=== PATIENT | male | born 1940 | race Caucasian/White ===

== ENCOUNTER 2017-04-24 15:08 | Emergency (ER) | payer OTHER ==
[~2017-04-24] VITALS: Ht 182.9 cm; Wt 112.6 kg
[~2017-04-24 15:08] MED LIST: ISOS60TA25 PO; LISI5TAB PO
[2017-04-24 15:14] VITALS: TEMP 36.4; Ht 182.9 cm; Wt 112.6 kg
--- NOTE | 2017-04-24 16:34 | EMERGENCY ROOM VISIT NOTE ---
History Report prepared by Bryan: Roopa Contreras Under the Supervision of: Dr. Phu Bardales M.D. First contact with patient: 16:04 Chief Complaint: URINARY SYMPTOMS Stated Complaint: PASSING BLOOD CLOTS IN URINE Nursing Triage Summary: Patient ambulatory to triage with an upright and steady gait, states "I am passing blood in my urine. It started last night. I have no pain. I have clots coming out occassionally." Patient takes a low dose aspirin daily. History of Present Illness The patient is a 77 year old white male with a past medical history of DM2, HTN , HLD, hypothyroid and CAD who presents to the ED with a cc of intermittent hematuria beginning last night. The patient reports dark urine and passing numerous blood clots in his urine. Negative lightheadedness, dizziness, nausea, vomiting, abdominal pain, increased urinary frequency or urgency, dysuria, recent trauma or injury. He has never experienced symptoms like this before. He takes a daily baby aspirin and denies other blood thinners. Pt denies any personal history of kidney stones. Source of History: patient Onset: last night Position: abdomen Quality: other (hematuria) Timing: intermittent Modifying Factors (Worsening): urination Associated Symptoms: No nausea, No vomiting, No abdominal pain Note: Pt denies lightheadedness, dizziness, increased urinary frequency or urgency, dysuria, recent trauma or injury. Review of Systems See HPI for pertinent positives and negatives. A total of ten systems were reviewed and were otherwise negative. Past Medical & Surgical Medical Problems: (1) Diabetes (2) Heart disease (3) Hypertension Family History FH: cancer FH: diabetes mellitus FH: heart disease Social History Smoking Status: Never Smoker Marital Status: Housing Status: lives with significant other Occupation Status: employed Current/Historical Medications Scheduled Aspirin (Aspirin), 1 TAB PO DAILY Atorvastatin (Lipitor), 80 MG PO DAILY Cyanocobalamin (Vitamin B12), 1 TAB PO DAILY Folic Acid (Folvite), 1 MG PO DAILY Levothyroxine Sodium (Levothyroxine Sodium), 1 TAB PO DAILY Lisinopril (Zestril), 2.5 MG PO DAILY Metformin Hcl (Glucophage), 500 MG PO BID Metoprolol Tartrate (Lopressor), 50 MG PO BID Multiple Vitamins W/ Minerals (Centrum Silver Adult 50+), 1 TAB PO DAILY Omeprazole (Omeprazole), 1 TAB PO DAILY Scheduled PRN Furosemide (Lasix), 40 MG PO for swelling/edema Allergies Coded Allergies: Isopropyl Isostearate (Verified Allergy, Unknown, Headaches, 04/24/17) Physical Exam Vital Signs Date Time Temp Pulse Resp B/P (MAP) Pulse Ox O2 Delivery O2 Flow Rate FiO2 04/24/17 19:32 91 18 150/90 95 Room Air 04/24/17 18:05 92 18 168/103 97 Room Air 04/24/17 16:44 91 04/24/17 16:39 87 18 159/86 97 Room Air 04/24/17 15:14 36.4 85 20 162/88 96 Room Air Physical Exam GENERAL: Awake, alert, well-appearing, NAD HENT: Normocephalic, atraumatic. EYES: Normal conjunctiva. Sclera non-icteric. NECK: Supple. No nuchal rigidity. FROM. RESPIRATORY: CTAB, no rhonchi, wheezing, crackles CARDIAC: RRR, no MRG ABDOMEN: Soft, NTND, BS+, reducible umbilical hernia. : No testicular pain or swelling, no scrotal swelling, uncircumcised did not visualize the glans but no obvious blood coming from the penis. MSK: No chest wall TTP, midline sternotomy scar, no LE edema NEURO: GCS 15, CN 2-12 intact, moves all 4s on command SKIN: No rash or jaundice noted. Medical Decision & Procedures ER Provider Diagnostic Interpretation: Radiology results as stated below per my review and radiologist interpretation: (RENAL)RETROPERITON COMP HISTORY: Flank pain FLANK PAIN COMPARISON: None. FINDINGS: Right kidney: Maximum dimension 10.4 cm. No evidence for hydronephrosis. 3 mm nonobstructing cortical calcification. Normal corticomedullary differentiation and cortical thickness. Left kidney: Maximum dimension 10.7 cm. No evidence for hydronephrosis. 6 mm calcification lower pole left kidney. This is nonobstructing. Normal corticomedullary differentiation and cortical thickness. Bladder: No bladder wall thickening. The bilateral ureteral jets were identified. IMPRESSION: Bilateral nephrocalcinosis. No evidence for hydronephrosis or obstruction. The above report was generated using voice recognition software. It may contain grammatical, syntax or spelling errors. Electronically signed by: Pavan Richardson M.D. 04/24/2017 5:54 PM Dictated Date/Time: 04/24/2017 5:53 PM Laboratory Results 04/24/17 16:32 Red Blood Count 4.25, Mean Corpuscular Volume 92.7, Mean Corpuscular Hemoglobin 31.1, Mean Corpuscular Hemoglobin Concent 33.5, Mean Platelet Volume 10.7, Neutrophils (%) (Auto) 58.9, Lymphocytes (%) (Auto) 31.9, Monocytes (%) (Auto) 6.5, Eosinophils (%) (Auto) 2.2, Basophils (%) (Auto) 0.3, Neutrophils # (Auto) 5.74, Lymphocytes # (Auto) 3.11, Monocytes # (Auto) 0.63, Eosinophils # (Auto) 0.21, Basophils # (Auto) 0.03 04/24/17 16:32 Test 04/24/17 16:16 04/24/17 16:32 Urine Color ORANGE Urine Appearance TURBID (CLEAR) Urine pH 5.0 (4.5-7.5) Urine Specific [place] 1.021 (1.000-1.030) Urine Protein 1+ (NEG) Urine Glucose (UA) NEG (NEG) Urine Ketones NEG (NEG) Urine Occult Blood 3+ (NEG) Urine Nitrite NEG (NEG) Urine Bilirubin NEG (NEG) Urine Urobilinogen NEG (NEG) Urine Leukocyte Esterase MODERATE (NEG) Urine WBC (Auto) >30 /hpf (0-5) Urine RBC (Auto) >30 /hpf (0-4) Urine Hyaline Casts (Auto) 1-5 /lpf (0-5) Urine Epithelial Cells (Auto) >30 /lpf (0-5) Urine Bacteria (Auto) NEG (NEG) Urine Yeast (Auto) (NONE PRSENT) White Blood Count 9.74 K/uL (4.8-10.8) Red Blood Count 4.25 M/uL (4.7-6.1) Hemoglobin 13.2 g/dL (14.0-18.0) Hematocrit 39.4 % (42-52) Mean Corpuscular Volume 92.7 fL (80-100) Mean Corpuscular Hemoglobin 31.1 pg (25-34) Mean Corpuscular Hemoglobin Concent 33.5 g/dl (32-36) Platelet Count 170 K/uL (130-400) Mean Platelet Volume 10.7 fL (7.4-10.4) Neutrophils (%) (Auto) 58.9 % Lymphocytes (%) (Auto) 31.9 % Monocytes (%) (Auto) 6.5 % Eosinophils (%) (Auto) 2.2 % Basophils (%) (Auto) 0.3 % Neutrophils # (Auto) 5.74 K/uL (1.4-6.5) Lymphocytes # (Auto) 3.11 K/uL (1.2-3.4) Monocytes # (Auto) 0.63 K/uL (0.11-0.59) Eosinophils # (Auto) 0.21 K/uL (0-0.5) Basophils # (Auto) 0.03 K/uL (0-0.2) RDW Standard Deviation 47.2 fL (36.4-46.3) RDW Coefficient of Variation 13.9 % (11.5-14.5) Immature Granulocyte % (Auto) 0.2 % Immature Granulocyte # (Auto) 0.02 K/uL (0.00-0.02) Prothrombin Time 10.6 SECONDS (9.0-12.0) Prothromb Time International Ratio 1.0 (0.9-1.1) Activated Partial Thromboplast Time 21.3 SECONDS (21.0-31.0) Partial Thromboplastin Ratio 0.8 Anion Gap 6.0 mmol/L (3-11) Est Creatinine Clear Calc Drug Dose 53.4 ml/min Estimated GFR () 51.3 Estimated GFR (Non- 44.3 BUN/Creatinine Ratio 14.1 (10-20) Calcium Level 9.4 mg/dl (8.5-10.1) Total Bilirubin 0.4 mg/dl (0.2-1) Direct Bilirubin < 0.1 mg/dl (0-0.2) Aspartate Amino Transf (AST/SGOT) 19 U/L (15-37) Alanine Aminotransferase (ALT/SGPT) 21 U/L (12-78) Alkaline Phosphatase 128 U/L (45-117) Total Protein 7.9 gm/dl (6.4-8.2) Albumin 3.6 gm/dl (3.4-5.0) Laboratory results reviewed by me. ED Course 1604: The patient was evaluated in room C4. A complete history and physical exam was performed. 1821: I reassessed the patient at this time. He is feeling better and resting comfortably. I discussed the results and treatment plan with the patient. I answered all pertaining questions that he had. He expressed understanding and verbalized agreement. The patient will be discharged home. Medical Decision Differential diagnosis: Etiologies such as renal colic, appendicitis, diverticulitis, mesenteric ischemia, aortic pathology, infections, inflammatory bowel disease, PUD, biliary pathology, UTI, as well as others were entertained. The patient is a 77 year old white male with a past medical history of DM2, HTN , HLD, hypothyroid and CAD who presents to the ED with a cc of intermittent hematuria beginning last night. Patient was seen and evaluated the bedside. Patient does state that he takes an aspirin but no other anticoagulant medications. Patient states he does not take Plavix. Patient has noted some small clots in his urine. Patient denies any pain. On exam the patient is very well-appearing. Patient has no testicular or scrotal pain. Was unable to expose the glans over there is no overt bleeding coming from the penile area. The patient does have some CK D which is essentially at his baseline. Patient's other blood counts are fairly unremarkable. Platelet count normal. Patient's coagulation studies normal. Patient did have a ultrasound which did show some calcinosis but no evidence of hydronephrosis or obstruction. Patient's urinalysis did show blood however the patient did have some epithelial cells with is likely a contaminant as the patient's beginning beginning complaining of any low back pain, increased urinary frequency or dysuria. Also less likely to be kidney stone given the patient's pain was hematuria. I did discuss with the patient would benefit from following up with urology. I did speak with the supervisor case loading who helped arrange a follow-up appointment for the patient. Unfortunately the patient required a referral from his PCP so he was instructed follow-up with his PCP in order to obtain his follow-up appointment. Patient was deemed suitable for outpatient follow-up and treatment at this time. Patient was given strict follow -up, discharge, and return precautions. All questions were answered. Patient was deemed suitable for outpatient follow-up at this time. Patient agreed with the plan of care and was safely discharged home. The chart was completed utilizing [employer] voice recognition software. Grammatical errors, random word insertions, pronoun errors, and incomplete sentences are an occasional consequence of this system due to software limitations, ambient noise, and hardware issues. Any formal questions or concerns about the content, text, or information contained within the body of this dictation should be directly addressed to the physician for clarification. Medication Reconcilliation Current Medication List: was personally reviewed by me Blood Pressure Screening Patient's blood pressure: Elevated blood pressure Blood pressure disposition: Referred to PCP Impression Primary Impression: Hematuria Additional Impressions: CKD (chronic kidney disease) Anemia Nephrocalcinosis Scribe Attestation The scribe's documentation has been prepared under my direction and personally reviewed by me in its entirety. I confirm that the note above accurately reflects all work, treatment, procedures, and medical decision making performed by me. Departure Information Dispostion Home / Self-Care Referrals No Doctor, Assigned (PCP) Patient Instructions ED Hematuria, Hematuria Poss Causes, [facility] Additional Instructions Please return to the emergency department if you have worsening or recurrent symptoms not amenable to at-home treatment. Please call for a follow-up appointment with her primary care physician. Please take your medications as prescribed. If you have other concerns and/or complaints please feel free to also call your primary care physician's office or return the ED for further evaluation, management, and treatment. You were found to have an elevated blood pressure today (>120 sytolic or >90 diastolic). Per medicare guidelines, you need to follow up with this blood pressure screening with your Primary Care Physician (PCP). For a new PCP call [phone]. Please call your primary care physician tomorrow to arrange an appointment. You need to obtain a referral from her primary care physician in order to obtain a urology follow-up appointment. Please do this within the next 1-2 weeks. Take your medications as prescribed. If taking an antibiotic consider taking a probiotic and/or eating yogurt, but at the least, please take with food as it can cause upset stomach. If culture results are not available at discharge, if they are positive for concern of infection, you will be informed of the results as soon as they are available. If you were seen between 11pm and 7AM all radiology reads will be re-read by our in house staff. If any major discrepancies are discovered, you will be notified. You have been examined and treated today on an emergency basis only. This is not a substitute for, or an effort to provide, complete comprehensive medical care. It is impossible to recognize and treat all injuries or illnesses in a single emergency department visit. It is therefore important that you follow up closely with [facility], your PCP, and/or your specialist(s). Call as soon as possible for an appointment. Thank you for your time and consideration. I look forward to speaking with you again soon. Please don't hesitate to call us if you have any questions. Problem Qualifiers Primary Impression: Hematuria Hematuria type: asymptomatic microscopic Qualified Codes: R31.21 - Asymptomatic microscopic hematuria Additional Impressions: CKD (chronic kidney disease) Chronic kidney disease stage: stage 3 (moderate) Qualified Codes: N18.3 - Chronic kidney disease, stage 3 (moderate) Anemia Anemia type: unspecified type Qualified Codes: D64.9 - Anemia, unspecified
[2017-04-24 16:41] LABS: BASO % 0.3 %; BASO ABS # 0.03 K/uL (0-0.2); EOS % 2.2 %; EOS ABS # 0.21 K/uL (0-0.5); HEMATOCRIT 39.4 % (42-52); HEMOGLOBIN 13.2 g/dL (14.0-18.0); IG# 0.02 K/uL (0.00-0.02); LYMPH % 31.9 %; LYMPH ABS # 3.11 K/uL (1.2-3.4); MEAN CELL VOLUME 92.7 fL (80-100); MEAN CORPUSCULAR HEMOGLOBIN 31.1 pg (25-34); MEAN CORPUSCULAR HGB CONC 33.5 g/dl (32-36); MEAN PLATELET VOLUME 10.7 fL (7.4-10.4); MONO % 6.5 %; MONO ABS # 0.63 K/uL (0.11-0.59); NEUT % 58.9 %; NEUT ABS # 5.74 K/uL (1.4-6.5); PLATELET COUNT 170 K/uL (130-400); RED CELL DISTRIBUTION WIDTH CV 13.9 % (11.5-14.5); RED CELL DISTRIBUTION WIDTH SD 47.2 fL (36.4-46.3); WHITE BLOOD COUNT 9.74 K/uL (4.8-10.8)
[2017-04-24 16:53] LABS: PTT PATIENT 21.3 SECONDS (21.0-31.0)
[2017-04-24 16:58] LABS: ALBUMIN 3.6 gm/dl (3.4-5.0); ALT/SGPT 21 U/L (12-78); AST/SGOT 19 U/L (15-37); BLOOD UREA NITROGEN 21 mg/dl (7-18); CALCIUM 9.4 mg/dl (8.5-10.1); CARBON DIOXIDE 28 mmol/L (21-32); GLUCOSE 123 mg/dl (70-99); POTASSIUM 3.6 mmol/L (3.5-5.1); SODIUM 138 mmol/L (136-145)
[2017-04-24 17:01] LABS: ALKALINE PHOSPHATASE 128 U/L (45-117); TOTAL PROTEIN 7.9 gm/dl (6.4-8.2)
[2017-04-24] MEDS ORDERED: LISI-789 PO (17:13)
--- NOTE | 2017-04-24 17:55 | DIAGNOSTIC IMAGING REPORT ---
(RENAL)RETROPERITON COMP HISTORY: Flank pain FLANK PAIN COMPARISON: None. FINDINGS: Right kidney: Maximum dimension 10.4 cm. No evidence for hydronephrosis. 3 mm nonobstructing cortical calcification. Normal corticomedullary differentiation and cortical thickness. Left kidney: Maximum dimension 10.7 cm. No evidence for hydronephrosis. 6 mm calcification lower pole left kidney. This is nonobstructing. Normal corticomedullary differentiation and cortical thickness. Bladder: No bladder wall thickening. The bilateral ureteral jets were identified. IMPRESSION: Bilateral nephrocalcinosis. No evidence for hydronephrosis or obstruction. The above report was generated using voice recognition software. It may contain grammatical, syntax or spelling errors. Electronically signed by: Pavan Richardson M.D. 04/24/2017 5:54 PM Dictated Date/Time: 04/24/2017 5:53 PM
[2017-04-24] MEDS ORDERED: LEVO125T5 PO (18:26)
[2017-04-24] MEDS ORDERED: METO-551 PO (18:26)
[2017-04-24] MEDS ORDERED: MULT-845 PO (18:26)
[2017-04-24] MEDS ORDERED: FURO40TA3 PO (18:26)
[2017-04-24] MEDS ORDERED: ASPI1TAB83 PO (18:26)
[2017-04-24] MEDS ORDERED: OMEP20TA PO (18:26)
[2017-04-24] MEDS ORDERED: FOLI1TAB8 PO (18:26)
[2017-04-24] MEDS ORDERED: GLC/500 PO (18:26)
[2017-04-24] MEDS ORDERED: CYAN100020 PO (18:26)
[2017-04-24] MEDS ORDERED: ATOR-26 PO (18:26)
[2017-04-24 19:32] VITALS: BP 150/90; PULSE 91; O2SAT 95
== END 2017-04-24 19:35 | disposition home or self-care (01) ==
LOC: C.EDB 15:11 → C.EDC 19:35
DX: R10.9 Unspecified abdominal pain (principal); N20.0 Calculus of kidney; R31.9 Hematuria, unspecified; D64.9 Anemia, unspecified; N18.3 Chronic kidney disease, stage 3 (moderate); E83.59 Other disorders of calcium metabolism; N29 Other disorders of kidney and ureter in diseases classified elsewhere

== ENCOUNTER 2020-07-19 14:01 | Inpatient (IN) ==
[2020-07-19] MEDS ORDERED: dilTIAZem HCl 5 MG/ML 5 ML VIAL IV STA (14:43)
[2020-07-19] MEDS ORDERED: STAT IV Infusion **Titration per Protocol STA (14:43)
--- NOTE | 2020-07-19 14:49 | Emergency Department Note ---
Impression & Plan Atrial fibrillation with RVR, Pacemaker, Hypertension, Weak ED Provider Note NAME: ALMAS COHEN AGE: 80 SEX: M : 1940 ARRIVES VIA: Ambulance INFORMANT: Patient ED PROVIDER(S): Aguilar Guerrero DO CHIEF COMPLAINT: weak HPI: Patient is an 80-year-old male who presents to the ER for weakness. Patient notes that this been weak for about 2 weeks. He was treated for UTI as an outpatient on antibiotics and never felt any better. He denies any headache or change in vision. No chest pain or shortness of breath. No nausea, vomiting, or diarrhea. He notes he just feels weak throughout. He was brought in from PCPs office by EMS. He was found to be in a rapid atrial fib. He does have a history of heart disease, hypertension, diabetes and a pacemaker. He admits that about a month ago he fell and had a brain bleed. He is not taking blood thinners. ROS: See above HPI for pertinent positives & negatives. A total of 10 systems reviewed and were otherwise negative. PAST MEDICAL HISTORY:See Below PAST SURGICAL HISTORY:See Below FAMILY HISTORY:See Below SOCIAL HISTORY:See Below HOME MEDICATIONS:See Below ALLERGIES:See Below VITALS:See Below PHYSICAL EXAMINATION: GENERAL: Sitting up in bed, alert, well appearing, well nourished, no distress, non-toxic EYE EXAM: normal conjunctiva. PERRL and EOM's grossly intact. OROPHARYNX: no exudate, no erythema, lips, buccal mucosa, and tongue normal and mucous membranes are moist NECK: supple, no nuchal rigidity, no adenopathy, non-tender LUNGS: Clear to auscultation. Normal chest wall mechanics HEART: no murmurs, S1 normal and S2 normal ABDOMEN: abdomen soft, non-tender, normo-active bowel sounds, no masses, no rebound or guarding. UPPER EXTREMITIES: upper extremities are grossly normal. LOWER EXTREMITIES: No pitting edema. calfs are equal B/L NEURO EXAM: Normal sensorium, cranial nerves II-XII grossly intact, normal speech, no gross weakness of arms, no gross weakness of legs. MEDICAL DECISION MAKING: Patient is an 80-year-old male who presents the ER for weakness. IV was established blood work was obtained. Labs show no significant leukocytosis or anemia. Platelets are slightly low at 118. BMP with a creatinine 1.7 consistent with previous. Chloride slightly elevated. Bilirubin LFTs and troponin were negative. Lipase was negative. Covid was negative. Patient was given a Cardizem bolus and placed on a drip. EKG was consistent with A. fib and RVR. He was updated bedside. 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 Chest x-ray was unremarkable. Patient was discussed with hospitalist for further evaluation. Pacemaker was interrogated and does show that the battery will likely run out in the next several months. Triage Nursing notes reviewed. Limited review of prior medical records performed Vital Signs: reviewed and remarkable for tachy Differential diagnosis: Infection, dehydration, metabolic abnormality, hypo/hyperglycemia, electrolyte disturbance, anemia, hypoxia, cardiac sources, intracerebral event, toxicologic, neurologic, as well as other pathologies. ER treatment provided: See below Diagnostics interpreted by me: ECG: A. fib RVR rate of 113 Left axis PVCs Right bundle branch block QTC 485 Cardiac Monitoring: An order was placed for continuous cardiac monitoring. The monitor shows a rate of 121 with A. fib rhythm. Laboratory studies: As stated above and show below. Imaging studies: CT shows acute on chronic subdurals which are improving in size Portable AP upright 1 view the chest shows no focal infiltrate Consultation(s): [place] [facility] [place]: [place] Critical Care: I have personally spent 31 minutes of critical care time in the direct management of this patient. This includes bedside care, interpretation of diagnostic studies, and testing, discussion with consultants, patient, and family members, and other required patient management activities. This 31 minutes is in excess of all separately billable procedures. Past Med/Surg History Medical History (Updated 07/19/20 @ 17:30 by Aguilar Guerrero DO) Anemia CKD (chronic kidney disease) Diabetes Heart disease Hypertension Pacemaker Surgical History Hx of CABG Social History Smoking Status: Never smoker Hx Alcohol Use: No Preferred Language: Croatian marital status: current occupational status: retired Feels Safe at Home: Yes Allergies Allergies Allergy/AdvReac Type Severity Reaction Status Date / Time Isopropyl Isostearate Allergy Unknown Headaches Uncoded 07/19/20 16:05 Home Meds Home Medications Medication Instructions Recorded Confirmed atorvastatin 80 mg PO PM 12/01/18 07/19/20 cyanocobalamin (vitamin B-12) 500 mcg PO QAM 12/01/18 07/19/20 [Vitamin B-12] folic acid 1 mg PO QAM 12/01/18 07/19/20 furosemide 40 mg PO DAILY PRN 12/01/18 07/19/20 levothyroxine 125 mcg PO QAM 12/01/18 07/19/20 metoprolol tartrate 50 mg PO BID 12/01/18 07/19/20 omeprazole 20 mg PO QAM 12/01/18 07/19/20 Multiple Vitamin 1 tab PO DAILY 07/19/20 07/19/20 albuterol sulfate 2 puff INHALATION Q4H PRN 07/19/20 07/19/20 ammonium lactate 1 applic TOPICAL DAILY PRN 07/19/20 07/19/20 baclofen 10 mg PO BID PRN 07/19/20 07/19/20 cefdinir 300 mg PO BID 07/19/20 07/19/20 glipizide 10 mg PO DAILY 07/19/20 07/19/20 lisinopril 1.25 mg PO DAILY 07/19/20 07/19/20 magnesium hydroxide [Milk of 30 ml PO DAILY PRN 07/19/20 07/19/20 Magnesia] Results & Data (ED) Vital Signs Vital Signs - 24 hr 07/19/20 14:07 07/19/20 14:19 07/19/20 14:22 Temperature 36.7 C Temperature Source Oral Pulse Rate 97 H 109 H 104 H Pulse Rate from SpO2 Sensor 87 89 Pulse Rhythm Irregular Pulse Strength Normal Respiratory Rate 31 H 20 35 H Respiratory Effort / Characteristics Non-Labored Respiratory Depth Normal Respiratory Pattern Regular Blood Pressure 129/92 Blood Pressure Mean 104 Pulse Oximetry 97 97 97 Oxygen Delivery Method Room Air Sepsis New/Unexplained Change in Mental Status N/A Sepsis Action Taken by Nursing No Action Required 07/19/20 14:30 07/19/20 15:00 07/19/20 15:28 Temperature Temperature Source Pulse Rate 106 H 112 H 109 H Pulse Rate from SpO2 Sensor 82 84 Pulse Rhythm Pulse Strength Respiratory Rate 51 H 34 H 33 H Respiratory Effort / Characteristics Respiratory Depth Respiratory Pattern Blood Pressure 122/69 127/87 143/81 H Blood Pressure Mean 86 100 101 Pulse Oximetry 98 99 Oxygen Delivery Method Sepsis New/Unexplained Change in Mental Status Sepsis Action Taken by Nursing 07/19/20 15:30 07/19/20 15:31 07/19/20 15:45 Temperature Temperature Source Pulse Rate 105 H 95 H 100 H Pulse Rate from SpO2 Sensor 96 H 80 93 H Pulse Rhythm Pulse Strength Respiratory Rate 15 24 25 H Respiratory Effort / Characteristics Respiratory Depth Respiratory Pattern Blood Pressure 93/73 L 113/61 122/82 Blood Pressure Mean 79 78 95 Pulse Oximetry 95 97 97 Oxygen Delivery Method Sepsis New/Unexplained Change in Mental Status Sepsis Action Taken by Nursing 07/19/20 15:55 07/19/20 16:00 07/19/20 16:10 Temperature Temperature Source Pulse Rate 95 H 102 H 100 H Pulse Rate from SpO2 Sensor 85 93 H 101 H Pulse Rhythm Pulse Strength Respiratory Rate 24 15 23 Respiratory Effort / Characteristics Respiratory Depth Respiratory Pattern Blood Pressure 118/63 124/63 132/64 Blood Pressure Mean 81 83 86 Pulse Oximetry 97 97 90 Oxygen Delivery Method Sepsis New/Unexplained Change in Mental Status Sepsis Action Taken by Nursing 07/19/20 16:20 07/19/20 16:30 07/19/20 16:31 Temperature Temperature Source Pulse Rate 98 H 91 H 101 H Pulse Rate from SpO2 Sensor 91 H 95 H 90 Pulse Rhythm Pulse Strength Respiratory Rate 17 19 20 Respiratory Effort / Characteristics Respiratory Depth Respiratory Pattern Blood Pressure 116/81 116/78 Blood Pressure Mean 92 90 Pulse Oximetry 97 95 98 Oxygen Delivery Method Sepsis New/Unexplained Change in Mental Status Sepsis Action Taken by Nursing 07/19/20 16:40 07/19/20 16:50 07/19/20 17:00 Temperature Temperature Source Pulse Rate 120 H 110 H 106 H Pulse Rate from SpO2 Sensor 88 Pulse Rhythm Pulse Strength Respiratory Rate 22 24 16 Respiratory Effort / Characteristics Respiratory Depth Respiratory Pattern Blood Pressure 104/69 135/89 Blood Pressure Mean 80 104 Pulse Oximetry 97 Oxygen Delivery Method Sepsis New/Unexplained Change in Mental Status Sepsis Action Taken by Nursing 07/19/20 17:11 07/19/20 17:14 Temperature Temperature Source Pulse Rate 117 H Pulse Rate from SpO2 Sensor 115 H Pulse Rhythm Pulse Strength Respiratory Rate 22 Respiratory Effort / Characteristics Respiratory Depth Respiratory Pattern Blood Pressure 157/73 H Blood Pressure Mean 101 Pulse Oximetry 96 95 Oxygen Delivery Method Room Air Sepsis New/Unexplained Change in Mental Status Sepsis Action Taken by Nursing Laboratory Data Result diagrams: 07/19/20 14:50 07/19/20 14:50 Lab Results 07/19/20 07/19/20 07/19/20 Range/Units 14:50 14:50 16:11 WBC 7.08 (4.8-10.8) K/uL RBC 4.91 (4.7-6.1) M/uL Hgb 15.4 (14.0-18.0) g/dL Hct 45.1 (42-52) % MCV 91.9 (80-100) fL MCH 31.4 (25-34) pg MCHC 34.1 (32-36) g/dL RDW Std Deviation 50.9 H (36.4-46.3) fL RDW Coeff of Jaymie 15.1 H (11.5-14.5) % Plt Count 118 L (130-400) K/uL MPV 10.8 H (7.4-10.4) fL Immature Gran % (Auto) 1.8 % Neut % (Auto) 53.3 % Lymph % (Auto) 35.3 % [place] % (Auto) 9.2 % Eos % (Auto) 0.3 % Baso % (Auto) 0.1 % Neut # (Auto) 3.77 (1.4-6.5) K/uL Lymph # (Auto) 2.50 (1.2-3.4) K/uL [place] # (Auto) 0.65 H (0.11-0.59) K/uL Eos # (Auto) 0.02 (0-0.5) K/uL Baso # (Auto) 0.01 (0-0.2) K/uL Immature Gran # (Auto) 0.13 H (0.00-0.02) K/uL Sodium 139 (136-145) mmol/L Potassium 4.2 (3.5-5.1) mmol/L Chloride 109 H (98-107) mmol/L Carbon Dioxide 24 (21-32) mmol/L Anion Gap 6.0 (3-11) BUN 22 H (7-18) mg/dl Creatinine 1.70 H (0.6-1.4) mg/dl Est Cr Clr Drug Dosing 43.2 ml/min Est GFR ( Amer) 43.2 Est GFR (Non-Af Amer) 37.3 BUN/Creatinine Ratio 13.0 (10-20) Glucose 121 H (70-99) mg/dl Calcium 8.6 (8.5-10.1) mg/dl Total Bilirubin 0.6 (0.2-1) mg/dl AST 33 (15-37) U/L ALT 40 (12-78) U/L Alkaline Phosphatase 136 H (45-117) U/L Troponin I < 0.015 (0-0.045) ng/ml Total Protein 7.5 (6.4-8.2) gm/dl Albumin 2.5 L (3.4-5.0) gm/dl Globulin 5.0 H (2.5-4.0) gm/dl Albumin/Globulin Ratio 0.5 L (0.9-2) Lipase 151 (73-393) U/L COVID-19 Eval Order CovFluRsv at [facility] SARS-CoV-2 (PCR) (Negative) Influenza Type A (PCR) (Neg) Influenza Type B (PCR) (Neg) RSV (RT-PCR) (Neg) 07/19/20 Range/Units 16:11 WBC (4.8-10.8) K/uL RBC (4.7-6.1) M/uL Hgb (14.0-18.0) g/dL Hct (42-52) % MCV (80-100) fL MCH (25-34) pg MCHC (32-36) g/dL RDW Std Deviation (36.4-46.3) fL RDW Coeff of Jaymie (11.5-14.5) % Plt Count (130-400) K/uL MPV (7.4-10.4) fL Immature Gran % (Auto) % Neut % (Auto) % Lymph % (Auto) % [place] % (Auto) % Eos % (Auto) % Baso % (Auto) % Neut # (Auto) (1.4-6.5) K/uL Lymph # (Auto) (1.2-3.4) K/uL [place] # (Auto) (0.11-0.59) K/uL Eos # (Auto) (0-0.5) K/uL Baso # (Auto) (0-0.2) K/uL Immature Gran # (Auto) (0.00-0.02) K/uL Sodium (136-145) mmol/L Potassium (3.5-5.1) mmol/L Chloride (98-107) mmol/L Carbon Dioxide (21-32) mmol/L Anion Gap (3-11) BUN (7-18) mg/dl Creatinine (0.6-1.4) mg/dl Est Cr Clr Drug Dosing ml/min Est GFR ( Amer) Est GFR (Non-Af Amer) BUN/Creatinine Ratio (10-20) Glucose (70-99) mg/dl Calcium (8.5-10.1) mg/dl Total Bilirubin (0.2-1) mg/dl AST (15-37) U/L ALT (12-78) U/L Alkaline Phosphatase (45-117) U/L Troponin I (0-0.045) ng/ml Total Protein (6.4-8.2) gm/dl Albumin (3.4-5.0) gm/dl Globulin (2.5-4.0) gm/dl Albumin/Globulin Ratio (0.9-2) Lipase (73-393) U/L COVID-19 Eval Order SARS-CoV-2 (PCR) NEGATIVE (Negative) Influenza Type A (PCR) Negative (Neg) Influenza Type B (PCR) Negative (Neg) RSV (RT-PCR) Negative (Neg) Administered Medications Diltiazem HCl 125 mg/ Dextrose 125 mls @ 5 mls/hr IV .Q24H [facility]; Protocol Stop: 08/18/20 14:44 Last Titration: 07/19/20 15:58 Dose: 10 mg/hr, 10 mls/hr Documented by: [id number] Cosigned by: [id number] Admin: 07/19/20 15:29 Dose: 5 mg/hr, 5 mls/hr Documented by: [id number] Cosigned by: [id number] Discontinued Medications Diltiazem HCl (Diltiazem Hcl 5 Mg/Ml 5 Ml Vial) 10 mg IV NOW STA Stop: 07/19/20 14:44 Last Admin: 07/19/20 15:29 Dose: 10 mg Documented by: [id number] Cosigned by: [id number] Miscellaneous (Stat Iv Infusion Titration Per Protocol) 1 ea N/A NOW STA Stop: 07/19/20 14:44 Last Admin: 07/19/20 15:32 Dose: 1 ea Documented by: [id number] Imaging Data Radiologist's Impression: Chest X-Ray 07/19/20 14:19 SINGLE VIEW CHEST CLINICAL HISTORY: Atypical chest pain. FINDINGS: An AP, portable, upright chest radiograph is compared to study dated 06/13/2020. The examination is degraded by portable technique and patient rotat ion. The patient is status post midline sternotomy. A 2-lead cardiac pacemaker is unchanged in position. The heart is enlarged noting atherosclerotic calcification of the thoracic aorta. The pulmonary vasculature is noncongested. Chronic interstitial thickening is similar to previous. There is bibasilar scarring/atelectasis. No airspace consolidation or large pleural effusion is identified. No pneumothorax is seen. The skeletal structures are osteopenic. There are healed bilateral rib fractures. IMPRESSION: 1. Cardiomegaly and cardiac pacemaker. There is no radiographic evidence of congestive failure. 2. No airspace consolidation or large pleural effusion is identified. Electronically signed by: Davis Harrell M.D. 07/19/2020 2:[address] 07/19/20 14:[address] DOSE: 1768.17 mGy.cm HISTORY: previous brain bleed needing thinner s TECHNIQUE: Multiaxial CT images of the head were performed without the use of intravenous contrast. Automated exposure control was utilized for this study. A dose lowering technique was utilized adhering to the principles of ALARA. Comparison: Head CT 06/13/2020. Findings: The paranasal sinuses and mastoid air cells are clear. The calvarium and skull base are intact. Slight improvement in the acute on chronic bilateral subdural hematomas. Small acute components are again noted at the parafalcine location and right frontal region. 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 Mild atrophy and microvascular ischemic changes are again noted. No acute infarct or mass identified. No midline shift. Mass effect from the subdural hematomas has also improved. 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 Mild motion artifact. Impression: 1. 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 These have slightly decreased in size compared to 06/13/2020 examination. 2. No acute infarct. ACT 112: Negative or not required by law. Electronically signed by: Anjel Murdock M.D. 07/19/2020 3:38 PM Discharge Plan Visit Data Chief Complaint: Cardiac Assessment ED Provider: Aguilar Guerrero Discharge Problem: Atrial fibrillation with RVR, Pacemaker, Hypertension, Weak Forms Stand Alone Forms: [facility] Prescriptions Prescriptions: No Action furosemide 40 mg Tablet 40 mg PO DAILY PRN (Reason: Edema) RF: 0 atorvastatin 80 mg Tablet 80 mg PO PM RF: 0 cyanocobalamin (vitamin B-12) [Vitamin B-12] 500 mcg Tablet 500 mcg PO QAM RF: 0 levothyroxine 125 mcg Tablet 125 mcg PO QAM RF: 0 metoprolol tartrate 50 mg Tablet 50 mg PO BID RF: 0 omeprazole 20 mg Capsule,Delayed Release(Dr/Ec) 20 mg PO QAM RF: 0 folic acid 1 mg Tablet 1 mg PO QAM RF: 0 cefdinir 300 mg capsule 300 mg PO BID RF: 0 magnesium hydroxide [Milk of Magnesia] 400 mg/5 mL Suspension 30 ml PO DAILY PRN (Reason: Constipation) RF: 0 glipizide 10 mg tablet extended release 24hr 10 mg PO DAILY RF: 0 albuterol sulfate 90 mcg/actuation HFA aerosol inhaler 2 puff INHALATION Q4H PRN (Reason: Shortness Of Breath Or Wheezing) RF: 0 baclofen 10 mg tablet 10 mg PO BID PRN (Reason: Spasms) RF: 0 Multiple Vitamin 1 tab PO DAILY RF: 0 ammonium lactate 12 % Cream 1 applic TOPICAL DAILY PRN (Reason: Dry Skin) RF: 0 lisinopril 2.5 mg Tablet 1.25 mg PO DAILY RF: 0 Discharge Problem: Hypertension Qualifiers: Hypertension type: unspecified Qualified Code(s): I10 - Essential (primary) hypertension
--- NOTE | 2020-07-19 14:57 | XRay Report ---
SINGLE VIEW CHEST CLINICAL HISTORY: Atypical chest pain. FINDINGS: An AP, portable, upright chest radiograph is compared to study dated 06/13/2020. The examina tion is degraded by portable technique and patient rotation. The patient is status post midline ayoub otomy. A 2-lead cardiac pacemaker is unchanged in position. The heart is enlarged noting atherosclero tic calcification of the thoracic aorta. The pulmonary vasculature is noncongested. Chronic interstit ial thickening is similar to previous. There is bibasilar scarring/atelectasis. No airspace consolida tion or large pleural effusion is identified. No pneumothorax is seen. The skeletal structures are os teopenic. There are healed bilateral rib fractures. IMPRESSION: 1. Cardiomegaly and cardiac pacemaker. There is no radiographic evidence of congestive failure. 2. No airspace consolidation or large pleural effusion is identified. Electronically signed by: Davis Harrell M.D. 07/19/2020 2:56 PM
[2020-07-19 14:59] LABS: Basophils # (auto) 0.01 K/uL (0-0.2); Basophils % (auto) 0.1 %; Eosinophils # (auto) 0.02 K/uL (0-0.5); Eosinophils % (auto) 0.3 %; Hematocrit (blood only) 45.1 % (42-52); Hemoglobin 15.4 g/dL (14.0-18.0); Immature Granulocytes # (auto) 0.13 K/uL (0.00-0.02); Immature Granulocytes % (auto) 1.8 %; Lymphocytes % (auto) 35.3 %; Mean Corpuscular Hemoglobin 31.4 pg (25-34); Mean Corpuscular Hgb Conc 34.1 g/dL (32-36); Mean Corpuscular Volume 91.9 fL (80-100); Mean Platelet Volume 10.8 fL (7.4-10.4); Monocytes # (auto) 0.65 K/uL (0.11-0.59); Monocytes % (auto) 9.2 %; Neutrophils # (auto) 3.77 K/uL (1.4-6.5); Neutrophils % (auto) 53.3 %; Platelet Count 118 K/uL (130-400); RDW Coefficient of Variation 15.1 % (11.5-14.5); RDW Standard Deviation 50.9 fL (36.4-46.3); Red Blood Count 4.91 M/uL (4.7-6.1); White Blood Count 7.08 K/uL (4.8-10.8)
[2020-07-19 15:24] LABS: Alanine Aminotransferase 40 U/L (12-78); Albumin Level 2.5 gm/dl (3.4-5.0); Aspartate Aminotransferase 33 U/L (15-37); Blood Urea Nitrogen 22 mg/dl (7-18); Calcium 8.6 mg/dl (8.5-10.1); Carbon Dioxide 24 mmol/L (21-32); Chloride 109 mmol/L (98-107); Creatinine Clr Calc Pharmacy 43.2 ml/min; Est GFR (African American) 43.2; Est GFR (Non-African American) 37.3; Glucose 121 mg/dl (70-99); Lipase 151 U/L (73-393); Potassium 4.2 mmol/L (3.5-5.1); Sodium 139 mmol/L (136-145)
[2020-07-19 15:29] LABS: Albumin Globulin Ratio 0.5 (0.9-2); Alkaline Phosphatase 136 U/L (45-117); Bilirubin,Total 0.6 mg/dl (0.2-1); Total Protein 7.5 gm/dl (6.4-8.2); Troponin I < 0.015 ng/ml (0-0.045)
[2020-07-19] MEDS: dilTIAZem HCL 125 MG in DEXTROSE 5% 100 ML IV SCH (15:29)
--- NOTE | 2020-07-19 15:39 | CT Scan Report ---
HEAD CT NONCONTRAST CT DOSE: 1768.17 mGy.cm HISTORY: previous brain bleed needing thinner s TECHNIQUE: Multiaxial CT images of the head were performed without the use of intravenous contrast. A utomated exposure control was utilized for this study. A dose lowering technique was utilized adheri ng to the principles of ALARA. Comparison: Head CT 06/13/2020. Findings: The paranasal sinuses and mastoid air cells are clear. The calvarium and skull base are int act. Slight improvement in the acute on chronic bilateral subdural hematomas. Small acute components are again noted at the parafalcine location and right frontal region. Old small infarcts are again no alf within the right frontal and parietal lobes. Mild atrophy and microvascular ischemic changes are again noted. No acute infarct or mass identified. No midline shift. Mass effect from the subdural hem atomas has also improved. 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 Mild motion art ifact. Impression: 1. 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 These have slightly decreased in size compared to examination. 2. No acute infarct. ACT 112: Negative or not required by law. Electronically signed by: Anjel Murdock M.D. 07/19/2020 3:38 PM
--- NOTE | 2020-07-19 15:58 | History & Physical Report ---
Date of Service July 19, 2020 Assessment & Plan (1) Atrial fibrillation with RVR: - Admit to pcu -Continue on Cardizem drip started in the ER -metoprolol tartrate 25 mg now, continue home dose of 50 mg qm, missed morning meds -Hold on anticoagulation due to history of subdural hematoma -Consult cardiology, Dr. Wise (2) Sinoatrial node dysfunction: -History of such, s/p pacemaker insertion (3) Pacemaker: -Interrogate, patient reports that battery is low, ?battery exchange? (4) Subdural hematoma, chronic: -CT of the head reviewed showing acute on chronic subdural hematoma which appears to be decreasing in size compared to previous examination -Follows with Dr. Dyer with Neurosurg - discussed with him via [facility] connect, agrees to hold anticoagulation in this setting of worsening SDH. -Aspirin and Coumadin on hold since 06/13/20 -We will need to discuss with cardiology regarding resumption of anticoagulation. -Cardiology consulted as above (5) CAD (coronary artery disease): -Continue to hold baby aspirin and coumadin in the setting of subdural hematoma -Continue metoprolol, lisinopril, atorvastatin (6) Chronic systolic CHF (congestive heart failure): -Monitor daily weights, strict I's and O's -Appears to be euvolemic and even slightly dry at this time, no peripheral edema -Medications as above -Last echo was done 10/25/17 showing EF of 50-54% no active ischemia, septal motion abnormal consistent with right ventricular pacemaker, moderate tricuspid regurg (7) Hypertension: -Antihypertensives as above (8) HLD (hyperlipidemia): -Continue statin (9) Diabetes: -Hold p.o. glipizide, ISS with Accu-Cheks AC at bedtime -Last A1c was 6.8 on 06/15/2020 (10) DVT prophylaxis: - teds, no chemical prophylaxis in the setting of recent subdural hematoma, anticoagulation held as above CODE: Full code Dispo: From home, likely to remain in the hospital x 1-2 days History of Present Illness Primary Care Provider: Juanito Saba DO This is an 80 yo M with PMhx of chronic systolic heart failure, chronic atrial fib, HTN, HLD, CAD, sinoatrial node dysfunction s/p pacemaker insertion, DM type II, CKD stage III, lumbar DDD. Patient was recently hospitalized from 06/13 to 06/15/2020 after a fall at home striking the back of his head where he developed subdural hematoma at [facility]. He was previously on Coumadin for A. fib but was discontinued until he was cleared by neurosurgery follow-up. Was also recently seen by [facility] at home and started on cefdinir 300 mg twice daily x7 days for UTI with E. coli which was pansensitive on 07/09/20. Patient went to his PCPs office this morning with complaints of fatigue and weakness x2 weeks. There he was found to be in A. fib with RVR and was referred to the ER. Patient is present here with his . He denies any focal areas of weakness, falls, imbalance, changes in vision, lightheadedness or dizziness. He does report back of the neck causing tension and pain occasionally, and refers to this as a headache. He reports losing 30 pounds of weight in the past month. His appetite is slightly down. He also notes that this was likely a lot of fluid as his legs are typically very swollen however has not needed to use Lasix p.o. at all in the past 2 weeks. He denies any other acute complaints. Allergies Allergy/AdvReac Type Severity Reaction Status Date / Time Isopropyl Isostearate Allergy Unknown Headaches Uncoded 07/19/20 16:05 Home Medications Medication Instructions Recorded Confirmed Type atorvastatin 80 mg PO PM 12/01/18 07/19/20 History cyanocobalamin (vitamin B-12) 500 mcg PO QAM 12/01/18 07/19/20 History [Vitamin B-12] folic acid 1 mg PO QAM 12/01/18 07/19/20 History furosemide 40 mg PO DAILY PRN 12/01/18 07/19/20 History levothyroxine 125 mcg PO QAM 12/01/18 07/19/20 History metoprolol tartrate 50 mg PO BID 12/01/18 07/19/20 History omeprazole 20 mg PO QAM 12/01/18 07/19/20 History Multiple Vitamin 1 tab PO DAILY 07/19/20 07/19/20 History albuterol sulfate 2 puff INHALATION Q4H PRN 07/19/20 07/19/20 History ammonium lactate 1 applic TOPICAL DAILY PRN 07/19/20 07/19/20 History baclofen 10 mg PO BID PRN 07/19/20 07/19/20 History cefdinir 300 mg PO BID 07/19/20 07/19/20 History glipizide 10 mg PO DAILY 07/19/20 07/19/20 History lisinopril 2.5 mg PO DAILY 07/19/20 07/19/20 History magnesium hydroxide [Milk of 30 ml PO DAILY PRN 07/19/20 07/19/20 History Magnesia] Past Med/Surg History Medical History (Updated 07/19/20 @ 17:30 by Aguilar Guerrero DO) Anemia CKD (chronic kidney disease) Diabetes Heart disease Hypertension Pacemaker Surgical History Hx of CABG Social History Smoking Status: Never smoker Hx Alcohol Use: No Hx Substance Use: No Preferred Language: Hebrew 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 Beliefs That Will Affect Care: None marital status: Current Living Situation: Spouse current occupational status: retired Feels Safe at Home: Yes Review of Systems Review of Systems: Constitutional: No fever, sweats or chills, + tension headache posterior neck, + fatigue, + weakness Eyes: No diplopia, no worsening or blurred vision ENT: normal hearing, no trouble swallowing Respiratory: No cough, sputum, dyspnea at rest or on exertion Cardiovascular: No chest pain, tightness or palpitations Abdomen: No pain, nausea, vomiting, diarrhea or constipation Musculoskeletal: No joint pain, calf pain, swelling Neurologic: + generalized weakness, no numbness/tingling, or balance problems Psychiatric: No anxiety or depression Skin: No rash or itch Physical Exam Physical Exam: General: awake, alert, no apparent distress Head: Normocephalic, atraumatic ENT: PERRL, EOMI, no pharyngeal exudate, mucous membranes moist Chest: Clear to auscultation, on room air, no adventitious breath sounds Cardiac: Irregularly irregular,HR ~105 at bedside, no murmur, no JVD, normal peripheral pulses, good capillary refill Abdominal: NABS x 4 quadrants, soft, nondistended, nontender to palpation, no rebound or guarding Extremities: Normal inspection, +chronic venous stasis changes BLE, no peripheral edema or erythema, calfs nontender to palpation Psych: Normal mood and affect Neuro: AAO x 3, strength intact bilaterally and rated 5/5, no motor deficits, speech is clear, shoulder shrug intact, negative pronator drift, cranial nerves II-XII intact no peripheral sensory deficits Results & Data Results & Data ([facility]) Vital Signs (Past 12 Hours) Vital Signs Temp Pulse Resp BP Pulse Ox 07/19/20 15:00 112 H 34 H 127/87 98 07/19/20 14:30 106 H 51 H 122/69 07/19/20 14:22 104 H 35 H 97 07/19/20 14:19 36.7 C 109 H 20 97 07/19/20 14:07 97 H 31 H 129/92 97 Diagnostic Findings Chest X-Ray 07/19/20 14:19 SINGLE VIEW CHEST CLINICAL HISTORY: Atypical chest pain. FINDINGS: An AP, portable, upright chest radiograph is compared to study dated 06/13/2020. The examination is degraded by portable technique and patient rotation. The patient is status post midline sternotomy. A 2-lead cardiac pacemaker is unchanged in position. The heart is enlarged noting atherosclerotic calcification of the thoracic aorta. The pulmonary vasculature is noncongested. Chronic interstitial thickening is similar to previous. There is bibasilar scarring/atelectasis. No airspace consolidation or large pleural effusion is identified. No pneumothorax is seen. The skeletal structures are osteopenic. There are healed bilateral rib fractures. IMPRESSION: 1. Cardiomegaly and cardiac pacemaker. There is no radiographic evidence of congestive failure. 2. No airspace consolidation or large pleural effusion is identified. Electronically signed by: Davis Harrell M.D. 07/19/2020 2:[address] 07/19/20 14:[address] DOSE: 1768.17 mGy.cm HISTORY: previous brain bleed needing thinner s TECHNIQUE: Multiaxial CT images of the head were performed without the use of intravenous contrast. Automated exposure control was utilized for this study. A dose lowering technique was utilized adhering to the principles of ALARA. Comparison: Head CT 06/13/2020. Findings: The paranasal sinuses and mastoid air cells are clear. The calvarium and skull base are intact. Slight improvement in the acute on chronic bilateral subdural hematomas. Small acute components are again noted at the parafalcine location and right frontal region. 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 Mild atrophy and microvascular ischemic changes are again noted. No acute infarct or mass identified. No midline shift. Mass effect from the subdural hematomas has also improved. 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 Mild motion artifact. Impression: 1. 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 These have slightly decreased in size compared to 06/13/2020 examination. 2. No acute infarct. ACT 112: Negative or not required by law. Electronically signed by: Anjel Murdock M.D. 07/19/2020 3:38 PM ECG Additional Comments: Atrial fibrillation with rapid ventricular response with premature ventricular or aberrantly conducted complexes Left axis deviation Right bundle branch block Possible Lateral infarct (cited on or before 13-JUN-2020) Inferior infarct (cited on or before 13-JUN-2020) Abnormal ECG When compared with ECG of 13-JUN-2020 11:20, Atrial fibrillation has replaced Electronic atrial pacemaker Vent. rate has increased BY 49 BPM Right bundle branch block has replaced Non-specific intra-ventricular conduction block ... 25mm/s 10mm/mV 150Hz 9.0.9 12SL 241 ABIGAIL: 11 Unconfirmed Vent. rate 113 BPM KS interval * ms QRS duration 136 ms QT/QTc 354/485 ms Code Status & VTE Plan Code Status Full code -discussed with the patient and his Supervising Physician Co-Signing Physician Notes Attending Addendum: The patient was seen and examined in ER in presence of the . He has been complaining of generalized weakness since about the Intracranial hemorrhage No CP,Palpitation or more SOB Was noted to be in AF and was sent in from PCP's office On examination Lying in bed comfortably Blood pressure is noted to be lower side of normal Chestoccasional crackles at the bases HeartS1-S2 irregular Abdomenbenign Extremitiestrace edema bilaterally CNSalert, awake and oriented x3. Generally weak but no focal weakness His admission labs, EKG and imaging studies reviewed Has atrial fibrillation with RVR with history of CAD status post pacemaker placement and recent subdural hematoma Will not give any anticoagulation-discussed with the neurosurgery department in [place] Has been on Cardizem gavino Patient remains free of cardiac symptoms but has weakness Agree with assessment and plan as outlined above by Romeliababita King
[2020-07-19 17:06] LABS: Influenza A virus by PCR Negative (Neg); Influenza B virus by PCR Negative (Neg); RSV by PCR Negative (Neg); SARS CoV2 RNA(COVID-19) InHosp NEGATIVE (Negative)
[2020-07-19] MEDS ORDERED: METOPROLOL TARTRATE 50 MG TAB PO STA (17:20)
[2020-07-19] MEDS ORDERED: ACETAMINOPHEN 325 MG TAB PO PRN (18:50)
[2020-07-19] MEDS ORDERED: BACLOFEN 10 MG TAB PO PRN (18:50)
[2020-07-19] MEDS ORDERED: GLUCAGON FOR INJ 1 MG VIAL SQ PRN (18:50)
[2020-07-19] MEDS ORDERED: GLUCOSE 40% GEL 15 GM TUBE PO PRN (18:50)
[2020-07-19] MEDS ORDERED: MAGNESIUM HYDROXIDE SUSP 30 ML UDC PO PRN (18:50)
[2020-07-19] MEDS ORDERED: DEXTROSE 50% 50 ML SYRINGE IV PRN (18:50)
[2020-07-19] MEDS ORDERED: CARBOHYDRATES FOR HYPOGLYCEMIA PO PRN (18:50)
[2020-07-19] MEDS ORDERED: ONDANSETRON INJ 2 MG/ML 2 ML VIAL IV PRN (18:50)
[2020-07-19] MEDS ORDERED: GLUCOSE 10 TABS/TUBE PO PRN (18:50)
[2020-07-19] MEDS ORDERED: AMMONIUM LACTATE 12% LOTION 225 GM BTL EXT PRN (19:25)
[2020-07-19] MEDS: INSULIN ASPART 100 UNITS/ML 3 ML PEN SC SCH (20:59)
[2020-07-19] MEDS: CEFDINIR 300 MG CAP PO SCH (21:03)
[2020-07-19] MEDS: METOPROLOL TARTRATE 50 MG TAB PO SCH (21:03)
[2020-07-19] MEDS: ATORVASTATIN 40 MG TAB PO SCH (21:04)
[2020-07-19 22:58] LABS: Appearance Urine Clear (Clear); Bacteria Urine Automated Negative (Negative); Bilirubin Urine Negative (Negative); Blood Urine 2+ (Negative); Color Urine Dark Yellow; Epithelial Cell Urine Auto 20-30 /lpf (0-5); Glucose Urine UA Negative (Negative); Ketones Urine Trace (Negative); Leukocyte Esterase Urine Trace (Negative); Nitrite Urine Negative (Negative); Protein Urine Trace (Negative); Specific Gravity Urine 1.022 (1.000-1.030); Urobilinogen Urine Negative (Negative)
[2020-07-20] MEDS: dilTIAZem HCL 125 MG in DEXTROSE 5% 100 ML IV SCH (03:06)
[2020-07-20] MEDS: LEVOTHYROXINE SODIUM 125 MCG TABLET PO SCH (05:59)
[2020-07-20] MEDS: INSULIN ASPART 100 UNITS/ML 3 ML PEN SC SCH ×4 (07:55→20:46)
[2020-07-20] MEDS: FOLIC ACID 1 MG TAB PO SCH (07:59)
[2020-07-20] MEDS: METOPROLOL TARTRATE 50 MG TAB PO SCH ×2 (08:00→20:16)
[2020-07-20] MEDS: MULTIVITAMIN TAB PO SCH (08:00)
[2020-07-20] MEDS: CYANOCOBALAMIN 500 MCG TABLET (VITAMIN B-12) PO SCH (08:00)
[2020-07-20] MEDS: lisinopril 2.5 MG TAB PO SCH (08:00)
[2020-07-20] MEDS: CEFDINIR 300 MG CAP PO SCH (08:00)
[2020-07-20] MEDS: PANTOprazole 40 MG TAB PO SCH (08:00)
[2020-07-20 08:01] LABS: Basophils # (auto) 0.01 K/uL (0-0.2); Basophils % (auto) 0.2 %; Eosinophils # (auto) 0.02 K/uL (0-0.5); Eosinophils % (auto) 0.3 %; Hematocrit (blood only) 40.4 % (42-52); Hemoglobin 13.9 g/dL (14.0-18.0); Immature Granulocytes % (auto) 1.5 %; Lymphocytes # (auto) 2.71 K/uL (1.2-3.4); Lymphocytes % (auto) 41.2 %; Mean Corpuscular Hemoglobin 31.2 pg (25-34); Mean Corpuscular Hgb Conc 34.4 g/dL (32-36); Mean Corpuscular Volume 90.8 fL (80-100); Mean Platelet Volume 10.4 fL (7.4-10.4); Monocytes # (auto) 0.44 K/uL (0.11-0.59); Monocytes % (auto) 6.7 %; Neutrophils % (auto) 50.1 %; Platelet Count 129 K/uL (130-400); RDW Coefficient of Variation 15.3 % (11.5-14.5); RDW Standard Deviation 51.4 fL (36.4-46.3); Red Blood Count 4.45 M/uL (4.7-6.1); White Blood Count 6.58 K/uL (4.8-10.8)
--- NOTE | 2020-07-20 08:16 | Cardiology Consultation ---
Date of Consultation July 20, 2020 Assessment & Plan (1) Atrial fibrillation with RVR: (2) Subdural hematoma, chronic: (3) Chronic systolic CHF (congestive heart failure): (4) CAD (coronary artery disease): (5) Sinoatrial node dysfunction: (6) Pacemaker: (7) Diabetes: Once again the pathophysiology and treatment option for atrial fibrillation was discussed with the patient at great lengths. Obviously, given his subdural hematomas and concern for bleeding via neuro surgery will necessitate holding off on anticoagulation. His device was interrogated today and he went into AFib on July 03, 2020 and has been in 100% AFib burden since then. At this point we will attempt to wean his Cardizem drip off and possibly add Cardizem p.o. if necessary for further rate control if necessary. He will be continued on his outpatient metoprolol tartrate dose Given the length of his arrhythmia and the fact he is not an anticoagulation candidate anti rhythmic therapy or DC cardioversion is not indicated at this time. Continue to monitor on telemetry. History of Present Illness Attending Physician: Gavino King MD History of Present Illness It was my pleasure to see Mr. beltrán in cardiac consultation today July 20, 2020. 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 He presented to [facility] on July 19, 2020 At the direction of his PCP after being evaluated today for 2 weeks of fatigue and weakness. He was found to be in atrial fibrillation with rapid ventricular response and directed to [facility] Emergency Department. In the emergency department he was started on Cardizem drip for rate control but anticoagulation was held after discussion with Neurosurgery given his recent subdural hematomas. Clinically, he states he is feeling much better now at rest and denies any chest pain, shortness of breath, palpitations, lightheadedness, dizziness or syncope. Past medical history as per most recent outpatient cardiology note: 1. Diastolic congestive heart failure 2. Presentation in July 2006 with third-degree heart block and ischemic changes consistent with multivessel coronary artery disease. 1. Status post July 2006 CABG x 3 with the SEE to the LAD, SVG graft to the ramus, and SVG graft to the distal RCA. 3. Ischemic cardiomyopathy, resolved. 4. Presentation with syncope in April 2010, 3rd degree heart block 1. Status post dual chamber pacemaker implantation on 04/12/2010. 5. Asymptomatic paroxysmal atrial fibrillation first observed in September 2018. 6. Coumadin anticoagulation, without bleeding difficulties. 7. Hypertension. 8. Dyslipidemia. On atorvastatin 80 mg/day. LDL cholesterol 73 mg/dL [facility]. 9. Bilateral carotid occlusive disease, asymptomatic 70-99% right carotid stenosis, asymptomatic 50-69% left carotid stenosis. 10. Type 2 diabetes mellitus. [facility]. 11. Stage III CKD 12. Chronic back pain. Allergies Allergy/AdvReac Type Severity Reaction Status Date / Time Isopropyl Isostearate Allergy Unknown Headaches Uncoded 07/19/20 16:05 Home Medications Medication Instructions Recorded Confirmed Type atorvastatin 80 mg PO PM 12/01/18 07/19/20 History cyanocobalamin (vitamin B-12) 500 mcg PO QAM 12/01/18 07/19/20 History [Vitamin B-12] folic acid 1 mg PO QAM 12/01/18 07/19/20 History furosemide 40 mg PO DAILY PRN 12/01/18 07/19/20 History levothyroxine 125 mcg PO QAM 12/01/18 07/19/20 History metoprolol tartrate 50 mg PO BID 12/01/18 07/19/20 History omeprazole 20 mg PO QAM 12/01/18 07/19/20 History Multiple Vitamin 1 tab PO DAILY 07/19/20 07/19/20 History albuterol sulfate 2 puff INHALATION Q4H PRN 07/19/20 07/19/20 History ammonium lactate 1 applic TOPICAL DAILY PRN 07/19/20 07/19/20 History baclofen 10 mg PO BID PRN 07/19/20 07/19/20 History cefdinir 300 mg PO BID 07/19/20 07/19/20 History glipizide 10 mg PO DAILY 07/19/20 07/19/20 History lisinopril 2.5 mg PO DAILY 07/19/20 07/19/20 History magnesium hydroxide [Milk of 30 ml PO DAILY PRN 07/19/20 07/19/20 History Magnesia] Patient History Medical History Anemia CKD (chronic kidney disease) Diabetes Heart disease Hypertension Pacemaker Surgical History Hx of CABG Social History Smoking Status: Never smoker Hx Alcohol Use: No Hx Substance Use: No Preferred Language: Rwandan Communication Ability: Effective 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 No acute distress. HEENT: Normocephalic, atraumatic. Pupils equal, round and reactive to light and accommodation. Extraocular muscles are intact. Anicteric sclera. Moist mucous membranes. Neck: No JVD. No bruit. Cardiovascular: irregularly irregular, unable to appreciate murmur, rub or gallop. Pulmonary: Clear to auscultation bilaterally. No rales, rhonchi, or wheezing. Abdomen: Bowel sounds x 4, soft. No rebound, guarding or tenderness. No organomegaly. Extremities: No clubbing, cyanosis or edema. +2 pedal pulses bilaterally. Skin: Warm and dry. Results & Data ([facility]) Vital Signs (Past 12 Hours) Vital Signs Temp Pulse Resp BP Pulse Ox 07/20/20 03:57 36.6 C 98 H 18 96/63 L 95 07/20/20 00:10 36.6 C 90 20 100/66 95
[2020-07-20 08:34] LABS: Albumin Level 2.5 gm/dl (3.4-5.0); BUN Creatinine Ratio 13.6 (10-20); Calcium 9.1 mg/dl (8.5-10.1); Creatinine Clr Calc Pharmacy 41.4 ml/min; Est GFR (African American) 40.6; Magnesium 1.2 mg/dl (1.8-2.4); Potassium 4.2 mmol/L (3.5-5.1)
[2020-07-20 08:36] LABS: Albumin Globulin Ratio 0.6 (0.9-2); Bilirubin,Total 0.7 mg/dl (0.2-1); Phosphorus 2.3 mg/dl (2.5-4.9); Total Protein 6.5 gm/dl (6.4-8.2)
--- NOTE | 2020-07-20 12:00 | Hospitalist Progress Note ---
Date of Service July 20, 2020 Assessment & Plan (1) Atrial fibrillation with RVR: -Continue on Cardizem drip started in the ER -metoprolol tartrate 25 mg now, continue home dose of 50 mg qm, missed morning meds -Hold on anticoagulation due to history of subdural hematoma -Consult cardiology, Dr. Wise-appreciate input and recommendation -Remains asymptomatic and the rate is controlled (2) Sinoatrial node dysfunction: -History of such, s/p pacemaker insertion (3) Pacemaker: -Interrogate, patient reports that battery is low, ?battery exchange? -Pacemaker interrogated results pending (4) Subdural hematoma, chronic: -CT of the head reviewed showing acute on chronic subdural hematoma which appears to be decreasing in size compared to previous examination -Follows with Dr. Dyer with Neurosurg - discussed with him via [employer] connect, agrees to hold anticoagulation in this setting of worsening SDH. -Aspirin and Coumadin on hold since 06/13/20 -We will need to discuss with cardiology regarding resumption of anticoagulation. -Repeat CAT scan did show decreasing in the size of the hematoma -Does not have any focal localizing signs (5) CAD (coronary artery disease): -Continue to hold baby aspirin and coumadin in the setting of subdural hematoma -Continue metoprolol, lisinopril, atorvastatin (6) Chronic systolic CHF (congestive heart failure): -Monitor daily weights, strict I's and O's -Appears to be euvolemic and even slightly dry at this time, no peripheral edema -Medications as above -Last echo was done 10/25/17 showing EF of 50-54% no active ischemia, septal motion abnormal consistent with right ventricular pacemaker, moderate tricuspid regurg -Does not seems to be in fluid overloaded (7) Hypertension: -Antihypertensives as above (8) HLD (hyperlipidemia): -Continue statin (9) Diabetes: -Hold p.o. glipizide, ISS with Accu-Cheks AC at bedtime -Last A1c was 6.8 on 06/15/2020 (10) DVT prophylaxis: - teds, no chemical prophylaxis in the setting of recent subdural hematoma, anticoagulation held as above CODE: Full code Admission and Anticipated Discharge Date Admission Date: July 19, 2020 Subjective 07/20/2020 The patient was seen and examined in telemetry unit His heart rate is controlled and remains in atrial fibrillation Denies any significant symptoms except ongoing weakness No cardiac symptoms Review of Systems Review of Systems: All systems reviewed and are unremarkable except as noted below Cardiovascular: no chest pain and no palpitations Musculoskeletal: no back pain, no neck pain and no joint pain Neurologic: + generalized weakness Physical Exam Physical Exam: Sitting on a chair without any acute distress Constitutional: well developed, well nourished, + ill appearing (Lethargic) and + obese Eyes: PERRL, conjunctivae normal, anicteric sclerae ENMT: external ear and nose normal, oropharynx normal Neck: trachea midline, no thyromegaly Respiratory: no respiratory distress Auscultation: + diminished lung sounds and + crackles (Minimal crackles at the bases) Cardiovascular: Rate/Rhythm: regular rate and + irregularly irregular Heart Sounds: + murmur (2/6 ejection systolic murmur over precordium) Extremities: + edema (Trace edema bilaterally) Gastrointestinal (Abdomen): Inspection/Auscultation: normal bowel sounds; abdomen not distended Percussion/Palpation: abdomen soft; abdomen nontender Musculoskeletal: No acute arthritis in any joint Neurologic: Alert, awake and oriented x3. Generally weak but no focal neuro deficit Psychiatric: A+Ox3, euthymic affect Lymphatic: no cervical or axillary lymphadenopathy Results & Data Results & Data ([facility]) Vital Signs (Past 12 Hours) Vital Signs Temp Pulse Resp BP Pulse Ox Pulse Ox 07/20/20 11:09 96 07/20/20 08:00 36.5 C 74 16 104/62 93 07/20/20 03:57 36.6 C 98 H 18 96/63 L 95 07/20/20 00:10 36.6 C 90 20 100/66 95 Laboratory Results Short CBC 07/19/20 07/20/20 Range/Units 14:50 07:25 WBC 7.08 6.58 (4.8-10.8) K/uL Hgb 15.4 13.9 L (14.0-18.0) g/dL Hct 45.1 40.4 L (42-52) % Plt Count 118 L 129 L (130-400) K/uL BMP 07/19/20 07/20/20 14:50 07:25 Sodium 139 138 Potassium 4.2 4.2 Chloride 109 H 106 Carbon Dioxide 24 25 BUN 22 H 24 H Creatinine 1.70 H 1.79 H Glucose 121 H 116 H Calcium 8.6 9.1 Cardiac Enzymes 07/19/20 Range/Units 14:50 Troponin I < 0.015 (0-0.045) ng/ml Liver Function 07/19/20 07/20/20 Range/Units 14:50 07:25 Total Bilirubin 0.6 0.7 (0.2-1) mg/dl AST 33 28 (15-37) U/L ALT 40 30 (12-78) U/L Alkaline Phosphatase 136 H 114 (45-117) U/L Albumin 2.5 L 2.5 L (3.4-5.0) gm/dl Urine 07/19/20 Range/Units 22:45 Urine Color Dark Yellow Urine Appearance Clear (Clear) Urine pH 5.0 (4.5-7.5) Ur Specific [place] 1.022 (1.000-1.030) Urine Protein Trace H (Negative) Urine Glucose (UA) Negative (Negative) Medications Administered Current Inpatient Medications Acetaminophen (Acetaminophen 325 Mg Tab) 650 mg PO Q4H PRN PRN Reason: Moderate Pain Stop: 08/18/20 18:49 Atorvastatin Calcium (Atorvastatin 40 Mg Tab) 80 mg PO PM SARAH Stop: 08/18/20 20:59 Last Admin: 07/19/20 21:04 Dose: 80 mg Documented by: Baclofen (Baclofen 10 Mg Tab) 10 mg PO BID PRN PRN Reason: Spasms Stop: 08/18/20 18:49 Cyanocobalamin (Cyanocobalamin 500 Mcg Tablet (Vitamin B-12)) 500 mcg PO QAM SARAH Stop: 08/19/20 08:59 Last Admin: 07/20/20 08:00 Dose: 500 mcg Documented by: Dextrose (Dextrose 50% 50 Ml Syringe) 25 - 50 ml IV UD PRN; Protocol PRN Reason: Hypoglycemia Protocol Stop: 08/18/20 18:49 Folic Acid (Folic Acid 1 Mg Tab) 1 mg PO QAM SARAH Stop: 08/19/20 08:59 Last Admin: 07/20/20 07:59 Dose: 1 mg Documented by: Glucagon (Glucagon For Inj 1 Mg Vial) 1 mg SQ UD PRN; Protocol PRN Reason: Hypoglycemia Protocol Stop: 08/18/20 18:49 Glucose (Glucose 10 Tabs/Tube) 4 - 8 tabs PO UD PRN; Protocol PRN Reason: Hypoglycemia Protocol Stop: 08/18/20 18:49 Glucose (Glucose 40% Gel 15 Gm Tube) 15 - 30 gm PO UD PRN; Protocol PRN Reason: Hypoglycemia Protocol Stop: 08/18/20 18:49 Diltiazem HCl 125 mg/ Dextrose 125 mls @ 10 mls/hr IV .[id number] [facility]; Protocol Stop: 08/18/20 14:44 Last Admin: 07/20/20 03:06 Dose: 10 mg/hr, 10 mls/hr Documented by: Insulin Aspart (Insulin Aspart 100 Units/Ml 3 Ml Pen) 0 units SC ACHS [facility] Stop: 08/18/20 20:59 Last Admin: 07/20/20 11:45 Dose: 3 units Documented by: Lactic Acid (Ammonium Lactate 12% Lotion 225 Gm Btl) 1 gm EXT DAILY PRN PRN Reason: Dry Skin Stop: 08/18/20 19:24 Levothyroxine Sodium (Levothyroxine Sodium 125 Mcg Tablet) 125 mcg PO DAILYBB [facility] Stop: 08/19/20 06:29 Last Admin: 07/20/20 05:59 Dose: 125 mcg Documented by: Lisinopril (Lisinopril 2.5 Mg Tab) 2.5 mg PO DAILY [facility] Stop: 08/19/20 08:59 Last Admin: 07/20/20 08:00 Dose: 2.5 mg Documented by: Magnesium Hydroxide (Magnesium Hydroxide Susp 30 Ml Udc) 30 ml PO DAILY PRN PRN Reason: Constipation Stop: 08/18/20 18:49 Metoprolol Tartrate (Metoprolol Tartrate 50 Mg Tab) 50 mg PO BID [facility] Stop: 08/18/20 20:59 Last Admin: 07/20/20 08:00 Dose: 50 mg Documented by: Miscellaneous (Carbohydrates For Hypoglycemia ) 15 - 30 gm PO UD PRN PRN Reason: Hypoglycemia Protocol Stop: 08/18/20 18:49 Multivitamins (Multivitamin Tab) 1 tab PO DAILY [facility] Stop: 08/19/20 08:59 Last Admin: 07/20/20 08:00 Dose: 1 tab Documented by: Ondansetron HCl (Ondansetron Inj 2 Mg/Ml 2 Ml Vial) 4 mg IV Q4H PRN PRN Reason: Nausea And Vomiting Stop: 08/18/20 18:49 Pantoprazole Sodium ([facility]oprazole 40 Mg Tab) [facility]; Protocol Stop: 08/19/20 08:59 Last Admin: 07/20/20 08:00 Dose: 40 mg Documented by: (1) Hypertension Hypertension type: unspecified Qualified Code(s): I10 - Essential (primary) hypertension
--- NOTE | 2020-07-20 13:57 | Electrocardiogram Report ---
Test Reason : Blood Pressure : / mmHG Vent. Rate : 113 BPM Atrial Rate : 077 BPM P-R Int : 000 ms QRS Dur : 136 ms QT Int : 354 ms P-R-T Axes : 000 -80 091 degrees QTc Int : 485 ms Atrial fibrillation with rapid ventricular response with premature ventricular or aberrantly conducte d complexes Left axis deviation Right bundle branch block Possible Lateral infarct (cited on or before 13-JUN-2020) Inferior infarct (cited on or before 13-JUN-2020) Abnormal ECG When compared with ECG of 13-JUN-2020 11:20, Atrial fibrillation has replaced Electronic atrial pacemaker Vent. rate has increased BY 49 BPM Right bundle branch block has replaced Non-specific intra-ventricular conduction block Serial changes of Lateral infarct Present Confirmed by Maxim Joseph ([id number]) on 07/20/2020 1:57:25 PM Referred By: Confirmed By:Gucci [email or web address]
[2020-07-20] MEDS: ATORVASTATIN 40 MG TAB PO SCH (20:15)
[2020-07-21 06:59] LABS: Hematocrit (blood only) 39.4 % (42-52); Hemoglobin 13.4 g/dL (14.0-18.0); Mean Corpuscular Hemoglobin 30.8 pg (25-34); Mean Corpuscular Volume 90.6 fL (80-100); Mean Platelet Volume 10.4 fL (7.4-10.4); Platelet Count 120 K/uL (130-400); RDW Coefficient of Variation 15.2 % (11.5-14.5); RDW Standard Deviation 51.2 fL (36.4-46.3); Red Blood Count 4.35 M/uL (4.7-6.1); White Blood Count 5.75 K/uL (4.8-10.8)
[2020-07-21 07:29] LABS: Albumin Level 2.3 gm/dl (3.4-5.0); BUN Creatinine Ratio 15.5 (10-20); Calcium 8.6 mg/dl (8.5-10.1); Creatinine Clr Calc Pharmacy 39.8 ml/min; Est GFR (African American) 38.7; Est GFR (Non-African American) 33.4; Potassium 4.1 mmol/L (3.5-5.1)
[2020-07-21 07:32] LABS: Albumin Globulin Ratio 0.6 (0.9-2); Bilirubin,Total 0.6 mg/dl (0.2-1); Total Protein 6.3 gm/dl (6.4-8.2)
[2020-07-21] MEDS: INSULIN ASPART 100 UNITS/ML 3 ML PEN SC SCH ×2 (08:42→11:55)
[2020-07-21] MEDS: FOLIC ACID 1 MG TAB PO SCH (08:42)
[2020-07-21] MEDS: MULTIVITAMIN TAB PO SCH (08:42)
[2020-07-21] MEDS: CYANOCOBALAMIN 500 MCG TABLET (VITAMIN B-12) PO SCH (08:42)
[2020-07-21] MEDS: PANTOprazole 40 MG TAB PO SCH (08:42)
[2020-07-21] MEDS: lisinopril 2.5 MG TAB PO SCH (08:42)
[2020-07-21] MEDS: METOPROLOL TARTRATE 50 MG TAB PO SCH (08:42)
[2020-07-21] MEDS: LEVOTHYROXINE SODIUM 125 MCG TABLET PO SCH (08:42)
[2020-07-21] MEDS ORDERED: dilTIAZem HCL 120 MG CAPCR PO SCH (09:45)
--- NOTE | 2020-07-21 13:47 | Cardiology Progress Note ---
Date of Service July 21, 2020 Assessment & Plan (1) Atrial fibrillation with RVR: (2) Subdural hematoma, chronic: (3) Chronic systolic CHF (congestive heart failure): (4) CAD (coronary artery disease): (5) Sinoatrial node dysfunction: (6) Pacemaker: (7) Diabetes: Once again the pathophysiology and treatment option for atrial fibrillation was discussed with the patient at great lengths. Obviously, given his subdural hematomas and concern for bleeding via neuro surgery will necessitate holding off on anticoagulation. His device was interrogated today and he went into AFib on July 03, 2020 and has been in 100% AFib burden since then. He has responded well after the Cardizem drip. Will start Cardizem CD 120 mg daily today. Given the length of his arrhythmia and the fact he is not an anticoagulation candidate anti rhythmic therapy or DC cardioversion is not indicated at this time. okay to DC to home from a cardiac standpoint. Recommend follow-up closely with neuro surgery in regards to possible anticoagulation candidate going forward. Already has an appointment with Pavan Cheema on the . Recommend keeping this appointment. Admission and Anticipated Discharge Date Admission Date: July 19, 2020 Subjective Patient seen examined, chart reviewed and discussed with nursing staff. states he is feeling well overnight. Breathing has improved. And denies chest pain, palpitations, lightheadedness, dizziness or syncope. With telemetry reviewed: Atrial pacing with underlying atrial fibrillation rates improved with occasional spikes into the 120s with activity. Review of Systems Review of Systems: All systems reviewed & are unremarkable except as noted in HPI & below Physical Exam Physical Exam: General: Awake, alert and oriented x 3. No acute distress. HEENT: Normocephalic, atraumatic. Pupils equal, round and reactive to light and accommodation. Extraocular muscles are intact. Anicteric sclera. Moist mucous membranes. Neck: No JVD. No bruit. Cardiovascular: irregularly irregular, unable to appreciate murmur, rub or gallop. Pulmonary: Clear to auscultation bilaterally. No rales, rhonchi, or wheezing. Abdomen: Bowel sounds x 4, soft. No rebound, guarding or tenderness. No organomegaly. Extremities: No clubbing, cyanosis or edema. +2 pedal pulses bilaterally. Skin: Warm and dry. Results & Data ([facility]) Vital Signs (Past 12 Hours) Vital Signs Temp Pulse Resp BP BP Pulse Ox 07/21/20 11:37 36.4 C L 64 18 100/63 95 07/21/20 07:40 36.3 C L 89 19 136/83 96 07/21/20 03:09 36.8 C 82 18 108/73 96
--- NOTE | 2020-07-21 14:01 | Discharge Summary ---
Date of Service July 21, 2020 Admission HPI Per Admitting Provider This is an 80 yo M with PMhx of chronic systolic heart failure, chronic atrial fib, HTN, HLD, CAD, sinoatrial node dysfunction s/p pacemaker insertion, DM type II, CKD stage III, lumbar DDD. Patient was recently hospitalized from 06/13 to 06/15/2020 after a fall at home striking the back of his head where he developed subdural hematoma at [facility]. He was previously on Coumadin for A. fib but was discontinued until he was cleared by neurosurgery follow-up. Was also recently seen by Juvenal at home and started on cefdinir 300 mg twice daily x7 days for UTI with E. coli which was pansensitive on 07/09/20. Patient went to his PCPs office this morning with complaints of fatigue and weakness x2 weeks. There he was found to be in A. fib with RVR and was referred to the ER. Patient is present here with his . He denies any focal areas of weakness, falls, imbalance, changes in vision, lightheadedness or dizziness. He does report back of the neck causing tension and pain occasionally, and refers to this as a headache. He reports losing 30 pounds of weight in the past month. His appetite is slightly down. He also notes that this was likely a lot of fluid as his legs are typically very swollen however has not needed to use Lasix p.o. at all in the past 2 weeks. He denies any other acute complaints. Admission Exam Per Admitting Provider General: awake, alert, no apparent distress Head: Normocephalic, atraumatic ENT: PERRL, EOMI, no pharyngeal exudate, mucous membranes moist Chest: Clear to auscultation, on room air, no adventitious breath sounds Cardiac: Irregularly irregular,HR ~105 at bedside, no murmur, no JVD, normal peripheral pulses, good capillary refill Abdominal: NABS x 4 quadrants, soft, nondistended, nontender to palpation, no rebound or guarding Extremities: Normal inspection, +chronic venous stasis changes BLE, no peripheral edema or erythema, calfs nontender to palpation Psych: Normal mood and affect Neuro: AAO x 3, strength intact bilaterally and rated 5/5, no motor deficits, speech is clear, shoulder shrug intact, negative pronator drift, cranial nerves II-XII intact no peripheral sensory deficits Principal Diagnosis A. Fib Discharge Exam General: A&Ox3 HENT: NCAT, MMM, EOMI Eyes: PERRLA Neck: Supple, normal range of motion CVS: normal rate and irregular rhty Resp: b/l good breath sounds Abdomen: Soft, ND/NT, +BS Extremities: No c/c/e Neuro: face symmetric, strength grossly equal, no focal deficit Skin: warm and dry, no rashes/lesions/errythema Discharge Data Allergies Allergy/AdvReac Type Severity Reaction Status Date / Time Isopropyl Isostearate Allergy Unknown Headaches Uncoded 07/19/20 16:05 Consultations 07/19/20 15:58 ED Decision to Admit Stat 07/19/20 17:16 Consult Cardiology Routine Ordered Studies 07/19/20 14:43 CT head/brain wo con Stat Hospital Course (1) Atrial fibrillation with RVR: She had cardiology input. Patient was on Cardizem infusion later transi tioned to p.o. Prior to discharge his rate was controlled. Holding his anticoagulation due to recent subdural hematoma. Follow-up with cardiology as an outpatient and PCP. On the day of discharge patient was stable. Hemodynamically he was doing fine. Patient did not have any major complaints. (2) Sinoatrial node dysfunction: -History of such, s/p pacemaker insertion (3) Pacemaker: as per cardiology (4) Subdural hematoma, chronic: -CT of the head reviewed showing acute on chronic subdural hematoma which appears to be decreasing in size compared to previous examination -Follows with Dr. Dyer with Neurosurg - discussed with him via [employer] connect, agrees to hold anticoagulation in this setting of worsening SDH. -Aspirin and Coumadin on hold since 06/13/20 -Repeat CAT scan did show decreasing in the size of the hematoma No focal deficits at the time of discharge. Patient will need to follow-up with neurosurgery for resumption of anticoagulation. (5) CAD (coronary artery disease): -Continue to hold baby aspirin and coumadin in the setting of subdural hematoma -Continue metoprolol, lisinopril, atorvastatin (6) Chronic systolic CHF (congestive heart failure): Euvolemic at the time of discharge, was on room air. (7) Hypertension: -Antihypertensives as above (8) HLD (hyperlipidemia): -Continue statin (9) Diabetes: -Hold p.o. glipizide, ISS with Accu-Cheks AC at bedtime -Last A1c was 6.8 on 06/15/2020 (10) DVT prophylaxis: - teds, no chemical prophylaxis in the setting of recent subdural hematoma, anticoagulation held as above CODE: Full code Total Time Total Time Spent Total Time Spent (In Minutes): 35 Discharge Plan Discharge Items Patient Disposition: Home - Self-Care Reason For Visit: AFIB WITH RVR Discharge Diagnosis: A. Fib Activity: Resume your previous activity Non-emergency contact: Primary Care Provider Call non-emergency contact if: your symptoms worsen Follow-up/Referrals: Juanito Saba DO [Primary Care Provider] - (Date & Time 07/26/2020 11:20 AM Provider Juanito Saba DO Department [facility] ) Diet: Heart Healthy Addtl Attending Provider Instructions: Follow-up with primary care physician, take out waiter and neurosurgery as an outpatient. Appointments have been requested. Pending Studies at Discharge: No Stand-Alone Forms: [facility] [employer], Smoking Cessation Medications and DC Order Prescriptions: New diltiazem HCl 120 mg Capsule,Extended Release 24hr 120 mg PO QAM Qty: 30 RF: 0 Continued furosemide 40 mg Tablet 40 mg PO DAILY PRN (Reason: Edema) RF: 0 atorvastatin 80 mg Tablet 80 mg PO PM RF: 0 cyanocobalamin (vitamin B-12) [Vitamin B-12] 500 mcg Tablet 500 mcg PO QAM RF: 0 levothyroxine 125 mcg Tablet 125 mcg PO QAM RF: 0 metoprolol tartrate 50 mg Tablet 50 mg PO BID RF: 0 omeprazole 20 mg Capsule,Delayed Release(Dr/Ec) 20 mg PO QAM RF: 0 folic acid 1 mg Tablet 1 mg PO QAM RF: 0 cefdinir 300 mg capsule 300 mg PO BID RF: 0 magnesium hydroxide [Milk of Magnesia] 400 mg/5 mL Suspension 30 ml PO DAILY PRN (Reason: Constipation) RF: 0 glipizide 10 mg tablet extended release 24hr 10 mg PO DAILY RF: 0 albuterol sulfate 90 mcg/actuation HFA aerosol inhaler 2 puff INHALATION Q4H PRN (Reason: Shortness Of Breath Or Wheezing) RF: 0 baclofen 10 mg tablet 10 mg PO BID PRN (Reason: Spasms) RF: 0 Multiple Vitamin 1 tab PO DAILY RF: 0 ammonium lactate 12 % Cream 1 applic TOPICAL DAILY PRN (Reason: Dry Skin) RF: 0 lisinopril 2.5 mg Tablet 2.5 mg PO DAILY RF: 0 Discharge Orders: Discharge Order (Routine); Ordered 07/21/20 Ordered By: Andres Scott/Other Patient Handouts: Managing Type 2 Diabetes, 5 Steps for Eating Healthier Admission Data Admit Date/Time: 07/19/20 17:16 Attending Provider: Andres Jones Admit Provider: Gavino King Primary Care Provider: Juanito Saba Other Providers: Silvio Wise ; Gavino King
== END 2020-07-21 15:40 | disposition home or self-care (01) | DRG 308 ==
LOC: ED 14:01 → SUATTDRO 17:16 → 2S 17:16

== ENCOUNTER 2022-03-20 18:08 | Inpatient (IN) ==
--- NOTE | 2022-03-20 18:43 | Emergency Department Note ---
History of Present Illness General Chief complaint: Fall Stated complaint: neuropathy in feet, hypoglycemia Time Seen by Provider: 03/20/22 18:13 Source: patient, family and EMS Mode of arrival: EMS Limitations: no limitations History of Present Illness Provider complaint: Multiple falls, neuropathy This is 82-year-old male presents emerged department via EMS after fall again this evening. EMS states they were first called out to perform a lift assist and when they got there patient denied any concern for injury. insisted patient come for evaluation stating he has fallen multiple times in the last 2 weeks. Patient did not admit to this. And family is concerned as he uses blood thinners. Patient states he has had increased difficulty due to neuropathy in his feet. He states he does typically use a walker although today was only using a cane when he fell. He denies any head trauma or loss of consciousness today. Patient states he has had balance issues since an initial fall a year and a half ago which resulted in a head bleed and him being transferred to [facility]. He states since that time he has had several falls. He states he does not routinely check his blood sugar. He states he also had a cardiology appointment today in which several medication changes were made. Additional family arrived at bedside. Daughter states they have noticed an increase in his falls ever since his Myrbetriq was changed approximately month ago. Home Medications Medication Instructions Recorded Confirmed Type atorvastatin 80 mg tablet 80 mg PO QAM 12/01/18 03/20/22 History cyanocobalamin (vitamin B-12) 500 500 mcg PO QAM 12/01/18 03/20/22 History mcg tablet (Vitamin B-12) folic acid 1 mg tablet 1 mg PO QAM 12/01/18 03/20/22 History furosemide 40 mg tablet 20 mg PO QAM 12/01/18 03/20/22 History levothyroxine 125 mcg tablet 125 mcg PO DAILYBB 12/01/18 03/20/22 History omeprazole 20 mg capsule,delayed 20 mg PO QAM 12/01/18 03/20/22 History release ammonium lactate 12 % topical cream 1 applic topical DAILY PRN Dry Skin 07/19/20 03/20/22 History glipizide 10 mg tablet, extended 10 mg PO QAM 07/19/20 03/20/22 History release 24 hr warfarin 5 mg tablet See Rx Instructions .Route .COMPLEX 08/18/20 03/20/22 History potassium chloride 20 mEq 20 meq PO DAILY 09/12/21 03/20/22 History tablet,extended release silver sulfadiazine 1 % topical 1 applic topical DAILY 09/12/21 03/20/22 History cream acetaminophen 325 mg tablet 650 mg PO Q6H PRN Pain 03/20/22 03/20/22 History (Tylenol) aspirin 81 mg chewable tablet 81 mg PO DAILY 03/20/22 03/20/22 History docusate sodium 100 mg capsule 100 mg PO BID PRN Constipation 03/20/22 03/20/22 History metoprolol succinate 50 mg 50 mg PO DAILY 03/20/22 03/20/22 History tablet,extended release 24 hr mirabegron 50 mg tablet,extended 25 mg PO DAILY 03/20/22 03/20/22 History release 24 hr (Myrbetriq) multivitamin-ferrous 1 tab PO DAILY 03/20/22 03/20/22 History fumarate-folic acid 18 mg-400 mcg tablet (Centrum) nut.tx.gluc.intol,lac-free,soy 1 ea PO DAILY 03/20/22 03/20/22 History (Glucerna Shake oral liquid) zinc gluconate 50 mg tablet 50 mg PO DAILY 03/20/22 03/20/22 History Allergies Allergy/AdvReac Type Severity Reaction Status Date / Time isosorbide AdvReac Intermediate Headache Verified 03/20/22 21:07 mirabegron AdvReac Intermediate falls Verified 03/20/22 22:40 Isopropyl Isostearate AdvReac Intermediate Headaches Uncoded 03/20/22 21:07 Past Med/Surg History Medical History Anemia Atrial fibrillation [id number] (age, CHF, HTN, DM, CAD) On Coumadin CAD (coronary artery disease) S/p 3 vessel CABG 2006 Carotid artery disease Per 07/01/2020 carotid duplex = right ICA 70-99%. 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 No current problems Surgical History Hx of CABG 2006 cabg x 3 at [facility] Family History Sister Lung cancer smoker Other Family history non-contributory No family history of adverse response to anesthesia No family history of bleeding disorder Social History Smoking Status: Never smoker Second Hand Exposure: No; Hx Alcohol Use: No Hx Substance Use: No Preferred Language: Georgian Communication Ability: Effective Ben Day Artist Required: No Beliefs That Will Affect Care: None marital status: Current Living Situation: Spouse current occupational status: retired Other Information That Helps Us Care for You: No Feels Safe at Home: Yes Safety Concerns: Feels Safe At This Time Assistive Devices: Cane, Denture - Upper, Glasses and Walker Review of Systems A total of 10 systems reviewed and were otherwise negative All systems reviewed & are unremarkable except as noted in HPI & below Physical Exam Vital Signs Vital Signs - 24 hr 03/20/22 18:08 03/20/22 19:13 03/20/22 19:30 Temperature 36.5 C Temperature Source Oral Pulse Rate 61 71 Pulse Rate [Apical] 63 Pulse Rate from SpO2 Sensor 71 Respiratory Rate 18 20 16 Respiratory Effort / Characteristics Non-Labored Respiratory Depth Normal Respiratory Pattern Regular Blood Pressure 144/94 H Blood Pressure [Right Arm] 144/94 H Blood Pressure Mean 110 Blood Pressure Mean [Right Arm] 110 Pulse Oximetry 97 97 98 Oxygen Delivery Method Room Air Room Air Room Air Sepsis Recent Fever Within 48 Hours No Sepsis New/Unexplained Change in Mental Status N/A Sepsis Action Taken by Nursing No Action Required 03/20/22 20:00 Temperature Temperature Source Pulse Rate 60 Pulse Rate [Apical] Pulse Rate from SpO2 Sensor 60 Respiratory Rate 23 Respiratory Effort / Characteristics Respiratory Depth Respiratory Pattern Blood Pressure Blood Pressure [Right Arm] Blood Pressure Mean Blood Pressure Mean [Right Arm] Pulse Oximetry 96 Oxygen Delivery Method Sepsis Recent Fever Within 48 Hours Sepsis New/Unexplained Change in Mental Status Sepsis Action Taken by Nursing GENERAL: alert, well appearing, well nourished, no distress, non-toxic HEAD: nc/at EYE EXAM: normal conjunctiva, PERRL and EOM's grossly intact OROPHARYNX: no exudate, no erythema, lips, buccal mucosa, and tongue normal and mucous membranes are moist NECK: supple, no nuchal rigidity, no adenopathy, non-tender LUNGS: Clear to auscultation. Normal chest wall mechanics, no w/r/r HEART: no murmurs, S1 normal and S2 normal ABDOMEN: abdomen soft, non-tender, normo-active bowel sounds, no masses, no rebound or guarding. BACK: Back is symmetrical on inspection and there is no deformity, no midline tenderness, no CVA tenderness. No evidence of trauma or deformity. BUTTOCK: several superficial excoriative lesions noted with chronic appearing skin changes, no evidence of acute infection, no active bleeding SKIN: no rashes and no bruising UPPER EXTREMITIES: upper extremities are grossly normal. FROM, nml pulses b/l. No evidence of trauma or deformity. LOWER EXTREMITIES: No pitting edema. FROM, nml pulses b/l. No evidence of trauma or deformity. NEURO EXAM: Normal sensorium, cranial nerves II-XII grossly intact, normal speech, no gross weakness of arms, no gross weakness of legs. Gross sensation intact. Course Administered Medications Aspirin (Aspirin 81 Mg Ectab) 81 mg PO DAILY [facility] Stop: 04/20/22 08:59 Last Admin: 03/21/22 10:28 Dose: 81 mg Documented By: JANNETTE Insulin Aspart (Insulin Aspart Per Unit) 0 units SC ACHS [facility] Stop: 04/20/22 00:52 Last Admin: 03/21/22 21:53 Dose: Not Given Documented By: MARC Co-signed By: ED Admin: 03/21/22 18:04 Dose: Not Given Documented By: Admin: 03/21/22 13:49 Dose: Not Given Documented By: Admin: 03/21/22 10:28 Dose: 1 units Documented By: JANNETTE Co-signed By: MARC(2) Admin: 03/21/22 01:23 Dose: Not Given Documented By: MAGALY Metoprolol Succinate (Metoprolol Succ 50mg Ext Rel Tab) 50 mg PO DAILY [facility] Stop: 04/20/22 08:59 Last Admin: 03/21/22 10:27 Dose: 50 mg Documented By: JANNETTE Multivitamins/Minerals (Cerovite Adv Formula Tab) 1 tab PO DAILY [facility] Stop: 04/20/22 08:59 Last Admin: 03/21/22 10:28 Dose: 1 tab Documented By: JANNETTE Warfarin Sodium (Warfarin Sod 5 Mg Tab) 5 mg PO [id number] [facility] Stop: 04/20/22 15:59 Last Admin: 03/21/22 18:03 Dose: 5 mg Documented By: Discontinued Medications Dextrose (Dextrose 50% 50 Ml Syringe) 50 ml IV NOW ONE Stop: 03/20/22 21:12 Last Admin: 03/20/22 21:35 Dose: Not Given Documented By: MAGALY Sodium Chloride (Nss 1000ml) 1,000 mls @ 60 mls/hr IV .[id number] ONE Stop: 03/21/22 15:32 Last Infusion: 03/21/22 14:04 Dose: 0 mls/hr Documented By: Admin: 03/20/22 23:47 Dose: 60 mls/hr Documented By: MAGALY Magnesium Sulfate/Dextrose (Magnesium Sulfate / D5w) 1 gm in 100 mls @ 50 mls/hr IV Q2H [facility] Stop: 03/21/22 11:29 Last Infusion: 03/21/22 12:40 Dose: 0 mls/hr Documented By: Admin: 03/21/22 10:25 Dose: 50 mls/hr Documented By: Infusion: 03/21/22 10:17 Dose: 50 mls/hr Documented By: Admin: 03/21/22 08:17 Dose: 50 mls/hr Documented By: Infusion: 03/21/22 07:59 Dose: 50 mls/hr Documented By: Admin: 03/21/22 05:59 Dose: 50 mls/hr Documented By: MAGALY Medical Decision Making Differential Diagnosis Differential diagnoses include major intracranial, cervical, spinal, thoracic, abdominal, pelvic and neurologic injury. Fracture, contusion, sprain, strain, laceration, abrasions included as well. Medical Records Attestation: I reviewed the patient's medical records. Home Medications Current Medication List: was personally reviewed by me Laboratory Data Attestation: I reviewed the patient's lab results. Result diagrams: 03/21/22 07:32 03/21/22 07:32 Lab Results 03/20/22 03/20/22 03/20/22 Range/Units 18:17 19:20 19:26 POC Hgb 11.6 L (14.0-18.0) g/dl POC Hct 34 L (42-52) % PT 26.7 H (9.0-12.0) Seconds INR 2.6 H (0.9-1.1) POC Sodium 140 (135-144) mmol/L POC Potassium 4.1 (3.3-5.0) mmol/L POC Chloride 106 (101-112) mmol/L POC Total CO2 25 (24-31) mmol/L POC Anion Gap 15.0 L (16-25) mmol/L POC BUN 21 H (7-18) mg/dl POC Creatinine 1.9 H (0.6-1.3) mg/dl POC Glucose 62 L* (70-99) mg/dl POC Glucose (other) 74 (70-99) mg/dl POC Ioniz Calcium Zarina 1.12 (1.12-1.32) mmol/l SARS-CoV-2 (PCR) (Negative) Influenza Type A (PCR) (Neg) Influenza Type B (PCR) (Neg) RSV (RT-PCR) (Neg) 03/20/22 03/20/22 Range/Units 21:20 21:21 POC Hgb (14.0-18.0) g/dl POC Hct (42-52) % PT (9.0-12.0) Seconds INR (0.9-1.1) POC Sodium (135-144) mmol/L POC Potassium (3.3-5.0) mmol/L POC Chloride (101-112) mmol/L POC Total CO2 (24-31) mmol/L POC Anion Gap (16-25) mmol/L POC BUN (7-18) mg/dl POC Creatinine (0.6-1.3) mg/dl POC Glucose 109 H (70-99) mg/dl POC Glucose (other) (70-99) mg/dl POC Ioniz Calcium Zarina (1.12-1.32) mmol/l SARS-CoV-2 (PCR) NEGATIVE (Negative) Influenza Type A (PCR) Negative (Neg) Influenza Type B (PCR) Negative (Neg) RSV (RT-PCR) Negative (Neg) Imaging Data Radiologist's Impression: Cervical Spine CT 03/20/22 18:38 CT cervical spine wo con CLINICAL HISTORY: trauma TECHNIQUE: Multidetector row helical CT of the cervical spine was performed without administration of intravenous contrast. Coronal and sagittal reformations were obtained. Automated dose lowering techniques and/or adjustment according to patient size were utilized for this exam. Comparison: Comparison is made to CT cervical spine 06/13/2020 FINDINGS: No acute fractures or subluxations are identified. Degenerative changes are seen in the visualized spine. Prominence of the basion dens interval is unchanged from prior exam. Calcification of the transverse ligament is again noted. 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 Soft tissues are unremarkable. IMPRESSION: Degenerative changes without evidence of acute bony injury. ACT 112: Negative or not required by law. Electronically signed by: Robi Barnes M.D. 03/20/2022 7:23 PM Chest X-Ray 03/20/22 18:38 XR chest 1V portable CLINICAL HISTORY: trauma TECHNIQUE: Single frontal radiograph of the chest was obtained. Comparison: Comparison is made to chest radiograph of 11/24/2020 FINDINGS: A pacemaker is seen. Median sternotomy wires are seen. Cardiomegaly is noted. The aortic arch is calcified. Reticular interstitial opacities are seen. No evidence of pleural effusion or pneumothorax. IMPRESSION: No acute chest disease. ACT 112: Negative or not required by law. Electronically signed by: Robi Barnes M.D. 03/20/2022 7:[address] 03/20/22 18:38 CT head/brain wo con CLINICAL HISTORY: trauma Technique: Contiguous axial CT images of the head were acquired from the base of the skull to the vertex without intravenous contrast administration. Images were viewed in brain, subdural and bone windows. Automated dose lowering techniques and/or adjustment according to patient size were utilized for this exam. Comparison: Comparison is made to CT head 08/18/2020 Findings: Areas of decreased attenuation are present in the periventricular and subcortical white matter bilaterally consistent with small vessel ischemic disea se. Generalized cerebral atrophy with commensurate enlargement of the ventricles, sulci, and cisterns is also present. There is no acute intracranial hemorrhage or evidence of acute territorial infarction. No shift of the midline structures, mass effect, or extra-axial abnormalities are shown. Athe rosclerotic calcifications are present in the intracranial segments of the internal carotid arteries. Encephalomalacia is seen most prominent in the bilateral parietal regions, right greater than left. Imaged portions of the paranasal sinuses and mastoid air cells are clear. The orbits appear normal. There are no acute fractures of the calvaria or scalp swelling. Impression: No acute intracranial hemorrhage, no evidence of acute territorial infarction or other acute intracranial disease process. ACT 112: Negative or not required by law. Electronically signed by: Robi Barnes M.D. 03/20/2022 7:17 PM Pelvis X-Ray 03/20/22 18:38 XR pelvis 1-2V routine CLINICAL HISTORY: trauma TECHNIQUE: A single frontal view of the pelvis was obtained. Comparison: None available at the time of this dictation. FINDINGS: There is no evidence of an acute fracture. Joint spaces are well-preserved. No soft tissue abnormality is seen. IMPRESSION: No evidence of acute osseous injury. ACT 112: Negative or not required by law. Electronically signed by: Robi Barnes M.D. 03/20/2022 7:46 PM ECG Data Attestation: I personally reviewed and interpreted this ECG as follows: Indication: + weakness Rate (beats per minute): 60 Rhythm: + other ECG Intervals/blocks: + IVCD and + Prolonged QT ECG [place]: + Normal ECG ST segments: + repolarization abnormalities Additional Comments: paced MDM Narrative An order was placed for continuous cardiac monitoring. The monitor shows a rate of __60_ with _paced_ rhythm. This is an 82-year-old male presents emergency department via EMS after a fall this evening. Family concerned due to recent falls over the last several weeks. Daughters at bedside feel while he has been having falls intermittently over the last year and a half since a fall that had resulted in a subdural hematoma, his falls have been more frequent since the initiation of Myrbetriq. Patient was noted by EMS to be mildly hypoglycemic. Patient was afebrile and hemodynamically stable. Patient does use anticoagulation. No evidence of acute trauma on exam. Patient sent for CT and x-ray imaging, basic labs obtained. After significant time of bedside in discussion with both the patient as well as his daughters at bedside, we discussed additional inpatient management and possible need for additional physical therapy. While patient was using a cane this evening in lieu of his walker, the other falls have been with his usual walker. At this time I feel patient is high risk for recurrent falls that could result in significant injury. I do not feel the mild hyperglycemia noted by EMS and on recheck here is the cause of his recurrent falls at this time. Case discussed with hospitalist for additional evaluation and management. Impression & Plan Recurrent falls, Ambulatory dysfunction, Anemia, CKD (chronic kidney disease), Anticoagulated, Hypoglycemia Discharge Plan Visit Data Chief Complaint: Fall Stated Complaint: neuropathy in feet, hypoglycemia ED Provider: Chyna Russ Discharge Problem: Recurrent falls, Ambulatory dysfunction, Anemia, CKD (chronic kidney disease), Anticoagulated, Hypoglycemia Patient Disposition: Admitted As Inpatient Discharge Instructions Interventions: ED Discharge Assessment Last Done: 03/21/22 00:54
--- NOTE | 2022-03-20 19:19 | CT Scan Report ---
CT head/brain wo con CLINICAL HISTORY: trauma Technique: Contiguous axial CT images of the head were acquired from the base of the skull to the isabela margo without intravenous contrast administration. Images were viewed in brain, subdural and [facility]. Automated dose lowering techniques and/or adjustment according to patient size were utilized for this exam. Comparison: Comparison is made to CT head 08/18/2020 Findings: Areas of decreased attenuation are present in the periventricular and subcortical white matter bilate rally consistent with small vessel ischemic disease. Generalized cerebral atrophy with commensurate e nlargement of the ventricles, sulci, and cisterns is also present. There is no acute intracranial hem orrhage or evidence of acute territorial infarction. No shift of the midline structures, mass effect, or extra-axial abnormalities are shown. Atherosclerotic calcifications are present in the intracran ial segments of the internal carotid arteries. Encephalomalacia is seen most prominent in the bilater al parietal regions, right greater than left. Imaged portions of the paranasal sinuses and mastoid air cells are clear. The orbits appear normal. There are no acute fractures of the calvaria or scalp swelling. Impression: No acute intracranial hemorrhage, no evidence of acute territorial infarction or other acute intracra nial disease process. ACT 112: Negative or not required by law. Electronically signed by: Robi Barnes M.D. 03/20/2022 7:17 PM
--- NOTE | 2022-03-20 19:25 | CT Scan Report ---
CT cervical spine wo con CLINICAL HISTORY: trauma TECHNIQUE: Multidetector row helical CT of the cervical spine was performed without administration of intravenous contrast. Coronal and sagittal reformations were obtained. Automated dose lowering techn iques and/or adjustment according to patient size were utilized for this exam. Comparison: Comparison is made to CT cervical spine 06/13/2020 FINDINGS: No acute fractures or subluxations are identified. Degenerative changes are seen in the visualized sp ine. Prominence of the basion dens interval is unchanged from prior exam. Calcification of the transv erse ligament is again noted. 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 Soft tissues are unremarkable. IMPRESSION: Degenerative changes without evidence of acute bony injury. ACT 112: Negative or not required by law. Electronically signed by: Robi Barnes M.D. 03/20/2022 7:23 PM
[2022-03-20 19:38] LABS: iSTAT Creatinine 1.9 mg/dl (0.6-1.3); iSTAT Hemoglobin 11.6 g/dl (14.0-18.0); iSTAT Ionized Calcium 1.12 mmol/l (1.12-1.32); iSTAT Potassium 4.1 mmol/L (3.3-5.0)
[2022-03-20 19:43] LABS: INR 2.6 (0.9-1.1); Prothrombin Time 26.7 Seconds (9.0-12.0)
--- NOTE | 2022-03-20 19:47 | XRay Report ---
XR pelvis 1-2V routine CLINICAL HISTORY: trauma TECHNIQUE: A single frontal view of the pelvis was obtained. Comparison: None available at the time of this dictation. FINDINGS: There is no evidence of an acute fracture. Joint spaces are well-preserved. No soft tissue abnormali ty is seen. IMPRESSION: No evidence of acute osseous injury. ACT 112: Negative or not required by law. Electronically signed by: Robi Barnes M.D. 03/20/2022 7:46 PM
--- NOTE | 2022-03-20 19:49 | XRay Report ---
XR chest 1V portable CLINICAL HISTORY: trauma TECHNIQUE: Single frontal radiograph of the chest was obtained. Comparison: Comparison is made to chest radiograph of 11/24/2020 FINDINGS: A pacemaker is seen. Median sternotomy wires are seen. Cardiomegaly is noted. The aortic arch is calc ified. Reticular interstitial opacities are seen. No evidence of pleural effusion or pneumothorax. IMPRESSION: No acute chest disease. ACT 112: Negative or not required by law. Electronically signed by: Robi Barnes M.D. 03/20/2022 7:47 PM
[2022-03-20] MEDS ORDERED: DEXTROSE 50% 50 ML SYRINGE IV ONE (21:11)
[2022-03-20 22:10] LABS: Influenza A virus by PCR Negative (Neg); Influenza B virus by PCR Negative (Neg); RSV by PCR Negative (Neg); SARS CoV2 RNA(COVID-19) Ceph NEGATIVE (Negative)
--- NOTE | 2022-03-20 22:30 | History & Physical Report ---
Date of Service March 20, 2022 Assessment & Plan (1) Recurrent falls: Plan: Underlying ambulatory dysfunction History neuropathy as per family ? Increased propensity for falling secondary to new Myrbetriq Rx for BPH ? Hypoglycemia contributory, DM2 on glipizide, well-controlled as of recent hemoglobin A1c of 6.04 November 2021 Choking episode at the ER Rule out esophageal dysfunction History GERD, esophageal stricture status postdilatation chronic diastolic heart failure (EF 50 to 54%, 2020), patient euvolemic CAD status post CABG, hx PVD (severe bilateral carotid artery disease occlusion as per records of which patient is not a surgical candidate as per outpatient Vascular Surgery note) SSS status post PPM on Coumadin, appropriate function on outpatient device interrogation 03/03/2022 as per outpatient cardiology note, INR therapeutic hypertension, stable hyperlipidemia on statin Rx history traumatic subdural hematoma hypothyroidism, euthyroid as of today's TSH CRI, creatinine at baseline chronic anemia, hemoglobin at baseline OBS Med telemetry monitoring given bradycardia at the ER Stop Myrbetriq and add to ADR list (urologist agreeable as per outpatient note) Hold glipizide inpatient, check hemoglobin A1c, home dose may need to be decre ased on discharge in light of kidney dysfunction and hypoglycemic event which may be contributory to fall propensity Aspiration precautions Swallow eval ISS BG goal 1 10-1 40, carb count coverage PT OT eval DVT prophylaxis. Coumadin INR goal between 2 and 3 Full code Patient daughters is requesting updates from providers. Ms. Rere Champagne, contact #[phone]. Ms. Jamil Cliff, contact #[phone]. Text document was generated using [employer] voice recognition software. It may contain grammatical or spelling errors. Kindly contact undersigned for clarification of any documentation item in question. History of Present Illness Chief Complaint: Recurrent falls Primary Care Provider: Juanito Saba DO History obtained from patient, family, and records. Medical history significant for chronic diastolic heart failure (EF 50 to 54%, 2020), CAD status post CABG, SSS status post PPM on Coumadin, PVD, hypertension, hyperlipidemia, history traumatic subdural hematoma, DM2 on oral medications, hypothyroidism, CRI (baseline creatinine 1.7), chronic anemia (baseline hemoglobin of 10 ), BPH, ambulatory dysfunction, history of esophageal stricture status post dilatation, history neuropathy as per family. Last [facility] [place] July 2020 for acute on chronic subdural hematoma, CHF. No operative intervention. Aspirin and Coumadin resumed on discharge. Patient seen at [facility] urologist office last month for follow-up visit for BPH, phimosis. Worsening urinary incontinence and irritative voiding symptoms. Patient started on Myrbetriq. Medication started with subsequent dose increase a few weeks ago. Patient family noted increased falling at home the last 2 weeks. Patient denies syncope or lightheadedness. He just has sensation that he is going to fall down. No unusual chest pain or shortness of breath. Patient not sure if Myrbetriq helping his prostate symptoms. Patient seen on [facility] Cardiology follow-up visit today. Outpatient labs ordered. Patient had another fall at home this afternoon. He felt his feet going numb. No head trauma, no syncope, no chest pain, no SOB. Patient brought to the ER by family for evaluation. BSG upon arrival at the ER 63. Choking episode noted while consuming a sandwich at the ER witnessed by family. Medical History as above 2011 EGD showed LA grade B reflux esophagitis. Chronic gastritis. Gastric diverticulum. Duodenitis. Surgical History : CABG Family History : Heart disease, AAA Personal/Social history : Non-smoker, no EtOH intake, lives with Allergies Allergy/AdvReac Type Severity Reaction Status Date / Time isosorbide AdvReac Intermediate Headache Verified 03/20/22 21:07 mirabegron AdvReac Intermediate falls Verified 03/20/22 22:40 Isopropyl Isostearate AdvReac Intermediate Headaches Uncoded 03/20/22 21:07 Home Medications Medication Instructions Recorded Confirmed Type atorvastatin 80 mg tablet 80 mg PO QAM 12/01/18 03/20/22 History cyanocobalamin (vitamin B-12) 500 500 mcg PO QAM 12/01/18 03/20/22 History mcg tablet (Vitamin B-12) folic acid 1 mg tablet 1 mg PO QAM 12/01/18 03/20/22 History furosemide 40 mg tablet 20 mg PO QAM 12/01/18 03/20/22 History levothyroxine 125 mcg tablet 125 mcg PO DAILYBB 12/01/18 03/20/22 History omeprazole 20 mg capsule,delayed 20 mg PO QAM 12/01/18 03/20/22 History release ammonium lactate 12 % topical cream 1 applic topical DAILY PRN Dry Skin 07/19/20 03/20/22 History glipizide 10 mg tablet, extended 10 mg PO QAM 07/19/20 03/20/22 History release 24 hr warfarin 5 mg tablet See Rx Instructions .Route .COMPLEX 08/18/20 03/20/22 History potassium chloride 20 mEq 20 meq PO DAILY 09/12/21 03/20/22 History tablet,extended release silver sulfadiazine 1 % topical 1 applic topical DAILY 09/12/21 03/20/22 History cream acetaminophen 325 mg tablet 650 mg PO Q6H PRN Pain 03/20/22 03/20/22 History (Tylenol) aspirin 81 mg chewable tablet 81 mg PO DAILY 03/20/22 03/20/22 History docusate sodium 100 mg capsule 100 mg PO BID PRN Constipation 03/20/22 03/20/22 History metoprolol succinate 50 mg 50 mg PO DAILY 03/20/22 03/20/22 History tablet,extended release 24 hr mirabegron 50 mg tablet,extended 25 mg PO DAILY 03/20/22 03/20/22 History release 24 hr (Myrbetriq) multivitamin-ferrous 1 tab PO DAILY 03/20/22 03/20/22 History fumarate-folic acid 18 mg-400 mcg tablet (Centrum) nut.tx.gluc.intol,lac-free,soy 1 ea PO DAILY 03/20/22 03/20/22 History (Glucerna Shake oral liquid) zinc gluconate 50 mg tablet 50 mg PO DAILY 03/20/22 03/20/22 History Past Med/Surg History Medical History Anemia Atrial fibrillation [id number] (age, CHF, HTN, DM, CAD) On Coumadin CAD (coronary artery disease) S/p 3 vessel CABG 2006 Carotid artery disease Per 07/01/2020 carotid duplex = right ICA 70-99%. 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 Required: No Beliefs That Will Affect Care: None marital status: Current Living Situation: Spouse current occupational status: retired Other Information That Helps Us Care for You: No Feels Safe at Home: Yes Safety Concerns: Feels Safe At This Time Assistive Devices: Denture - Upper, Glasses and Walker Review of Systems Review of Systems: As per HPI, all other systems reviewed and negative Physical Exam Physical Exam: GENERAL: Comfortable, obese, slightly hard of hearing, slightly anxious, no respiratory distress SKIN: Pallor, warm HEENT: Alopecia, pale palpebral conjunctivae, no ptosis, dry buccal mucosa NECK : Supple, short neck, no tenderness CHEST : Decreased breath sounds, no tenderness HEART : RRR, no obvious murmurs ABDOMEN: Some distention, nontender EXTREMITIES : Minimal LE swelling, no LE tenderness, no other conspicuous deformities noted NEUROLOGIC : Coherent, no facial asymmetry, mild impairment, gait and stance not assessed Results & Data Results & Data ([facility]) Vital Signs (Past 12 Hours) Vital Signs Temp Pulse Pulse Resp BP BP Pulse Ox 03/20/22 21:02 55 L 24 98 03/20/22 20:00 60 23 96 03/20/22 19:30 71 16 98 03/20/22 19:13 63 20 144/94 H 97 03/20/22 18:08 36.5 C 61 18 144/94 H 97 O2 Del Method 03/20/22 21:02 Room Air 03/20/22 20:00 03/20/22 19:30 Room Air 03/20/22 19:13 Room Air 03/20/22 18:08 Room Air Laboratory Results Laboratory Results POC Hgb 11.6 g/dl (14.0-18.0) L 03/20/22 19: POC Hct 34 % (42-52) L 03/20/22 19: PT 26.7 Seconds (9.0-12.0) H 03/20/22 19:20 INR 2.6 (0.9-1.1) H 03/20/22 19:20 POC Sodium 140 mmol/L (135-144) 03/20/22 19: POC Potassium 4.1 mmol/L (3.3-5.0) 03/20/22: POC Chloride 106 mmol/L (101-112) 03/20/22: POC Total CO2 25 mmol/L (24-31) 03/20/22 19: POC Anion Gap 15.0 mmol/L (16-25) L 03/20/22 19: POC BUN 21 mg/dl (7-18) H 03/20/22 19: POC Creatinine 1.9 mg/dl (0.6-1.3) H 03/20/22 19: POC Glucose 109 mg/dl (70-99) H 03/20/22 21:21 POC Glucose (other) 74 mg/dl (70-99) 03/20/22 19: POC Ioniz Calcium Zarina 1.12 mmol/l (1.12-1.32) 03/20/22 19:26 SARS-CoV-2 (PCR) NEGATIVE (Negative) 03/20/22 21:20 Influenza Type A (PCR) Negative (Neg) 03/20/22 21:20 Influenza Type B (PCR) Negative (Neg) 03/20/22 21:20 RSV (RT-PCR) Negative (Neg) 03/20/22 21:[address] 03/20/22 18:38 CT cervical spine wo con CLINICAL HISTORY: trauma TECHNIQUE: Multidetector row helical CT of the cervical spine was performed without administration of intravenous contrast. Coronal and sagittal reformations were obtained. Automated dose lowering techniques and/or adjustment according to patient size were utilized for this exam. Comparison: Comparison is made to CT cervical spine 06/13/2020 FINDINGS: No acute fractures or subluxations are identified. Degenerative changes are seen in the visualized spine. Prominence of the basion dens interval is unchanged from prior exam. Calcification of the transverse ligament is again noted. 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 Soft tissues are unremarkable. IMPRESSION: Degenerative changes without evidence of acute bony injury. ACT 112: Negative or not required by law. Electronically signed by: Robi Barnes M.D. 03/20/2022 7:23 PM Chest X-Ray 03/20/22 18:38 XR chest 1V portable CLINICAL HISTORY: trauma TECHNIQUE: Single frontal radiograph of the chest was obtained. Comparison: Comparison is made to chest radiograph of 11/24/2020 FINDINGS: A pacemaker is seen. Median sternotomy wires are seen. Cardiomegaly is noted. The aortic arch is calcified. Reticular interstitial opacities are seen. No evidence of pleural effusion or pneumothorax. IMPRESSION: No acute chest disease. ACT 112: Negative or not required by law. Electronically signed by: Robi Barnes M.D. 03/20/2022 7:[address] 03/20/22 18:38 CT head/brain wo con CLINICAL HISTORY: trauma Technique: Contiguous axial CT images of the head were acquired from the base of the skull to the vertex without intravenous contrast administration. Images were viewed in brain, subdural and bone windows. Automated dose lowering techniques and/or adjustment according to patient size were utilized for this exam. Comparison: Comparison is made to CT head 08/18/2020 Findings: Areas of decreased attenuation are present in the periventricular and subcortical white matter bilaterally consistent with small vessel ischemic disease. Generalized cerebral atrophy with commensurate enlargement of the ventricles, sulci, and cisterns is also present. There is no acute intracranial hemorrhage or evidence of acute territorial infarction. No shift of the midline structures, mass effect, or extra-axial abnormalities are shown. Atherosclerotic calcifications are present in the intracranial segments of the internal carotid arteries. Encephalomalacia is seen most prominent in the bilateral parietal regions, right greater than left. Imaged portions of the paranasal sinuses and mastoid air cells are clear. The orbits appear normal. There are no acute fractures of the calvaria or scalp swelling. Impression: No acute intracranial hemorrhage, no evidence of acute territorial infarction or other acute intracranial disease process. ACT 112: Negative or not required by law. Electronically signed by: Robi Barnes M.D. 03/20/2022 7:17 PM Pelvis X-Ray 03/20/22 18:38 XR pelvis 1-2V routine CLINICAL HISTORY: trauma TECHNIQUE: A single frontal view of the pelvis was obtained. Comparison: None available at the time of this dictation. FINDINGS: There is no evidence of an acute fracture. Joint spaces are well-preserved. No soft tissue abnormality is seen. IMPRESSION: No evidence of acute osseous injury. ACT 112: Negative or not required by law. Electronically signed by: Robi Barnes M.D. 03/20/2022 7:46 PM Diagnostic Findings EKG as per my interpretation : Rate 60, paced rhythm
[2022-03-20] MEDS ORDERED: SODIUM CHLORIDE 0.9% 1000ML 1,000 ML IV ONE (22:53)
[2022-03-21] MEDS ORDERED: CARBOHYDRATES FOR HYPOGLYCEMIA PO PRN (00:53)
[2022-03-21] MEDS ORDERED: GLUCOSE 40% GEL 15 GM TUBE PO PRN (00:53)
[2022-03-21] MEDS ORDERED: PROMETHAZINE HCL 12.5 MG in SODIUM CHLORIDE 0.9% 50 ML IV PRN (00:53)
[2022-03-21] MEDS ORDERED: GLUCOSE 10 TAB/TUBE PO PRN (00:53)
[2022-03-21] MEDS ORDERED: DEXTROSE 50% 50 ML SYRINGE IV PRN (00:53)
[2022-03-21] MEDS ORDERED: GLUCAGON FOR INJ 1 MG VIAL SQ PRN (00:53)
[2022-03-21] MEDS ORDERED: DOCUSATE SODIUM 100 MG CAP PO PRN (00:53)
[2022-03-21 01:17] LABS: Lyme Ab IgM w/WB Rflx Negative (Negative)
[2022-03-21] MEDS: INSULIN ASPART PER UNIT SC SCH ×5 (01:23→21:53)
[2022-03-21 01:42] LABS: Lyme Ab IgG w/WB Rflx Positive (Negative)
[2022-03-21] MEDS: MAGNESIUM SULFATE / D5W 1 GM/100 ML BAG IV SCH ×3 (05:59→10:25)
[2022-03-21 07:15] LABS: Estimated Average Glucose 148 mg/dl; Hemoglobin A1C 6.8 % (4.5-5.6)
[2022-03-21 07:58] LABS: Basophils # (auto) 0.04 K/uL (0-0.2); Basophils % (auto) 0.6 %; Eosinophils # (auto) 0.11 K/uL (0-0.50); Eosinophils % (auto) 1.7 %; Hematocrit (blood only) 30.5 % (40.1-51.0); Immature Granulocytes # (auto) 0.02 K/uL (0.00-0.02); Immature Granulocytes % (auto) 0.3 %; Lymphocytes # (auto) 1.89 K/uL (1.2-3.4); Lymphocytes % (auto) 29.1 %; Mean Corpuscular Hemoglobin 29.6 pg (25.0-34.0); Mean Corpuscular Hgb Conc 32.8 g/dL (32.0-36.0); Mean Corpuscular Volume 90.2 fL (80.0-100.0); Monocytes # (auto) 0.66 K/uL (0.24-0.82); Monocytes % (auto) 10.2 %; Neutrophils # (auto) 3.78 K/uL (1.4-6.5); Neutrophils % (auto) 58.1 %; Platelet Count 262 K/uL (130-400); RDW Coefficient of Variation 15.8 % (11.5-14.5); RDW Standard Deviation 51.6 fL (36.4-46.3); Red Blood Count 3.38 M/uL (4.63-6.08)
[2022-03-21 08:11] LABS: Appearance Urine Turbid (Clear); Bacteria Urine Automated 3+ (Negative); Bilirubin Urine Negative (Negative); Blood Urine 2+ (Negative); Color Urine Yellow; Epithelial Cell Urine Auto 20-30 /lpf (0-5); Glucose Urine UA Negative (Negative); Ketones Urine Negative (Negative); Leukocyte Esterase Urine 3+ (Negative); Nitrite Urine Negative (Negative); Protein Urine 2+ (Negative); RBC Urine Automated 0-4 /hpf (0-4); Specific Gravity Urine 1.012 (1.000-1.030); Urobilinogen Urine Negative (Negative); WBC Urine Automated >30 /hpf (0-5); pH Urine 5.5 (4.5-7.5)
[2022-03-21 08:17] LABS: BUN Creatinine Ratio 11.5 (10-20); Calcium 8.1 mg/dl (8.5-10.1); Creatinine Clr Calc Pharmacy 40.7 ml/min; Est GFR (African American) 41.4 ml/min; Est GFR (Non-African American) 35.7 ml/min; Potassium 3.9 mmol/L (3.5-5.1)
--- NOTE | 2022-03-21 08:21 | XRay Report ---
XR chest 1V portable CLINICAL HISTORY: Cough. Recent aspiration. COMPARISON STUDY: Chest radiograph March 20, 2022 at 7:27 PM. Chest radiograph November 24, 2020. FINDINGS: Right subclavian pacer, median sternotomy wires and mediastinal surgical clips are noted. C ardiomegaly is unchanged. There is no evidence for pulmonary edema. There is no pneumothorax. No defi nite pleural effusion is present. Apparent hazy left basilar opacity with obscuration of left hemidia phragm is noted. IMPRESSION: Obscuration of the left hemidiaphragm with apparent hazy left basilar opacity. This is l ikely technical however consolidation cannot be excluded. Radiographic follow-up is recommended. ACT 112: Negative or not required by law. Electronically signed by: Gurinder No M.D. 03/21/2022 8:19 AM
[2022-03-21] MEDS: METOPROLOL SUCC 50MG EXT REL TAB PO SCH (10:27)
[2022-03-21] MEDS: ASPIRIN 81 MG ECTAB PO SCH (10:28)
[2022-03-21] MEDS: CEROVITE ADV FORMULA TAB PO SCH (10:28)
--- NOTE | 2022-03-21 11:58 | Hospitalist Progress Note ---
Date of Service March 21, 2022 Assessment & Plan (1) Recurrent falls: Plan Recurrent falls Likely underlying ambulatory dysfunction History of neuropathy as per family Patient came in with multiple falls, around 4-5 in the last 1 month per patient, reports he has problem with balance. Also increased propensity for falling secondary to new Myrbetriq treatment for BPH. Admitting imaging CXR/pelvic x-ray/CT head/cervical spine CT reviewed, no acute findings. PT/OT JULIANE atkinson to assist with DC planning. Stop Myrbetriq. Added to ADR list [urology agreeable as per outpatient note] Holding glipizide, A1c well controlled, may be decrease dosing glipizide upon discharge in light of kidney dysfunction and hypoglycemic event which may be contributory to fall propensity. Choking episode at ED: H/o GERD and esophageal stricture status post dilatation. Rule out esophageal dysfunction, speech eval. aspiration precaution. Other chronic medical conditions: Chronic diastolic heart failure, CAD status post CABG, PVD, SSS status post PPM on Coumadin, HTN, HLD, history of traumatic subdural hematoma, hypothyroidism, CKD, chronic anemia --- resume home meds as able. DVT prophylaxis: Coumadin Full code Disposition: PT/OT JULIANE atkinson to assist with DC planning. Admission and Anticipated Discharge Date Admission Date: March 20, 2022 Subjective Patient seen and examined at bedside as a follow-up of recurrent falls and underlying ambulatory dysfunction. Patient was lying semiupright in bed, on room air, NAD, reports no new acute event overnight, reports eating okay and moving bowels okay, denies any pain or headache or dizziness or chest pain or palpitation or flulike symptoms or other review of symptoms. Physical Exam Physical Exam: GENERAL: Alert and oriented x3. NAD, on RA. appears weak and chronically ill. HEENT: No pallor, no icterus. Pupils equal, round and reactive to light. Oral mucosa moist. NECK: No JVD, no neck masses. HEART: S1 and S2 heard. Regular rate and rhythm. No murmur, no gallop. RESPIRATORY SYSTEM: Normal AP diameter. No accessory muscle use. No wheezing, no crackles. ABDOMEN: Soft, bowel sounds present, nontender, no distention. Umbilical hernia noted, non tender, nl appearing overlying skin. CENTRAL NERVOUS SYSTEM: No facial droop. Speech is clear. Obeys simple commands. Moves extremities. EXTREMITIES: No edema, no erythema seen. BLE chronic skin changes noted. Results & Data Results & Data ([facility]) Vital Signs (Past 12 Hours) Vital Signs Pulse Resp BP Pulse Ox O2 Del Method 03/21/22 06:00 65 22 141/77 H 95 Room Air 03/21/22 04:00 60 22 156/74 H 96 Room Air 03/21/22 02:00 60 20 156/79 H 03/21/22 00:01 20 140/106 H
[2022-03-21] MEDS: WARFARIN SOD 5 MG TAB PO SCH (18:03)
[2022-03-22 06:22] LABS: Hematocrit (blood only) 31.2 % (40.1-51.0); Hemoglobin 10.3 g/dl (14.0-18.0); Mean Corpuscular Hemoglobin 29.4 pg (25.0-34.0); Mean Corpuscular Volume 89.1 fL (80.0-100.0); Mean Platelet Volume 10.3 fL (9.4-12.4); Platelet Count 261 K/uL (130-400); RDW Coefficient of Variation 15.6 % (11.5-14.5); RDW Standard Deviation 50.3 fL (36.4-46.3); White Blood Count 7.27 K/ul (4.8-10.8)
[2022-03-22 06:40] LABS: BUN Creatinine Ratio 12.6 (10-20); Calcium 8.5 mg/dl (8.5-10.1); Creatinine Clr Calc Pharmacy 38.9 ml/min; Est GFR (African American) 39.2 ml/min; Est GFR (Non-African American) 33.8 ml/min; Magnesium 1.9 mg/dl (1.7-2.4); Phosphorus 2.4 mg/dl (2.5-4.9); Potassium 4.4 mmol/L (3.5-5.1)
[2022-03-22] MEDS: INSULIN ASPART PER UNIT SC SCH ×4 (08:40→20:38)
[2022-03-22] MEDS: CEROVITE ADV FORMULA TAB PO SCH (08:41)
[2022-03-22] MEDS: ASPIRIN 81 MG ECTAB PO SCH (08:41)
[2022-03-22] MEDS: METOPROLOL SUCC 50MG EXT REL TAB PO SCH (08:41)
--- NOTE | 2022-03-22 11:01 | Hospitalist Progress Note ---
Date of Service March 22, 2022 Assessment & Plan (1) Recurrent falls: Plan Recurrent falls Likely underlying ambulatory dysfunction History of neuropathy as per family Patient came in with multiple falls, around 4-5 in the last 1 month per patient, reports he has problem with balance. Also increased propensity for falling secondary to new Myrbetriq treatment for BPH. Admitting imaging CXR/pelvic x-ray/CT head/cervical spine CT reviewed, no acute findings. OT eval noted Awaiting PT eval. May need rehab DC Myrbetriq on discharge. Plan to reduce glipizide on DC. Had hypoglycemia on admission with BG of 62 A1c is 6.8. Urinary tract infection Urine culture growing GNR Start ceftriaxone Follow up speciation/sensitivities Choking episode at ED: H/o GERD and esophageal stricture status post dilatation Speech eval noted Aspiration precautions Other chronic medical conditions: Chronic diastolic heart failure, CAD status post CABG, PVD, SSS status post PPM on Coumadin, HTN, HLD, history of traumatic subdural hematoma, hypothyroidism, CKD, chronic anemia Continue home meds DVT prophylaxis: Coumadin Full code Admission and Anticipated Discharge Date Admission Date: March 20, 2022 Subjective Patient seen and examined Reports recurrent falls at home with his legs giving out on him Reports chronic feet numbness Denied any dizziness, loss of consciousness Denied any chest pain, cough, shortness of breath Denied nausea,vomiting, abd pain, diarrhea Reports chronic urinary symptoms (freq, incomplete emptying). Denied dysuria, hematuria Denied fevers, chills Physical Exam Constitutional: + well hydrated; no acute distress Elderly man Eyes: PERRL, conjunctivae normal, anicteric sclerae ENMT: external ear and nose normal, oropharynx normal Respiratory: normal respiratory effort, lungs clear to auscultation Cardiovascular: Rate/Rhythm: regular rate and regular rhythm S1 S2 Gastrointestinal (Abdomen): normal bowel sounds, soft, nontender, no hepatosplenomegaly Musculoskeletal: No pedal edema Stasis changes Neurologic: PERRL, EOMI, accommodation nl, no face palsy, no dysarthria Psychiatric: A+Ox3, euthymic affect Genitourinary: Santacruz in situ Results & Data Results & Data ([facility]) Vital Signs (Past 12 Hours) Vital Signs Temp Pulse Pulse Resp BP Pulse Ox O2 Del Method 03/22/22 08:06 36.7 C 62 16 139/75 98 Room Air 03/22/22 06:54 61 03/22/22 02:57 36.4 C L 58 L 18 130/73 95 Room Air 03/22/22 02:29 60 03/21/22 23:24 Room Air Laboratory Results Abnormal lab results 03/21/22 03/21/22 03/22/22 Range/Units 12:42 20:08 06:00 RBC 3.50 L (4.63-6.08) M/uL Hgb 10.3 L (14.0-18.0) g/dl Hct 31.2 L (40.1-51.0) % RDW Std Deviation 50.3 H (36.4-46.3) fL RDW Coeff of Jaymie 15.6 H (11.5-14.5) % Sodium (136-145) mmol/L Creatinine (0.6-1.4) mg/dl Glucose (70-99(Fasting)) mg/dl POC Glucose 105 H 121 H (70-99) mg/dl Phosphorus (2.5-4.9) mg/dl 03/22/22 Range/Units 06:00 RBC (4.63-6.08) M/uL Hgb (14.0-18.0) g/dl Hct (40.1-51.0) % RDW Std Deviation (36.4-46.3) fL RDW Coeff of Jaymie (11.5-14.5) % Sodium 135 L (136-145) mmol/L Creatinine 1.82 H (0.6-1.4) mg/dl Glucose 113 H (70-99(Fasting)) mg/dl POC Glucose (70-99) mg/dl Phosphorus 2.4 L (2.5-4.9) mg/dl
[2022-03-22] MEDS ORDERED: cefTRIAXone SODIUM 1,000 MG in DEXTROSE 5% AD-VAN 50 ML IV SCH (11:15)
[2022-03-22] MEDS: cefTRIAXone SODIUM 2,000 MG in DEXTROSE 5% 50 ML IV SCH (11:36)
[2022-03-22] MEDS ORDERED: MICONAZOLE NITRATE POWDER 43 GM EXT PRN (14:08)
[2022-03-22] MEDS: WARFARIN SOD 5 MG TAB PO SCH (17:10)
--- NOTE | 2022-03-22 21:28 | Electrocardiogram Report ---
Test Reason : Blood Pressure : / mmHG Vent. Rate : 060 BPM Atrial Rate : 062 BPM P-R Int : 000 ms QRS Dur : 144 ms QT Int : 512 ms P-R-T Axes : 000 037 -59 degrees QTc Int : 512 ms Ventricular-paced rhythm Abnormal ECG When compared with ECG of 24-NOV-2020 14:37, T wave inversion no longer evident in Anterior leads T wave inversion less evident in Inferior leads Confirmed by Oneal Islas ([id number]) on 03/22/2022 9:28:03 PM Referred By: REFERRED SELF Confirmed By:Oneal Islas
[2022-03-22] MEDS ORDERED: LIDOCAINE/PRILOCAINE 2.5% EA CRM EXT ONE (22:00)
[2022-03-22] MEDS ORDERED: LIDOCAINE 2% JELLY 5 ML TUBE EXT ONE (22:30)
[2022-03-23 01:58] LABS: 18KDIGG Band NON-REACTIVE; 23KDIGG Band REACTIVE; 23KDIGM Band NON-REACTIVE; 28KDIGG Band NON-REACTIVE; 30KDIGG Band NON-REACTIVE; 39KDIGG Band REACTIVE; 39KDIGM Band NON-REACTIVE; 41KDIGG Band REACTIVE; 41KDIGM Band NON-REACTIVE; 45KDIGG Band NON-REACTIVE; 58KDIGG Band REACTIVE; 66KDIGG Band NON-REACTIVE; 93KDIGG Band REACTIVE; Lyme Antibodies, WB IgG POSITIVE (NEGATIVE); Lyme Antibodies, WB IgM NEGATIVE (NEGATIVE)
[2022-03-23 08:20] LABS: Hematocrit (blood only) 30.5 % (40.1-51.0); Hemoglobin 10.1 g/dl (14.0-18.0); Mean Corpuscular Hemoglobin 29.8 pg (25.0-34.0); Mean Corpuscular Hgb Conc 33.1 g/dL (32.0-36.0); Mean Platelet Volume 10.5 fL (9.4-12.4); Platelet Count 271 K/uL (130-400); RDW Coefficient of Variation 15.8 % (11.5-14.5); Red Blood Count 3.39 M/uL (4.63-6.08); White Blood Count 8.65 K/ul (4.8-10.8)
[2022-03-23] MEDS: CEROVITE ADV FORMULA TAB PO SCH (08:21)
[2022-03-23] MEDS: ASPIRIN 81 MG ECTAB PO SCH (08:21)
[2022-03-23] MEDS: METOPROLOL SUCC 50MG EXT REL TAB PO SCH (08:21)
[2022-03-23] MEDS: INSULIN ASPART PER UNIT SC SCH ×4 (08:27→20:48)
[2022-03-23 08:51] LABS: BUN Creatinine Ratio 16.4 (10-20); Calcium 8.4 mg/dl (8.5-10.1); Creatinine Clr Calc Pharmacy 42.8 ml/min; Est GFR (African American) 44.1 ml/min; Est GFR (Non-African American) 38.1 ml/min; Potassium 4.2 mmol/L (3.5-5.1)
[2022-03-23] MEDS: cefTRIAXone SODIUM 2,000 MG in DEXTROSE 5% 50 ML IV SCH (11:07)
--- NOTE | 2022-03-23 12:01 | Hospitalist Progress Note ---
Date of Service March 23, 2022 Assessment & Plan (1) Recurrent falls: Plan Recurrent falls Likely underlying ambulatory dysfunction History of neuropathy as per family Patient came in with multiple falls, around 4-5 in the last 1 month per patient, reports he has problem with balance. Also increased propensity for falling secondary to new Myrbetriq treatment for BPH. Admitting imaging CXR/pelvic x-ray/CT head/cervical spine CT reviewed, no acute findings. PT/OT eval noted. Rehab recommended DC Myrbetriq on discharge. Plan to reduce glipizide on DC. Had hypoglycemia on admission with BG of 62 A1c is 6.8. Urinary tract infection Urine culture growing GNR, klebsiella Continue ceftriaxone Follow up final results Had urinary retention. Garcia placed. Will need urology follow up outpatient Has pressure ulcer left buttock stg 3 (Present of admission per RN) well as moisture skin damage. Garcia will help with healing. Continue wound care Choking episode at ED: H/o GERD and esophageal stricture status post dilatation Speech eval noted Aspiration precautions Other chronic medical conditions: Chronic diastolic heart failure, CAD status post CABG, PVD, SSS status post PPM on Coumadin, HTN, HLD, history of traumatic subdural hematoma, hypothyroidism, CKD3, chronic anemia Continue home meds DVT prophylaxis: Coumadin Full code CM working on placement Admission and Anticipated Discharge Date Admission Date: March 22, 2022 Subjective Patient seen and examined Denied any dizziness, loss of consciousness Denied any chest pain, cough, shortness of breath Denied nausea,vomiting, abd pain, diarrhea Denied fevers, chills Per RN, was retaining urine overnight with occasional incontinence and garcia was placed overnight Physical Exam Constitutional: + well hydrated; no acute distress Eyes: PERRL, conjunctivae normal, anicteric sclerae ENMT: external ear and nose normal, oropharynx normal Respiratory: normal respiratory effort, lungs clear to auscultation Cardiovascular: Rate/Rhythm: regular rate and regular rhythm S1 S2 Gastrointestinal (Abdomen): normal bowel sounds, soft, nontender, no hepatosplenomegaly Musculoskeletal: No pedal edema. Stasis changes Neurologic: PERRL, EOMI, accommodation nl, no face palsy, no dysarthria Psychiatric: A+Ox3, euthymic affect Genitourinary: Garcia in situ Results & Data Results & Data ([facility]) Vital Signs (Past 12 Hours) Vital Signs Temp Pulse Resp BP BP Pulse Ox O2 Del Method 03/23/22 11:44 37.6 C H 60 16 156/67 H 96 Room Air 03/23/22 08:16 36.6 C 60 16 126/67 97 Room Air 03/23/22 05:00 36.6 C 60 14 114/66 94 Room Air Laboratory Results Abnormal lab results 03/21/22 03/22/22 03/23/22 Range/Units 00:05 20:37 07:13 RBC 3.39 L (4.63-6.08) M/uL Hgb 10.1 L (14.0-18.0) g/dl Hct 30.5 L (40.1-51.0) % RDW Std Deviation 52.0 H (36.4-46.3) fL RDW Coeff of Jaymie 15.8 H (11.5-14.5) % Sodium (136-145) mmol/L BUN (6-23) mg/dl Creatinine (0.6-1.4) mg/dl POC Glucose 125 H (70-99) mg/dl Calcium (8.5-10.1) mg/dl Lyme IgG (Western Blot) POSITIVE A (NEGATIVE) Lyme IgG 23 kDa Band REACTIVE A Lyme IgG 39 kDa Band REACTIVE A Lyme IgG 41 kDa Band REACTIVE A Lyme IgG 58 kDa Band REACTIVE A Lyme IgG 93 kDa Band REACTIVE A 03/23/22 03/23/22 Range/Units 07:13 11:43 RBC (4.63-6.08) M/uL Hgb (14.0-18.0) g/dl Hct (40.1-51.0) % RDW Std Deviation (36.4-46.3) fL RDW Coeff of Jaymie (11.5-14.5) % Sodium 132 L (136-145) mmol/L BUN 27 H (6-23) mg/dl Creatinine 1.65 H (0.6-1.4) mg/dl POC Glucose 188 H (70-99) mg/dl Calcium 8.4 L (8.5-10.1) mg/dl Lyme IgG (Western Blot) (NEGATIVE) Lyme IgG 23 kDa Band Lyme IgG 39 kDa Band Lyme IgG 41 kDa Band Lyme IgG 58 kDa Band Lyme IgG 93 kDa Band
[2022-03-23] MEDS: WARFARIN SOD 5 MG TAB PO SCH (16:03)
[2022-03-23] MEDS: ACETAMINOPHEN 325 MG TAB PO PRN (16:04)
[2022-03-24 07:55] LABS: INR 1.5 (0.9-1.1); Prothrombin Time 15.6 Seconds (9.0-12.0)
[2022-03-24 08:28] LABS: BUN Creatinine Ratio 16.6 (10-20); Calcium 8.6 mg/dl (8.5-10.1); Creatinine Clr Calc Pharmacy 43.4 ml/min; Est GFR (African American) 44.8 ml/min; Est GFR (Non-African American) 38.7 ml/min; Potassium 4.1 mmol/L (3.5-5.1)
[2022-03-24] MEDS: INSULIN ASPART PER UNIT SC SCH ×4 (08:51→21:13)
[2022-03-24] MEDS: ASPIRIN 81 MG ECTAB PO SCH (08:54)
[2022-03-24] MEDS: FUROSEMIDE 20 MG TAB PO SCH (08:55)
[2022-03-24] MEDS: CEROVITE ADV FORMULA TAB PO SCH (08:55)
[2022-03-24] MEDS: METOPROLOL SUCC 50MG EXT REL TAB PO SCH (08:55)
[2022-03-24] MEDS: ATORVASTATIN 40 MG TAB PO SCH (08:55)
[2022-03-24 10:05] LABS: Hematocrit (blood only) 30.2 % (40.1-51.0); Hemoglobin 10.1 g/dl (14.0-18.0); Mean Corpuscular Hemoglobin 29.4 pg (25.0-34.0); Mean Corpuscular Hgb Conc 33.4 g/dL (32.0-36.0); Mean Platelet Volume 10.4 fL (9.4-12.4); Platelet Count 252 K/uL (130-400); RDW Coefficient of Variation 15.9 % (11.5-14.5); RDW Standard Deviation 50.5 fL (36.4-46.3); Red Blood Count 3.43 M/uL (4.63-6.08); White Blood Count 12.69 K/ul (4.8-10.8)
[2022-03-24] MEDS: cefTRIAXone SODIUM 2,000 MG in DEXTROSE 5% 50 ML IV SCH (10:06)
--- NOTE | 2022-03-24 11:55 | Hospitalist Progress Note ---
Date of Service March 24, 2022 Assessment & Plan (1) Recurrent falls: Plan Recurrent falls Likely underlying ambulatory dysfunction History of neuropathy as per family Patient came in with multiple falls, around 4-5 in the last 1 month per patient, reports he has problem with balance. Also increased propensity for falling secondary to new Myrbetriq treatment for BPH. Admitting imaging CXR/pelvic x-ray/CT head/cervical spine CT reviewed, no acute findings. PT/OT eval noted. Rehab recommended DC Myrbetriq on discharge. Plan to reduce glipizide on DC. Had hypoglycemia on admission with BG of 62 A1c is 6.8. Urinary tract infection Urine culture growing proteus and klebsiella Fever yesterday may be due to UTI If he has another fever, will get blood cultures Continue ceftriaxone for today. Plan to deescalate to po tomorrow Had urinary retention and Garcia was placed. Discussed with RN and patient. Will dc garcia and do voiding trial. Educated patient on need for proper use of urinal and keeping dry. He acknowledged he will be able to use the urinal Has pressure ulcer left buttock stg 3 (Present of admission per RN) well as moisture skin damage. Garcia will help with healing. Continue wound care Choking episode at ED: H/o GERD and esophageal stricture status post dilatation Speech eval noted Aspiration precautions Other chronic medical conditions: Chronic diastolic heart failure, CAD status post CABG, PVD, SSS status post PPM on Coumadin, HTN, HLD, history of traumatic subdural hematoma, hypothyroidism, CKD3, chronic anemia Continue home meds DVT prophylaxis: Coumadin. INR is subtherapeutic today. Will monitor Full code CM working on placement Admission and Anticipated Discharge Date Admission Date: March 22, 2022 Subjective Patient seen and examined Patient had a temp of 38 yesterday afternoon Reported one episode of vomiting yesterday. Currently denies any new complaints Denies nausea or vomiting today Denied any dizziness, loss of consciousness Denied any chest pain, cough, shortness of breath Denied abd pain, diarrhea Denied chills Reports chronic numbness in the feet. Reports he has some soreness behind both knees with activity Physical Exam Constitutional: + well hydrated; no acute distress Eyes: PERRL, conjunctivae normal, anicteric sclerae ENMT: external ear and nose normal, oropharynx normal Respiratory: normal respiratory effort, lungs clear to auscultation Cardiovascular: Rate/Rhythm: regular rate and regular rhythm S1 S2 Gastrointestinal (Abdomen): normal bowel sounds, soft, nontender, no hepatosplenomegaly Musculoskeletal: No pedal edema. Stasis changes No wound/bruise/swelling/tenderness noted around the knees Neurologic: PERRL, EOMI, accommodation nl, no face palsy, no dysarthria Psychiatric: A+Ox3, euthymic affect Results & Data Results & Data ([facility]) Vital Signs (Past 12 Hours) Vital Signs Temp Pulse Pulse Resp BP Pulse Ox O2 Del Method 03/24/22 06:07 60 03/24/22 07:00 36.8 C 111 H 18 117/68 97 Room Air 03/24/22 03:00 36.9 C 60 20 112/68 94 Room Air Laboratory Results Abnormal lab results 03/23/22 03/23/22 03/24/22 Range/Units 16:38 20:11 07:20 WBC (4.8-10.8) K/ul RBC (4.63-6.08) M/uL Hgb (14.0-18.0) g/dl Hct (40.1-51.0) % RDW Std Deviation (36.4-46.3) fL RDW Coeff of Jaymie (11.5-14.5) % PT (9.0-12.0) Seconds INR (0.9-1.1) Sodium 133 L (136-145) mmol/L BUN 27 H (6-23) mg/dl Creatinine 1.63 H (0.6-1.4) mg/dl POC Glucose 104 H 105 H (70-99) mg/dl 03/24/22 03/24/22 03/24/22 Range/Units 07:20 09:23 11:57 WBC 12.69 H (4.8-10.8) K/ul RBC 3.43 L (4.63-6.08) M/uL Hgb 10.1 L (14.0-18.0) g/dl Hct 30.2 L (40.1-51.0) % RDW Std Deviation 50.5 H (36.4-46.3) fL RDW Coeff of Jaymie 15.9 H (11.5-14.5) % PT 15.6 H (9.0-12.0) Seconds INR 1.5 H (0.9-1.1) Sodium (136-145) mmol/L BUN (6-23) mg/dl Creatinine (0.6-1.4) mg/dl POC Glucose 114 H (70-99) mg/dl
[2022-03-24] MEDS: WARFARIN SOD 5 MG TAB PO SCH (17:08)
[2022-03-25 05:52] LABS: Hemoglobin 9.5 g/dl (14.0-18.0); Mean Corpuscular Hemoglobin 29.3 pg (25.0-34.0); Mean Corpuscular Hgb Conc 32.8 g/dL (32.0-36.0); Mean Corpuscular Volume 89.5 fL (80.0-100.0); Mean Platelet Volume 10.2 fL (9.4-12.4); Platelet Count 242 K/uL (130-400); RDW Coefficient of Variation 15.8 % (11.5-14.5); Red Blood Count 3.24 M/uL (4.63-6.08)
[2022-03-25 06:03] LABS: INR 1.4 (0.9-1.1); Prothrombin Time 15.1 Seconds (9.0-12.0)
[2022-03-25 06:19] LABS: BUN Creatinine Ratio 17.1 (10-20); Calcium 8.1 mg/dl (8.5-10.1); Creatinine Clr Calc Pharmacy 43.1 ml/min; Est GFR (African American) 44.5 ml/min; Est GFR (Non-African American) 38.4 ml/min; Potassium 3.8 mmol/L (3.5-5.1)
[2022-03-25] MEDS: ACETAMINOPHEN 325 MG TAB PO PRN (08:32)
[2022-03-25] MEDS: FUROSEMIDE 20 MG TAB PO SCH (08:33)
[2022-03-25] MEDS: INSULIN ASPART PER UNIT SC SCH ×4 (08:33→20:17)
[2022-03-25] MEDS: METOPROLOL SUCC 50MG EXT REL TAB PO SCH (08:34)
[2022-03-25] MEDS: ASPIRIN 81 MG ECTAB PO SCH (08:34)
[2022-03-25] MEDS: CEROVITE ADV FORMULA TAB PO SCH (08:34)
[2022-03-25] MEDS: ATORVASTATIN 40 MG TAB PO SCH (08:34)
[2022-03-25] MEDS: cefTRIAXone SODIUM 2,000 MG in DEXTROSE 5% 50 ML IV SCH (10:25)
--- NOTE | 2022-03-25 10:28 | Hospitalist Progress Note ---
Date of Service March 25, 2022 Assessment & Plan (1) Recurrent falls: Plan Recurrent falls Likely underlying ambulatory dysfunction History of neuropathy as per family Patient came in with multiple falls, around 4-5 in the last 1 month per patient, reports he has problem with balance. Also increased propensity for falling secondary to new Myrbetriq treatment for BPH. Admitting imaging CXR/pelvic x-ray/CT head/cervical spine CT reviewed, no acute findings. PT/OT eval noted. Rehab recommended DC Myrbetriq on discharge. Plan to reduce glipizide on DC. Had hypoglycemia on admission with BG of 62 A1c is 6.8. Urinary tract infection Urine culture growing proteus and klebsiella Fever on 03/23/22 may be due to UTI If he has another fever, will get blood cultures Change ceftriaxone to cefdinir to complete treatment Urinary retention Failed voiding trial Reinsert garcia. Patient will be discharged with garcia He needs to follow up witih his Urologist Dr Manuel Lara who has been managing him for BPH, phimosis and other urologic issues Per Urologist outpatient's note on 02/13/22, patient was on finasteride. Continue finasteride Has pressure ulcer left buttock stg 3 (Present of admission per RN) well as moisture skin damage. Continue wound care Choking episode at ED: H/o GERD and esophageal stricture status post dilatation Speech eval noted Aspiration precautions Other chronic medical conditions: Chronic diastolic heart failure, CAD status post CABG, PVD, SSS status post PPM on Coumadin, HTN, HLD, history of traumatic subdural hematoma, hypothyroidism, CKD3, chronic anemia Continue home meds DVT prophylaxis: Coumadin. INR is still subtherapeutic today. Will add additional 2mg warfarin to usual dose today and monitor Full code CM working on placement Will get doppler of LE to rule out DVT Admission and Anticipated Discharge Date Admission Date: March 22, 2022 Subjective Patient seen and examined Has been afebrile since after temp of 38 on 03/23/22 Reports pain behind both upper legs and behind the knees, worse on the left, worse with activity Denies nausea or vomiting today Denied any dizziness, loss of consciousness Denied any chest pain, cough, shortness of breath Denied abd pain, diarrhea Reports chronic numbness in the feet. Failed voiding trial. Required straight cath overnight Physical Exam Constitutional: + well hydrated; no acute distress Eyes: PERRL, conjunctivae normal, anicteric sclerae ENMT: external ear and nose normal, oropharynx normal Respiratory: normal respiratory effort, lungs clear to auscultation Cardiovascular: Rate/Rhythm: regular rate and regular rhythm S1 S2 Gastrointestinal (Abdomen): normal bowel sounds, soft, nontender, no hepatos plenomegaly Musculoskeletal: No pedal edema Chronic stasis changes No swelling/tenderness noted on exam of legs and knee Neurologic: PERRL, EOMI, accommodation nl, no face palsy, no dysarthria Psychiatric: A+Ox3, euthymic affect Genitourinary: Garcia in situ Results & Data Results & Data ([facility]) Vital Signs (Past 12 Hours) Vital Signs Temp Pulse Pulse Resp BP BP Pulse Ox 03/25/22 06:01 60 03/25/22 08:00 36.8 C 60 18 106/62 95 03/25/22 03:00 37.2 C 60 20 126/65 94 03/24/22 23:13 60 O2 Del Method 03/25/22 06:01 03/25/22 08:00 Room Air 03/25/22 03:00 Room Air 03/24/22 23:13 Laboratory Results Abnormal lab results 03/24/22 03/24/22 03/25/22 Range/Units 11:57 20:33 05:39 WBC (4.8-10.8) K/ul RBC (4.63-6.08) M/uL Hgb (14.0-18.0) g/dl Hct (40.1-51.0) % RDW Std Deviation (36.4-46.3) fL RDW Coeff of Jaymie (11.5-14.5) % PT 15.1 H (9.0-12.0) Seconds INR 1.4 H (0.9-1.1) Sodium (136-145) mmol/L BUN (6-23) mg/dl Creatinine (0.6-1.4) mg/dl Glucose (70-99(Fasting)) mg/dl POC Glucose 114 H 137 H (70-99) mg/dl Calcium (8.5-10.1) mg/dl 03/25/22 03/25/22 03/25/22 Range/Units 05:39 05:39 07:57 WBC 12.00 H (4.8-10.8) K/ul RBC 3.24 L (4.63-6.08) M/uL Hgb 9.5 L (14.0-18.0) g/dl Hct 29.0 L (40.1-51.0) % RDW Std Deviation 51.0 H (36.4-46.3) fL RDW Coeff of Jaymie 15.8 H (11.5-14.5) % PT (9.0-12.0) Seconds INR (0.9-1.1) Sodium 130 L (136-145) mmol/L BUN 28 H (6-23) mg/dl Creatinine 1.64 H (0.6-1.4) mg/dl Glucose 131 H (70-99(Fasting)) mg/dl POC Glucose 139 H (70-99) mg/dl Calcium 8.1 L (8.5-10.1) mg/dl
[2022-03-25] MEDS: FINASTERIDE 5 MG TAB PO SCH (12:25)
[2022-03-25] MEDS ORDERED: WARFARIN SOD 2 MG TAB PO ONE (16:00)
[2022-03-25] MEDS: WARFARIN SOD 5 MG TAB PO SCH (17:13)
[2022-03-26 06:13] LABS: Hematocrit (blood only) 28.1 % (40.1-51.0); Hemoglobin 9.6 g/dl (14.0-18.0); Mean Corpuscular Hemoglobin 29.7 pg (25.0-34.0); Mean Corpuscular Hgb Conc 34.2 g/dL (32.0-36.0); Mean Platelet Volume 10.5 fL (9.4-12.4); Platelet Count 258 K/uL (130-400); RDW Coefficient of Variation 15.6 % (11.5-14.5); RDW Standard Deviation 49.5 fL (36.4-46.3); Red Blood Count 3.23 M/uL (4.63-6.08); White Blood Count 10.18 K/ul (4.8-10.8)
[2022-03-26 06:37] LABS: BUN Creatinine Ratio 18.1 (10-20); Calcium 8.3 mg/dl (8.5-10.1); Creatinine Clr Calc Pharmacy 45.6 ml/min; Est GFR (African American) 47.6 ml/min; Est GFR (Non-African American) 41.1 ml/min
[2022-03-26 06:44] LABS: INR 1.4 (0.9-1.1); Prothrombin Time 15.1 Seconds (9.0-12.0)
[2022-03-26] MEDS: CEROVITE ADV FORMULA TAB PO SCH (09:25)
[2022-03-26] MEDS: FINASTERIDE 5 MG TAB PO SCH (09:25)
[2022-03-26] MEDS: CEFDINIR 300 MG CAP PO SCH ×2 (09:25→21:48)
[2022-03-26] MEDS: ATORVASTATIN 40 MG TAB PO SCH (09:26)
[2022-03-26] MEDS: ASPIRIN 81 MG ECTAB PO SCH (09:26)
[2022-03-26] MEDS: FUROSEMIDE 20 MG TAB PO SCH (09:26)
[2022-03-26] MEDS: METOPROLOL SUCC 50MG EXT REL TAB PO SCH (09:26)
--- NOTE | 2022-03-26 09:30 | Hospitalist Progress Note ---
Date of Service March 26, 2022 Assessment & Plan (1) Recurrent falls: Plan Recurrent falls Likely underlying ambulatory dysfunction History of neuropathy as per family Patient came in with multiple falls, around 4-5 in the last 1 month per patient, reports he has problem with balance. Also increased propensity for falling secondary to new Myrbetriq treatment for BPH. Admitting imaging CXR/pelvic x-ray/CT head/cervical spine CT reviewed, no acute findings. PT/OT eval noted. Rehab recommended DC Myrbetriq on discharge. Plan to reduce glipizide on DC. Had hypoglycemia on admission with BG of 62 A1c is 6.8. Urinary tract infection Urine culture growing proteus and klebsiella Fever on 03/23/22 may be due to UTI If he has another fever, will get blood cultures Continue cefdinir to complete treatment Urinary retention Failed voiding trial Patient will be discharged with garcia He needs to follow up witih his Urologist Dr Manuel Lara who has been managing him for BPH, phimosis and other urologic issues Per Urologist outpatient's note on 02/13/22, patient was on finasteride. Continue finasteride Has pressure ulcer left buttock stg 3 (Present of admission per RN) well as moisture skin damage. Continue wound care Choking episode at ED: H/o GERD and esophageal stricture status post dilatation Speech eval noted Aspiration precautions Other chronic medical conditions: Chronic diastolic heart failure, CAD status post CABG, PVD, SSS status post PPM on Coumadin, HTN, HLD, history of traumatic subdural hematoma, hypothyroidism, CKD3, chronic anemia Continue home meds DVT prophylaxis: Coumadin. INR is still subtherapeutic today at 1.4. Will give additional warfarin to usual dose today and continue monitoring Full code CM working on placement Will get doppler of LE to rule out DVT Admission and Anticipated Discharge Date Admission Date: March 22, 2022 Subjective Patient seen and examined Has been afebrile since after temp of 38 on 03/23/22 Denies nausea or vomiting Denied abd pain, diarrhea Denied any chest pain, cough, shortness of breath Reports chronic numbness in the feet. Reports mild pain in upper part of both legs Physical Exam Constitutional: + well hydrated; no acute distress Eyes: PERRL, conjunctivae normal, anicteric sclerae ENMT: external ear and nose normal, oropharynx normal Respiratory: normal respiratory effort, lungs clear to auscultation Cardiovascular: Rate/Rhythm: regular rate and regular rhythm S1 S2 Gastrointestinal (Abdomen): normal bowel sounds, soft, nontender, no hepatosplenomegaly Musculoskeletal: No pedal edema Chronic stasis changes Neurologic: PERRL, EOMI, accommodation nl, no face palsy, no dysarthria Psychiatric: A+Ox3, euthymic affect Results & Data Results & Data ([facility]) Vital Signs (Past 12 Hours) Vital Signs Temp Pulse Pulse Resp BP Pulse Ox O2 Del Method 03/26/22 07:58 80 03/26/22 07:43 36.8 C 60 18 147/70 H 94 Room Air 03/26/22 03:00 37.1 C 76 20 123/61 94 Room Air 03/26/22 02:18 Room Air 03/25/22 22:05 60 03/25/22 22:00 36.8 C 59 L 20 135/67 95 Room Air Laboratory Results Abnormal lab results 03/25/22 03/25/22 03/25/22 Range/Units 11:55 16:54 20:16 RBC (4.63-6.08) M/uL Hgb (14.0-18.0) g/dl Hct (40.1-51.0) % RDW Std Deviation (36.4-46.3) fL RDW Coeff of Jaymie (11.5-14.5) % PT (9.0-12.0) Seconds INR (0.9-1.1) Sodium (136-145) mmol/L BUN (6-23) mg/dl Creatinine (0.6-1.4) mg/dl Glucose (70-99(Fasting)) mg/dl POC Glucose 158 H 101 H 137 H (70-99) mg/dl Calcium (8.5-10.1) mg/dl 03/26/22 03/26/22 03/26/22 Range/Units 05:35 05:35 05:35 RBC 3.23 L (4.63-6.08) M/uL Hgb 9.6 L (14.0-18.0) g/dl Hct 28.1 L (40.1-51.0) % RDW Std Deviation 49.5 H (36.4-46.3) fL RDW Coeff of Jaymie 15.6 H (11.5-14.5) % PT 15.1 H (9.0-12.0) Seconds INR 1.4 H (0.9-1.1) Sodium 132 L (136-145) mmol/L BUN 28 H (6-23) mg/dl Creatinine 1.55 H (0.6-1.4) mg/dl Glucose 111 H (70-99(Fasting)) mg/dl POC Glucose (70-99) mg/dl Calcium 8.3 L (8.5-10.1) mg/dl 03/26/22 Range/Units 07:41 RBC (4.63-6.08) M/uL Hgb (14.0-18.0) g/dl Hct (40.1-51.0) % RDW Std Deviation (36.4-46.3) fL RDW Coeff of Jaymie (11.5-14.5) % PT (9.0-12.0) Seconds INR (0.9-1.1) Sodium (136-145) mmol/L BUN (6-23) mg/dl Creatinine (0.6-1.4) mg/dl Glucose (70-99(Fasting)) mg/dl POC Glucose 119 H (70-99) mg/dl Calcium (8.5-10.1) mg/dl
[2022-03-26] MEDS: INSULIN ASPART PER UNIT SC SCH ×4 (09:35→22:44)
--- NOTE | 2022-03-26 11:06 | Ultrasound Report ---
BILATERAL LOWER EXTREMITY VENOUS DOPPLER CLINICAL HISTORY: Bilateral lower extremity weakness. COMPARISON STUDY: No previous studies for comparison. TECHNIQUE: Sonography of the deep venous system of the bilateral lower extremities was performed. Co mpression and augmentation were evaluated. FINDINGS: The bilateral common femoral, superficial femoral and popliteal veins were compressible. A ugmentation was normal. Flow was shown within the deep calf vessels. IMPRESSION: No evidence of deep venous thrombus within the bilateral lower extremities. ACT 112: Negative or not required by law. Electronically signed by: Gurinder No M.D. 03/26/2022 11:05 AM
[2022-03-26] MEDS ORDERED: WARFARIN SOD 2 MG TAB PO ONE (16:00)
[2022-03-26] MEDS: WARFARIN SOD 5 MG TAB PO SCH (16:32)
[2022-03-27 06:18] LABS: INR 1.6 (0.9-1.1); Prothrombin Time 16.7 Seconds (9.0-12.0)
[2022-03-27] MEDS: METOPROLOL SUCC 50MG EXT REL TAB PO SCH (07:51)
[2022-03-27] MEDS: CEROVITE ADV FORMULA TAB PO SCH (07:51)
[2022-03-27] MEDS: CEFDINIR 300 MG CAP PO SCH (07:51)
[2022-03-27] MEDS: FINASTERIDE 5 MG TAB PO SCH (07:51)
[2022-03-27] MEDS: ATORVASTATIN 40 MG TAB PO SCH (07:51)
[2022-03-27] MEDS: ASPIRIN 81 MG ECTAB PO SCH (07:51)
[2022-03-27] MEDS: FUROSEMIDE 20 MG TAB PO SCH (07:51)
[2022-03-27] MEDS: INSULIN ASPART PER UNIT SC SCH ×2 (08:47→12:05)
--- NOTE | 2022-03-27 10:42 | Discharge Summary ---
Discharge Summary Date of Service March 27, 2022 Notes For Next Care Provider Needs to follow up with urology for continued management of his urologic issues Discharged with a garcia for urinary retention Discharged to nursing facility Patient to check INR in 3 days at facility Medication Changes From Visit Glipizide reduced to 5mg daily Myrbetic discontinued for now Cefdinir to complete 10 days treatment for complicated UTI Admission HPI Per Admitting Provider History obtained from patient, family, and records. Medical history significant for chronic diastolic heart failure (EF 50 to 54%, 2020), CAD status post CABG, SSS status post PPM on Coumadin, PVD, hypertension, hyperlipidemia, history traumatic subdural hematoma, DM2 on oral medications, hypothyroidism, CRI (baseline creatinine 1.7), chronic anemia (baseline hemoglobin of 10 ), BPH, ambulatory dysfunction, history of esophageal stricture status post dilatation, history neuropathy as per family. Last [facility] [place] [facility] confinement July 2020 for acute on chronic subdural hematoma, CHF. No operative intervention. Aspirin and Coumadin resumed on discharge. Patient seen at [facility] urologist office last month for follow-up visit for BPH, phimosis. Worsening urinary incontinence and irritative voiding symptoms. Patient started on Myrbetriq. Medication started with subsequent dose increase a few weeks ago. Patient family noted increased falling at home the last 2 weeks. Patient denies syncope or lightheadedness. He just has sensation that he is going to fall down. No unusual chest pain or shortness of breath. Patient not sure if Myrbetriq helping his prostate symptoms. Patient seen on [facility] Cardiology follow-up visit today. Outpatient labs ordered. Patient had another fall at home this afternoon. He felt his feet going numb. No head trauma, no syncope, no chest pain, no SOB. Patient brought to the ER by family for evaluation. BSG upon arrival at the ER 63. Choking episode noted while consuming a sandwich at the ER witnessed by family. Medical History as above 2011 EGD showed LA grade B reflux esophagitis. Chronic gastritis. Gastric diverticulum. Duodenitis. Surgical History : CABG Family History : Heart disease, AAA Personal/Social history : Non-smoker, no EtOH intake, lives with Admission Exam Per Admitting Provider GENERAL: Comfortable, obese, slightly hard of hearing, slightly anxious, no respiratory distress SKIN: Pallor, warm HEENT: Alopecia, pale palpebral conjunctivae, no ptosis, dry buccal mucosa NECK : Supple, short neck, no tenderness CHEST : Decreased breath sounds, no tenderness HEART : RRR, no obvious murmurs ABDOMEN: Some distention, nontender EXTREMITIES : Minimal LE swelling, no LE tenderness, no other conspicuous deformities noted NEUROLOGIC : Coherent, no facial asymmetry, mild impairment, gait and stance not assessed Principal Dx & Hospital Course #1 = Principal Diagnosis (1) Recurrent falls: Plan Recurrent falls Likely underlying ambulatory dysfunction History of neuropathy as per family Patient came in with multiple falls, around 4-5 in the last 1 month per patient, reports he has problem with balance. Also increased propensity for falling secondary to new Myrbetriq treatment for BPH. Admitting imaging CXR/pelvic x-ray/CT head/cervical spine CT reviewed, no acute findings. Was evaluated by PT/OT. Rehab recommended DC Myrbetriq on discharge. Had hypoglycemia on admission with BG of 62 A1c is 6.8. Reduced home glipizide to 5mg daily on discharge Urinary tract infection Urine culture growing proteus and klebsiella Continue cefdinir to complete treatment Urinary retention Failed voiding trial Patient was discharged with garcia He needs to follow up with his Urologist Dr Manuel Lara who has been managing him for BPH, phimosis and other urologic issues Continue finasteride Has pressure ulcer left buttock stg 3 (Present of admission per RN) well as moisture skin damage. Continue wound care Choking episode at ED: H/o GERD and esophageal stricture status post dilatation Was evaluated by Speech therapist Aspiration precautions Continue regular heart healthy carb controlled diet Other chronic medical conditions: Chronic diastolic heart failure, CAD status post CABG, PVD, SSS status post PPM on Coumadin, HTN, HLD, history of traumatic subdural hematoma, hypothyroidism, CKD3, chronic anemia Continue home meds INR is still subtherapeutic today at 1.6. Got extra warfarin dose over past 2 days while inpatient Continue home warfarin. Recheck INR in 3 days at facility Discharge Exam Constitutional + well hydrated; no acute distress Eyes PERRL, conjunctivae normal, anicteric sclerae ENMT external ear and nose normal, oropharynx normal Respiratory normal respiratory effort, lungs clear to auscultation Cardiovascular Rate/Rhythm: regular rate and regular rhythm S1 S2 Gastrointestinal (Abdomen) normal bowel sounds, soft, nontender, no hepatosplenomegaly Musculoskeletal No pedal edema, stasis changes Neurologic PERRL, EOMI, accommodation nl, no face palsy, no dysarthria Psychiatric A+Ox3, euthymic affect Updated Medication List Medication Instructions Recorded Confirmed Type ammonium lactate 12 % topical cream 1 applic topical DAILY PRN Dry Skin 07/19/20 03/20/22 History silver sulfadiazine 1 % topical 1 applic topical DAILY 09/12/21 03/20/22 History cream acetaminophen 325 mg tablet 650 mg PO Q6H PRN Pain #50 tabs 03/27/22 Rx (Tylenol) aspirin 81 mg chewable tablet 81 mg PO DAILY #30 tabs 03/27/22 Rx atorvastatin 80 mg tablet 80 mg PO QAM #30 tabs 03/27/22 03/20/22 Rx cefdinir 300 mg capsule 300 mg PO BID 5 days #10 caps 03/27/22 Rx cyanocobalamin (vitamin B-12) 500 500 mcg PO QAM #30 tabs 03/27/22 Rx mcg tablet (Vitamin B-12) docusate sodium 100 mg capsule 100 mg PO BID PRN Constipation #30 03/27/22 Rx caps finasteride 5 mg tablet 5 mg PO DAILY #30 tabs 03/27/22 Rx folic acid 1 mg tablet 1 mg PO QAM #30 tabs 03/27/22 Rx furosemide 40 mg tablet 20 mg PO QAM #30 tabs 03/27/22 Rx glipizide 10 mg tablet, extended 5 mg PO QAM #15 tabs 03/27/22 Rx release 24 hr levothyroxine 125 mcg tablet 125 mcg PO DAILYBB #30 tabs 03/27/22 Rx metoprolol succinate 50 mg 50 mg PO DAILY #30 tabs 03/27/22 Rx tablet,extended release 24 hr multivitamin-ferrous 1 tab PO DAILY #30 tabs 03/27/22 Rx fumarate-folic acid 18 mg-400 mcg tablet (Centrum) nut.tx.gluc.intol,lac-free,soy 1 ea PO DAILY #30 mL 03/27/22 Rx (Glucerna Shake oral liquid) omeprazole 20 mg capsule,delayed 20 mg PO QAM #30 caps 03/27/22 Rx release potassium chloride 20 mEq 20 meq PO DAILY #30 tabs 03/27/22 Rx tablet,extended release warfarin 5 mg tablet See Rx Instructions .Route 03/27/22 Rx .COMPLEX #60 tabs zinc gluconate 50 mg tablet 50 mg PO DAILY #30 tabs 03/27/22 Rx Hospital Stay Data Consultations 03/20/22 21:02 ED Decision to Admit Stat Diagnostic Imagining Performed 03/20/22 18:38 CT cervical spine wo con Stat CT head/brain wo con Stat 03/26/22 US venous doppler LE BI Routine Pending Results Patient Have Any Pending Studies at Discharge: No Discharge Instructions Given to Patient (Per Discharging Provider) Mr Mancini You came to the hospital for recurrent falls. You were evaluated and treated for urinary tract infection. You also had urinary retention and failed voiding trial. You are being discharged with a garcia catheter. Another voiding trial may be attempted at nursing facility. Please ensure follow up with your Urologist. Your glipizide was reduced to 5mg daily and your Myrbetriq stopped for now. Please continue the antibiotics for next few days to complete treatment. Please continue to take your warfarin. Ensure follow up with your Primary Doctor. It was a pleasure taking care of you. Total Time Total Time Spent Total Time Spent (In Minutes): 45 Total Time Includes: Examination of the Patient, Discharge Planning and Medication Reconciliation
[2022-03-27] MEDS ORDERED: WARFARIN SOD 2.5 MG TAB PO SCH (16:00)
== END 2022-03-27 13:09 | DRG 689 ==
LOC: EDINP 18:08 → ED 18:08 → SUATTDRO 22:37 → 2N 03-21 00:54

== ENCOUNTER 2022-08-16 19:56 | Inpatient (IN) ==
[2022-08-16 20:22] LABS: Basophils # (auto) 0.06 K/uL (0-0.2); Basophils % (auto) 0.6 %; Eosinophils # (auto) 0.23 K/uL (0-0.50); Eosinophils % (auto) 2.1 %; Hemoglobin 12.8 g/dl (14.0-18.0); Immature Granulocytes # (auto) 0.02 K/uL (0.01-0.20); Immature Granulocytes % (auto) 0.2 %; Lymphocytes # (auto) 3.52 K/uL (1.2-3.4); Lymphocytes % (auto) 32.6 %; Mean Corpuscular Hgb Conc 32.8 g/dL (32.0-36.0); Mean Corpuscular Volume 91.5 fL (80.0-100.0); Mean Platelet Volume 10.8 fL (9.4-12.4); Monocytes # (auto) 0.81 K/uL (0.11-0.59); Monocytes % (auto) 7.5 %; Neutrophils # (auto) 6.15 K/uL (1.40-6.50); Platelet Count 212 K/uL (130-400); RDW Coefficient of Variation 15.3 % (11.5-14.5); RDW Standard Deviation 50.6 fL (36.4-46.3); Red Blood Count 4.26 M/uL (4.70-6.10); White Blood Count 10.79 K/ul (4.8-10.8)
[2022-08-16] MEDS ORDERED: PHYTONADIONE 5 MG in DEXTROSE 5% 50 ML IV ONE ×2 (20:24→22:21)
--- NOTE | 2022-08-16 20:27 | Emergency Department Note ---
Impression & Plan Hematuria, Anemia, Coagulopathy ED Provider Note NAME: ALMAS COHEN AGE: 82 SEX: M : 1940 ARRIVES VIA: Walk-In INFORMANT: [Patient][family] ED PROVIDER(S): [Davis Lancaster MD] CHIEF COMPLAINT: Hematuria HISTORY OF PRESENT ILLNESS: The patient is an 82-year-old male who presents with hematuria. He felt a bit lightheaded earlier. He has had blood in the urine now for about 9 hours. He does have a Santacruz catheter. The patient is not in pain, no fever or chills. No cough or congestion or shortness of breath. The patient states that his INR yesterday was 3.6. He was to hold his Coumadin today. The patient has had a cystoscopy, no bladder lesions found. PMHx/PSHx: See Below SOCIAL HISTORY: See Below. PHYSICAL EXAM: GENERAL: Patient is in no acute distress. HEENT: No acute trauma, normocephalic atraumatic, mucous membranes moist, no nasal congestion. NECK: No stridor, no adenopathy, no meningismus, trachea is midline. LUNGS: Clear to auscultation bilaterally, no wheeze, no rhonchi, breath sounds equal. HEART: Without murmurs gallops or rubs, regular rate and rhythm. ABDOMEN: Soft, nontender, bowel sounds positive, no peritonitis. EXTREMITIES: No cyanosis or edema, full range of motion of all the joints without pain or difficulty, no signs for acute trauma. NEUROLOGIC: Oriented x 3, no acute motor or sensory deficits, no focal weakness. SKIN: No rash, no jaundice, no diaphoresis. Groin: Santacruz catheter in place, dark bloody urine in the Santacruz bag. DIFFERENTIAL DIAGNOSIS: Hematuria, anemia, UTI, coagulopathy, renal or bladder mass, among others. EMERGENCY DEPARTMENT COURSE/PROCEDURES: Prior/Outside records reviewed: Recent urology note. MEDICAL DECISION MAKING: There is no leukocytosis. The patient is anemic however, his hemoglobin today is better than his recent testing. There is a normal platelet count. INR was over the therapeutic window at 4.5. There was some renal insufficiency but this appears baseline. No electrolyte abnormality in need of emergent correction. Alk phos mildly elevated, the remaining liver enzymes were unremarkable. Urinalysis shows blood and potentially infection. Abdominal and pelvis CT does not show any renal mass or lesion. No hydronephrosis. The bladder was thickened consistent with possible cystitis. The Santacruz catheter was within the bladder. On exam, the patient had grossly bloody urine in the bedside Santacruz bag. The patient received 500 cc of IV saline. He was given a total of 10 mg of IV vitamin K. He received IV ceftriaxone for the possibility of UTI. The patient is currently stable. He persists with hematuria. Given the coagulopathy, given the persistent hematuria, I do think a hospital stay would be warranted. Patient may require urologic intervention if his hematuria does not improve with correction of his INR. I spoke with the patient and case management, the on-call hospitalist was consulted. DISPOSITION: Patient's presentation and findings warrant a hospital stay. Past Med/Surg History Medical History Anemia Atrial fibrillation [id number] (age, CHF, HTN, DM, CAD) On Coumadin CAD (coronary artery disease) S/p 3 vessel CABG 2006 Carotid artery disease Per 07/01/2020 carotid duplex = right ICA 70-99%. 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 No current problems Surgical History Hx of CABG 2007 cabg x 3 at [place] Family History Sister Lung cancer smoker Other Family history non-contributory No family history of adverse response to anesthesia No family history of bleeding disorder Social History Smoking Status: Never smoker Second Hand Exposure: No; Do You Dip or Chew Tobacco: No; Hx Alcohol Use: No Hx Substance Use: No Preferred Language: Icelandic Communication Ability: Effective Visual Impairment: Limited Hearing Ability: Use of Hearing Aid Expedition Supervisor Required: No Beliefs That Will Affect Care: None marital status: Current Living Situation: Spouse current occupational status: retired How many Children do You have: 3 How many Children do You have Comment: All three children involved with care. Daughters live close to pt. Feels Safe at Home: Yes Diet: regular during the past year weight has: remained stable Assistive Devices: Cane, Denture - Upper, Glasses and Walker Allergies Allergies Allergy/AdvReac Type Severity Reaction Status Date / Time isosorbide AdvReac Intermediate Headache Verified 08/16/22 22:18 mirabegron AdvReac Intermediate falls Verified 08/16/22 22:18 isopropyl alcohol AdvReac "isopropyl Verified 08/16/22 22:18 isostearate" = headaches Home Meds Home Medications Medication Instructions Recorded Confirmed tamsulosin 0.4 mg capsule 0.4 mg PO DAILY 05/19/22 08/16/22 Lactobacillus acidophilus 500 500 mmu cells PO DAILY 05/25/22 08/16/22 million cell tablet iron,carbonyl 65 mg-vitamin C 125 1 tab PO .Mwf 05/25/22 08/16/22 mg tablet,delayed release (Vitron-C) Prohheal 2 tbsp PO DAILY 08/16/22 08/16/22 glipizide 10 mg tablet, extended 10 mg PO QAM 08/16/22 08/16/22 release 24 hr pregabalin 50 mg capsule 50 mg PO BID 08/16/22 08/16/22 Previous Rx's Medication Instructions Recorded acetaminophen 325 mg tablet 650 mg PO Q6H PRN Pain #50 tabs 03/27/22 (Tylenol) aspirin 81 mg chewable tablet 81 mg PO DAILY #30 tabs 03/27/22 atorvastatin 80 mg tablet 80 mg PO QAM #30 tabs 03/27/22 cyanocobalamin (vitamin B-12) 500 500 mcg PO QAM #30 tabs 03/27/22 mcg tablet (Vitamin B-12) docusate sodium 100 mg capsule 100 mg PO BID PRN Constipation #30 03/27/22 caps finasteride 5 mg tablet 5 mg PO DAILY #30 tabs 03/27/22 folic acid 1 mg tablet 1 mg PO QAM #30 tabs 03/27/22 furosemide 40 mg tablet 20 mg PO QAM #30 tabs 03/27/22 levothyroxine 125 mcg tablet 125 mcg PO DAILYBB #30 tabs 03/27/22 metoprolol succinate 50 mg 50 mg PO DAILY #30 tabs 03/27/22 tablet,extended release 24 hr multivitamin-ferrous 1 tab PO DAILY #30 tabs 03/27/22 fumarate-folic acid 18 mg-400 mcg tablet (Centrum) omeprazole 20 mg capsule,delayed 20 mg PO QAM #30 caps 03/27/22 release potassium chloride 20 mEq 20 meq PO DAILY #30 tabs 03/27/22 tablet,extended release warfarin 5 mg tablet See Rx Instructions .Route 03/27/22 .COMPLEX #60 tabs zinc gluconate 50 mg tablet 50 mg PO DAILY #30 tabs 03/27/22 Results & Data (ED) Vital Signs Vital Signs - 24 hr 08/16/22 19:57 08/16/22 21:00 08/16/22 21:41 Temperature 36.2 C L Temperature Source Temporal Artery Scan Pulse Rate 105 H Pulse Rate [Apical] 61 Respiratory Rate 19 18 Respiratory Effort / Characteristics Non-Labored Spontaneous Respiratory Depth Normal Blood Pressure 137/87 Blood Pressure [Right Arm] 123/70 Blood Pressure Mean 103 Blood Pressure Mean [Right Arm] 87 Pulse Oximetry 98 97 98 Oxygen Delivery Method Room Air Room Air Room Air Sepsis Recent Fever Within 48 Hours No Sepsis New/Unexplained Change in Mental Status N/A Sepsis Action Taken by Nursing No Action Required 08/16/22 23:23 Temperature Temperature Source Pulse Rate Pulse Rate [Apical] 63 Respiratory Rate 18 Respiratory Effort / Characteristics Respiratory Depth Normal Blood Pressure Blood Pressure [Right Arm] 115/75 Blood Pressure Mean Blood Pressure Mean [Right Arm] 88 Pulse Oximetry 97 Oxygen Delivery Method Room Air Sepsis Recent Fever Within 48 Hours Sepsis New/Unexplained Change in Mental Status Sepsis Action Taken by Usp Medications Current Medication List: was personally reviewed by me Laboratory Data Attestation: I reviewed the patient's lab results. 08/16/22 20:06 08/16/22 20:06 Lab Results 08/16/22 08/16/22 08/16/22 Range/Units 20:06 20:06 20:06 WBC 10.79 (4.8-10.8) K/ul RBC 4.26 L (4.70-6.10) M/uL Hgb 12.8 L (14.0-18.0) g/dl Hct 39.0 L (42.0-52.0) % MCV 91.5 (80.0-100.0) fL MCH 30.0 (25.0-34.0) pg MCHC 32.8 (32.0-36.0) g/dL RDW Std Deviation 50.6 H (36.4-46.3) fL RDW Coeff of Jaymie 15.3 H (11.5-14.5) % Plt Count 212 (130-400) K/uL MPV 10.8 (9.4-12.4) fL Immature Gran % (Auto) 0.2 % Neut % (Auto) 57.0 % Lymph % (Auto) 32.6 % Lamb % (Auto) 7.5 % Eos % (Auto) 2.1 % Baso % (Auto) 0.6 % Neut # (Auto) 6.15 (1.40-6.50) K/uL Lymph # (Auto) 3.52 H (1.2-3.4) K/uL Lamb # (Auto) 0.81 H (0.11-0.59) K/uL Eos # (Auto) 0.23 (0-0.50) K/uL Baso # (Auto) 0.06 (0-0.2) K/uL Immature Gran # (Auto) 0.02 (0.01-0.20) K/uL PT 45.2 H (9.0-12.0) Seconds INR 4.5 H (0.9-1.1) APTT 46.1 H* (21.0-31.0) Seconds PTT Ratio 1.6 Sodium 137 (136-145) mmol/L Potassium 4.1 (3.5-5.1) mmol/L Chloride 103 (98-107) mmol/L Carbon Dioxide 27 (21-32) mmol/L Anion Gap 7 (3-11) BUN 31 H (6-23) mg/dl Creatinine 1.50 H (0.6-1.4) mg/dl Est Cr Clr Drug Dosing Not Reportable Est GFR ( Amer) 49.5 ml/min Est GFR (Non-Af Amer) 42.7 ml/min BUN/Creatinine Ratio 20.7 H (10-20) Glucose 114 H (70-99(Fasting)) mg/dl Calcium 9.1 (8.6-10.3) mg/dl Total Bilirubin 0.4 (0.2-1.0) mg/dl AST 25 (13-39) U/L ALT 10 (7-52) U/L Alkaline Phosphatase 136 H (34-104) U/L Total Protein 8.3 (6.0-8.3) gm/dl Albumin 3.9 (3.4-5.0) gm/dl Globulin 4.4 H (2.5-4.0) gm/dl Albumin/Globulin Ratio 0.9 (0.9-2) Urine Color Urine Appearance (Clear) Urine pH (4.5-7.5) Ur Specific [place] (1.000-1.030) Urine Protein (Negative) Urine Glucose (UA) (Negative) Urine Ketones (Negative) Urine Blood (Negative) Urine Nitrite (Negative) Urine Bilirubin (Negative) Urine Urobilinogen (Negative) Ur Leukocyte Esterase (Negative) Urine RBC (0-4) /hpf Urine WBC (0-5) /hpf Ur Epithelial Cells (0-5) /lpf Urine Bacteria (Negative) 08/16/22 Range/Units Unknown WBC (4.8-10.8) K/ul RBC (4.70-6.10) M/uL Hgb (14.0-18.0) g/dl Hct (42.0-52.0) % MCV (80.0-100.0) fL MCH (25.0-34.0) pg MCHC (32.0-36.0) g/dL RDW Std Deviation (36.4-46.3) fL RDW Coeff of Jaymie (11.5-14.5) % Plt Count (130-400) K/uL MPV (9.4-12.4) fL Immature Gran % (Auto) % Neut % (Auto) % Lymph % (Auto) % Lamb % (Auto) % Eos % (Auto) % Baso % (Auto) % Neut # (Auto) (1.40-6.50) K/uL Lymph # (Auto) (1.2-3.4) K/uL Lamb # (Auto) (0.11-0.59) K/uL Eos # (Auto) (0-0.50) K/uL Baso # (Auto) (0-0.2) K/uL Immature Gran # (Auto) (0.01-0.20) K/uL PT (9.0-12.0) Seconds INR (0.9-1.1) APTT (21.0-31.0) Seconds PTT Ratio Sodium (136-145) mmol/L Potassium (3.5-5.1) mmol/L Chloride (98-107) mmol/L Carbon Dioxide (21-32) mmol/L Anion Gap (3-11) BUN (6-23) mg/dl Creatinine (0.6-1.4) mg/dl Est Cr Clr Drug Dosing Est GFR ( Amer) ml/min Est GFR (Non-Af Amer) ml/min BUN/Creatinine Ratio (10-20) Glucose (70-99(Fasting)) mg/dl Calcium (8.6-10.3) mg/dl Total Bilirubin (0.2-1.0) mg/dl AST (13-39) U/L ALT (7-52) U/L Alkaline Phosphatase (34-104) U/L Total Protein (6.0-8.3) gm/dl Albumin (3.4-5.0) gm/dl Globulin (2.5-4.0) gm/dl Albumin/Globulin Ratio (0.9-2) Urine Color Red Urine Appearance Cloudy A (Clear) Urine pH 7.0 (4.5-7.5) Ur Specific [place] 1.015 (1.000-1.030) Urine Protein 2+ H (Negative) Urine Glucose (UA) Negative (Negative) Urine Ketones Negative (Negative) Urine Blood 3+ H (Negative) Urine Nitrite Negative (Negative) Urine Bilirubin Negative (Negative) Urine Urobilinogen Negative (Negative) Ur Leukocyte Esterase 1+ H (Negative) Urine RBC >30 H (0-4) /hpf Urine WBC 10-30 H (0-5) /hpf Ur Epithelial Cells 0-5 (0-5) /lpf Urine Bacteria Negative (Negative) Administered Medications Discontinued Medications Phytonadione 5 mg/ Dextrose 50.5 mls @ 101 mls/hr IV ONE ONE Stop: 08/16/22 20:53 Last Infusion: 08/16/22 22:20 Dose: 0 mls/hr Documented By: Admin: 08/16/22 21:37 Dose: 101 mls/hr Documented By: CROW Sodium Chloride (Nss 1000ml) 500 mls @ 999 mls/hr IV .Q31M ONE Stop: 08/16/22 22:46 Last Infusion: 08/16/22 23:24 Dose: 0 mls/hr Documented By: Admin: 08/16/22 22:33 Dose: 999 mls/hr Documented By: CROW Phytonadione 5 mg/ Dextrose 50.5 mls @ 101 mls/hr IV ONE ONE Stop: 08/16/22 22:50 Last Infusion: 08/16/22 23:07 Dose: 0 mls/hr Documented By: Admin: 08/16/22 22:33 Dose: 101 mls/hr Documented By: CROW Ceftriaxone Sodium (Rocephin) 2,000 mg in 70 mls @ 140 mls/hr IV NOW STA Stop: 08/16/22 23:31 Last Admin: 08/16/22 23:18 Dose: 140 mls/hr Documented By: CROW Ioversol (Optiray 320 500ml) 85 ml IV ONCE ONE Stop: 08/16/22 22:03 Last Admin: 08/16/22 22:02 Dose: 85 ml Documented By: BETH Imaging Data Radiologist's Impression: Abdomen/Pelvis CT 08/16/22 20:24 Exam(s): CT ABDOMEN + PELVIS With Contrast IV Amt: 85ml EXAM: CT Abdomen and Pelvis With Intravenous Contrast CLINICAL HISTORY: Reason for exam: hematuria. TECHNIQUE: Axial computed tomography images of the abdomen and pelvis with intravenous contrast. CTDI is 20.5 mGy and DLP is 1174.15 mGy-cm. Automated exposure control was utilized for the study. A dose lowering technique was utilized adhering to the principles of ALARA. CONTRAST: Patient received 85ml of IV contrast COMPARISON: CT abdomen pelvis 12/01/2018 FINDINGS: ABDOMEN: Liver: Unremarkable. Gallbladder and bile ducts: Unremarkable. Pancreas: Unremarkable. Spleen: Unremarkable. Adrenals: Unremarkable. Kidneys and ureters: Normal enhancement of the kidneys. No grossly evident pyelonephritis. No hydronephrosis. No stones. Stomach and bowel: Unremarkable. PELVIS: Appendix: No findings to suggest acute appendicitis. Bladder: Circumferential mucosal thickening in the bladder with a Santacruz in place. Reproductive: Unremarkable as visualized. ABDOMEN and PELVIS: Intraperitoneal space: Unremarkable. No free air. No significant fluid collection. Bones/joints: No acute fracture. Soft tissues: Fat-containing umbilical hernia. Vasculature: Moderate aortobiiliac atherosclerotic disease. No aneurysm. Lymph nodes: Unremarkable. IMPRESSION: Circumferential mucosal thickening in the bladder suggestive of cystitis. Electronically signed by: Paulo Solorio MD 08/16/22 22:49 PM Discharge Plan Visit Data Chief Complaint: Hematuria Stated Complaint: BLOOD IN URINE ED Provider: Davis Lancaster Discharge Problem: Hematuria, Anemia, Coagulopathy Patient Disposition: Admitted As Inpatient Condition: Good Forms Stand Alone Forms: [facility] [place] [employer] Prescriptions Prescriptions: No Action Lactobacillus acidophilus 500 million cell tablet 500 mmu cells PO DAILY Vitron-C 65 mg iron- 125 mg tablet,delayed release (DR/EC) 1 tab PO .Mwf tamsulosin 0.4 mg capsule 0.4 mg PO DAILY furosemide 40 mg Tablet 20 mg PO QAM Qty: 30 0RF atorvastatin 80 mg Tablet 80 mg PO QAM Qty: 30 0RF acetaminophen [Tylenol] 325 mg Tablet 650 mg PO Q6H PRN (Reason: Pain) Qty: 50 0RF metoprolol succinate 50 mg tablet extended release 24 hr 50 mg PO DAILY Qty: 30 0RF cyanocobalamin (vitamin B-12) [Vitamin B-12] 500 mcg Tablet 500 mcg PO QAM Qty: 30 0RF levothyroxine 125 mcg Tablet 125 mcg PO DAILYBB Qty: 30 0RF warfarin 5 mg tablet See Rx Instructions .ROUTE .COMPLEX Qty: 60 0RF Rx Instructions: 5 mg orally; TAKES 2.5 MG ON SUNDAY EVENING ONLY, THEN 5 MG ALL OTHER EVENINGS. docusate sodium 100 mg Capsule 100 mg PO BID PRN (Reason: Constipation) Qty: 30 0RF omeprazole 20 mg Capsule,Delayed Release(Dr/Ec) 20 mg PO QAM Qty: 30 0RF aspirin 81 mg Tablet,Chewable 81 mg PO DAILY Qty: 30 0RF zinc gluconate 50 mg Tablet 50 mg PO DAILY Qty: 30 0RF folic acid 1 mg Tablet 1 mg PO QAM Qty: 30 0RF finasteride 5 mg Tablet 5 mg PO DAILY Qty: 30 0RF Centrum 18-400 mg-mcg Tablet 1 tab PO DAILY Qty: 30 0RF potassium chloride 20 mEq tablet extended release 20 meq PO DAILY Qty: 30 0RF pregabalin 50 mg Capsule 50 mg PO BID glipizide 10 mg tablet extended release 24hr 10 mg PO QAM Prohheal liquid 2 tbsp PO DAILY Referrals Referrals: PCP,NO [Physician] -
[2022-08-16 20:35] LABS: Alanine Aminotransferase 10 U/L (7-52); Albumin Globulin Ratio 0.9 (0.9-2); Albumin Level 3.9 gm/dl (3.4-5.0); Alkaline Phosphatase 136 U/L (34-104); Anion Gap 7 (3-11); Aspartate Aminotransferase 25 U/L (13-39); BUN Creatinine Ratio 20.7 (10-20); Bilirubin,Total 0.4 mg/dl (0.2-1.0); Blood Urea Nitrogen 31 mg/dl (6-23); Calcium 9.1 mg/dl (8.6-10.3); Carbon Dioxide 27 mmol/L (21-32); Chloride 103 mmol/L (98-107); Est GFR (African American) 49.5 ml/min; Est GFR (Non-African American) 42.7 ml/min; Globulin 4.4 gm/dl (2.5-4.0); Glucose 114 mg/dl (70-99(Fasting)); Potassium 4.1 mmol/L (3.5-5.1); Sodium 137 mmol/L (136-145); Total Protein 8.3 gm/dl (6.0-8.3)
[2022-08-16 21:01] LABS: INR 4.5 (0.9-1.1); Partial Thromboplastin Ratio 1.6; Prothrombin Time 45.2 Seconds (9.0-12.0)
[2022-08-16 21:04] LABS: Appearance Urine Cloudy (Clear); Bilirubin Urine Negative (Negative); Blood Urine 3+ (Negative); Color Urine Red; Glucose Urine UA Negative (Negative); Ketones Urine Negative (Negative); Leukocyte Esterase Urine 1+ (Negative); Nitrite Urine Negative (Negative); Protein Urine 2+ (Negative); Specific Gravity Urine 1.015 (1.000-1.030); Urobilinogen Urine Negative (Negative)
[2022-08-16 21:10] LABS: Partial Thromboplastin Time 46.1 Seconds (21.0-31.0)
[2022-08-16 21:14] LABS: Epithelial Cell Urine 0-5 /lpf (0-5); RBC Urine >30 /hpf (0-4)
[2022-08-16 21:17] LABS: Bacteria Urine Negative (Negative)
[2022-08-16] MEDS ORDERED: OPTIRAY 320 500ml IV ONE (22:02)
[2022-08-16] MEDS ORDERED: SODIUM CHLORIDE 0.9% 1000ML 500 ML IV ONE (22:16)
--- NOTE | 2022-08-16 22:51 | CT Scan Report ---
Exam(s): CT ABDOMEN + PELVIS With Contrast IV Amt: 85ml EXAM: CT Abdomen and Pelvis With Intravenous Contrast CLINICAL HISTORY: Reason for exam: hematuria. TECHNIQUE: Axial computed tomography images of the abdomen and pelvis with intravenous contrast. CTDI is 20.5 mGy and DLP is 1174.15 mGy-cm. Automated exposure control was utilized for the study. A dose lowering technique was utilized adhering to the principles of ALARA. CONTRAST: Patient received 85ml of IV contrast COMPARISON: CT abdomen pelvis 12/01/2018 FINDINGS: ABDOMEN: Liver: Unremarkable. Gallbladder and bile ducts: Unremarkable. Pancreas: Unremarkable. Spleen: Unremarkable. Adrenals: Unremarkable. Kidneys and ureters: Normal enhancement of the kidneys. No grossly evident pyelonephritis. No hydronephrosis. No stones. Stomach and bowel: Unremarkable. PELVIS: Appendix: No findings to suggest acute appendicitis. Bladder: Circumferential mucosal thickening in the bladder with a Santacruz in place. Reproductive: Unremarkable as visualized. ABDOMEN and PELVIS: Intraperitoneal space: Unremarkable. No free air. No significant fluid collection. Bones/joints: No acute fracture. Soft tissues: Fat-containing umbilical hernia. Vasculature: Moderate aortobiiliac atherosclerotic disease. No aneurysm. Lymph nodes: Unremarkable. IMPRESSION: Circumferential mucosal thickening in the bladder suggestive of cystitis. Electronically signed by: Paulo Solorio MD 08/16/22 22:49 PM
[2022-08-16] MEDS ORDERED: cefTRIAXone SODIUM 2,000 MG/70 ML BAG IV STA (23:02)
[2022-08-17] MEDS ORDERED: ACETAMINOPHEN 325 MG TAB PO PRN (01:48)
[2022-08-17] MEDS ORDERED: POLYETHYLENE (MIRALAX) 17 GM PACK PO PRN (01:48)
[2022-08-17] MEDS ORDERED: NON-FORMULARY MEDICATION (Iron,Carbonyl-Vitamin C [Vitron-C] 65 mg iron- 125 mg tablet,del PO SCH (01:48)
[2022-08-17] MEDS ORDERED: GLUCOSE 40% GEL 15 GM TUBE PO PRN (01:48)
[2022-08-17] MEDS ORDERED: SODIUM CHLORIDE 0.9% 1000ML 1,000 ML IV SCH (01:48)
[2022-08-17] MEDS ORDERED: DEXTROSE 50% 50 ML SYRINGE IV PRN (01:48)
[2022-08-17] MEDS ORDERED: GLUCAGON FOR INJ 1 MG VIAL SQ PRN (01:48)
[2022-08-17] MEDS ORDERED: GLUCOSE 10 TAB/TUBE PO PRN (01:48)
[2022-08-17] MEDS ORDERED: DOCUSATE SODIUM 100 MG CAP PO PRN (01:48)
[2022-08-17] MEDS ORDERED: CARBOHYDRATES FOR HYPOGLYCEMIA PO PRN (01:48)
--- NOTE | 2022-08-17 03:06 | History and Physical Report ---
DATE OF ADMISSION: 08/17/2022. CHIEF COMPLAINT: Hematuria. HISTORY OF PRESENT ILLNESS: An 82-year-old male with past medical history significant for type 2 diabetes, chronic kidney disease, stage III, hyperlipidemia, hypothyroidism, history of hypomagnesemia, hypocalcemia, ischemic heart disease, history of sinoatrial node dysfunction, status post pacemaker, history of CHF, last echo in July of 2020, normal EF, chronic kidney disease, history of CAD, atrial fibrillation, history of CABG, GERD, history of hematuria, chronic indwelling Santacruz catheter, spinal stenosis, history of sacral decubitus ulcer, anemia of chronic kidney disease, who presents with hematuria. The patient lives with his at home, walks with a walker. He has 2 daughter who take good care of him. His INR was 3.6 yesterday. Today since 11am, he started to have hematuria, which is not getting better. He felt slightly dizzy. That is the reason, he came here. His hemoglobin is stable. Still having hematuria. His INR was 4.5, received 10 mg of vitamin K in the ER. Denies abdominal pain, no fevers, no chest pain, no shortness of breath, no cough, no headache, no blurred visions, no earache, no runny nose, no sore throat. Appetite is okay. No difficulty swallowing. Ambulatory status is not that great because of neuropathy. Denies any blood in his stools. He is hemodynamically stable. ALLERGIES: ISOSORBIDE, MIRABEGRON, ISOPROPYL ALCOHOL. PAST MEDICAL HISTORY: As mentioned above. PAST SURGICAL HISTORY: CABG, pacemaker placement, colonoscopy, EGD. MEDICATIONS: The patient is on Tylenol 650 mg p.o. q. 6 hours p.r.n., aspirin 81 mg p.o. daily, atorvastatin 80 mg p.o. daily, Centrum 1 tablet daily, vitamin B12 500 mcg p.o. daily, Colace 100 mg p.o. b.i.d. p.r.n., finasteride 5 mg p.o. daily, folic acid 1 mg p.o. a.m., Lasix 20 mg p.o. daily, glipizide 10 mg p.o. daily, iron and vitamin C 1 tablet daily, lactobacillus 1 tablet daily, levothyroxine 125 mcg p.o. daily, metoprolol succinate 50 mg p.o. daily, omeprazole 20 mg p.o. daily, potassium chloride 20 mEq p.o. daily, pregabalin 50 mg p.o. b.i.d., Flomax 0.4 mg p.o. daily, warfarin as directed, zinc gluconate 50 mg p.o. daily. FAMILY HISTORY: Significant for mother has KS at age of 81. SOCIAL HISTORY: . No smoking, no alcohol, no drug use. REVIEW OF SYSTEMS: As per HPI. Rest of the review of systems is negative. PHYSICAL EXAMINATION: GENERAL: The patient is of moderate build, not in acute distress. VITAL SIGNS: Temperature 36.2, pulse 63, respiratory rate 18, blood pressure 115/75, oxygen 97% on room air. HEENT: Pupils equal, round and reactive to light. Oral mucosa moist. NECK: No JVD, no neck masses. CARDIOVASCULAR: S1 and S2 heard. Regular rate and rhythm. No murmur, no gallop. RESPIRATORY SYSTEM: Normal AP diameter. No accessory muscle use. No wheezing, no crackles. ABDOMEN: Soft, bowel sounds present, nontender, no distention. CENTRAL NERVOUS SYSTEM: Alert and oriented. Speech is clear. No facial droop. Obeys commands. Moves extremities. EXTREMITIES: No edema, no erythema seen. LABORATORY DATA: WBC 10.7, hemoglobin 12.8, hematocrit 39, platelets 212. PT 45.2, INR 4.5, APTT 46.1. Sodium 137, potassium 4.1, chloride 103, bicarbonate 27, BUN 31, creatinine 1.5, serum glucose 114, calcium 9.1, total bilirubin 0.4, AST 25, ALT 10, alkaline phosphatase 136. Urinalysis cloudy, +3 blood, +1 leukocyte esterase. SARS-CoV-2 rapid test negative. IMAGING DATA: CT abdomen and pelvis with contrast, circumferential mucosal thickening of the bladder suggestive of cystitis. ASSESSMENT AND PLAN: This is an 82-year-old male, who is on Coumadin fpresents with hematuria. 1. Hematuria. Hemoglobin stable at 12.8, INR is 4.5. Received 10 mg of IV vitamin K in the Emergency Room. The patient follows with Urology . HAs hx of urinary retention and on chronic indwelling Santacruz catheter. On 06/13/2022, had a cystoscopy, which was unremarkable. If the bleeding does not resolve by a.m., will consult urology. Otherwise, follow up as outpatient. Blood consent obtained. 2. Possible urinary tract infection. Started on Rocephin. Follow the cultures. 3. History of atrial fibrillation. Continue metoprolol. Holding Coumadin as above. 4. History of coronary artery disease, status post coronary artery bypass graft. On aspirin, statin, and beta-beverly. Currently stable. 5. History of urinary retention. On Finasteride and Flomax. On Santacruz catheter. Follow up with Urology. 6. Hyperlipidemia. On statin. 7. Diabetes. Holding glipizide. Place on insulin sliding scale. Follow the blood sugars. 8. Hypothyroidism. On Synthroid. 9. Gastroesophageal reflux disease. On omeprazole. 10. Peripheral neuropathy. On pregabalin. 11. History of congestive heart failure. Echo done in July 2020, normal EF. Continue his home Lasix and potassium supplements. Getting gentle fluids, monitor for volume overload. 12. History of sinoatrial node dysfunction, status post pacemaker. 13. Deep venous thrombosis prophylaxis: Sequential compression devices for now. DISPOSITION: Closely monitor in the medical floor. PT, OT prior to discharge. Social service to help with discharge planning. Level 1 full code. Job ID: [id number] [facility]
[2022-08-17] MEDS: LEVOTHYROXINE SODIUM 125 MCG TABLET PO SCH (05:43)
[2022-08-17] MEDS ORDERED: INSULIN ASPART PER UNIT CHARGE SC SCH ×2 (06:00→07:30)
[2022-08-17 06:04] LABS: Basophils # (auto) 0.05 K/uL (0-0.2); Basophils % (auto) 0.5 %; Eosinophils # (auto) 0.21 K/uL (0-0.50); Eosinophils % (auto) 2.1 %; Hematocrit (blood only) 35.8 % (42.0-52.0); Hemoglobin 11.7 g/dl (14.0-18.0); Immature Granulocytes # (auto) 0.04 K/uL (0.01-0.20); Immature Granulocytes % (auto) 0.4 %; Lymphocytes # (auto) 3.11 K/uL (1.2-3.4); Lymphocytes % (auto) 31.3 %; Mean Corpuscular Hemoglobin 29.7 pg (25.0-34.0); Mean Corpuscular Hgb Conc 32.7 g/dL (32.0-36.0); Mean Corpuscular Volume 90.9 fL (80.0-100.0); Mean Platelet Volume 10.8 fL (9.4-12.4); Monocytes # (auto) 0.73 K/uL (0.11-0.59); Monocytes % (auto) 7.4 %; Neutrophils # (auto) 5.79 K/uL (1.40-6.50); Neutrophils % (auto) 58.3 %; Platelet Count 177 K/uL (130-400); RDW Coefficient of Variation 15.3 % (11.5-14.5); RDW Standard Deviation 50.9 fL (36.4-46.3); Red Blood Count 3.94 M/uL (4.70-6.10); White Blood Count 9.93 K/ul (4.8-10.8)
[2022-08-17 06:16] LABS: Creatinine Clr Calc Pharmacy 53.3 ml/min; Est GFR (African American) 57.8 ml/min; Est GFR (Non-African American) 49.9 ml/min; Magnesium 1.6 mg/dl (1.7-2.4); Potassium 3.8 mmol/L (3.5-5.1)
[2022-08-17 06:26] LABS: INR 1.9 (0.9-1.1)
[2022-08-17] MEDS: D5W AND NSS 1,000 ML IV SCH ×2 (07:50→20:42)
[2022-08-17 07:59] LABS: Estimated Average Glucose 137 mg/dl; Hemoglobin A1C 6.4 % (4.5-5.6)
[2022-08-17] MEDS: TAMSULOSIN HCL 0.4 MG CAP PO SCH (08:26)
[2022-08-17] MEDS: POTASSIUM CHLORIDE CRTAB 20 MEQ TABCR PO SCH (08:26)
[2022-08-17] MEDS: ATORVASTATIN 40 MG TAB PO SCH (08:26)
[2022-08-17] MEDS: PANTOprazole 40 MG TAB PO SCH (08:26)
[2022-08-17] MEDS: CYANOCOBALAMIN (B-12) 500 MCG TABLET PO SCH (08:26)
[2022-08-17] MEDS: METOPROLOL SUCC 50MG EXT REL TAB PO SCH (08:26)
[2022-08-17] MEDS: ADVANCED PROBIOTIC 1250 MG CAPSULE PO SCH (08:26)
[2022-08-17] MEDS: FOLIC ACID 1 MG TAB PO SCH (08:26)
[2022-08-17] MEDS: FINASTERIDE 5 MG TAB PO SCH (08:26)
[2022-08-17] MEDS: CEROVITE ADV FORMULA TAB PO SCH (08:26)
[2022-08-17] MEDS: ZINC SULFATE 220 MG CAPSULE PO SCH (08:26)
[2022-08-17] MEDS: MAGNESIUM SULFATE / D5W 1 GM/100 ML BAG IV SCH ×2 (08:27→10:23)
[2022-08-17] MEDS: PREGABALIN 50 MG CAP PO SCH ×2 (08:31→20:42)
--- NOTE | 2022-08-17 08:46 | Urology Consultation ---
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 -Patient afebrile and hemodynamically stable. -Labs reviewed -creatinine 1.32, hemoglobin 11.4, no leukocytosis. INR 1.9 today. -Urine culture growing gram negative bacilli. -Continue broad-spectrum antibiotics and narrow per sensitivity data when available. -CT reviewed and there is no hydronephrosis, bladder wall thickening noted, but does not appear to have clot in the bladder. -Patient had a cystoscopy in May which revealed a normal appearing bladder, no tumors appreciated. Hematuria likely in the setting of UTI and supratherapeutic INR. INR has come down and urine has cleared. No acute intervention warranted at this time, okay to resume diet. Maintain Santacruz catheter and continue to monitor. Can discharge from perspective when medically stable. Recommend d/c with course of antibiotics. Will arrange outpatient urology f/u. Urology will sign off. Contact our service with any additional issues or concerns. History of Present Illness Reason for Consultation: hematuria Attending Physician: Aden Alonzo MD History of Present Illness This is an 82-year-old male with history of urinary retention managed with chronic indwelling Santacruz catheter who presented to the emergency department on 08/16/2022 with complaint of hematuria and supratherapeutic INR. On arrival to ED, he was afebrile and hemodynamically stable. Lab work reviewed and showed hemoglobin 12.8, WBC 10.79, creatinine 1.5. INR was supratherapeutic at 4.5. Urinalysis notable for 2+ protein, 3+ blood, 1+ LE, >30 RBC, 10-30 WBC, negative for bacteria. CT A/P independently reviewed and showed no hydronephrosis, bladder wall thickening suggestive of cystitis, Santacruz catheter in place, no significant clot noted in bladder. He was admitted to the hospital service for hematuria, anemia and coagulopathy. Urology is consulted for hematuria. Patient is known to our service. He underwent cystoscopy in office with Dr. Veloz on 06/13/2022 for evaluation of retention, which is currently managed with Santacruz catheter. Chart reviewINR 1.9, WBC 9.93, hemoglobin 11.4, creatinine 1.32. Urine culture showing gram-negative bacilli. On IV ceftriaxone. Patient seen and examined at bedside this morning. He is awake and resting in bed. Santacruz catheter in place and draining clear yellow urine at time of visit. He reports he developed hematuria yesterday, denies clots. Reports Santacruz catheter has been draining without issue. No nausea or vomiting. No fever or chills. Denies flank, abdominal or suprapubic pain. No additional concerns at this time. Allergies Allergy/AdvReac Type Severity Reaction Status Date / Time isosorbide AdvReac Intermediate Headache Verified 08/16/22 22:18 mirabegron AdvReac Intermediate falls Verified 08/16/22 22:18 isopropyl alcohol AdvReac "isopropyl Verified 08/16/22 22:18 isostearate" = headaches Home Medications Medication Instructions Recorded Confirmed Type acetaminophen 325 mg tablet 650 mg PO Q6H PRN Pain #50 tabs 03/27/22 08/16/22 Rx (Tylenol) aspirin 81 mg chewable tablet 81 mg PO DAILY #30 tabs 03/27/22 08/16/22 Rx atorvastatin 80 mg tablet 80 mg PO QAM #30 tabs 03/27/22 08/16/22 Rx cyanocobalamin (vitamin B-12) 500 500 mcg PO QAM #30 tabs 03/27/22 08/16/22 Rx mcg tablet (Vitamin B-12) docusate sodium 100 mg capsule 100 mg PO BID PRN Constipation #30 03/27/22 Rx caps finasteride 5 mg tablet 5 mg PO DAILY #30 tabs 03/27/22 08/16/22 Rx folic acid 1 mg tablet 1 mg PO QAM #30 tabs 03/27/22 08/16/22 Rx furosemide 40 mg tablet 20 mg PO QAM #30 tabs 03/27/22 08/16/22 Rx levothyroxine 125 mcg tablet 125 mcg PO DAILYBB #30 tabs 03/27/22 08/16/22 Rx metoprolol succinate 50 mg 50 mg PO DAILY #30 tabs 03/27/22 08/16/22 Rx tablet,extended release 24 hr multivitamin-ferrous 1 tab PO DAILY #30 tabs 03/27/22 08/16/22 Rx fumarate-folic acid 18 mg-400 mcg tablet (Centrum) omeprazole 20 mg capsule,delayed 20 mg PO QAM #30 caps 03/27/22 08/16/22 Rx release potassium chloride 20 mEq 20 meq PO DAILY #30 tabs 03/27/22 08/16/22 Rx tablet,extended release warfarin 5 mg tablet See Rx Instructions .Route 03/27/22 08/16/22 Rx .COMPLEX #60 tabs zinc gluconate 50 mg tablet 50 mg PO DAILY #30 tabs 03/27/22 08/16/22 Rx tamsulosin 0.4 mg capsule 0.4 mg PO DAILY 05/19/22 08/16/22 History Lactobacillus acidophilus 500 500 mmu cells PO DAILY 05/25/22 08/16/22 History million cell tablet iron,carbonyl 65 mg-vitamin C 125 1 tab PO .Mwf 05/25/22 08/16/22 History mg tablet,delayed release (Vitron-C) Prohheal 2 tbsp PO DAILY 08/16/22 08/16/22 History glipizide 10 mg tablet, extended 10 mg PO QAM 08/16/22 08/16/22 History release 24 hr pregabalin 50 mg capsule 50 mg PO BID 08/16/22 08/16/22 History Patient History Medical History Anemia Atrial fibrillation [id number] (age, CHF, HTN, DM, CAD) On Coumadin CAD (coronary artery disease) S/p 3 vessel CABG 2006 Carotid artery disease Per 07/01/2020 carotid duplex = right ICA 70-99%. 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 Daughters live close to pt. Other Information That Helps Us Care for You: No Feels Safe at Home: Yes Safety Concerns: Feels Safe At This Time Diet: regular during the past year weight has: remained stable Assistive Devices: Bedside Commode, Cane, Walker and Wheelchair Review of Systems Review of Systems: All systems reviewed & are unremarkable except as noted in HPI & below Physical Exam Constitutional: well developed and well nourished; no acute distress and not ill appearing Neck: normal visual inspection Respiratory: normal respiratory effort and able to speak in complete sentences; no respiratory distress and no labored breathing Gastrointestinal (Abdomen): Inspection/Auscultation: abdomen normal to inspection; abdomen not distended Percussion/Palpation: abdomen soft; abdomen nontender Musculoskeletal: Head/Neck/Chest: normocephalic and head atraumatic Neurologic: moves all extremities and awake Psychiatric: Orientation: alert and oriented x 3 Genitourinary: Santacruz patent and draining clear yellow urine in tubing Results & Data Vital Signs (Past 12 Hours) Vital Signs Temp Pulse Pulse Resp BP Pulse Ox Pulse Ox 08/17/22 07:16 36.5 C 60 17 118/74 96 08/17/22 01:30 08/17/22 01:30 97 08/17/22 01:30 08/17/22 01:30 36.2 C L 63 14 136/81 97 08/17/22 01:42 36.2 C L 63 14 136/81 97 08/17/22 01:17 62 18 126/68 97 08/16/22 23:23 63 18 115/75 97 08/16/22 21:41 61 18 123/70 98 08/16/22 21:00 97 O2 Del Method O2 Del Method 08/17/22 07:16 Room Air 08/17/22 01:30 Room Air 08/17/22 01:30 Room Air 08/17/22 01:30 Room Air 08/17/22 01:30 Room Air 08/17/22 01:42 Room Air 08/17/22 01:17 Room Air 08/16/22 23:23 Room Air 08/16/22 21:41 Room Air 08/16/22 21:00 Room Air PG Care Time/CCT Total # of Minutes Spent Total Time Spent with Patient: Total time spent is greater than 50% in coordination of care (as documented) at patient's floor/unit and/or counseling patient: Coding Level of Care Code 61679 INT INP/OBS CARE 2/55MIN Diagnoses Hematuria R31.0 Hematuria type: gross Time Spent (min) 50 (1) Hematuria Hematuria type: gross Qualified Code(s): R31.0 - Gross hematuria
[2022-08-17] MEDS ORDERED: ASPIRIN 81 MG CHEW PO SCH (09:00)
[2022-08-17] MEDS ORDERED: FUROSEMIDE 20 MG TAB PO SCH (09:00)
[2022-08-17] MEDS ORDERED: Nursing to Pharmacy Communication SCH (11:30)
[2022-08-17 12:05] LABS: Hematocrit (blood only) 34.7 % (42.0-52.0); Hemoglobin 11.4 g/dl (14.0-18.0)
[2022-08-17] MEDS: INSULIN ASPART PER UNIT CHARGE SC SCH ×3 (12:51→20:47)
--- NOTE | 2022-08-17 16:51 | Hospitalist Progress Note ---
Date of Service August 17, 2022 Assessment & Plan (1) Hematuria: Plan: ASSESSMENT AND PLAN: This is an 82-year-old male, who is on Coumadin fpresents with hematuria. 1. Hematuria in the setting of supratherapeutic INR, possible UTI - Vit K given INR now 1.9 - hematuria resolved - Hg 12 --> 11 - Urologist consulted no procedures - will need to reduce coumadin hopefully resume tomorrow - ff up urine culture continue IV Ceftri 2. Possible urinary tract infection. per above 3. History of atrial fibrillation. Continue metoprolol. Holding Coumadin as above. 4. History of coronary artery disease, status post coronary artery bypass graft. On aspirin, statin, and beta-beverly. Currently stable. -- hold ASA 5. History of urinary retention. On Finasteride and Flomax. On Santacruz catheter. Follow up with Urology. 6. Hyperlipidemia. On statin. 7. Diabetes. Holding glipizide. Place on insulin sliding scale. Follow the blood sugars. 8. Hypothyroidism. On Synthroid. 9. Gastroesophageal reflux disease. On omeprazole. 10. Peripheral neuropathy. On pregabalin. 11. History of congestive heart failure. Echo done in July 2020, normal EF. -- hold Lasix 12. History of sinoatrial node dysfunction, status post pacemaker. 13. Deep venous thrombosis prophylaxis: Sequential compression devices for now. plan of care discussed with patient and his daughter in detail and at length all questions answered they are understanding, agreeable, comfortable with the plan of care Disposition anticipate d/c home in 1-2 days Admission and Anticipated Discharge Date Admission Date: August 17, 2022 Subjective ff up for hematuria, etc seen with daughter Rere at bedside states he feels fine overall denies abdominal pain, fever/chills, nausea/vomiting no chest pain, dyspnea, palpitations, dizziness patient's daughter very helpful in providing history etc only new medication is Lyrica, no recent antibiotics/dietary changes her other daughter supervises his medication intake including coumadin (+) weight loss of 45lb since March no hematuria noted in Santacruz cath bag Review of Systems Review of Systems: all noted and negative except for above Physical Exam Physical Exam: General- oriented x 3, not in distress, speaks in sentences with no effort or accessory muscle use Head- atraumatic Eyes- PERRL, EOMI, anicteric ENT- oropharynx clear Neck- supple, no JVD, no adenopathy, no thyromegaly; carotids +2/2, no bruits appreciated Lungs- clear to auscultation bilaterally, no rales/wheezes Heart- normal rate, regular rhythm; no murmur, no gallop, no rub appreciated Abdomen- normal bowel sounds, nondistended, soft, nontender, no masses or hepatosplenomegaly Santacruz cath: yellow urine Extremities- no pretibial edema, no calf tenderness; peripheral pulses intact Neuro- alert, oriented x 3; CN 2-12 grossly intact; motor 5/5 bilaterally;sensation 100% on all extremities; no other gross focal neurologic deficits Skin- warm & dry Results & Data Results & Data Vital Signs (Past 12 Hours) Vital Signs Temp Pulse Resp BP Pulse Ox O2 Del Method 08/17/22 14:53 36.5 C 60 17 107/63 98 Room Air 08/17/22 07:16 36.5 C 60 17 118/74 96 Room Air all noted and reviewed including below (1) Hematuria Hematuria type: gross Qualified Code(s): R31.0 - Gross hematuria
[2022-08-17] MEDS: cefTRIAXone SODIUM 2,000 MG in DEXTROSE 5% 50 ML IV SCH (21:11)
[2022-08-18] MEDS: LEVOTHYROXINE SODIUM 125 MCG TABLET PO SCH (05:40)
[2022-08-18] MEDS: ATORVASTATIN 40 MG TAB PO SCH (08:25)
[2022-08-18] MEDS: PANTOprazole 40 MG TAB PO SCH (08:25)
[2022-08-18] MEDS: METOPROLOL SUCC 50MG EXT REL TAB PO SCH (08:25)
[2022-08-18] MEDS: FOLIC ACID 1 MG TAB PO SCH (08:26)
[2022-08-18] MEDS: ZINC SULFATE 220 MG CAPSULE PO SCH (08:26)
[2022-08-18] MEDS: FINASTERIDE 5 MG TAB PO SCH (08:26)
[2022-08-18] MEDS: CYANOCOBALAMIN (B-12) 500 MCG TABLET PO SCH (08:26)
[2022-08-18] MEDS: CEROVITE ADV FORMULA TAB PO SCH (08:26)
[2022-08-18] MEDS: ADVANCED PROBIOTIC 1250 MG CAPSULE PO SCH (08:26)
[2022-08-18] MEDS: TAMSULOSIN HCL 0.4 MG CAP PO SCH (08:26)
[2022-08-18] MEDS: POTASSIUM CHLORIDE CRTAB 20 MEQ TABCR PO SCH (08:26)
[2022-08-18 08:30] LABS: Basophils # (auto) 0.05 K/uL (0-0.2); Basophils % (auto) 0.5 %; Eosinophils # (auto) 0.22 K/uL (0-0.50); Eosinophils % (auto) 2.2 %; Hematocrit (blood only) 33.6 % (42.0-52.0); Hemoglobin 11.1 g/dl (14.0-18.0); Immature Granulocytes # (auto) 0.03 K/uL (0.01-0.20); Immature Granulocytes % (auto) 0.3 %; Lymphocytes # (auto) 2.37 K/uL (1.2-3.4); Lymphocytes % (auto) 24.2 %; Mean Corpuscular Hemoglobin 29.6 pg (25.0-34.0); Mean Corpuscular Volume 89.6 fL (80.0-100.0); Mean Platelet Volume 10.9 fL (9.4-12.4); Monocytes # (auto) 0.92 K/uL (0.11-0.59); Monocytes % (auto) 9.4 %; Neutrophils # (auto) 6.19 K/uL (1.40-6.50); Neutrophils % (auto) 63.4 %; Platelet Count 163 K/uL (130-400); RDW Coefficient of Variation 15.5 % (11.5-14.5); RDW Standard Deviation 50.9 fL (36.4-46.3); Red Blood Count 3.75 M/uL (4.70-6.10); White Blood Count 9.78 K/ul (4.8-10.8)
[2022-08-18] MEDS: PREGABALIN 50 MG CAP PO SCH ×2 (08:33→20:10)
[2022-08-18] MEDS: INSULIN ASPART PER UNIT CHARGE SC SCH ×4 (08:33→20:12)
[2022-08-18 08:50] LABS: INR 1.2 (0.9-1.1); Prothrombin Time 12.6 Seconds (9.0-12.0)
[2022-08-18 08:59] LABS: BUN Creatinine Ratio 16.7 (10-20); Calcium 8.8 mg/dl (8.6-10.3); Est GFR (African American) 54.8 ml/min; Est GFR (Non-African American) 47.3 ml/min
[2022-08-18] MEDS ORDERED: ASCORBIC ACID 500 MG TAB PO SCH (09:00)
[2022-08-18] MEDS ORDERED: FERROUS SULFATE 325 MG TAB PO SCH (09:00)
[2022-08-18 09:38] LABS: Potassium 4.2 mmol/L (3.5-5.1)
--- NOTE | 2022-08-18 17:46 | Hospitalist Progress Note ---
Date of Service August 18, 2022 Assessment & Plan (1) Hematuria: Plan: ASSESSMENT AND PLAN: This is an 82-year-old male, who is on Coumadin fpresents with hematuria. 1. Hematuria in the setting of supratherapeutic INR, possible UTI - Vit K given INR now 1.9 - hematuria resolved - Hg 12 --> 11 - Urologist consulted no procedures - will need to reduce coumadin hopefully resume tomorrow - ff up urine culture continue IV Ceftri 08/18 no recurrence INR 1.2 coumadin 2.5mg daily INR tomorrow ff up urine culture continue Ceftri 2. Possible urinary tract infection. per above 3. History of atrial fibrillation. Continue metoprolol, resume coumadin 4. History of coronary artery disease, status post coronary artery bypass graft. On aspirin, statin, and beta-beverly. Currently stable. -- hold ASA 5. History of urinary retention. On Finasteride and Flomax. On Santacruz catheter. Follow up with Urology. 6. Hyperlipidemia. On statin. 7. Diabetes. Holding glipizide. Place on insulin sliding scale. Follow the blood sugars. 8. Hypothyroidism. On Synthroid. 9. Gastroesophageal reflux disease. On omeprazole. 10. Peripheral neuropathy. On pregabalin. 11. History of congestive heart failure. Echo done in July 2020, normal EF. -- resume Lasix tomorrow 12. History of sinoatrial node dysfunction, status post pacemaker. 13. Deep venous thrombosis prophylaxis: Sequential compression devices for now. plan of care discussed with patient and his daughter Rere in detail and at length all questions answered they are understanding, agreeable, comfortable with the plan of care Disposition anticipate d/c home tomorrow Admission and Anticipated Discharge Date Admission Date: August 17, 2022 Subjective ff up for hematuria, UTI, etc seen resting in bed, comfortable states he feels fine overall no note of hematuria since yesterday no chest pain, dyspnea, palpitations, dizziness no fever/chills, abdominal pain no other symptoms Review of Systems Review of Systems: all noted and negative except for above Physical Exam Physical Exam: General- oriented x 3, not in distress, speaks in sentences with no effort or accessory muscle use Eyes- anicteric Neck- no JVD Lungs- clear breath sounds bilaterally, no rales/wheezes Heart- normal rate, regular rhythm; no murmurs Abdomen- normal bowel sounds, nondistended, soft, nontender Santacruz: yellow urine Extremities- no pretibial edema, no calf tenderness Neuro- alert, oriented x 3; no gross focal neurologic deficits Skin- warm & dry Results & Data Results & Data Vital Signs (Past 12 Hours) Vital Signs Temp Pulse Resp BP Pulse Ox O2 Del Method 08/18/22 14:38 36.7 C 96 H 18 137/68 95 Room Air 08/18/22 07:22 36.5 C 60 16 105/65 96 Room Air all noted and reviewed including below (1) Hematuria Hematuria type: gross Qualified Code(s): R31.0 - Gross hematuria
[2022-08-18] MEDS ORDERED: WARFARIN SOD 2.5 MG TAB PO SCH (18:30)
[2022-08-18] MEDS: cefTRIAXone SODIUM 2,000 MG in DEXTROSE 5% 50 ML IV SCH (21:12)
[2022-08-19] MEDS: LEVOTHYROXINE SODIUM 125 MCG TABLET PO SCH (05:33)
[2022-08-19 06:31] LABS: Basophils # (auto) 0.06 K/uL (0-0.2); Basophils % (auto) 0.7 %; Eosinophils # (auto) 0.24 K/uL (0-0.50); Eosinophils % (auto) 2.8 %; Hematocrit (blood only) 34.2 % (42.0-52.0); Hemoglobin 11.2 g/dl (14.0-18.0); Immature Granulocytes # (auto) 0.03 K/uL (0.01-0.20); Immature Granulocytes % (auto) 0.3 %; Lymphocytes # (auto) 2.79 K/uL (1.2-3.4); Lymphocytes % (auto) 32.5 %; Mean Corpuscular Hemoglobin 29.8 pg (25.0-34.0); Mean Corpuscular Hgb Conc 32.7 g/dL (32.0-36.0); Mean Platelet Volume 11.4 fL (9.4-12.4); Monocytes % (auto) 8.2 %; Neutrophils # (auto) 4.76 K/uL (1.40-6.50); Neutrophils % (auto) 55.5 %; Platelet Count 167 K/uL (130-400); RDW Coefficient of Variation 15.2 % (11.5-14.5); RDW Standard Deviation 50.4 fL (36.4-46.3); Red Blood Count 3.76 M/uL (4.70-6.10); White Blood Count 8.58 K/ul (4.8-10.8)
[2022-08-19 06:40] LABS: BUN Creatinine Ratio 17.4 (10-20); Calcium 8.7 mg/dl (8.6-10.3); Creatinine Clr Calc Pharmacy 48.9 ml/min; Est GFR (Non-African American) 44.9 ml/min; Potassium 4.1 mmol/L (3.5-5.1)
[2022-08-19 06:53] LABS: INR 1.1 (0.9-1.1)
[2022-08-19] MEDS: INSULIN ASPART PER UNIT CHARGE SC SCH (08:32)
[2022-08-19] MEDS: TAMSULOSIN HCL 0.4 MG CAP PO SCH (09:09)
[2022-08-19] MEDS: ZINC SULFATE 220 MG CAPSULE PO SCH (09:09)
[2022-08-19] MEDS: METOPROLOL SUCC 50MG EXT REL TAB PO SCH (09:09)
[2022-08-19] MEDS: ADVANCED PROBIOTIC 1250 MG CAPSULE PO SCH (09:09)
[2022-08-19] MEDS: PANTOprazole 40 MG TAB PO SCH (09:09)
[2022-08-19] MEDS: POTASSIUM CHLORIDE CRTAB 20 MEQ TABCR PO SCH (09:09)
[2022-08-19] MEDS: FOLIC ACID 1 MG TAB PO SCH (09:09)
[2022-08-19] MEDS: CYANOCOBALAMIN (B-12) 500 MCG TABLET PO SCH (09:09)
[2022-08-19] MEDS: FINASTERIDE 5 MG TAB PO SCH (09:10)
[2022-08-19] MEDS: ATORVASTATIN 40 MG TAB PO SCH (09:10)
[2022-08-19] MEDS: CEROVITE ADV FORMULA TAB PO SCH (09:11)
[2022-08-19] MEDS: PREGABALIN 50 MG CAP PO SCH (09:13)
--- NOTE | 2022-08-19 09:19 | Hospitalist Progress Note ---
Date of Service August 19, 2022 Assessment & Plan (1) Hematuria: Plan: ASSESSMENT AND PLAN: This is an 82-year-old male, who is on Coumadin fpresents with hematuria. 1. Hematuria in the setting of supratherapeutic INR, possible UTI - Vit K given INR came down o 1.9 - hematuria resolved - Hg 12 --> 11 - Urologist consulted no procedures - will need to reduce coumadin hopefully resume tomorrow - ff up urine culture continue IV Ceftri 08/19 no recurrence Hemoglobin remained stable around 11 INR 1.0 on hospital discharge day Urine culture growing Proteus, pansensitive Received ceftriaxone IV x3 days Discharged on cefdinir 30 mg twice daily x7 days total to complete 10-day course Recommend to decrease Coumadin, 2.5 mg daily for now INR check on Sunday We will contact [facility] pharmacy-Coumadin clinic to discuss, patient needs to be closely followed with his INR and Coumadin dosing to prevent rebleeding 2. Possible urinary tract infection. per above 3. History of atrial fibrillation. Continue metoprolol, resume coumadin 4. History of coronary artery disease, status post coronary artery bypass graft. On aspirin, statin, and beta-beverly. Currently stable. -- Resume baby aspirin 5. History of urinary retention. On Finasteride and Flomax. On Santacruz catheter. Follow up with Urology. 6. Hyperlipidemia. On statin. 7. Diabetes. Holding glipizide. Place on insulin sliding scale. Follow the blood sugars. 8. Hypothyroidism. On Synthroid. 9. Gastroesophageal reflux disease. On omeprazole. 10. Peripheral neuropathy. On pregabalin. 11. History of congestive heart failure. Echo done in July 2020, normal EF. -- resume 12. History of sinoatrial node dysfunction, status post pacemaker. 13. Deep venous thrombosis prophylaxis: Sequential compression devices for now. plan of care discussed with patient and his daughter Rere over the phone in detail and at length all questions answered they are understanding, agreeable, comfortable with the plan of care Disposition Discharge home with home health services Follow-up with PCP in 1 week Admission and Anticipated Discharge Date Admission Date: August 17, 2022 Subjective Follow-up for hematuria, supratherapeutic INR, etc. Seen resting in bed, sitting up, in good spirits States he feels fine overall No recurrence of hematuria Denies abdominal pain, fevers or chills, nausea or vomiting Positive BM yesterday No any other symptoms States he is ready for discharge today Review of Systems Review of Systems: all noted and negative except for above Physical Exam Physical Exam: General- oriented x 3, not in distress, speaks in sentences with no effort or accessory muscle use Eyes- anicteric Neck- no JVD Lungs- clear breath sounds bilaterally, no rales/wheezes Heart- normal rate, regular rhythm; no murmurs Abdomen- normal bowel sounds, nondistended, soft, nontender Santacruz catheter in place-yellow urine noted Extremities- no pretibial edema, no calf tenderness Neuro- alert, oriented x 3; no gross focal neurologic deficits Skin- warm & dry Results & Data Results & Data Vital Signs (Past 12 Hours) Vital Signs Temp Pulse Resp BP Pulse Ox O2 Del Method 08/19/22 07:48 37.0 C 59 L 16 113/64 95 Room Air all noted and reviewed including below (1) Hematuria Hematuria type: gross Qualified Code(s): R31.0 - Gross hematuria
--- NOTE | 2022-08-19 09:49 | Hospitalist Progress Note ---
Date of Service August 19, 2022 Assessment & Plan Admission and Anticipated Discharge Date Admission Date: August 17, 2022 Results & Data Results & Data Vital Signs (Past 12 Hours) Vital Signs Temp Pulse Resp BP Pulse Ox O2 Del Method 08/19/22 07:48 37.0 C 59 L 16 113/64 95 Room Air
--- NOTE | 2022-08-19 17:30 | Discharge Summary ---
Discharge Summary Date of Service August 19, 2022 Notes For Next Care Provider Medication Changes From Visit Cefdinir 300 mg p.o. twice daily x7 days. Coumadin decreased, now 2.5 mg p.o. daily. Admission HPI Per Admitting Provider CHIEF COMPLAINT: Hematuria. HISTORY OF PRESENT ILLNESS: An 82-year-old male with past medical history significant for type 2 diabetes, chronic kidney disease, stage III, hyperlipidemia, hypothyroidism, history of hypomagnesemia, hypocalcemia, ischemic heart disease, history of sinoatrial node dysfunction, status post pacemaker, history of CHF, last echo in July of 2020, normal EF, chronic kidney disease, history of CAD, atrial fibrillation, history of CABG, GERD, history of hematuria, chronic indwelling Santacruz catheter, spinal stenosis, history of sacral decubitus ulcer, anemia of chronic kidney disease, who presents with hematuria. The patient lives with his at home, walks with a walker. He has 2 daughter who take good care of him. His INR was 3.6 yesterday. Today since 11am, he started to have hematuria, which is not getting better. He felt slightly dizzy. That is the reason, he came here. His hemoglobin is stable. Still having hematuria. His INR was 4.5, received 10 mg of vitamin K in the ER. Denies abdominal pain, no fevers, no chest pain, no shortness of breath, no cough, no headache, no blurred visions, no earache, no runny nose, no sore throat. Appetite is okay. No difficulty swallowing. Ambulatory status is not that great because of neuropathy. Denies any blood in his stools. He is hemodynamically stable. Admission Exam Per Admitting Provider GENERAL: The patient is of moderate build, not in acute distress. VITAL SIGNS: Temperature 36.2, pulse 63, respiratory rate 18, blood pressure 115/75, oxygen 97% on room air. HEENT: Pupils equal, round and reactive to light. Oral mucosa moist. NECK: No JVD, no neck masses. CARDIOVASCULAR: S1 and S2 heard. Regular rate and rhythm. No murmur, no gallop. RESPIRATORY SYSTEM: Normal AP diameter. No accessory muscle use. No wheezing, no crackles. ABDOMEN: Soft, bowel sounds present, nontender, no distention. CENTRAL NERVOUS SYSTEM: Alert and oriented. Speech is clear. No facial droop. Obeys commands. Moves extremities. EXTREMITIES: No edema, no erythema seen. Principal Dx & Hospital Course #1 = Principal Diagnosis (1) Hematuria: (1) Hematuria: Plan: ASSESSMENT AND PLAN: This is an 82-year-old male, who is on Coumadin fpresents with hematuria. 1. Hematuria in the setting of supratherapeutic INR, possible UTI - Vit K given INR came down o 1.9 - hematuria resolved - Hg 12 --> 11 - Urologist consulted no procedures - will need to reduce coumadin hopefully resume tomorrow - ff up urine culture continue IV Ceftri 08/19 no recurrence Hemoglobin remained stable around 11 INR 1.0 on hospital discharge day Urine culture growing Proteus, pansensitive Received ceftriaxone IV x3 days Discharged on cefdinir 30 mg twice daily x7 days total to complete 10-day course Patient having recurrent UTIs recently May benefit from suppressive antibiotics Recommend to decrease Coumadin, 2.5 mg daily for now INR check on Sunday We will contact [facility] pharmacy-Coumadin clinic to discuss, patient needs to be closely followed with his INR and Coumadin dosing to prevent rebleeding 2. Recurrent urinary tract infection. per above 3. History of atrial fibrillation. Continue metoprolol, resume coumadin 4. History of coronary artery disease, status post coronary artery bypass graft. On aspirin, statin, and beta-beverly. Currently stable. -- Resume baby aspirin 5. History of urinary retention. On Finasteride and Flomax. On Santacruz catheter. Follow up with Urology. 6. Hyperlipidemia. On statin. 7. Diabetes. Holding glipizide. Place on insulin sliding scale. Follow the blood sugars. 8. Hypothyroidism. On Synthroid. 9. Gastroesophageal reflux disease. On omeprazole. 10. Peripheral neuropathy. On pregabalin. 11. History of congestive heart failure. Echo done in July 2020, normal EF. -- resume 12. History of sinoatrial node dysfunction, status post pacemaker. 13. Deep venous thrombosis prophylaxis: Sequential compression devices for now. plan of care discussed with patient and his daughter Viji the phonein detail and at length all questions answered they are understanding, agreeable, comfortable with the plan of care Disposition Discharge home with home health services Follow-up with PCP in 1 week Discharge Exam General- oriented x 3, not in distress, speaks in sentences with no effort or accessory muscle use Eyes- anicteric Neck- no JVD Lungs- clear breath sounds bilaterally, no rales/wheezes Heart- normal rate, regular rhythm; no murmurs Abdomen- normal bowel sounds, nondistended, soft, nontender Santacruz catheter in place-yellow urine noted Extremities- no pretibial edema, no calf tenderness Neuro- alert, oriented x 3; no gross focal neurologic deficits Skin- warm & dry Updated Medication List Medication Instructions Recorded Confirmed Type acetaminophen 325 mg tablet 650 mg PO Q6H PRN Pain #50 tabs 03/27/22 08/16/22 Rx (Tylenol) aspirin 81 mg chewable tablet 81 mg PO DAILY #30 tabs 03/27/22 08/16/22 Rx atorvastatin 80 mg tablet 80 mg PO QAM #30 tabs 03/27/22 08/16/22 Rx cyanocobalamin (vitamin B-12) 500 500 mcg PO QAM #30 tabs 03/27/22 08/16/22 Rx mcg tablet (Vitamin B-12) docusate sodium 100 mg capsule 100 mg PO BID PRN Constipation #30 03/27/22 08/16/22 Rx caps finasteride 5 mg tablet 5 mg PO DAILY #30 tabs 03/27/22 08/16/22 Rx folic acid 1 mg tablet 1 mg PO QAM #30 tabs 03/27/22 08/16/22 Rx furosemide 40 mg tablet 20 mg PO QAM #30 tabs 03/27/22 08/16/22 Rx levothyroxine 125 mcg tablet 125 mcg PO DAILYBB #30 tabs 03/27/22 08/16/22 Rx metoprolol succinate 50 mg 50 mg PO DAILY #30 tabs 03/27/22 08/16/22 Rx tablet,extended release 24 hr multivitamin-ferrous 1 tab PO DAILY #30 tabs 03/27/22 08/16/22 Rx fumarate-folic acid 18 mg-400 mcg tablet (Centrum) omeprazole 20 mg capsule,delayed 20 mg PO QAM #30 caps 03/27/22 08/16/22 Rx release potassium chloride 20 mEq 20 meq PO DAILY #30 tabs 03/27/22 08/16/22 Rx tablet,extended release zinc gluconate 50 mg tablet 50 mg PO DAILY #30 tabs 03/27/22 08/16/22 Rx tamsulosin 0.4 mg capsule 0.4 mg PO DAILY 05/19/22 08/16/22 History Lactobacillus acidophilus 500 500 mmu cells PO DAILY 05/25/22 08/16/22 History million cell tablet iron,carbonyl 65 mg-vitamin C 125 1 tab PO .Mwf 05/25/22 08/16/22 History mg tablet,delayed release (Vitron-C) Prohheal 2 tbsp PO DAILY 08/16/22 08/16/22 History glipizide 10 mg tablet, extended 10 mg PO QAM 08/16/22 08/16/22 History release 24 hr pregabalin 50 mg capsule 50 mg PO BID 08/16/22 08/16/22 History cefdinir 300 mg capsule 300 mg PO BID 7 days #14 caps 08/19/22 Rx warfarin 2.5 mg tablet (Jantoven) 2.5 mg PO DAILY@1600 30 days #30 08/19/22 Rx tabs Hospital Stay Data Consultations 08/16/22 23:34 ED Decision to Admit Stat 08/17/22 07:58 Consult Urology Routine Diagnostic Imagining Performed 08/16/22 20:24 CT abd pelvis IV con only Stat CLINICAL HISTORY: Reason for exam: hematuria. TECHNIQUE: Axial computed tomography images of the abdomen and pelvis with intravenous contrast. CTDI is 20.5 mGy and DLP is 1174.15 mGy-cm. Automated exposure control was utilized for the study. A dose lowering technique was utilized adhering to the principles of ALARA. CONTRAST: Patient received 85ml of IV contrast COMPARISON: CT abdomen pelvis 12/01/2018 FINDINGS: ABDOMEN: Liver: Unremarkable. Gallbladder and bile ducts: Unremarkable. Pancreas: Unremarkable. Spleen: Unremarkable. Adrenals: Unremarkable. Kidneys and ureters: Normal enhancement of the kidneys. No grossly evident pyelonephritis. No hydronephrosis. No stones. Stomach and bowel: Unremarkable. PELVIS: Appendix: No findings to suggest acute appendicitis. Bladder: Circumferential mucosal thickening in the bladder with a Santacruz in place. Reproductive: Unremarkable as visualized. ABDOMEN and PELVIS: Intraperitoneal space: Unremarkable. No free air. No significant fluid collection. Bones/joints: No acute fracture. Soft tissues: Fat-containing umbilical hernia. Vasculature: Moderate aortobiiliac atherosclerotic disease. No aneurysm. Lymph nodes: Unremarkable. IMPRESSION: Circumferential mucosal thickening in the bladder suggestive of cystitis. Electronically signed by: Paulo Solorio MD 08/16/22 22:49 PM Pending Results Patient Have Any Pending Studies at Discharge: Yes Discharge Instructions Given to Patient (Per Discharging Provider) PLEASE REFER TO YOUR NEW MEDICATION LIST AND FOLLOW INSTRUCTIONS CAREFULLY. YOUR NEW MEDICATIONS INCLUDE: Cefdinir-antibiotic for UTI Decrease Coumadin to 2.5 mg p.o. daily for now until further advised by Coumadin clinic. PLEASE CALL YOUR PRIMARY CARE PHYSICIAN OR RETURN TO THE ER IF WITH WORSENING OF SYMPTOMS, INCLUDING Blood in the urine, abdominal pain, fevers or chills, nausea/vomiting, weakness, etc. FOLLOW UP WITH PRIMARY CARE PHYSICIAN OUTLINED ABOVE. Total Time Total Time Spent Total Time Spent (In Minutes): > 30 minutes
== END 2022-08-19 13:00 | disposition home health service (06) | DRG 690 ==
LOC: 3W 19:56 → ED 19:56 → 3W 08-17 01:24

== ENCOUNTER 2023-05-13 13:53 | Inpatient (IN) ==
--- OUTSIDE RECORDS SUMMARY | 2023-05-13 14:00 | External Medical Summary | Summary of Care ---
Author Name Unknown Organization [facility] Address [address] [place] [address] Phone [phone] Care Team Providers Care Econometrics Professor Name Role Phone Unavailable Primary Care Provider Unavailabl e Encounter Details Date Type Department Care Team (Late st Contact Info) Description 04/27/2023 Result Scan Unspecified Department Jone Draper MD [address] [place] [address] <No scans attached> Allergies Active Allergy Reactions Criticality Noted Date Comments Isopropyl Isostearate 06/13/2020 Headache Isosorbide Nitrate 05/24/2015 headaches Isosorbide Nitrate 06/13/2020 Headache documented as of this encounter (statuses as of 04/27/2023) Medications Medication Sig Dispensed Refills Start Date End Date Status CENTRUM PO TABS 1 daily 0 08/01/2006 Active CYANOCOBALAMIN (VITAMIN B-12) 100 MCG Tablet Take 5 Tablets by mouth in the morning. 0 11/10/2014 Active ammonium lactate (LAC-HYDRIN) 12 % lotionIndications:In trinsic atopic dermatitis Apply topically to affected area as needed for Dry Skin. Apply to legs and feet 400 g 2 02/19/2019 Active OneTouch Verio w/Device Kit Use up to 4 times a day E11.9 1 Kit 0 07/12/2020 Active OneTouch Verio In Vitro Strip (Glucose Blood) Use up to 4 times a day E11.9 100 Strip 11 07/12/2020 Active JaclynTouch Delica Lancets 33G Use up to four times daily. E11.9 100 Each 11 07/12/2020 Active Acetaminophen 325 MG Oral Capsule Take 650 mg by mouth every 6 hours as needed for Pain. 0 Active Aspirin 81 MG Oral Tablet Chewable Take 1 Tab by mouth daily. 30 Tab 0 08/23/2020 Active Silver sulfADIAZINE 1 % External Cream (Silvadene)Indicatio ns:Pressure injury of skin of left buttock, unspecified injury stage Apply topically to affected area daily. Apply to affected area once daily 50 g 0 03/15/2021 Active Additional Information Patient not taking.Informant: Patient, Reported on 08/30/2022 Spacer/Aero-Holding Chambers DeviceIndications:Vi ral URI with cough Use with inhaler. 1 Each 0 04/06/2021 Active Additional Information Patient not taking.Informant: Patient, Reported on 08/30/2022 Docusate Sodium 100 MG Oral Tablet Take 1 Tablet by mouth 2 times a day as needed. 0 Active Zinc 50 MG Oral Capsule Take 1 Capsule by mouth in the morning. 0 Active Furosemide 40 MG Oral Tablet (Lasix) Take 0.5 Tablets by mouth in the morning. 90 Tablet 3 03/20/2022 Active Vitron-C 65-125 MG Oral Tablet (Iron-Vitamin C 65-125 mg per tab) Take 1 Tablet by mouth in the morning. Take Sunday, Sunday and Sunday. 0 Active Probiotic Daily Oral Capsule Take 1 Capsule by mouth in the morning. 0 Active Fiber Select Gummies Oral Tablet Chewable Take 1 Tablet by mouth in the morning. 0 Active NATURAL SUPPLEMENT Take by mouth daily. Pr heel 0 Active Folic Acid 1 MG Oral TabletIndications:Ch ronic ischemic heart disease,Aortocoronar y bypass status Take 1 Tablet by mouth in the morning. 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 Apply to skin fold areas as directed 60 g 1 10/27/2022 Active Apixaban 5 MG Oral Tablet (Eliquis) Take 1 Tablet by mouth in the morning and 1 Tablet before bedtime. 0 Active Proventil HFA 108 (90 Base) MCG/ACT Inhalation Aerosol Solution Inhale by mouth. [facility] of same 0 Active Finasteride 5 MG Oral Tablet (Proscar) Take 1 Tablet by mouth in the morning. 90 Tablet 0 02/13/2023 Active Tamsulosin HCl 0.4 MG Oral Capsule (Flomax) Take 1 Capsule by mouth every night at bedtime. 90 Capsule 3 02/14/2023 Active glipiZIDE ER 5 MG Oral Tablet Extended Release 24 Hour (glipiZIDE XL) Take 1 Tablet by mouth in the morning. 0 Active Levothyroxine Sodium 125 MCG Oral Tablet (Levoxyl)Indications :Acquired hypothyroidism TAKE 1 TABLET BY MOUTH DAILY AT LEAST 30 MINUTES PRIOR TO FIRST MEAL OF THE DAY OR OTHER MEDICATIONS 90 Tablet 3 03/23/2023 4 Active Atorvastatin Calcium 80 MG Oral Tablet (Lipitor)Indications :Dyslipidemia, goal LDL below 70 TAKE ONE TABLET BY MOUTH EVERY DAY 100 Tablet 3 03/23/2023 4 Active documented as of this encounter (statuses as of 04/27/2023) Active Problems Problem Noted Date Diagnosed Date Recurrent UTI 08/25/2022 Rotator cuff tendonitis, left 08/25/2022 Chronic indwelling Santacruz catheter 07/05/2022 Last Assessment & Plan: Changed yesterday by shaun lu Acute pain of left shoulder 07/05/2022 Last Assessment & Plan: Physical exam concerning for a rotator cuff injury. -start with mobile x-rays and orthopedic consult. -continue Tylenol as needed for pain. Also has Voltaren gel. Encouraged to use Aspercreme for additional pain relief. 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 1.4 on 06/16/22 [facility] results Last Assessment & Plan: Current Status: "Stable" for patient / At or near baseline Degree of Condition Awareness: Demonstrates very good awareness of condition, disease course, and prognosis "RED FLAG" HF Symptoms: o NO IDENTIFIED SYMPTOMS Current Heart Failure Classifications: o With ordinary activity such as doing housework, yard work or shopping ([employer] CLASS II) Diagnostic Review: Recent Labs Units 07/25/22 1124 08/19/20 1808 08/19/20 0557 BNP (NT-PRO-BNP) - [facility] pg/mL -- -- 7,317* ESTIMATED GLOMERULAR FILTRATION RATE - [facility] mL/min 44* < > 31.4* EGFR-OUTSIDE LAB -- < > -- HGB - [facility] g/dL 12.5* < > 9.9* HEMOGLOBIN-OUTSIDE LAB -- < > -- < > = values in this interval not displayed. Medication Regimen: o Beta Melani Therapy: Metoprolol Succinate (ER) o MAREN Inhibitor/ARB Therapy: Other: none o Diuretic therapy: Lasix Self - Management Plan o Double dose of Furosemide for 2 days Exacerbation Plan o Anticipated IV Lasix dose: 40 mg Spinal stenosis of lumbar re gion with neurogenic claudication 12/04/2018 Atrial fibrillation 10/21/2018 Last Assessment & Plan: Sounded regular today. Rate controlled. 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 04/25/2017 Last Assessment & Plan: Current Status: "Stable" for patient / At or near baseline Degree of Condition Awareness: Demonstrates very good awareness of condition, disease course, and prognosis "RED FLAG" Diabetic symptoms: o none Goal HgbA1c o <7 Diabetic Complications o Vascular (examples: PVD, PAD, CAD, CVA) Medication Regimen o Lifestyle Modification / Monitoring ONLY o Sulfonylureas (ex: Glipizide) DM Secondary Prevention o Moderate-High Intensity Statin o Aspirin Recently switched from gabapentin to Lyrica for pain control/neuropathy Glipizide was recently increased back to 10 mg Most recent hemoglobin A1c 6.4 Hypothyroidism 06/10/2013 Last Assessment & Plan: Continue synthroid Type 2 diabetes mellitus wit h hemoglobin A1c goal of less than 7.0% 11/07/2011 Overview: ICD-10 update of inactive term Last Assessment & Plan: Current Status: "Stable" for patient / At or near baseline Degree of Condition Awareness: Demonstrates poor understanding of condition, disease course, and/or prognosis "RED FLAG" Diabetic symptoms: o none Goal HgbA1c o <7 Diabetic Complications o Neurologic (example: Peripheral Neuropathy) Medication Regimen o Sulfonylureas (ex: Glipizide) DM Secondary Prevention o Moderate-High Intensity Statin o Aspirin Lewis not check BG at home last hgbA1C 6.3 last year Cardiac pacemaker in situ 04/19/2010 Sinoatrial node dysfunction 04/19/2010 Anemia due to stage 3b chronic kidney disease Overview: Per CKD Protocol, #1 Last Assessment & Plan: Cr. 1.6 hgb 12.5 stable DYSLIPIDEMIA, GOAL LDL BELOW 70 03/09/2009 Overview: Per Lipid Taxonomy. Last Assessment & Plan: Triglycerides high. -counseled on improvements in diet. Patient voiced understanding and will try. -continue atorvastatin. Aortocoronary bypass status 08/13/2006 Chronic ischemic heart disease 08/07/2006 ADVANCE DIRECTIVE INFORMATION 08/01/2006 Overview: No, Advance Directive brochure given to patient at prior appointment. documented as of this encounter (statuses as of 04/27/2023) Resolved Problems Problem Noted Date Diagnosed Date Resolved Date Aneurysm of aorta 03/23/2021 06/23/2022 Overview: 3.0 cm AAA noted on CT abd/pel 01/31/21 Fall 06/15/2020 12/30/2021 SDH (subdural hematoma) 06/15/2020 01/0 05/2021 Abdominal aortic atherosclerosis 05/23/2019 07/05/2022 Kidney disease, chronic, sta ge III (GFR 30-59 ml/min) 11/13/2017 03/15/2018 Overview: Per CKD protocol #1 - Type 1 diabetes mellitus wit h hemoglobin A1c goal of less than 7.0% 11/06/2011 11/07/2011 Overview: ICD-10 update of inactive term Benign neoplasm of colon 01/08/200910/2018 Overview: polyps x 3 removed--adenomatous polyps--repeat 2-3 years H. pylori infection 01/06/2009 07/09/19 19 Disorder of iron metabolism 10/18/2006 05/23/2019 Overview: ICD-10 update of inactive term Dyslipidemia, goal to be determined 08/07/2006 03/09/2009 Overview: Per Lipid Taxonomy. Type 2 diabetes mellitus wit h hemoglobin A1c goal of less than 7.0% 08/07/2006 08/13/2008 Overview: ICD-10 update of inactive term Anemia 08/07/2006 11/06/2011 documented as of this encounter (statuses as of 04/27/2023) Immunizations Name Administration Dates Next Due COVID-19 mRNA, LNP-s, No Pre serve, 2-Dose Series (Moderna) 05/31/2020,04/26/2020 COVID-19 mRNA, LNP-s, No Pre serve, 2-Dose Series (Pfizer) 01/17/2023 COVID-19, mRNA, LNP-s, PF, B ooster, 100mcg/0.5mg (Moderna) 08/18/2021,03/12/2021 Covid-19, Mrna, Lnp-s, Pf, B ivalent, 30 Mcg, IM, 12 yrs and above (Pfizer) 01/02/2022 Pneumococcal Conjugate Vacc, 13 Valent (Prevnar) 05/30/2017 Pneumococcal Polysaccharide PPV23 (Pneumovax) 10/18/2006 Seasonal Influenza, PF, 6 M & above, IM , (FluLaval or Fluzone) 12/29/2019 Seasonal Influenza, Quadriva lent Hd (Fluzone Hd) 12/22/2022,12/28/2021,01/13/2021 Seasonal Influenza, Quadriva lent, No Preserve, IM 12/23/2016 Seasonal Influenza, Split, I IV3, With Preserve, Inj 01/14/2013,02/20/2012,01/17/2011,01/31,01/07/2009,03/19/2008,02/01/20 07 Seasonal Influenza, Trivalen t, High Dose, No Preserve, IM 01/02/2019,01/24/2018 TDAP (age 10 and older)(Boostrix) 04/25/2014 Varicella Zoster Vaccine (Adult) 02/02/2014 Zoster Vaccine Recombinant (Shingrix) ,08/21/2022,01/13/2022,07/0109/14/2021 documented as of this encounter Social History Tobacco Use Types Packs/Day Years Used Date Smoking Tobacco: Never Smokeless Tobacco: Never Alcohol Use Standard Drinks/Week Comments Never 0 (1 standard drink = 0.6 oz pur e alcohol) AUDIT-C Answer Date Recorded Q1: How often do you have a drink containing alc ohol? Never 06/13/2020 Average Number of Drinks Not on file 021 Frequency of Binge Drinking Not on file 05/31 PHQ-2 Answer Date Recorded PHQ Adult Total Score 0 01/13/2022 Hunger Vital Sign Answer Date Recorded Within the past 12 months, y ou worried that your food would run out before you got the money to buy more. Never true 01/14/20 22 Within the past 12 months, t he food you bought just didn't last and you didn't have money to get more. Never true 01/13/2022 Sex and Gender Information Value Date Recorded Sex Assigned at Male 07/08/2018 10:09 AM EDT Gender Identity Male 07/08/2018 10:09 AM EDT Sexual Orientation Straight 07/08/2018 10 :06 AM EDT Job Start Date Occupation Industry Not on file Not on file Not on file documented as of this encounter Functional Status Functional Status Response Date of Assess ment Are you deaf or do you have serious difficulty h earing? No 08/19/2020 Are you blind or do you have serious difficulty seeing, even when wearing glasses? No 08/19/2020 Do you have serious difficul ty walking or climbing stairs? (5 years old or older) Yes 08/19/2020 Do you have difficulty dress ing or bathing? (5 years old or older) Yes 08/19/2020 Because of a physical, menta l, or emotional condition, do you have difficulty doing errands alone such as visiting a doctor s office or shopping? (15 years old or older) Yes 08/20/19 Cognitive Status Response Date of Assessm ent Because of a physical, menta l, or emotional condition, do you have serious difficulty concentrating, remembering, or making decisions? (5 years old or older) No 08/19/2020 documented as of this encounter Plan of Treatment Upcoming Encounters Date Type Department Care Team (Late st Contact Info) Description 05/11/2023 1:30 PM EST Telemedicine Cardiology, [facility] [address] [place] [phone] Pavan Cheema PA-C [address] [place] [phone] 05/31/2023 12:30 PM EST [facility] Visit [facility], [facility] [address] [place] [phone] Awilda [place], NYA [address] [place] [phone] 09/07/2023 1:40 PM EDT Telemedicine Family Practice [facility] [address] [place] [phone] Korin Diaz CRNP [address] [place] [phone] Health Maintenance Due Date Last Done Comments DXA Scan 1940 Hepatitis B (1 of 3 - Risk 3-dose series) 2000 COLONOSCOPY-EVERY 2 YRS AGES 18-100 01/08/2011 01/08/2009 Albumin/Creatinine Ratio 07/15/2022 022, 08/28/2019, 02/26/2019, Additional history exists Diabetic Foot Exam 07/15/2022 07/15/2021, 0 05/23/2019, 02/18/2018, Additional history exists Depression Screening 01/13/2023 01/13/2022 HbA1c 01/24/2023 07/25/2022, 042 , 11/01/2021, Additional history exists COVID-19 Vaccine ( season) 2023 01/17/2023, 01/02/2022, 01/02/2022, Additional history exists TSH 03/20/2023 03/20/2022, 08/0 05/2021, 07/26/2021, Additional history exists Diabetic Eye Exam 05/17/2023 05/17/2022, , 06/02/2020, Additional history exists GFR 05/30/2023 11/27/2022, 07/02, 07/20/2022, Additional history exists CKD HGB USE SMARTSET 66930 07/26/202307/25, 07/25/2022, 07/20/2022, Additional history exists CKD PHOS USE SMARTSET 80463 11/28/202311/01, 06/14/2021, 08/19/2020, Additional history exists DTaP,Tdap,and Td Vaccines (2 - Td or Tdap) 04/25/2024 04/25/2014 Pneumococcal Vaccine: 65+ Years Completed 05/30/2017, 03/13/2017, 10/18/2006 Zoster Vaccines Completed 11/06/2022, 08/01, 01/13/2022, Additional history exists Influenza Vaccine (FLU shot) Completed , 12/28/2021, 12/28/2021, Additional history exists GARDASIL-HPV IMMUNIZATION SERIES Aged Out No longer eligible based on patient's age to complete this topic MENINGOCOCCAL (MENACTRA/MENVEO) Aged Out No longer eligible based on patient's age to complete this topic documented as of this encounter Medical Devices Not on filedocumented as of this encounter Procedures Procedure Name Priority Date/Time Associated Diagnosis Comments CARDIOLOGY SCANNED RESULT 04/27/2023 documented in this encounter Results * CARDIOLOGY SCANNED RESULT (04/27/2023) 04/27/2023 Jone Draper MD OTHER documented in this encounter Advance Directives Documents on File Type Date Recorded Patient Secured Entrance Monitor Expl anation Advance Directives and Living Will 05/01/2022 ADVANCE DIRECTIVE / LIVING WILL Power of Digital Account Manager 05/01/2022 POWER OF A TTORNEY Latest Code Status on File Code Status Date Activated Date Inactivated Comments Full Code 08/19/2020 6:21 AM 08/23/2020 3:20 PM This order reflects the patients wishes and were consensually agreed upon. Question Answer Comments Discussion of Advance Directives occurred with: Patient Does the patient have a Living Will? No Does the patient have Health Care Power of Digital Account Manager? No Code Status History Code Status Date Activated Date Inactivated Comments Full Code 08/19/2020 4:29 AM 08/19/2020 6:21 AM This order reflects the patients wishes and were consensually agreed upon. Question Answer Comments Discussion of Advance Directives occurred with: Patient Does the patient have a Living Will? No Does the patient have Health Care Power of Digital Account Manager? No Full Code 06/13/2020 2:24 PM 06/15/2020 7:45 PM This order reflects the patients wishes and were consensually agreed upon.
--- OUTSIDE RECORDS SUMMARY | 2023-05-13 14:00 | External Medical Summary | Summary of Care ---
Author Name Unknown Organization [facility] Address [address] [facility] [place] [address] Phone [phone] Care Team Providers Care Automotive Glazier Name Role Phone Unavailable Primary Care Provider Unavailabl e Reason for Visit * Reason Comments [facility]: Maintenance Encounter Details Date Type Department Care Team (Late st Contact Info) Description 04/16/2023 12:30 PM EST Home Visit [facility], [facility] [address] [place] [address] Awilda York, [place] [address] [place] [address] Allergies Active Allergy Reactions Criticality Noted Date Comments Isopropyl Isostearate 06/13/2020 Headache Isosorbide Nitrate 05/24/2015 headaches Isosorbide Nitrate 06/13/2020 Headache documented as of this encounter (statuses as of 04/18/2023) Medications Medication Sig Dispensed Refills Start Date [...] day E11.9 100 Strip 11 07/12/2020 Active OneTouch Delica Lancets 33G Use up to four [...] 90 Tablet 3 08/07/2022 4 Active Nystatin 214221 UNIT/GM External Powder (Nystop)Indications: Cutaneous candidiasis Apply [...] as of this encounter (statuses as of 04/18/2023) Active Problems Problem Noted Date Diagnosed Date Recurrent UTI 08/25/2022 Rotator cuff tendonitis, left 08/25/2022 Chronic indwelling Santacruz catheter 07/05/2022 Last Assessment & Plan: Changed yesterday by shaun lu Acute pain of left shoulder 07/05/2022 Last Assessment & Plan: Physical exam concerning for a rotator cuff injury. -start with mobile x-rays and orthopedic consult. -continue Tylenol as needed for pain. Also has Sherrell gel. Encouraged to use Aspercreme for additional [...] disease 04/08/2018 Coronary artery disease invo lving [place] coronary artery of [place] heart without angina pectoris 04/08/2018 Last Assessment [...] as of this encounter (statuses as of 04/18/2023) Resolved Problems Problem Noted Date Diagnosed Date Resolved Date Aneurysm of aorta 03/23/2021 06/23/2022 Overview: 3.0 cm AAA noted on CT abd/pel 01/31/21 Fall 06/15/2020 12/30/2021 SDH (subdural hematoma) 06/15/2020 0105/2021 Abdominal aortic atherosclerosis 05/23/2019 07/05/2022 Kidney disease, [...] as of this encounter (statuses as of 04/18/2023) Immunizations Name Administration Dates Next Due COVID-19 [...] on file documented as of this encounter Last Filed Vital Signs Vital Sign Reading Time Taken Comments Blood Pressure 116/64 04/16/2023 12:13 PM EST Pulse 74 04/16/2023 12:13 PM EST Temperature 36.9 C (98.4 F) 04/16/2023 12:[address] Respiratory Rate 18 04/16/2023 12:13 PM EST Oxygen Saturation 97% 04/16/2023 12:13 PM EST Inhaled Oxygen Concentration - - Weight - - Height - - Body Mass Index - - documented in this encounter Functional Status Functional Status Response [...] (15 years old or older) Yes 08/20/19 21 Cognitive Status Response Date of Assessm ent Because of a physical, menta l, or emotional condition, do you have serious difficulty concentrating, remembering, or making decisions? (5 years old or older) No 08/19/2020 documented as of this encounter Progress Notes * Awilda York RN - 04/16/2023 12:06 PM EST [facility] [employer] Paral[employer] Visit Date: 04/16/2023 Time: 12:06 PM Name: Obed Mancini : 1940 Current Concerns: Patient seen for follow up- Anemia, CKD, CHF, Afib, CKD, DM2, h/o UTI Daughter Rere present for visit Patient doing fairly well Well taken care of by daughter/caregiver VS wnl Lungs clear bilaterally Sob with exertion No LE edema noted Urine yellow with sediment Santacruz catheter change tomorrow by [employer] wnl- per report Appetite fair- good Taking fluids with encouragement Continues with excoriation buttocks- daughter reports its getting better. Problems/Symptoms: Review of Systems Constitutional: Negative. HENT: Negative. Eyes: Negative. Respiratory: Positive for shortness of breath. Cardiovascular: Negative. Gastrointestinal: Negative. Genitourinary: Negative. Musculoskeletal: Positive for gait problem. Skin: Negative. Hematological: Negative. Psychiatric/Behavioral: Negative. Physical Exam: BP 116/64 (BP Site: Right Arm, BP Position: Sitting, BP Cuff Size: Regular) | Pulse 74 | Temp 36.9 C (98.4 F) (Tympanic) | Resp 18 | SpO2 97% Pain 0 Physical Exam Constitutional: Appearance: Normal appearance. Cardiovascular: Rate and Rhythm: Normal rate and regular rhythm. Pulses: Normal pulses. Pulmonary: Effort: Pulmonary effort is normal. Breath sounds: Normal breath sounds. Abdominal: General: Bowel sounds are normal. Palpations: Abdomen is soft. Musculoskeletal: General: Normal range of motion. Skin: General: Skin is warm and dry. Capillary Refill: Capillary refill takes 2 to 3 seconds. Neurological: General: No focal deficit present. Mental Status: He is alert and oriented to person, place, and time. [facility]-10 Completed this Visit: No. No falls since last visit Treatment/Plan: Fluids encouraged Continue medications as prescribed Keep all upcoming MD appointments Fall precautions- walker Monitor mental status Monitor urine- odor, color RN CM follow up in 6 weeks. Home Interventions Provided: Reinforced current Plan of Care, including self-management and medication regimen Patient Needs to Remember: Call [facility] with any medical concerns/ red flags Referrals Needed: N/a Follow Up: Is there cellular connectivity/connectivity in the home? Yes Does the patient have internet in the home? No Patient encouraged to call the intake phone number for all urgent but not emergent issues. Scheduled to follow up with patient in 6 weeks. Awilda Frances RN 04/16/2023 12:06 PM documented in this encounter Plan of Treatment Upcoming Encounters Date Type Department Care Team (Late st Contact Info) Description 05/01/2023 1:00 PM EST Cardiac Studies Cardiology, [facility] [address] [place] [address] [facility] [address] [place] [address] 05/31/2023 12:30 PM EST Home Visit [facility], [facility] [address] [place] [address] Awilda York, [place] [address] [place] [address] 09/06/2023 11:00 AM EDT Office Visit Family Practice [facility] [address] [place] [address] Korin Diaz CRNP [address] [place] [id number] Health Maintenance Due Date Last Done Comments DXA Scan 1940 Hepatitis B (1 of 3 - Risk 3-dose series) 2000 COLONOSCOPY-EVERY 2 YRS AGES 18-100 01/08/2011 01/08/2009 Albumin/Creatinine Ratio 07/15/2022 022, 08/28/2019, 02/26/2019, Additional history exists Diabetic Foot Exam 07/15/2022 07/15/2021, 0 05/23/2019, 02/18/2018, Additional history exists Depression Screening 01/13/2023 01/13/2022 HbA1c 01/24/2023 07/25/2022, 07/02, 11/01/2021, Additional history exists COVID-19 Vaccine (2022- season) 2023 01/17/2023, 01/02/2022, 01/02/2022, Additional history exists TSH 03/20/2023 03/20/2022, 08/0 05/2021, 07/26/2021, Additional history exists Diabetic Eye Exam 05/17/2023 05/17/2022, , 06/02/2020, Additional history exists GFR 05/30/2023 11/27/2022, 07/02, 07/20/2022, Additional history exists CKD HGB USE SMARTSET 67911 07/26/202307/25, 07/25/2022, 07/20/2022, Additional history exists CKD PHOS USE SMARTSET 74997 11/28/202311/01, 06/14/2021, 08/19/2020, Additional history exists DTaP,Tdap,and [...] Not on filedocumented as of this encounter Advance Directives Documents on File Type Date Recorded Patient Ball Holder Expl anation Advance Directives and Living Will 05/01/2022 ADVANCE DIRECTIVE / LIVING WILL Power of Contact Officer 05/01/2022 POWER OF A TTORNEY Latest Code Status on File Code Status Date Activated Date Inactivated Comments Full Code 08/19/2020 6:21 AM 08/23/2020 3:20 PM This order reflects the patients wishes and were consensually agreed upon. Question Answer Comments Discussion of Advance Directives occurred with: Patient Does the patient have a Living Will? No Does the patient have Health Care Power of Contact Officer? No Code Status History Code Status Date Activated Date Inactivated Comments Full Code 08/19/2020 4:29 AM 08/19/2020 6:21 AM This order reflects the patients wishes and were consensually agreed upon. Question Answer Comments Discussion of Advance Directives occurred with: Patient Does the patient have a Living Will? No Does the patient have Health Care Power of Contact Officer? No Full Code 06/13/2020 2:24 PM 06/15/2020 7:45 PM This order reflects the patients wishes and were consensually agreed upon.
--- OUTSIDE RECORDS SUMMARY | 2023-05-13 14:00 | External Medical Summary | Summary of Care ---
Author Name Unknown Organization [facility] Address [address] [place] [address] Phone [phone] Care Team Providers Care Hand Crocheter Name Role Phone Unavailable Primary Care Provider Unavailabl e Reason for Visit * Reason Comments Medication Refill Encounter Details Date Type Department Care Team (Late st Contact Info) Description 03/23/2023 Refill Cardiology, [facility] [address] [place] [address] Radha Arenas PA-C [address] [place] [address] Dyslipidemia, goal LDL below 70 Allergies Active Allergy Reactions Criticality Noted Date Comments Isopropyl Isostearate 06/13/2020 Headache Isosorbide Nitrate 05/24/2015 headaches Isosorbide Nitrate 06/13/2020 Headache documented as of this encounter (statuses as of 03/23/2023) Medications Medication Sig Dispensed Refills Start Date End Date Status CENTRUM PO TABS 1 daily 0 08/01/2006 Active CYANOCOBALAMIN (VITAMIN B-12) 100 MCG Tablet Take 5 Tablets by mouth in the morning. 0 11/10/2014 Active ammonium lactate (LAC-HYDRIN) 12 % lotionIndications:I ntrinsic atopic dermatitis Apply topically to affected area as needed for Dry Skin. Apply to legs and feet 400 g 2 02/19/2019 Active BeezagTouch Verio w/Device Kit Use up to 4 [...] Active Silver sulfADIAZINE 1 % External Cream (Silvadene)Indicati ons:Pressure injury of skin of left buttock, unspecified injury stage Apply topically to affected area daily. Apply to affected area once daily 50 g 0 03/15/2021 Active Additional Information Patient not taking.Informant: Patient, Reported on 08/30/2022 Spacer/Aero-Holding Chambers DeviceIndications:V iral URI with cough Use with inhaler. 1 [...] 0 Active Folic Acid 1 MG Oral TabletIndications:C hronic ischemic heart disease,Aortocorona ry bypass status Take 1 Tablet by mouth in the morning. 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 0 Active Levothyroxine Sodium 125 MCG Oral Tablet (Levoxyl)Indication s:Acquired hypothyroidism TAKE 1 TABLET BY MOUTH DAILY AT LEAST 30 MINUTES PRIOR TO FIRST MEAL OF THE DAY OR OTHER MEDICATIONS 90 Tablet 3 03/23/2023 4 Active Atorvastatin Calcium 80 MG Oral Tablet (Lipitor)Indication s:Dyslipidemia, goal LDL below 70 TAKE ONE TABLET BY MOUTH EVERY DAY 100 Tablet 3 03/23/2023 4 Active Atorvastatin Calcium 80 MG Oral Tablet (Lipitor)Indication s:Dyslipidemia, goal LDL below 70 TAKE ONE TABLET BY MOUTH EVERY DAY 90 Tablet 3 03/22/2022 3 Discontinu ed(Refill) documented as of this encounter (statuses as of 03/23/2023) Active Problems Problem Noted Date Diagnosed Date [...] disease 04/08/2018 Coronary artery disease invo lving [place] coronary artery of [place] heart without angina pectoris 04/08/2018 Last Assessment [...] as of this encounter (statuses as of 03/23/2023) Resolved Problems Problem Noted Date Diagnosed Date Resolved Date Aneurysm of aorta 03/23/2021 06/23/2022 Overview: 3.0 cm AAA noted on CT abd/pel 01/31/21 Fall 06/15/2020 12/30/2021 SDH (subdural hematoma) 06/15/2020/0 05/2021 Abdominal aortic atherosclerosis 05/23/2019 07/05/2022 Kidney disease, chronic, sta ge III (GFR 30-59 ml/min) 11/13/2017 03/15/2018 Overview: Per CKD protocol #1 - Type 1 diabetes mellitus wit h hemoglobin A1c goal of less than 7.0% 11/06/2011 11/07/2011 Overview: ICD-10 update of inactive term Benign neoplasm of colon 01/08/200910/2018 Overview: polyps x 3 removed--adenomatous polyps--repeat 2-3 years H. pylori infection 01/06/2009 04/08/20 19 Disorder of iron metabolism 10/18/2006 05/23/2019 Overview: ICD-10 update of inactive term Dyslipidemia, goal to be determined 08/07/2006 03/09/2009 Overview: Per Lipid Taxonomy. Type 2 diabetes mellitus wit h hemoglobin A1c goal of less than 7.0% 08/07/2006 08/13/2008 Overview: ICD-10 update of inactive term Anemia 08/07/2006 11/06/2011 documented as of this encounter (statuses as of 03/23/2023) Immunizations Name Administration Dates Next Due COVID-19 [...] money to buy more. Never true 01/14/20 Within the past 12 months, t he [...] No 08/19/2020 documented as of this encounter Miscellaneous Notes * Telephone Encounter - Radha Arenas PA-C - 03/23/2023 1:04 PM ESTSigned Prescriptions: Disp Refills Atorvastatin Calcium 80 MG Oral Tablet (Li*100 Ta*3 Sig: TAKE ONE TABLET BY MOUTH EVERY DAY Authorizing Provider: RADHA ARENAS * Telephone Encounter - Marine Bowden COT - 03/23/2023 10:42 AM ESTPending Prescriptions: Disp Refills Atorvastatin Calcium 80 MG Oral Tablet (Li*90 Tab*0 Sig: TAKE ONE TABLET BY MOUTH EVERY DAY * Telephone Encounter - Marine Bowden COT - 03/23/2023 10:42 AM EST Did you pend patient's preferred pharmacy and medication before forwarding?yes Pharmacy: [facility] Pending Prescriptions: Disp Refills Atorvastatin Calcium 80 MG Oral Tablet (L*90 Tab*0 Sig: TAKE ONE TABLET BY MOUTH EVERY DAY Last Visit: 03/20/2022 (in office), 11/25/2020 (telemedicine) Next Visit: 05/01/2023 If no future appointments scheduled, and last appointment is greater than a year ago, please schedule patient for a follow-up appointment Last date the medication was ordered: 03-22-2022 Is this request for a controlled substance?No Urine Drug Screen: Results for orders placed or performed during the hospital encounter of 06/13/20 TOXICOLOGY, URINE SCREEN W/ CONFIRMATION Result Value Amphetamines Screen, U Negative Benzodiazepines Screen, U Negative Cannabinoids Screen, U Negative Cocaine Metabolite Screen, U Negative Hydrocodone Screen, U Negative Methadone Metabolite Screen, U Negative Morphine/Codeine Screen, U Negative Oxycodone Screen, U Negative Narrative Cutoff Concentrations: Drug Level Amphetamines 500 ng/mL Benzodiazepines 100 ng/mL Cannabinoids 50 ng/mL Cocaine Metabolite 150 ng/mL Hydrocodone / Hydromorphone 100 ng/mL Methadone Metabolite 100 ng/mL Morphine / Codeine 300 ng/mL Oxycodone / Oxymorphone 100 ng/mL Screening results are presumptive and can only be used for medical purposes. Positive screening results are reflexed to confirmatory testing. *Note: Due to a large number of results and/or encounters for the requested time period, some results have not been displayed. A complete set of results can be found in Results Review. Patient Phone Numbers Labs: Lab Results Component Value Date/Time CREAT 1.4 (H) 11/27/2022 10:18 AM CREAT 1.3 07/20/2022 12:00 AM CREAT 1.5 (H) 11/19/2018 12:22 PM POTASSIUM 4.2 11/27/2022 10:18 AM POTASSIUM 4.3 07/20/2022 12:00 AM POTASSIUM 4.1 11/19/2018 12:22 PM TSH 2.70 03/20/2022 03:45 PM TSH 1.83 07/26/2021 12:00 AM TSH 1.41 09/18/2016 09:46 AM LDLCALC 73 07/20/2022 12:00 AM LDLCALC 72 10/21/2018 09:28 AM LDLDIRECT 72 07/25/2022 11:24 AM LDLDIRECT NOT APPLICABLE 10/21/2018 09:28 AM LDLDIRECT 87 08/10/2014 02:09 PM LDLCHOL 79 01/15/2013 12:00 AM ALT 13 07/25/2022 11:24 AM ALT 10 10/21/2018 09:21 AM HGBA1C 6.4 (H) 07/25/2022 11:24 AM HGBA1C 6.5 (A) 07/20/2022 12:00 AM HGBA1C 6.8 (H) 11/19/2018 12:22 PM documented in this encounter Plan of Treatment Upcoming Encounters Date Type Department Care Team (Late st Contact Info) Description 04/16/2023 12:30 PM EST Home Visit [facility] [address] [place] [address] Awilda York, RN [address] [place] [address] 05/01/2023 1:00 PM EST Cardiac Studies Cardiology, [facility] [address] [place] [address] [facility] [address] [place] [address] 09/06/2023 11:00 AM EDT Office Visit Family Practice [facility] [address] [place] [address] Korin Diaz CRNP [address] [place] [address] Health Maintenance Due Date Last Done Comments [...] 2023 01/17/2023, 01/02/2022, 01/02/2022, Additional history exists Diabetic Eye Exam 05/17/2023 05/17/2022, , 06/02/2020, Additional history exists GFR 05/30/2023 11/27/2022, 07/02, 07/20/2022, Additional history exists CKD HGB USE SMARTSET 88263 07/26/202307/25, 07/25/2022, 07/20/2022, Additional history exists CKD PHOS USE SMARTSET 39454 11/28/202311/01, 06/14/2021, 08/19/2020, Additional history exists DTaP,Tdap,and [...] Not on filedocumented as of this encounter Visit Diagnoses Diagnosis Dyslipidemia, goal LDL below 70 Other and unspecified hyperlipidemia documented in this encounter Advance Directives Documents on File Type Date Recorded Patient Incendiary Powder Mixer Expl anation Advance Directives and Living Will 05/01/2022 ADVANCE DIRECTIVE / LIVING WILL Power of Sand Cleaning Machine Operator 05/01/2022 POWER OF A TTORNEY Latest Code Status on File Code Status Date Activated Date Inactivated Comments Full Code 08/19/2020 6:21 AM 08/23/2020 3:20 PM This order reflects the patients wishes and were consensually agreed upon. Question Answer Comments Discussion of Advance Directives occurred with: Patient Does the patient have a Living Will? No Does the patient have Health Care Power of Sand Cleaning Machine Operator? No Code Status History Code Status Date Activated Date Inactivated Comments Full Code 08/19/2020 4:29 AM 08/19/2020 6:21 AM This order reflects the patients wishes and were consensually agreed upon. Question Answer Comments Discussion of Advance Directives occurred with: Patient Does the patient have a Living Will? No Does the patient have Health Care Power of Sand Cleaning Machine Operator? No Full Code 06/13/2020 2:24 PM 06/15/2020 7:45 PM This order reflects the patients wishes and were consensually agreed upon.
--- OUTSIDE RECORDS SUMMARY | 2023-05-13 14:00 | External Medical Summary | Summary of Care ---
Author Name Unknown Organization [facility] Address [address] [place] [place] [address] Phone [phone] Care Team Providers Care Field Associate Name Role Phone Unavailable Primary Care Provider Unavailabl e Reason for Visit * Reason Comments Follow Up Over yearly follow u p. Nothing worse then prior. Encounter Details Date Type Department Care Team (Latest Contact Info) Description 05/11/2023 1:30 PM EST Telemedicine Cardiology, [facility] [address] [place] [address] Pavan Cheema PA-C [address] [place] [address] Permanent atrial fibrillation (HCC)*; Dyslipidemia, goal LDL below 70; Aortocoronary bypass status; Cardiac pacemaker in situ; Sinoatrial node dysfunction (HCC); CHR ISCHEMIC HRT DIS NOS; Ischemic cardiomyopathy Allergies Active Allergy Reactions Criticality Noted Date Comments Isopropyl Isostearate 06/13/2020 Headache Isosorbide Nitrate 05/24/2015 headaches Isosorbide Nitrate 06/13/2020 Headache documented as of this encounter (statuses as of 05/12/2023) Medications Medication Sig Dispensed Refills Start Date [...] 90 Tablet 3 08/07/2022 4 Active Nystatin 961365 UNIT/GM External Powder (Nystop)Indications: Cutaneous candidiasis Apply [...] as of this encounter (statuses as of 05/12/2023) Active Problems Problem Noted Date Diagnosed Date Recurrent UTI 08/25/2022 Rotator cuff tendonitis, left 08/25/2022 Chronic indwelling Garcia catheter 07/05/2022 Last Assessment & Plan: Changed [...] disease 04/08/2018 Coronary artery disease invo lving north fork coronary artery of north fork heart without angina pectoris 04/08/2018 Last Assessment [...] as of this encounter (statuses as of 05/12/2023) Resolved Problems Problem Noted Date Diagnosed Date [...] as of this encounter (statuses as of 05/12/2023) Immunizations Name Administration Dates Next Due COVID-19 mRNA, LNP-s, No Pre serve, 2-Dose Series (Moderna) 05/31/2020,04/26/2020 COVID-19 mRNA, LNP-s, No Pre serve, 2-Dose Series (Advaxis) 01/17/2023 COVID-19, mRNA, LNP-s, PF, B ooster, [...] as of this encounter Progress Notes * Pavan Cheema PA-C - 05/11/2023 1:30 PM EST Patient location: HOME. I was in a hospital or clinic location. After connecting through televideo,patient was verified with two unique identifiers. 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 Methods to assure confidentiality were taken. Patient acknowledged consent and understanding of pr ivacy and security of the Telemedicine visit. The patient agreed to participate. History of Present: Obed Mancini is a 83-year-old male who is being evaluated today via telemedicine. Recent [employer] message received requesting evaluation, noting patient is no longer leaving the home due to significant neuropathy. "I got his damn neuropathy. I more or less confined to a lift chair." [id number], progressive. Patient following with the [facility], , and also home health. No reported chest pain, palpitations, shortness of breath, or fluid retention. Chronic garcia catheter in place. Patient Active Problem List Diagnosis Code ADVANCE DIRECTIVE INFORMATION Chronic ischemic heart disease I25.9 Aortocoronary bypass status Z95.1 DYSLIPIDEMIA, GOAL LDL BELOW 70 E78.5 Anemia due to stage 3b chronic kidney disease (HCC) N18.32, D63.1 Cardiac pacemaker in situ Z95.0 Sinoatrial node dysfunction (HCC) I49.5 Type 2 diabetes mellitus with hemoglobin A1c goal of less than 7.0% (HCC) E11.9 Hypothyroidism E03.9 Chronic systolic congestive heart failure (HCC) I50.22 Type 2 diabetes mellitus with diabetic polyneuropathy (HCC) E11.42 Type 2 diabetes mellitus with stage 3b chronic kidney disease, without long-term current use of insulin (HCC) E11.22, N18.32 Lumbar degenerative disc disease M51.36 Coronary artery disease involving north fork coronary artery of north fork heart without angina pectoris I25.10 Asymptomatic bilateral carotid artery stenosis I65.23 Atrial fibrillation (HCC) I48.91 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) I13.0, I50.22, N18.32 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.062 Hypomagnesemia E83.42 Hypocalcemia E83.51 Acute on chronic heart failure with preserved ejection fraction (HCC) I50.33 Sacral decubitus ulcer, stage II ([facility]) L89.152 Phimosis N47.1 Hematuria, gross R31.0 Chronic kidney disease, stage 3b (HCC) N18.32 Gastro-esophageal reflux disease without esophagitis K21.9 Atherosclerosis of coronary artery bypass graft without angina pectoris I25.810 Chronic indwelling Garcia catheter Z97.8 Acute pain of left shoulder M25.512 Recurrent UTI N39.0 Rotator cuff tendonitis, left M75.82 Past Medical History: Diagnosis Date Benign neoplasm of colon 01/08/09 polyps x 3 removed--adenomatous polyps--repeat 2-3 years CAD (coronary artery disease) Carotid artery stenosis Diabetes mellitus ([facility]) Fall 06/15/2020 H. pylori infection 01/06/2009 HTN (hypertension) Hypothyroidism Mixed dyslipidemia Past Surgical History: Procedure Laterality Date CABG, ARTERIAL, SINGLE 07/12/06 CORONARY ARTERY BYPASS GRAFT USING ARTERY 1 GRAFT performed by FELIPE WIGGINS at OR [facility] CABG, ARTERY-VEIN, TWO 07/12/06 CORONARY ARTERY BYPASS GRAFT ARTERIAL AND VENOUS 2 GRAFTS performed by FELIPE WIGGINS at OR [facility] COLONOSCOPY W/ LESION REMOVAL, SNARE 01/08/09 polyps x 3 removed--adenomatous polyps--repeat 2-3 years EGD, FLEXIBLE, INSERT WIRE, PASS DILATOR 05/30/11 biopsies, dilatation,MILD INFLAMMATION NO BACTERIAL INFECTION EGD, FLEXIBLE, TRANSENDOSCOPIC DILATION <30MM 12/30/[address], return for colonoscopy ENDO,VIDEO ASSIST HARVEST NICOLE 07/12/06 ENDOSCOPY VIDEO ASSISTED HARVEST VEIN performed by FELIPE WIGGINS at OR [facility] INFORMATION 04/12/10 pacemaker Family History: Positive for CAD in his mother who suffered an KS at 81 Social History: Nonsmoker. No alcohol. No illegal drug use. . 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 Lives in [place]. Complete ROS: See above. Otherwise negative or noncontributory. Review of patient's allergies indicates: Allergen Reactions Isopropyl Isostearate Headache Isosorbide Nitrate headaches Isosorbide Nitrate Headache Current Outpatient Medications Medication Sig Dispense Refill CENTRUM PO TABS 1 daily 0 CYANOCOBALAMIN (VITAMIN B-12) 100 MCG Tablet Take 5 Tablets by mouth in the morning. Near[employer] TechnologiesToUpverter Verio w/Device Kit Use up to 4 times a day E11.9 1 Kit 0 Near[employer]yme TechnologiesTouch VerVengo Labs In Vitro Strip (Glucose Blood) Use up to 4 times a day E11.9 100 Strip 11 Near[employer]yme TechnologiesTouch Delica Lancets 33G Use up to four times daily. E11.9 100 Each 11 Aspirin 81 MG Oral Tablet Chewable Take 1 Tab by mouth daily. 30 Tab 0 Zinc 50 MG Oral Capsule Take 1 Capsule by mouth in the morning. Furosemide 40 MG Oral Tablet (Lasix) Take 0.5 Tablets by mouth in the morning. 90 Tablet 3 Vitron-C 65-125 MG Oral Tablet (Iron-Vitamin C 65-125 mg per tab) Take 1 Tablet by mouth in the morning. Take Sunday, Sunday and Sunday. Probiotic Daily Oral Capsule Take 1 Capsule by mouth in the morning. Fiber Select Gummies Oral Tablet Chewable Take 1 Tablet by mouth in the morning. NATURAL SUPPLEMENT Take by mouth daily. Pr heel Folic Acid 1 MG Oral Tablet Take 1 Tablet by mouth in the morning. 90 Tablet 3 Potassium Chloride ER 20 MEQ Oral Tablet Extended Release TAKE 1 TABLET BY MOUTH DAILY 90 Tablet 3 Metoprolol Succinate ER 50 MG Oral Tablet Extended Release 24 Hour (toPROL XL) TAKE ONE TABLET BY MOUTH EVERY DAY 90 Tablet 3 Nystatin 956889 UNIT/GM External Powder (Nystop) Apply topically to affected area 3 times a day. Apply to skin fold areas as directed 60 g 1 Apixaban 5 MG Oral Tablet (Eliquis) Take 1 Tablet by mouth in the morning and 1 Tablet before bedtime. Finasteride 5 MG Oral Tablet (Proscar) Take 1 Tablet by mouth in the morning. 90 Tablet 0 Tamsulosin HCl 0.4 MG Oral Capsule (Flomax) Take 1 Capsule by mouth every night at bedtime. 90 Capsule 3 glipiZIDE ER 5 MG Oral Tablet Extended Release 24 Hour (glipiZIDE XL) Take 1 Tablet by mouth in themorning. Levothyroxine Sodium 125 MCG Oral Tablet (Levoxyl) TAKE 1 TABLET BY MOUTH DAILY AT LEAST 30 MINUTESPRIOR TO FIRST MEAL OF THE DAY OR OTHER MEDICATIONS 90 Tablet 3 Atorvastatin Calcium 80 MG Oral Tablet (Lipitor) TAKE ONE TABLET BY MOUTH EVERY DAY 100 Tablet 3 ammonium lactate (LAC-HYDRIN) 12 % lotion Apply topically to affected area as needed for Dry Skin. Apply to legs and feet 400 g 2 Acetaminophen 325 MG Oral Capsule Take 650 mg by mouth every 6 hours as needed for Pain. Silver sulfADIAZINE 1 % External Cream (Silvadene) Apply topically to affected area daily. Apply toaffected area once daily (Patient not taking: Reported on 08/30/2022) 50 g 0 Spacer/Aero-Holding Chambers Device Use with inhaler. (Patient not taking: Reported on 08/30/2022) 1Each 0 Docusate Sodium 100 MG Oral Tablet Take 1 Tablet by mouth 2 times a day as needed. Proventil HFA 108 (90 Base) MCG/ACT Inhalation Aerosol Solution Inhale by mouth. Ordered by [place], patient awaiting delivery of same No current facility-administered medications for this visit. OBJECTIVE/PHYSICAL EXAMINATION: N/A. Telephone only visit. Data: October 25, 2017 Lexiscan Interpretation Summary (as per Dr. Wise): Myocardial perfusion imaging isnormal. Overall left ventricular systolic function was normal without regional wall motion abnormalities. The left ventricular ejection fraction was 72%. There are no prior studies available for comparison. August 03, 2020 TTE Interpretation Summary (as per Dr. Draper): The left ventricular cavity size is normal. The LV wall thickness is mildly increased (concentric). The septal motion is abnormal consistentwith right ventricular pacemaker. The remaining left ventricular wall segments are borderline hypokinetic. The qualitative LV ejection fraction is 50-54% (normal). Mild aortic valve sclerosis is present. Moderate tricuspid regurgitation is present. The estimated pulmonary artery systolic pressure is 30-35 mm Hg. Compared to prior study of October 25, 2017, there is no significant change. Device interrogation on April 13, 2023 demonstrated appropriate function, 8.6 years remaining longevity. BRICK PAVER 96.5%. OptiVol below threshold. ASSESSMENT: Multivessel coronary artery disease, status post CABG x3 07/2006 (SEE-LAD, SVG- RI, SVG-RCA) Ischemic cardiomyopathy, ejection fraction 50 to 54% via July 2020 resting echocardiogram. Third degree heart block, status post dual chamber pacemaker implantation on 04/12/2010. Chronic atrial fibrillation, eliquis anticoagulation Pacemaker upgrade to biventricular device with AV node ablation on November 24, 2020 Chronic right heart failure, NYHA Class III Significant bilateral carotid occlusive disease Fall in May 2020 with resultant subdural hematomas Hypertension. Dyslipidemia. Type 2 diabetes mellitus. Chronic kidney disease, stage III Hypothyroidism GERD Chronic back pain. Venous insufficiency Peripheral neuropathy Urinary retention RECOMMENDATIONS/PLAN: Continue as prescribed. Continue remote device interrogations, monitored via the [facility]. Cardiology follow-up as needed. Pavan Cheema PA-C Department of Cardiology I spent a total of 10-19 minutes (exact time 12 mins) on the date of service in preparation, delivery, and documentation of the care provided to Obed Mancini excluding any time spent in the performance of separately billed services. This chart was completed in part utilizing [employer] Speech Voice Recognition Software. Grammatical errors, random word insertions, prounoun errors, and incomplete sent ences are an occasional consequence of this system due to software limitations, ambient noise, and hardware issues. Any formal questions or concerns about the content, text, or information contained within the body of this dictation should be directly addressed to the provider for clarification. documented in this encounter Nursing Notes * Francisco Del Rio LPN - 05/11/2023 1:23 PM EST Patient identified by full name and date of Chief Complaint Patient presents with Follow Up Over yearly follow up. Nothing worse then prior. Examination Room: Telephonic Name: Obed Mancini Date of : (1940). Reason for Visit: Follow up Interim Hospitalization(s): Denies Problems/Concerns: See chief complaint Chest Pain/SOB: See chief complaint [facility] Discussed: Yes My Familia[employer] is a way you can talk to your provider online through e-mail. Would you like to sign up? I can activate it for you? ALREADY ACTIVE Patient was instructed to not get up on the exam table until directed and assisted by their provider; patient is to remain seated in the chair/ wheelchair/ exam table for fall prevention and safety reasons. Patient is aware to have assistance to step down off exam table with personnel. Patient voiced full comprehension of instructions. documented in this encounter Plan of Treatment Upcoming Encounters Date Type Department Care Team (Late st Contact Info) Description 05/31/2023 12:30 PM EST [facility] Visit [facility] [address] [place] [address] Awilda [place], [place] [address] [place] [address] 09/07/2023 1:40 PM EDT Telemedicine Family Practice [facility] [address] [place] [address] Korin Diaz CRNP [address] [place] [address] Health Maintenance Due Date Last Done Comments [...] Additional history exists CKD HGB USE SMARTSET 72717 07/26/202307/25, 07/25/2022, 07/20/2022, Additional history exists CKD PHOS USE SMARTSET 23449 11/28/202311/01, 06/14/2021, 08/19/2020, Additional history exists DTaP,Tdap,and [...] as of this encounter Visit Diagnoses Diagnosis Permanent atrial fibrillation (HCC)- Primary Atrial fibrillation Dyslipidemia, goal LDL below 70 Other and unspecified hyperlipidemia Aortocoronary bypass status Postsurgical aortocoronary bypass status Cardiac pacemaker in situ Sinoatrial node dysfunction (HCC) Sinoatrial node dysfunction CHR ISCHEMIC HRT DIS NOS Chronic ischemic heart disease, unspecified Ischemic cardiomyopathy Other specified forms of chronic ischemic heart disease documented in this encounter Advance Directives Documents on File Type Date Recorded Patient Patient Services Clerk Expl anation Advance Directives and Living Will 05/01/2022 ADVANCE DIRECTIVE / LIVING WILL Power of Supervisor Forming Department 05/01/2022 POWER OF A TTORNEY Latest Code Status on File Code Status Date Activated Date Inactivated Comments Full Code 08/19/2020 6:21 AM 08/23/2020 3:20 PM This order reflects the patients wishes and were consensually agreed upon. Question Answer Comments Discussion of Advance Directives occurred with: Patient Does the patient have a Living Will? No Does the patient have Health Care Power of Supervisor Forming Department? No Code Status History Code Status Date Activated Date Inactivated Comments Full Code 08/19/2020 4:29 AM 08/19/2020 6:21 AM This order reflects the patients wishes and were consensually agreed upon. Question Answer Comments Discussion of Advance Directives occurred with: Patient Does the patient have a Living Will? No Does the patient have Health Care Power of Supervisor Forming Department? No Full Code 06/13/2020 2:24 PM 06/15/2020 7:45 PM This order reflects the patients wishes and were consensually agreed upon.
--- OUTSIDE RECORDS SUMMARY | 2023-05-13 14:01 | External Medical Summary ---
Author Name Unknown Address Unknown Organization [facility] [address] [place] [address] Laboratory Report Ordering Provider Test Date Status CHRIS BREWER 03/20/2023 12:03:04 Final Obtain with new cath Observation Date Value Abnormality Reference (Units ) Status Color of Urine by Auto 03/20/2023 12:03:04 Yellow Light Yellow, Yellow, Dark Yellow Final Clarity, Urine 03/20/2023 12:03:04 Cloudy Abnormal Clear Final Glucose [Mass/volume] in Urine by Automated test strip 03/20/2023 12:03:04 Negative Negative (mg/dL) Final Bilirubin.total [Presence] in Urine by Automated test strip 03/20/2023 12:03:04 Negative Negative Final Ketones [Mass/volume] in Urine by Automated test strip 03/20/2023 12:03:04 Negative Negative (mg/dL) Final Specific gravity, Urine 03/20/2023 12:03:04 1.010 1.003-1.030 Final Hemoglobin [Presence] in Urine by Automated test strip 03/20/2023 12:03:04 Trace Abnormal Negative Final pH, Urine 03/20/2023 12:03:04 >=9.0 Above high normal 5.0-7.5 (Units) Final Protein [Mass/volume] in Urine by Automated test strip 03/20/2023 12:03:04 >=300 Abnormal Negative (mg/dL) Final Urobilinogen [Mass/volume] in Urine by Automated test strip 03/20/2023 12:03:04 0.2 0.2, 1.0 (mg/dL) Final Nitrite [Presence] in Urine by Automated test strip 03/20/2023 12:03:04 Negative Negative Final Leukocyte esterase [Presence] in Urine by Automated test strip 03/20/2023 12:03:04 Moderate Abnormal Negative Final RBC, Urine 03/20/2023 12:03:04 0-2 0-2 (/HPF) Final WBC, Urine 03/20/2023 12:03:04 10-19 Abnormal 0-2 (/HPF) Final Bacteria [#/area] in Urine sediment by Microscopy high power field 03/20/2023 12:03:04 101-150 Abnormal 0-25 (/HPF) Final Crystals.amorphous [#/area] in Urine sediment by Microscopy high power field 03/20/2023 12:03:04 Many Abnormal None (/HPF) Final Triple phosphate crystals [#/area] in Urine sediment by Microscopy high power field 03/20/2023 12:03:04 5-9 Abnormal None (/HPF) Final CULTURE, URINE - [facility] 03/20/2023 12:03:04 Final Quantitative urine culture t o be performed Performing Location [facility] [address] [place] [address]
--- OUTSIDE RECORDS SUMMARY | 2023-05-13 14:01 | External Medical Summary | Summary of Care ---
Author Name Unknown Organization [facility] Address [address] [place] [address] Phone [phone] Care Team Providers Care Ream Cutter Name Role Phone Unavailable Primary Care Provider Unavailabl e Reason for Visit * Reason Comments [facility]: Maintenance Encounter Details Date Type Department Care Team (Late st Contact Info) Description 03/15/2023 12:30 PM EST [facility] Visit [facility] [address] [facility] [place] [address] Awilda York, [place]A [address] [place] [address] Recurrent UTI* Allergies Active Allergy Reactions Criticality Noted Date Comments Isopropyl Isostearate 06/13/2020 Headache Isosorbide Nitrate 05/24/2015 headaches Isosorbide Nitrate 06/13/2020 Headache documented as of this encounter (statuses as of 03/15/2023) Medications Medication Sig Dispensed Refills Start Date [...] DAY 90 Tablet 3 08/07/2022 4 Active Atorvastatin Calcium 80 MG Oral Tablet (Lipitor)Indications :Dyslipidemia, goal LDL below 70 TAKE ONE TABLET BY MOUTH EVERY DAY 90 Tablet 3 03/22/2022 3 Active Levothyroxine Sodium 125 MCG Oral Tablet (Levoxyl)Indications :Acquired hypothyroidism TAKE 1 TABLET BY MOUTH DAILY AT LEAST 30 MINUTES PRIOR TO FIRST MEAL OF THE DAY OR OTHER MEDICATIONS 90 Tablet 3 03/22/2022 3 Active Nystatin 462024 UNIT/GM External Powder (Nystop)Indications: Cutaneous candidiasis Apply [...] by mouth in the morning. 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 04/08/2018 Last Assessment [...] as of this encounter (statuses as of 03/15/2023) Resolved Problems Problem Noted Date Diagnosed Date Resolved Date Aneurysm of aorta 03/23/2021 06/23/2022 Overview: 3.0 cm AAA noted on CT abd/pel 01/31/21 Fall 06/15/2020 12/30/2021 SDH (subdural hematoma) 06/15/202005/2021 Abdominal aortic atherosclerosis 05/23/2019 07/05/2022 Kidney disease, [...] as of this encounter (statuses as of 03/15/2023) Immunizations Name Administration Dates Next Due COVID-19 [...] Sign Reading Time Taken Comments Blood Pressure 108/58 03/15/2023 12:28 PM EST Pulse 64 03/15/2023 12:28 PM EST Temperature 36.4 C (97.5 F) 03/15/2023 12:[address] Respiratory Rate 18 03/15/2023 12:28 PM EST Oxygen Saturation 94% 03/15/2023 12:28 PM EST Inhaled Oxygen Concentration - - [...] of this encounter Progress Notes * Awilda York, NYA - 03/15/2023 12:00 PM EST [facility] Life Skills Educator Visit Date: 03/15/2023 Time: 12:00 PM Name: Obed Mancini : 1940 Current Concerns: Patient seen for follow up- Anemia, CKD, CHF, Afib, CKD, DM2, h/o UTI Upon arrival- daughter/ concerned regarding color/smell of urine. Urine dark- reports foul smelling. No symptoms of UTI- typically patient exhibits agitation/mental status change. Treated with Bactrim and Nitrofurantoin the end of January- done with ABT approx 03/07. Garcia to be changed 03/19 by [facility] to Phu Christopher PA-C- UA C&S to be obtained 03/19- Order to flush catheter once daily for heavy sediment in urine- Will have order sent to [employer] to assist with teaching daughter to flush catheter. Patient reports feeling well- complaint of neuropathy in BLE Color good- talkative. Alert and oriented x 3- pleasant VS wnl Lungs clear bilaterally Sob with moderate exertion No LE edema noted Garcia draining yellow urine with sediment Bowels wnl Appetite good Taking fluids Problems/Symptoms: Review of Systems Constitutional: Negative. HENT: Negative. Eyes: Negative. Respiratory: Positive for shortness of breath. Cardiovascular: Negative. Gastrointestinal: Negative. Endocrine: Negative. Genitourinary: Negative. Musculoskeletal: Positive for gait problem. Allergic/Immunologic: Negative. Hematological: Bruises/bleeds easily. Psychiatric/Behavioral: Negative. Physical Exam: BP 108/58 (BP Site: Right Arm, BP Position: Sitting, BP Cuff Size: Regular) | Pulse 64 | Temp 36.4 C (97.5 F) (Tympanic) | Resp 18 | SpO2 94% Pain 0 Physical Exam Constitutional: Appearance: Normal appearance. Cardiovascular: Rate and Rhythm: Normal rate. Pulses: Normal pulses. Pulmonary: Effort: Pulmonary effort is normal. Breath sounds: Normal breath sounds. Abdominal: General: Bowel sounds are normal. Palpations: Abdomen is soft. Musculoskeletal: General: Normal range of motion. Skin: General: Skin is warm and dry. Capillary Refill: Capillary refill takes 2 to 3 seconds. Neurological: Mental Status: He is alert and oriented to person, place, and time. Psychiatric: Mood and Affect: Mood normal. Behavior: Behavior normal. [facility]-10 Completed this Visit: No. No falls since last visit Treatment/Plan: Advantage to obtain UA 03/19 with garcia change and teach daughter to flush catheter Continue medications as prescribed Keep all upcoming MD appointments Fall precautions Fluids encouraged Monitor mental status RN CM follow up in 6 weeks. Home Interventions Provided: Lab/Imaging Ordered UA C&S Consulted PCP/Specialist Reinforced current Plan of Care, including self-management and medication regimen Patient Needs to Remember: Call [facility] with any medical concerns/ red flags Referrals Needed: N/a Follow Up: Is there cellular connectivity/connectivity in the home? Yes Does the patient have internet in the home? Yes Patient encouraged to call the intake phone number for all urgent but not emergent issues. Scheduled to follow up with patient in 6 weeks. Awilda Frances RN 03/15/2023 12:00 PM documented in this encounter Plan of Treatment Upcoming Encounters Date Type Department Care Team (Late st Contact Info) Description 04/16/2023 12:30 PM EST Home Visit [facility] [address] [place] [address] Awilda York, NYA [address] [place] [address] 05/01/2023 1:00 PM EST Cardiac Studies Cardiology, [facility] [address] [place] [address] [facility] [address] [place] [address] 09/06/2023 11:00 AM EDT Office Visit Family Practice [facility] [address] [place] [address] Korin Diaz CRNP [address] [place] [address] Scheduled Orders Name Type Priority Associated Diagnoses Orde r Schedule URINALYSIS, REFLEX TO CULTURE (NOT FOR NEUTROPENIC PATIENTS) Lab Routine Recurrent UTI Expected: 03/19/2023, Expires: 03/15/2024 Health Maintenance Due Date Last Done Comments DXA Scan 1940 Hepatitis B (1 of 3 - Risk 3-dose series) 2000 COLONOSCOPY-EVERY 2 YRS AGES 18-100 01/08/2011 01/08/2009 Albumin/Creatinine Ratio 07/15/2022 022, 08/28/2019, 02/26/2019, Additional history exists Diabetic Foot Exam 07/15/2022 07/15/2021, 0 05/23/2019, 02/18/2018, Additional history exists Depression Screening 01/13/2023 01/13/2022 HbA1c 01/24/2023 07/25/2022, 07/02, 11/01/2021, Additional history exists COVID-19 Vaccine ( season) 2023 01/17/2023, 01/02/2022, 01/02/2022, Additional history exists TSH 03/20/2023 03/20/2022, 08/0 05/2021, 07/26/2021, Additional history exists Diabetic Eye Exam 05/17/2023 05/17/2022, , 06/02/2020, Additional history exists GFR 05/30/2023 11/27/2022, 04/2 07/2022, 07/20/2022, Additional history exists CKD HGB USE SMARTSET 63629 07/26/202307/25, 07/25/2022, 07/20/2022, Additional history exists CKD PHOS USE SMARTSET 36152 11/28/202311/01, 06/14/2021, 08/19/2020, Additional history exists DTaP,Tdap,and [...] as of this encounter Visit Diagnoses Diagnosis Recurrent UTI- Primary Urinary tract infection, site not specified documented in this encounter Advance Directives Documents on File Type Date Recorded Patient Client Support Professional Expl anation Advance Directives and Living Will 05/01/2022 ADVANCE DIRECTIVE / LIVING WILL Power of Heart Doctor 05/01/2022 POWER OF A TTORNEY Latest Code Status on File Code Status Date Activated Date Inactivated Comments Full Code 08/19/2020 6:21 AM 08/23/2020 3:20 PM This order reflects the patients wishes and were consensually agreed upon. Question Answer Comments Discussion of Advance Directives occurred with: Patient Does the patient have a Living Will? No Does the patient have Health Care Power of Heart Doctor? No Code Status History Code Status Date Activated Date Inactivated Comments Full Code 08/19/2020 4:29 AM 08/19/2020 6:21 AM This order reflects the patients wishes and were consensually agreed upon. Question Answer Comments Discussion of Advance Directives occurred with: Patient Does the patient have a Living Will? No Does the patient have Health Care Power of Heart Doctor? No Full Code 06/13/2020 2:24 PM 06/15/2020 7:45 PM This order reflects the patients wishes and were consensually agreed upon.
--- OUTSIDE RECORDS SUMMARY | 2023-05-13 14:01 | External Medical Summary ---
Author Name Unknown Address Unknown Organization [id number]:[facility] [place] [address] [facility] [address] Laboratory Report Ordering Provider Test Date Status CHRIS BREWER 03/20/2023 12:03:04 Final Obtain with new cath

<10,000 colonies/ml normal rajesh, one colony type Observation Date Value Abnormality Reference (Units ) Status Bacteria identified in Specimen by Culture 03/20/2023 12:03:04 [id number]^PROTEUS MIRABILIS Abnormal Final 10,000 to 100,000 colonies/m L Proteus mirabilis Bacteria identified in Specimen by Culture 03/20/2023 12:03:04 [id number]^ENTEROCOCCUS SPECIES Abnormal Final 10,000 to 100,000 colonies/m L Enterococcus species Performing Location [facility] [place] [address] [facility] [address] Ordering Provider Test Date Status CHRIS BREWER 03/20/2023 12:03:04 Final Observation Date Value Abnormality Reference (Units ) Status Ampicillin 03/20/2023 12:03:04 <=2 Susceptible Final Cefazolin 03/20/2023 12:03:04 <=4 Susceptible Final Cefepime susceptibility 03/20/2023 12:03:04 <=1 Susceptible Final Ceftriaxone suceptibility 03/20/2023 12:03:04 <=1 Susceptible Final Ciprofloxacin 03/20/2023 12:03:04 <=0.25 Susceptible Final Due to serious side effects, the FDA has advised against using Ciprofloxacin to treat uncomplicated UTIs and respiratory tract infections unless there are no alternative treatment options. Gentamicin susceptibility 03/20/2023 12:03:04 <=1 Susc eptible Final Piperacillin + Tazobactamsusceptibility 03/20/2023 12:03:04 <=4 Susceptible Final TMP-SMZ susceptibility 03/20/2023 12:03:04 <=20 Suscept ible Final Performing Location [facility] [place] [address] [facility] [address] Ordering Provider Test Date Status CHRIS BREWER 03/20/2023 12:03:04 Final Observation Date Value Abnormality Reference (Units ) Status Ampicillin 03/20/2023 12:03:04 <=2 Susceptible Final Nitrofurantoin susceptibility 03/20/2023 12:03:04 <=16 Susceptible Final Tetracyclinesusceptibility 03/20/2023 12:03:04 >=16 Resistant Final Vancomycinsusceptibility 03/20/2023 12:03:04 1 Susceptible Final Test: Culture, Urine, Quanti tative
Specimen Source: Urine, Catheter
Specimen Type: Urine
Specimen Date: 03/20/2023 12:03 PM
Result Date: 03/23/2023 7:56 AM
Result Status: Final result
Abnormal: Yes
Resulting Lab: [facility] [place]
[address]
[place] [address]

CULTURE

10,000 to 100,000 colonies/mL Proteus mirabilis (Abnormal)

10,000 to 100,000 colonies/mL Enterococcus species (Abnormal)

<10,000 colonies/ml normal rajesh, one colony type

SUSCEPTIBILITY

Proteus mirabilis Enterococcus species
METHOD MICROBROTH DILUTIONS MICROBROTH DILUTIONS

AMPICILLIN <=2 Susceptible <=2 Susceptible
CEFAZOLIN <=4 Susceptible
CEFEPIME <=1 Susceptible
CEFTRIAXONE <=1 Susceptible
CIPROFLOXACIN <=0.25 Susceptible [1]
GENTAMICIN <=1 Susceptible
NITROFURANTOIN <=16 Susceptible
PIPERACILLIN TAZOBACTAM <=4 Susceptible
TETRACYCLINE >=16 Resistant
TRIMETH/SULFAMETHOXAZOLE <=20 Susceptible
VANCOMYCIN 1 Susceptible

[1] Due to serious side effects, the FDA has advised against using
Ciprofloxacin to treat uncomplicated UTIs and respiratory tract infections
unless there are no alternative treatment options.

null Performing Location [facility] [place] [facility] [address] [facility] [address]
--- OUTSIDE RECORDS SUMMARY | 2023-05-13 14:01 | External Medical Summary | Summary of Care ---
Author Name Unknown Organization [facility] Address [address] [place] [address] Phone [phone] Care Team Providers Care Sales Attendant Name Role Phone Unavailable Primary Care Provider Unavailabl e Reason for Visit * Reason Onset Date Comments Information 03/16/2023 Encounter Details Date Type Department Care Team ([facility] st Contact Info) Description 03/16/2023 Telephone [facility], [place] [address] [place] [phone] Services, Scheduling [address] [place] [address] Information (///) Allergies Active Allergy Reactions Criticality Noted Date Comments Isopropyl Isostearate 06/13/2020 Headache Isosorbide Nitrate 05/24/2015 headaches Isosorbide Nitrate 06/13/2020 Headache documented as of this encounter (statuses as of 03/16/2023) Medications Medication Sig Dispensed Refills Start Date [...] 90 Tablet 3 03/22/2022 3 Active Nystatin 173374 UNIT/GM External Powder (Nystop)Indications: Cutaneous candidiasis Apply [...] as of this encounter (statuses as of 03/16/2023) Active Problems Problem Noted Date Diagnosed Date [...] disease 04/08/2018 Coronary artery disease invo lving [place] coronary artery of [place] heart without angina pectoris 04/08/2018 Last Assessment [...] as of this encounter (statuses as of 03/16/2023) Resolved Problems Problem Noted Date Diagnosed Date [...] as of this encounter (statuses as of 03/16/2023) Immunizations Name Administration Dates Next Due COVID-19 [...] encounter Miscellaneous Notes * Telephone Encounter - Niurka Freedman OSA - 03/16/2023 9:23 AM EST Request to fax order to [facility] and did so today at 915 documented in this encounter Plan of Treatment Upcoming Encounters Date Type Department Care Team (Late st Contact Info) Description 04/16/2023 12:30 PM EST Home Visit [facility] [address] [place] [address] Awilda York, RN [address] [place] [address] 05/01/2023 1:00 PM EST Cardiac Studies Cardiology, [facility] [address] [place] [address] [facility] [address] [place] [address] 09/06/2023 11:00 AM EDT Office Visit Family Practice [facility] [address] [place] [address] oKrin Diaz CRNP [address] [place] [address] Health Maintenance Due Date Last Done Comments DXA Scan 1940 Hepatitis B (1 of 3 - Risk 3-dose series) 2000 COLONOSCOPY-EVERY 2 YRS AGES 18-100 01/08/2011 01/08/2009 Albumin/Creatinine Ratio 07/15/2022 022, 08/28/2019, 02/26/2019, Additional history exists Diabetic Foot Exam 07/15/2022 07/15/2021, 0 05/23/2019, 02/18/2018, Additional history exists Depression Screening 01/13/2023 01/13/2022 HbA1c 01/24/2023 07/25/2022, 04/, 11/01/2021, Additional history exists COVID-19 Vaccine ( season) 2023 01/17/2023, 01/02/2022, 01/02/2022, Additional history exists TSH 03/20/2023 03/20/2022, 08/0 05/2021, 07/26/2021, Additional history exists Diabetic Eye Exam 05/17/2023 05/17/2022, , 06/02/2020, Additional history exists GFR 05/30/2023 11/27/2022, 07/02, 07/20/2022, Additional history exists CKD HGB USE SMARTSET 92948 07/26/202307/25, 07/25/2022, 07/20/2022, Additional history exists CKD PHOS USE SMARTSET 30609 11/28/202311/01, 06/14/2021, 08/19/2020, Additional history exists DTaP,Tdap,and [...] Documents on File Type Date Recorded Patient Knotter Hand Expl anation Advance Directives and Living Will 05/01/2022 ADVANCE DIRECTIVE / LIVING WILL Power of Machine Operator Assistant 05/01/2022 POWER OF A TTORNEY Latest Code Status on File Code Status Date Activated Date Inactivated Comments Full Code 08/19/2020 6:21 AM 08/23/2020 3:20 PM This order reflects the patients wishes and were consensually agreed upon. Question Answer Comments Discussion of Advance Directives occurred with: Patient Does the patient have a Living Will? No Does the patient have Health Care Power of Machine Operator Assistant? No Code Status History Code Status Date Activated Date Inactivated Comments Full Code 08/19/2020 4:29 AM 08/19/2020 6:21 AM This order reflects the patients wishes and were consensually agreed upon. Question Answer Comments Discussion of Advance Directives occurred with: Patient Does the patient have a Living Will? No Does the patient have Health Care Power of Machine Operator Assistant? No Full Code 06/13/2020 2:24 PM 06/15/2020 7:45 PM This order reflects the patients wishes and were consensually agreed upon.
--- OUTSIDE RECORDS SUMMARY | 2023-05-13 14:01 | External Medical Summary | Summary of Care ---
Author Name Unknown Organization [facility] Address [address] [place] [address] Phone [phone] Care Team Providers Care Print Designer Name Role Phone Unavailable Primary Care Provider Unavailabl e Reason for Visit * Reason Comments Outpatient Testing Encounter Details Date Type Department Care Team (Late st Contact Info) Description 03/20/2023 12:30 PM EST Laboratory Laboratory, [facility] [address] [place] [phone] [facility] [address] [place] [address] Recurrent UTI Allergies Active Allergy Reactions Criticality Noted Date Comments Isopropyl Isostearate 06/13/2020 Headache Isosorbide Nitrate 05/24/2015 headaches Isosorbide Nitrate 06/13/2020 Headache documented as of this encounter (statuses as of 03/20/2023) Medications Medication Sig Dispensed Refills Start Date [...] 90 Tablet 3 03/22/2022 3 Active Nystatin 759478 UNIT/GM External Powder (Nystop)Indications: Cutaneous candidiasis Apply [...] as of this encounter (statuses as of 03/20/2023) Active Problems Problem Noted Date Diagnosed Date [...] disease 04/08/2018 Coronary artery disease invo lving saxman coronary artery of saxman heart without angina pectoris 04/08/2018 Last Assessment [...] as of this encounter (statuses as of 03/20/2023) Resolved Problems Problem Noted Date Diagnosed Date [...] 2-3 years H. 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 Type 2 diabetes mellitus wit h hemoglobin A1c goal of less than 7.0% 08/07/2006 08/13/2008 Overview: ICD-10 update of inactive term Anemia 08/07/2006 11/06/2011 documented as of this encounter (statuses as of 03/20/2023) Immunizations Name Administration Dates Next Due COVID-19 [...] Description 04/16/2023 12:30 PM EST [facility] Visit [facility] [address] [place] [address] Awilad York, RN [address] [place] [address] 05/01/2023 1:00 PM EST Cardiac Studies Cardiology, [facility] [address] [facility] [facility] [place] [address] [place] [address] [facility] [place] [address] 09/06/2023 11:00 AM EDT Office Visit Family Practice [facility] [address] [place] [address] Korin Diaz CRNP [address] [place] [address] Pending Results Name Type Priority Associated Diagnoses Date /Time URINALYSIS, REFLEX TO CULTURE (NOT FOR NEUTROPENIC PATIENTS) Lab Routine Recurrent UTI 03/20/2023 12:03 PM EST URINALYSIS, REFLEX TO CULTURE (CUP ONLY) Lab Routine Recurrent UTI 03/20/2023 12:03 PM EST URINALYSIS, REFLEX TO CULTURE Lab Routine Recurrent UTI 03/20/2023 12:03 PM EST Health Maintenance Due Date Last Done Comments [...] 01/02/2022, Additional history exists TSH 03/20/2023 03/20/2022, 0805/2021, 07/26/2021, Additional history exists Diabetic Eye Exam 05/17/2023 05/17/2022, , 06/02/2020, Additional history exists GFR 05/30/2023 11/27/2022, 07/02, 07/20/2022, Additional history exists CKD HGB USE SMARTSET 99848 07/26/202307/25, 07/25/2022, 07/20/2022, Additional history exists CKD PHOS USE SMARTSET 54414 11/28/202311/01, 06/14/2021, 08/19/2020, Additional history exists DTaP,Tdap,and [...] of this encounter Visit Diagnoses Diagnosis Recurrent UTI Urinary tract infection, site not specified documented in this encounter Advance Directives Documents on File Type Date Recorded Patient Insurance Claims Assistant Expl anation Advance Directives and Living Will 05/01/2022 ADVANCE DIRECTIVE / LIVING WILL Power of Valve Inspector 05/01/2022 POWER OF A TTORNEY Latest Code Status on File Code Status Date Activated Date Inactivated Comments Full Code 08/19/2020 6:21 AM 08/23/2020 3:20 PM This order reflects the patients wishes and were consensually agreed upon. Question Answer Comments Discussion of Advance Directives occurred with: Patient Does the patient have a Living Will? No Does the patient have Health Care Power of Valve Inspector? No Code Status History Code Status Date Activated Date Inactivated Comments Full Code 08/19/2020 4:29 AM 08/19/2020 6:21 AM This order reflects the patients wishes and were consensually agreed upon. Question Answer Comments Discussion of Advance Directives occurred with: Patient Does the patient have a Living Will? No Does the patient have Health Care Power of Valve Inspector? No Full Code 06/13/2020 2:24 PM 06/15/2020 7:45 PM This order reflects the patients wishes and were consensually agreed upon.
--- OUTSIDE RECORDS SUMMARY | 2023-05-13 14:01 | External Medical Summary | Summary of Care ---
Author Name Unknown Organization [facility] Address [address] [place] [address] Phone [phone] Care Team Providers Care Digital Marketing Project Manager Name Role Phone Unavailable Primary Care Provider Unavailabl e Reason for Visit * Reason Comments Outpatient Testing Encounter Details Date Type Department Care Team (Late st Contact Info) Description 03/20/2023 12:30 PM EST Laboratory Laboratory, [facility] [address] [place] [id number] [facility] [address] [place] [address] Recurrent UTI Allergies Active Allergy Reactions Criticality [...] 90 Tablet 3 03/22/2022 3 Active Nystatin 698660 UNIT/GM External Powder (Nystop)Indications: Cutaneous candidiasis Apply [...] disease 04/08/2018 Coronary artery disease invo lving [place] coronary artery of [place] heart without angina pectoris 04/08/2018 Last Assessment [...] Description 04/16/2023 12:30 PM EST Home Visit [facility], [facility] [address] [place] [address] Awilda York, RN [address] [place] [address] 05/01/2023 1:00 PM EST Card[facility] Studies [facility] [place] [address] [place] [place] [address] 09/06/2023 11:00 AM EDT Office Visit Family Practice [facility] [address] [place] [address] Korin Diaz CRNP [address] [place] [address] Pending Results Name Type Priority Associated Diagnoses [...] Additional history exists CKD HGB USE SMARTSET 79965 07/26/202307/25, 07/25/2022, 07/20/2022, Additional history exists CKD PHOS USE SMARTSET 26775 11/28/202311/01, 06/14/2021, 08/19/2020, Additional history exists DTaP,Tdap,and [...] Documents on File Type Date Recorded Patient Shoe Designer Expl anation Advance Directives and Living Will 05/01/2022 ADVANCE DIRECTIVE / LIVING WILL Power of Finance Analyst 05/01/2022 POWER OF A TTORNEY Latest Code Status on File Code Status Date Activated Date Inactivated Comments Full Code 08/19/2020 6:21 AM 08/23/2020 3:20 PM This order reflects the patients wishes and were consensually agreed upon. Question Answer Comments Discussion of Advance Directives occurred with: Patient Does the patient have a Living Will? No Does the patient have Health Care Power of Finance Analyst? No Code Status History Code Status Date Activated Date Inactivated Comments Full Code 08/19/2020 4:29 AM 08/19/2020 6:21 AM This order reflects the patients wishes and were consensually agreed upon. Question Answer Comments Discussion of Advance Directives occurred with: Patient Does the patient have a Living Will? No Does the patient have Health Care Power of Finance Analyst? No Full Code 06/13/2020 2:24 PM 06/15/2020 7:45 PM This order reflects the patients wishes and were consensually agreed upon.
--- OUTSIDE RECORDS SUMMARY | 2023-05-13 14:01 | External Medical Summary | Summary of Care ---
Author Name Unknown Organization [facility] Address [address] [facility] [place] [address] Phone [phone] Care Team Providers Care Forensic Anthropologist Name Role Phone Unavailable Primary Care Provider Unavailabl e Encounter Details Date Type Department Care Team (Late st Contact Info) Description 03/16/2023 Orders Only [facility], [place] [address] [place] [address] Phu Christopher PA-C [address] [place] [address] Recurrent UTI* Allergies Active Allergy Reactions Criticality [...] and feet 400 g 2 02/19/2019 Active NeurologixTouch Verio w/Device Kit Use up to 4 [...] 90 Tablet 3 03/22/2022 3 Active Nystatin 368091 UNIT/GM External Powder (Nystop)Indications: Cutaneous candidiasis Apply [...] disease 04/08/2018 Coronary artery disease 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 [address] [place] [address] Awilda York, NYA [address] [place] [address] 05/01/2023 1:00 PM EST Cardiac Studies Cardiology, [facility] [address] [facility] [place] [address] [place], [facility] [place] [address] 09/06/2023 11:00 AM EDT Office Visit Family Practice [facility] [address] [place] [address] Korin Diaz CRNP [address] [place] [address] Scheduled Orders Name Type Priority Associated Diagnoses Orde r Schedule CONTINUOUS BLADDER IRRIGATION OP Procedures Routine Recurrent UTI Ordered: 03/16/2023 Health Maintenance Due Date Last Done Comments DXA Scan 1940 Hepatitis B (1 of 3 - Risk 3-dose series) 2000 COLONOSCOPY-EVERY 2 YRS AGES 18-100 01/08/2011 01/08/2009 Albumin/Creatinine Ratio 07/15/2022 022, 08/28/2019, 02/26/2019, Additional history exists Diabetic Foot Exam 07/15/2022 07/15/2021, 0 05/23/2019, 02/18/2018, Additional history exists Depression Screening 01/13/2023 01/13/2022 HbA1c 01/24/2023 07/25/2022, 04, 11/01/2021, Additional history exists COVID-19 Vaccine ( season) 2023 01/17/2023, 01/02/2022, 01/02/2022, Additional history exists TSH 03/20/2023 03/20/2022, 08/0 05/2021, 07/26/2021, Additional history exists Diabetic Eye Exam 05/17/2023 05/17/2022, , 06/02/2020, Additional history exists GFR 05/30/2023 11/27/2022, 07/02, 07/20/2022, Additional history exists CKD HGB USE SMARTSET 64502 07/26/202307/25, 07/25/2022, 07/20/2022, Additional history exists CKD PHOS USE SMARTSET 43772 11/28/202311/01, 06/14/2021, 08/19/2020, Additional history exists DTaP,Tdap,and [...] Documents on File Type Date Recorded Patient Line Worker Expl anation Advance Directives and Living Will 05/01/2022 ADVANCE DIRECTIVE / LIVING WILL Power of Equipment Detailer 05/01/2022 POWER OF A TTORNEY Latest Code Status on File Code Status Date Activated Date Inactivated Comments Full Code 08/19/2020 6:21 AM 08/23/2020 3:20 PM This order reflects the patients wishes and were consensually agreed upon. Question Answer Comments Discussion of Advance Directives occurred with: Patient Does the patient have a Living Will? No Does the patient have Health Care Power of Equipment Detailer? No Code Status History Code Status Date Activated Date Inactivated Comments Full Code 08/19/2020 4:29 AM 08/19/2020 6:21 AM This order reflects the patients wishes and were consensually agreed upon. Question Answer Comments Discussion of Advance Directives occurred with: Patient Does the patient have a Living Will? No Does the patient have Health Care Power of Equipment Detailer? No Full Code 06/13/2020 2:24 PM 06/15/2020 7:45 PM This order reflects the patients wishes and were consensually agreed upon.
--- OUTSIDE RECORDS SUMMARY | 2023-05-13 14:01 | External Medical Summary | Summary of Care ---
Author Name Unknown Organization [facility] Address [address] [place] [address] Phone [phone] Care Team Providers Care Fabric Worker Leader Name Role Phone Unavailable Primary Care Provider Unavailabl e Reason for Visit * Reason Comments Medication Refill Encounter Details Date Type Department Care Team (Late st Contact Info) Description 03/23/2023 Refill Cardiology, [facility] [address] [facility] [place] [address] Juanito Saba, DO [address] [place] [address] Acquired hypothyroidism Allergies Active Allergy Reactions Criticality Noted Date [...] MOUTH EVERY DAY 90 Tablet 3 03/22/2022 Active Nystatin 570965 UNIT/GM External Powder (Nystop)Indications :Cutaneous candidiasis Apply [...] MEDICATIONS 90 Tablet 3 03/23/2023 4 Active Levothyroxine Sodium 125 MCG Oral Tablet (Levoxyl)Indication s:Acquired hypothyroidism TAKE 1 TABLET BY MOUTH DAILY AT LEAST 30 MINUTES PRIOR TO FIRST MEAL OF THE DAY OR OTHER MEDICATIONS 90 Tablet 3 03/22/2022 3 Discontinu ed(Refill) [...] disease 04/08/2018 Coronary artery disease invo lving [place] coronary artery of [place] heart without angina pectoris 04/08/2018 Last Assessment [...] 01/31/21 Fall 06/15/2020 12/30/2021 SDH (subdural hematoma) 06/15/20200 05/2021 Abdominal aortic atherosclerosis 05/23/2019 07/05/2022 Kidney [...] Encounter - Radha Arenas PA-C - 03/23/2023 9:28 AM ESTSigned Prescriptions: Disp Refills Levothyroxine Sodium 125 MCG Oral Tablet (*90 Tab*3 Sig: TAKE 1 TABLET BY MOUTH DAILY AT LEAST 30 MINUTES PRIOR TO FIRST MEAL OF THE DAY OR OTHER MEDICATIONS Authorizing Provider: RADHA ARENAS * Telephone Encounter - Marine Bowden COT - 03/23/2023 9:27 AM ESTPending Prescriptions: Disp Refills Levothyroxine Sodium 125 MCG Oral Tablet (*90 Tab*3 Sig: TAKE 1 TABLET BY MOUTH DAILY AT LEAST 30 MINUTES PRIOR TO FIRST MEAL OF THE DAY OR OTHER MEDICATIONS * Telephone Encounter - Marine Bowden COT - 03/23/2023 9:27 AM EST Did you pend patient's preferred pharmacy and medication before forwarding?yes Pharmacy: [facility] Pending Prescriptions: Disp Refills Levothyroxine Sodium 125 MCG Oral Tablet *90 Tab*3 Sig: TAKE 1 TABLET BY MOUTH DAILY AT LEAST 30 MINUTES PRIOR TO FIRST MEAL OF THE DAY OR OTHER MEDICATIONS Last Visit: 03/20/2022 (in office), 11/25/2020 (telemedicine) [...] Description 04/16/2023 12:30 PM EST Home Visit [facility] [address] [place] [address] Awilda York, NYA [address] [place] [address] 05/01/2023 1:00 PM EST Cardiac Studies Cardiology, [facility] [address] [place] [address] [place], Pac[facility] Clinic [facility] [address] [place] [address] 09/06/2023 11:00 AM EDT Office Visit Family Practice [facility] [address] [place] [address] Korin Diaz CRNP [address] [place] [address] Health Maintenance Due Date Last Done Comments [...] Additional history exists CKD HGB USE SMARTSET 38345 07/26/202307/25, 07/25/2022, 07/20/2022, Additional history exists CKD PHOS USE SMARTSET 43431 11/28/202311/01, 06/14/2021, 08/19/2020, Additional history exists DTaP,Tdap,and [...] as of this encounter Visit Diagnoses Diagnosis Acquired hypothyroidism Unspecified hypothyroidism documented in this encounter Advance Directives Documents on File Type Date Recorded Patient Aemt Expl anation Advance Directives and Living Will 05/01/2022 ADVANCE DIRECTIVE / LIVING WILL Power of Field Education Coordinator 05/01/2022 POWER OF A TTORNEY Latest Code Status on File Code Status Date Activated Date Inactivated Comments Full Code 08/19/2020 6:21 AM 08/23/2020 3:20 PM This order reflects the patients wishes and were consensually agreed upon. Question Answer Comments Discussion of Advance Directives occurred with: Patient Does the patient have a Living Will? No Does the patient have Health Care Power of Field Education Coordinator? No Code Status History Code Status Date Activated Date Inactivated Comments Full Code 08/19/2020 4:29 AM 08/19/2020 6:21 AM This order reflects the patients wishes and were consensually agreed upon. Question Answer Comments Discussion of Advance Directives occurred with: Patient Does the patient have a Living Will? No Does the patient have Health Care Power of Field Education Coordinator? No Full Code 06/13/2020 2:24 PM 06/15/2020 7:45 PM This order reflects the patients wishes and were consensually agreed upon.
--- OUTSIDE RECORDS SUMMARY | 2023-05-13 14:01 | External Medical Summary | Summary of Care ---
Author Name Unknown Organization [facility] Address [address] [place] [address] Phone [phone] Care Team Providers Care Motion Picture Printer Name Role Phone Unavailable Primary Care Provider Unavailabl e Reason for Visit * Reason Comments NEW PATIENT Re- est care Dematte o pt Encounter Details Date Type Department Care Team (Late st Contact Info) Description 03/06/2023 10:20 AM EST Telemedicine Family Practice [facility] [address] [facility] [place] [address] Korin Diaz CRNP [address] 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 ([facility]); Atrial fibrillation, unspecified type ([facility]); Lumbar degenerative disc disease; Acute on chronic heart failure with preserved ejection fraction ([facility]) Allergies Active Allergy Reactions Criticality Noted Date Comments Isopropyl Isostearate 06/13/2020 Headache Isosorbide Nitrate 05/24/2015 headaches Isosorbide Nitrate 06/13/2020 Headache documented as of this encounter (statuses as of 03/06/2023) Medications Medication Sig Dispensed Refills Start Date End Date Status CENTRUM PO TABS 1 daily 0 7 Active CYANOCOBALAMIN (VITAMIN B-12) 100 MCG Tablet Take 5 Tablets by mouth in the morning. 0 5 Active ammonium lactate (LAC-HYDRIN) 12 % lotionIndications:I ntrinsic atopic dermatitis Apply topically to affected area as needed for Dry Skin. Apply to legs and feet 400 g 2 9 Active OneTouch Verio w/Device Kit Use up to 4 times a day E11.9 1 Kit 0 1 Active OneTouch Verio In Vitro Strip (Glucose Blood) Use up to 4 times a day E11.9 100 Strip 11 1 Active PlaytabaseTouch Delica Lancets 33G Use up to four times daily. E11.9 100 Each 11 1 Active Acetaminophen 325 MG Oral Capsule Take 650 mg by mouth every 6 hours as needed for Pain. 0 Active Aspirin 81 MG Oral Tablet Chewable Take 1 Tab by mouth daily. 30 Tab 0 1 Active Silver sulfADIAZINE 1 % External Cream (Silvadene)Indicati ons:Pressure injury of skin of left buttock, unspecified injury stage Apply topically to affected area daily. Apply to affected area once daily 50 g 0 1 Active Additional Information Patient not taking.Informant: Patient, Reported on 08/30/2022 Spacer/Aero-Holding Chambers DeviceIndications:V iral URI with cough Use with inhaler. 1 Each 0 2 Active Additional Information Patient not taking.Informant: Patient, Reported on 08/30/2022 Docusate Sodium 100 MG Oral Tablet Take 1 Tablet by mouth 2 times a day as needed. 0 Active Zinc 50 MG Oral Capsule Take 1 Capsule by mouth in the morning. 0 Active Furosemide 40 MG Oral Tablet (Lasix) Take 0.5 Tablets by mouth in the morning. 90 Tablet 3 2 Active Vitron-C 65-125 MG Oral Tablet (Iron-Vitamin [...] mouth in the morning. 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 stage 3a chronic kidney disease (HCC) TAKE ONE TABLET BY MOUTH EVERY DAY 90 Tablet 3 3 08/07/19 24 Active Atorvastatin Calcium 80 MG Oral Tablet (Lipitor)Indication s:Dyslipidemia, goal LDL below 70 TAKE ONE TABLET BY MOUTH EVERY DAY 90 Tablet 3 2 03/22/20 23 Active Levothyroxine Sodium 125 MCG Oral Tablet (Levoxyl)Indication s:Acquired hypothyroidism TAKE 1 TABLET BY MOUTH DAILY AT LEAST 30 MINUTES PRIOR TO FIRST MEAL OF THE DAY OR OTHER MEDICATIONS 90 Tablet 3 2 03/22/20 23 Active Nystatin 203801 UNIT/GM External Powder (Nystop)Indications :Cutaneous candidiasis Apply topically to affected area 3 times a day. Apply to skin fold areas as directed 60 g 1 3 Active Apixaban 5 MG Oral Tablet (Eliquis) Take 1 Tablet by mouth in the morning and 1 Tablet before bedtime. 0 Active Proventil HFA 108 (90 Base) MCG/ACT Inhalation Aerosol Solution Inhale by mouth. [facility], [facility] of same 0 Active Finasteride 5 MG Oral Tablet (Proscar) Take 1 Tablet by mouth in the morning. 90 Tablet 0 3 Active Tamsulosin HCl 0.4 MG Oral Capsule (Flomax) Take 1 Capsule by mouth every night at bedtime. 90 Capsule 3 3 Active Nitrofurantoin Monohyd Macro 100 MG Oral Capsule (Macrobid) Take 1 Capsule by mouth in the morning and 1 Capsule before bedtime. Do all this for 7 days. With food until gone. 14 Capsule 0 3 03/06/20 23 Active glipiZIDE ER 5 MG Oral Tablet Extended Release 24 Hour (glipiZIDE XL) Take 2.5 mg by mouth in the morning. 0 Active Omeprazole 20 MG Oral Capsule Delayed Release (PriLOSEC) Take 1 Capsule by mouth in the morning. 90 Capsule 3 2 03/06/20 23 Discontinued glipiZIDE ER 10 MG Oral Tablet Extended Release 24 Hour (Glucotrol XL) TAKE ONE TABLET BY MOUTH EVERY MORNING 90 Tablet 0 3 03/06/20 23 Discontinued documented as of this encounter (statuses as of 03/06/2023) Active Problems Problem Noted Date Diagnosed Date [...] disease 04/08/2018 Coronary artery disease invo lving [place] coronary artery of [place] heart without angina pectoris 04/08/2018 Last Assessment [...] as of this encounter (statuses as of 03/06/2023) Resolved Problems Problem Noted Date Diagnosed Date Resolved Date Aneurysm of aorta 03/23/2021 06/23/2022 Overview: 3.0 cm AAA noted on CT abd/pel 01/31/21 Fall 06/15/2020 12/30/2021 SDH (subdural hematoma) 06/15/2020/05/2021 Abdominal aortic atherosclerosis 05/23/2019 07/05/2022 Kidney disease, [...] as of this encounter (statuses as of 03/06/2023) Immunizations Name Administration Dates Next Due COVID-19 mRNA, LNP-s, No Pre serve, 2-Dose Series (Moderna) 05/31/2020,04/26/2020 COVID-19 mRNA, LNP-s, No Pre serve, 2-Dose Series ([employer] 01/17/2023 COVID-19, mRNA, LNP-s, PF, B ooster, 100mcg/0.5mg (Moderna) 08/18/2021,03/12/2021 Covid-19, Mrna, Lnp-s, Pf, B ivalent, 30 Mcg, IM, 12 yrs and above (Pfizer) 01/02/2022 Pneumococcal Conjugate Vacc, 13 Valent (Prevnar) 05/30/2017 Pneumococcal Polysaccharide PPV23 (Pneumovax) 10/18/2006 SEASONAL INFLUENZA, PF, 6 M & Above, IM , (FLULAVAL or FLUZONE) 12/29/2019 Seasonal Influenza, Quadriva lent Hd (Fluzone [...] as of this encounter Progress Notes * Korin Diaz CRNP - 03/06/2023 10:32 AM EST Images from the original note were not included. History of Present Illness Obed Mancini is a 83 year old male that presents for NEW PATIENT (Re- est care /Wandy pt ) Here to establish via video. Daughter Rere is with him Overall doing well. Mobility is very limited due to worsening neuropathy. Has a sit to stand chair that he uses to get to walker to pivot to bed or commode. Otherwise does not move much. Has indwelling catheter and has nursing come out to change it every 3-4 weeks. Recently had to go to ER after a "bad catheter change." Symptoms have since stabilized and they have a nurse with more skill helping with the changes. No longer follows with urology due to difficulty leaving home. [facility] [employer] manages garcia care. Had been going to urology at [facility] -- now released to home cathing and followswith urology PRN. [place]: RN comes twice a month, PA's come out a couple of times a year and PRN. [facility] also sends a nurse monthly and provide his medications through mail order. There's also a TRANSITION COACH that comes out every fewmonths. Generally gets refills through [facility] -- there was a recent issue where [facility] needed [facility] to them so they could provide a medication for him. One of the RN's that comes out checks labs every few months. DM appears to be well-controlled. Recent change in glipizide dosing -- med list updated. Had stopped omeprazole -- no GERD symptoms. Eliquis -- no s/s of bleeding. Nystatin powder in skin folds helps control rash/intertrigo. Outpatient Medications Marked as Taking for the 03/06/23 encounter (Telemedicine) with Korin Diaz CRNP Medication Sig glipiZIDE ER 5 MG Oral Tablet Extended Release 24 Hour (glipiZIDE XL) Take 2.5 mg by mouth in the morning. Nitrofurantoin Monohyd Macro 100 MG Oral Capsule (Macrobid) Take 1 Capsule by mouth in the morning and 1 Capsule before bedtime. Do all this for 7 days. With food until gone. Tamsulosin HCl 0.4 MG Oral Capsule (Flomax) Take 1 Capsule by mouth every night at bedtime. Finasteride 5 MG Oral Tablet (Proscar) Take 1 Tablet by mouth in the morning. Proventil HFA 108 (90 Base) MCG/ACT Inhalation Aerosol Solution Inhale by mouth. Ordered by [facility], patient awaiting delivery of same Apixaban 5 MG Oral Tablet (Eliquis) Take 1 Tablet by mouth in the morning and 1 Tablet before bedtime. Nystatin 262520 UNIT/GM External Powder (Nystop) Apply topically to affected area 3 times a day. Apply to skin fold areas as directed Folic Acid 1 MG Oral Tablet Take 1 Tablet by mouth in the morning. Potassium Chloride ER 20 MEQ Oral Tablet Extended Release TAKE 1 TABLET BY MOUTH DAILY Fiber Select Gummies Oral Tablet Chewable Take 1 Tablet by mouth in the morning. NATURAL SUPPLEMENT Take by mouth daily. Pr heel Metoprolol Succinate ER 50 MG Oral Tablet Extended Release 24 Hour (toPROL XL) TAKE ONE TABLET BY MOUTH EVERY DAY Probiotic Daily Oral Capsule Take 1 Capsule by mouth in the morning. Vitron-C 65-125 MG Oral Tablet (Iron-Vitamin C 65-125 mg per tab) Take 1 Tablet by mouth in the morning. Take Sunday, Sunday and Sunday. Atorvastatin Calcium 80 MG Oral Tablet (Lipitor) TAKE ONE TABLET BY MOUTH EVERY DAY Levothyroxine Sodium 125 MCG Oral Tablet (Levoxyl) TAKE 1 TABLET BY MOUTH DAILY AT LEAST 30 MINUTESPRIOR TO FIRST MEAL OF THE DAY OR OTHER MEDICATIONS Furosemide 40 MG Oral Tablet (Lasix) Take 0.5 Tablets by mouth in the morning. Docusate Sodium 100 MG Oral Tablet Take 1 Tablet by mouth 2 times a day as needed. Zinc 50 MG Oral Capsule Take 1 Capsule by mouth in the morning. Aspirin 81 MG Oral Tablet Chewable Take 1 Tab by mouth daily. Acetaminophen 325 MG Oral Capsule Take 650 mg by mouth every 6 hours as needed for Pain. PlaytabaseTouch [employer] Lancets 33G Use up to four times daily. E11.9 OneTouch Verio In Vitro Strip (Glucose Blood) Use up to 4 times a day E11.9 OneTouch Verio w/Device Kit Use up to 4 times a day E11.9 ammonium lactate (LAC-HYDRIN) 12 % lotion Apply topically to affected area as needed for Dry Skin. Apply to legs and feet CYANOCOBALAMIN (VITAMIN B-12) 100 MCG Tablet Take 5 Tablets by mouth in the morning. CENTRUM PO TABS 1 daily Physical Exam There were no vitals filed for this visit. Physical Exam Constitutional: General: He is not in acute distress. Neurological: Mental Status: He is alert and oriented to person, place, and time. Assessment and Plan Acquired hypothyroidism - TSH WITH FREE T4 IF INDICATED; Future Cutaneous candidiasis Stable on nystatin Chronic kidney disease, stage 3b ([facility]) Labs stable - BASIC METABOLIC PANEL; Future Type 2 diabetes mellitus with diabetic polyneuropathy, without long-term current use of insulin ([facility]) - HEMOGLOBIN A1C; Future Chronic indwelling Garcia catheter [facility], [place], and home health agency following Cardiac pacemaker in situ Per daughter no longer able to go to pacer clinic but they still do remote checks Hypertensive heart and kidney disease with chronic systolic conges No new/worsening cardiopulmonary symptoms Atrial fibrillation, unspecified type (HCC) On eliquis No new/worsening cardiopulmonary symptoms Lumbar degenerative disc disease Acute on chronic heart failure with preserved ejection fraction ([facility]) No new/worsening cardiopulmonary symptoms Wrap-Up Follow-up: Return in about 6 months (around 09/05/2023). | Check-out note: Please contact to scheduleroutine follow up Can be video -- 40 min Time: I spent a total of 40-54 minutes (exact time 40 mins) on the date of service in preparation, delivery, and documentation of the care provided to Obed Mancini excluding any time spent in the performance of separately billed services. Telemedicine: Patient location: HOME. I was in a hospital or clinic location. After connecting through televideo,patient was verified with two unique identifiers. Patient (or authorized legal manufacturing sales representative) was then informed that this was a Telemedicine visit and being conducted confidentially over secure lines. Methods to assure confidentiality were taken. Patient acknowledged consent and understanding of pr ivacy and security of the Telemedicine visit. The patient agreed to participate. documented in this encounter Nursing Notes * Irene Lamar LPN - 03/06/2023 10:24 AM EST The patient has been properly identified by confirmation of name and date of . Chief Complaint Patient presents with NEW PATIENT Re- est care Wandy pt Rere, pts child, is on the visit also with pt. D/c omeprazole-- no digestive concerns. documented in this encounter Plan of Treatment Upcoming Encounters Date Type Department Care Team (Late st Contact Info) Description 03/15/2023 12:30 PM EST [facility] [address] [facility] [place] [address] Awilda York RN [address] [facility] [place] [address] 05/01/2023 1:00 PM EST Cardiac Studies Cardiology, [facility] [address] [facility] [place] [address] [facility] [address] [facility] [place] [address] Scheduled Orders Name Type Priority Associated Diagnoses Orde r Schedule TSH WITH FREE T4 IF INDICATED Lab Routine Acquired hypothyroidism Expected: 03/06/2023 (Approximate), Expires: 03/05/2024 HEMOGLOBIN A1C Lab Routine Type 2 diabetes mellitus with diabetic polyneuropathy, without long-term current use of insulin (HCC) Expected: 03/06/2023 (Approximate), Expires: 03/05/2024 BASIC METABOLIC PANEL Lab Routine Chronic kidney disease, stage 3b (HCC) Type 2 diabetes mellitus with diabetic polyneuropathy, without long-term current use of insulin (HCC) Expected: 03/06/2023 (Approximate), Expires: 03/05/2024 Health Maintenance Due Date Last Done Comments [...] Additional history exists CKD HGB USE SMARTSET 54827 07/26/202307/25, 07/25/2022, 07/20/2022, Additional history exists CKD PHOS USE SMARTSET 09792 11/28/2023 082 10/2022, 06/14/2021, 08/19/2020, Additional history exists DTaP,Tdap,and Td [...] of this encounter Visit Diagnoses Diagnosis Acquired hypothyroidism- Primary Unspecified hypothyroidism Cutaneous candidiasis Candidiasis of skin and nails Chronic kidney disease, stage 3b (HCC) Type 2 diabetes mellitus with diabetic polyneuropathy, without long-term current use of insulin (HCC) Chronic indwelling Garcia catheter Other postprocedural status 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) Atrial fibrillation, unspecified type (HCC) Lumbar degenerative disc disease Degeneration of lumbar or lumbosacral intervertebral disc Acute on chronic heart failure with preserved ejection fraction (HCC) documented in this encounter Advance Directives Documents on File Type Date Recorded Patient Technology Applications Consultant Expl anation Advance Directives and Living Will 05/01/2022 ADVANCE DIRECTIVE / LIVING WILL Power of Infrastructure Administrator 05/01/2022 POWER OF A TTORNEY Latest Code Status on File Code Status Date Activated Date Inactivated Comments Full Code 08/19/2020 6:21 AM 08/23/2020 3:20 PM This order reflects the patients wishes and were consensually agreed upon. Question Answer Comments Discussion of Advance Directives occurred with: Patient Does the patient have a Living Will? No Does the patient have Health Care Power of Infrastructure Administrator? No Code Status History Code Status Date Activated Date Inactivated Comments Full Code 08/19/2020 4:29 AM 08/19/2020 6:21 AM This order reflects the patients wishes and were consensually agreed upon. Question Answer Comments Discussion of Advance Directives occurred with: Patient Does the patient have a Living Will? No Does the patient have Health Care Power of Infrastructure Administrator? No Full Code 06/13/2020 2:24 PM 06/15/2020 7:45 PM This order reflects the patients wishes and were consensually agreed upon.
--- OUTSIDE RECORDS SUMMARY | 2023-05-13 14:01 | External Medical Summary | Summary of Care ---
Author Name Unknown Organization [facility] Address [address] [place] [address] Phone [phone] Care Team Providers Care Law Reporter Name Role Phone Unavailable Primary Care Provider Unavailabl e Reason for Visit * Reason Onset Date Comments [facility]: Maintenance 03/13/2023 Encounter Details Date Type Department Care Team ([facility] st Contact Info) Description 03/13/2023 Telephone [facility], [facility] [address] [place] [address] [facility], Nurse [facility] [address] [facility] [place] [address] [facility]: Maintenance Allergies Active Allergy Reactions Criticality Noted Date Comments Isopropyl Isostearate 06/13/2020 Headache Isosorbide Nitrate 05/24/2015 headaches Isosorbide Nitrate 06/13/2020 Headache documented as of this encounter (statuses as of 03/13/2023) Medications Medication Sig Dispensed Refills Start Date [...] day E11.9 1 Kit 0 07/12/2020 Active FanearTouch Verio In Vitro Strip (Glucose Blood) Use up to 4 times a day E11.9 100 Strip 11 07/12/2020 Active FanearTouch [employer] Lancets 33G Use up to four times [...] 90 Tablet 3 03/22/2022 3 Active Nystatin 280346 UNIT/GM External Powder (Nystop)Indications: Cutaneous candidiasis Apply [...] as of this encounter (statuses as of 03/13/2023) Active Problems Problem Noted Date Diagnosed Date [...] disease 04/08/2018 Coronary artery disease invo lving [place] coronary artery of [place] heart without angina pectoris 04/08/2018 Last Assessment [...] as of this encounter (statuses as of 03/13/2023) Resolved Problems Problem Noted Date Diagnosed Date [...] as of this encounter (statuses as of 03/13/2023) Immunizations Name Administration Dates Next Due COVID-19 [...] encounter Miscellaneous Notes * Telephone Encounter - Chyna Harrell LPN - 03/13/2023 2:26 PM EST Call from pt's daughter Rere States pt was placed on a second course of antibiotic for UTI on 02/27 reports pt started it 02/28 and completed it on 03/07 States she thought someone was supposed to call and check on him after the course was completed States there is really no improvement States urine is still dark, has odor and sediment in the garcia line Pt does not have a fever, no confusion, pt has no complaints Reports [facility] for garcai changes next scheduled change is 03/19 Next [place] HV is 03/15 12:30 pm Lino York Pt's pharmacy is [facility] Will forward to care team for further direction. documented in this encounter Plan of Treatment Upcoming Encounters Date Type Department Care Team (Late st Contact Info) Description 03/15/2023 12:30 PM EST Home Visit [facility] [address] [place] [address] Awilda York RN [address] [place] [address] 05/01/2023 1:00 PM EST Cardiac Studies Cardiology, [facility] [address] [place] [address] [place] [address] [place] [address] 09/06/2023 11:00 AM EDT Office Visit Family Practice [facility] [address] [place] [address] Korin Diaz CRNP [address] [place] [address] Health Maintenance Due Date Last Done Comments [...] Additional history exists CKD HGB USE SMARTSET 35858 07/26/202307/25, 07/25/2022, 07/20/2022, Additional history exists CKD PHOS USE SMARTSET 94797 11/28/202311/01, 06/14/2021, 08/19/2020, Additional history exists DTaP,Tdap,and [...] Documents on File Type Date Recorded Patient Chute Tapper Expl anation Advance Directives and Living Will 05/01/2022 ADVANCE DIRECTIVE / LIVING WILL Power of Soaking Room Operator 05/01/2022 POWER OF A TTORNEY Latest Code Status on File Code Status Date Activated Date Inactivated Comments Full Code 08/19/2020 6:21 AM 08/23/2020 3:20 PM This order reflects the patients wishes and were consensually agreed upon. Question Answer Comments Discussion of Advance Directives occurred with: Patient Does the patient have a Living Will? No Does the patient have Health Care Power of Soaking Room Operator? No Code Status History Code Status Date Activated Date Inactivated Comments Full Code 08/19/2020 4:29 AM 08/19/2020 6:21 AM This order reflects the patients wishes and were consensually agreed upon. Question Answer Comments Discussion of Advance Directives occurred with: Patient Does the patient have a Living Will? No Does the patient have Health Care Power of Soaking Room Operator? No Full Code 06/13/2020 2:24 PM 06/15/2020 7:45 PM This order reflects the patients wishes and were consensually agreed upon.
--- OUTSIDE RECORDS SUMMARY | 2023-05-13 14:02 | External Medical Summary | Summary of Care ---
Author Name Unknown Organization [facility] Address [address] [facility] [place] [address] Phone [phone] Care Team Providers Care Creping Machine Operator Name Role Phone Unavailable Primary Care Provider Unavailabl e Reason for Visit * Reason Onset Date Comments [facility]: Maintenance 02/27/2023 Encounter Details Date Type Department Care Team ([facility] st Contact Info) Description 02/27/2023 10:00 AM EST Scheduled Telephone [facility], [facility] [address] [facility] [place] [address] Coordinator, [facility] [address] [facility] [place] [address] Allergies Active Allergy Reactions Criticality Noted Date Comments Isopropyl Isostearate 06/13/2020 Headache Isosorbide Nitrate 05/24/2015 headaches Isosorbide Nitrate 06/13/2020 Headache documented as of this encounter (statuses as of 02/27/2023) Medications Medication Sig Dispensed Refills Start Date [...] day E11.9 100 Strip 11 07/12/2020 Active FarehelperTouch Delica Lancets 33G Use up to four [...] mouth in the morning. 90 Capsule 3 01/02/2022 Active Furosemide 40 MG Oral Tablet (Lasix) [...] 90 Tablet 3 03/22/2022 3 Active Nystatin 103040 UNIT/GM External Powder (Nystop)Indications: Cutaneous candidiasis Apply [...] patient awaiting delivery of same 0 Active glipiZIDE ER 10 MG Oral Tablet Extended Release 24 Hour (Glucotrol XL) TAKE ONE TABLET BY MOUTH EVERY MORNING 90 Tablet 0 02/13/2023 Active Finasteride 5 MG Oral Tablet (Proscar) Take 1 Tablet by mouth in the morning. 90 Tablet 0 02/13/2023 Active Tamsulosin HCl 0.4 MG Oral Capsule (Flomax) Take 1 Capsule by mouth every night at bedtime. 90 Capsule 3 02/14/2023 Active Nitrofurantoin Monohyd Macro 100 MG Oral Capsule (Macrobid) Take 1 Capsule by mouth in the morning and 1 Capsule before bedtime. Do all this for 7 days. With food until gone. 14 Capsule 0 02/27/2023 3 Active documented as of this encounter (statuses as of 02/27/2023) Active Problems Problem Noted Date Diagnosed Date [...] disease 04/08/2018 Coronary artery disease invo lving [place] coronary artery of [place] heart without angina pectoris 04/08/2018 Last Assessment [...] as of this encounter (statuses as of 02/27/2023) Resolved Problems Problem Noted Date Diagnosed Date [...] as of this encounter (statuses as of 02/27/2023) Immunizations Name Administration Dates Next Due COVID-19 mRNA, LNP-s, No Pre serve, 2-Dose Series (Moderna) 05/31/2020,04/26/2020 COVID-19 mRNA, LNP-s, No Pre serve, 2-Dose Series ([email or web address]) 01/17/2023 COVID-19, mRNA, LNP-s, PF, B ooster, [...] as of this encounter Miscellaneous Notes * Addendum Note - Tello Ann PA-C - 02/27/2023 4:50 PM ESTAddended by: TELLO ANN on: 02/27/2023 04:50 PM Modules accepted: Orders * Telephone Encounter - Tello Ann PA-C - 02/27/2023 4:48 PM EST Last urine culture demonstrated 2 different organisms with a Proteus being susceptible to the Bactrim and no response reported with the Enterococcus. However the Enterococcus is susceptible to Macrobid. New prescription for Macrobid sent to the patient's pharmacy. * Telephone Encounter - Charis Cruz RN - 02/27/2023 9:54 AM EST [facility] Telephonic Nurse Follow-Up Call [facility] Subprogram: Focused Care Management (3-9 months) Follow Up Call Type: Routine follow up call / Status Check Acute issue requiring follow-up call: Complicated UTI Objective: 02/08/2023 12:20 PM 01/04/2023 1:02 PM 12/11/2022 1:09 PM 11/23/2022 11:49 AM 10/19/2022 12:08 PM VITALS ACROSS ENCOUNTERS BP 116/80 120/58 110/64 122/64 108/54 Pulse 60 60 60 60 64 Lab Results Component Value Date BLOOD, URINE - [facility] Trace (A) 02/20/2023 PROTEIN, URINE - [facility] 30 (A) 02/20/2023 ESTERASE, URINE - [facility] Large (A) 02/20/2023 WBC, URINE - [facility] 50+ (A) 02/20/2023 NITRITE, URINE - [facility] Positive (A) 02/20/2023 QUANT URINE CULTURE GROWTH >100,000 colonies/mL Proteus mirabilis (A) 02/20/2023 QUANT URINE CULTURE GROWTH >100,000 colonies/mL Enterococcus species (A) 02/20/2023 No results found for: "WBC AUTO - [facility]", "HGB - [facility]", "PLATELET AUTO - [facility]" No results found for: "SODIUM - [facility]", "POTASSIUM - [facility]", "MAGNESIUM - [facility]", "CO2 - [facility]", "CREATININE - [facility]", "ESTIMATED GLOMERULAR FILTRATION RATE - [facility]", "ALBUMIN- [facility]", "AST - [facility]", "ALT - [facility]", "ALKALINE PHOSPHATASE - [facility]" No results found for: "PRO BNP", "LEFT VENTRICULAR EJECTION FRACTION" Remote Patient Monitoring: NONE Oxygen Needs: NO supplemental oxygen needs identified DME Needs: NO DME needs identified Medications: New medication(s) added: bactrim 3 days Subjective: Condition Status: unknown Current Concerns: Spoke with DTR Per DTr pt started 1st dose bactrim 02/23. Finished yesterday 02/26 per DTR Dtr states as of Sunday urine was still dark yellow with very bad smell States urine sediment in the FC line decreased DTR did not see patient yesterday DTr going to house today and will call back with urine update,vitals,any ongoing sx Rere called back--FC urine is still dark yellow, still + foul odor,(smells the same as it did prior to antibiotics) + cloudiness,+ still some sediment T- 97.8, no BP cuff,no pulse ox No chills,N/V/D Sending to [facility] for recomendations Disposition: Follow up call scheduled for tomorrow with CNP Travelers' Aid Worker Future Visits Scheduled: Future Appointments-next 60 days Date/Time Provider Specialty Dept Phone 03/06/2023 10:20 AM Korin Diaz CRNP Family Medicine [phone] 03/15/2023 12:30 PM Awilda York, RN [facility] [phone] 05/01/2023 1:00 PM (Arrive by 12:45 PM) [facility] Cardiology [phone] Charis Cruz, NYA documented in this encounter Plan of Treatment Upcoming Encounters Date Type Department Care Team (Late st Contact Info) Description 02/28/2023 9:45 AM EST Scheduled Telephone [facility], [facility] [address] [place] [address] Coordinator, [facility] [address] [place] [address] 03/06/2023 10:20 AM EST Telemedicine Family Practice [facility] [address] [place] [address] Korin Diaz CRNP [address] [place] [address] 03/15/2023 12:30 PM EST Home Visit [facility], [facility] [address] [place] [address] Awilda York RN [address] [place] [address] 05/01/2023 1:00 PM EST Cardiac Studies Cardiology, [facility] [address] [place] [address] [facility] [address] [place] [address] Health Maintenance Due Date Last Done Comments [...] 01/02/2022, Additional history exists TSH 03/20/2023 03/20/2022, 05/2021, 07/26/2021, Additional history exists Diabetic Eye Exam 05/17/2023 05/17/2022, , 06/02/2020, Additional history exists GFR 05/30/2023 11/27/2022, 07/02, 07/20/2022, Additional history exists CKD HGB USE SMARTSET 86372 07/26/202307/25, 07/25/2022, 07/20/2022, Additional history exists CKD PHOS USE SMARTSET 19369 11/28/202311/01, 06/14/2021, 08/19/2020, Additional history exists DTaP,Tdap,and Td Vaccines (2 - Td or Tdap) 04/25/2024 04/25/2014 Pneumococcal Vaccine: 65+ Years Completed 05/30/2017, 10/18/2006 Zoster Vaccines Completed 11/06/2022, 08/01, 01/13/2022, [...] Documents on File Type Date Recorded Patient Application Integration Engineer Expl anation Advance Directives and Living Will 05/01/2022 ADVANCE DIRECTIVE / LIVING WILL Power of Rug Hooker 05/01/2022 POWER OF A TTORNEY Latest Code Status on File Code Status Date Activated Date Inactivated Comments Full Code 08/19/2020 6:21 AM 08/23/2020 3:20 PM This order reflects the patients wishes and were consensually agreed upon. Question Answer Comments Discussion of Advance Directives occurred with: Patient Does the patient have a Living Will? No Does the patient have Health Care Power of Rug Hooker? No Code Status History Code Status Date Activated Date Inactivated Comments Full Code 08/19/2020 4:29 AM 08/19/2020 6:21 AM This order reflects the patients wishes and were consensually agreed upon. Question Answer Comments Discussion of Advance Directives occurred with: Patient Does the patient have a Living Will? No Does the patient have Health Care Power of Rug Hooker? No Full Code 06/13/2020 2:24 PM 06/15/2020 7:45 PM This order reflects the patients wishes and were consensually agreed upon.
--- OUTSIDE RECORDS SUMMARY | 2023-05-13 14:02 | External Medical Summary | Summary of Care ---
Author Name Unknown Organization [facility] Address [address] [facility] [place] [address] Phone [phone] Care Team Providers Care Typing Secretary Name Role Phone Unavailable Primary Care Provider Unavailabl e Reason for Visit * Reason Onset Date Comments [facility]: Acute 02/23/2023 Encounter Details Date Type Department Care Team (Late st Contact Info) Description 02/23/2023 10:00 AM EST Scheduled Telephone [facility], [facility] [address] [facility] [place] [address] Coordinator, [facility] [address] [facility] [place] [address] Allergies Active Allergy Reactions Criticality Noted Date Comments Isopropyl Isostearate 06/13/2020 Headache Isosorbide Nitrate 05/24/2015 headaches Isosorbide Nitrate 06/13/2020 Headache documented as of this encounter (statuses as of 02/23/2023) Medications Medication Sig Dispensed Refills Start Date [...] day E11.9 100 Strip 11 07/12/2020 Active RockerboxTouch Delica Lancets 33G Use up to four [...] 90 Tablet 3 03/22/2022 3 Active Nystatin 616743 UNIT/GM External Powder (Nystop)Indications: Cutaneous candidiasis Apply [...] at bedtime. 90 Capsule 3 02/14/2023 Active Sulfamethoxazole-Tri methoprim 800-160 MG Oral Tablet (Bactrim DS) Take 1 Tablet by mouth in the morning and 1 Tablet before bedtime. Do all this for 3 days. Until gone. 6 Tablet 0 02/23/2023 3 Active documented as of this encounter (statuses as of 02/23/2023) Active Problems Problem Noted Date Diagnosed Date [...] disease 04/08/2018 Coronary artery disease invo lving [place] coronary artery of [place] heart without angina pectoris 04/08/2018 Last Assessment [...] as of this encounter (statuses as of 02/23/2023) Resolved Problems Problem Noted Date Diagnosed Date [...] as of this encounter (statuses as of 02/23/2023) Immunizations Name Administration Dates Next Due COVID-19 [...] encounter Miscellaneous Notes * Addendum Note - Keyur Spence PA-C - 02/23/2023 11:30 AM ESTAddended by: KEYUR SPENCE on: 02/23/2023 11:30 AM Modules accepted: Orders * Telephone Encounter - Keyur Spence PA-C - 02/23/2023 11:29 AM EST Covering for [facility] Order sent to [facility] (susceptible on U/C) I do not recommend ordering repeat urine culture after antibiotics are complete unless symptoms still remain. I will leave that decision up to care team provider more familiar with patient's care * Telephone Encounter - Charis Cruz RN - 02/23/2023 9:02 AM EST [facility] Telephonic Nurse Follow-Up Call [facility] Subprogram: Focused Care Management (3-9 months) [...] "HGB - [facility]", "PLATELET AUTO - [facility]" Lab Results Component Value Date SODIUM - [facility] 138 11/27/2022 POTASSIUM - [facility] 4.2 11/27/2022 CO2 - [facility] 24 11/27/2022 CREATININE - [facility] 1.4 (H) 11/27/2022 ESTIMATED GLOMERULAR FILTRATION RATE - [facility] 52 (L) 11/27/2022 No results found for: "PRO BNP", "LEFT VENTRICULAR EJECTION FRACTION" Remote Patient Monitoring: NONE Oxygen Needs: NO supplemental oxygen needs identified DME Needs: NO DME needs identified Medications: No medication or dose adjustments made during acute episode Subjective: Condition Status: unknown Current Concerns: FCC to patient. Spoke to DTR Urine is still foul a lot of sediment Extremley tired Still having some confusion + decreased appetite status Per notes 02/21/23 pt had UTI sx confusion,sediment,foul odor to urine Urine culture completed and positiive for bacteria please see Please send RX to [facility] DTR states she doesn't feel his previous UTI completely cleared and she is requesting a repeat urine culture once abx cycle is complete . Please place orders if agreeable Disposition: Routed to [facility] and/or [facility] Care Team for further advice Future Visits Scheduled: Future Appointments-next 60 days Date/Time Provider Specialty Dept Phone 02/23/2023 10:00 AM Kinza Beatty [facility] [phone] 03/06/2023 10:20 AM Korin Diaz CRNP Family Medicine [phone] 03/15/2023 12:30 PM Awilda York RN [facility] [phone] 05/01/2023 1:00 PM (Arrive by 12:45 PM) Valerie Patel [facility] Cardiology [phone] Charis Cruz RN documented in this encounter Plan of Treatment Upcoming Encounters Date Type Department Care Team (Late st Contact Info) Description 03/06/2023 10:20 AM EST Telemedicine Family Practice [facility] [address] [facility] [facility] [place] [address] Korin Diaz CRNP [address] [place] [address] 03/15/2023 12:30 PM EST Home Visit [facility] [address] [place] [address] Awilda York RN [address] [facility] [place] [address] 05/01/2023 1:00 PM EST Cardiac Studies Cardiology, [facility] [address] [facility] [place] [address] Valerie Patel [facility] [address] [facility] [facility] [address] [place] [address] Health Maintenance Due Date Last Done Comments DXA Scan 1940 Hepatitis B (1 of 3 - Risk 3-dose series) 2000 COLONOSCOPY-EVERY 2 YRS AGES 18-100 01/08/2011 01/08/2009 Albumin/Creatinine Ratio 07/15/2022 022, 08/28/2019, 02/26/2019, Additional history exists Diabetic Foot Exam 07/15/2022 07/15/2021, 0 05/23/2019, 02/18/2018, Additional history exists Depression Screening 01/13/2023 01/13/2022 HbA1c 01/24/2023 07/25/2022, 04, 11/01/2021, Additional history exists COVID-19 Vaccine (2022- season) 2023 01/17/2023, 01/02/2022, 01/02/2022, Additional history exists TSH 03/20/2023 03/20/2022, 0805/2021, 07/26/2021, Additional history exists Diabetic Eye Exam 05/17/2023 05/17/2022, , 06/02/2020, Additional history exists GFR 05/30/2023 11/27/2022, 07/02, 07/20/2022, Additional history exists CKD HGB USE SMARTSET 32324 07/26/202307/25, 07/25/2022, 07/20/2022, Additional history exists CKD PHOS USE SMARTSET 61385 11/28/202311/01, 06/14/2021, 08/19/2020, Additional history exists DTaP,Tdap,and [...] Documents on File Type Date Recorded 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 Question Answer Comments Discussion of Advance Directives occurred with: Patient Does the patient have a Living Will? No Does the patient have Health Care Power of Lead Oxide Mill Tender? No Code Status History Code Status Date Activated Date Inactivated Comments Full Code 08/19/2020 4:29 AM 08/19/2020 6:21 AM This order reflects the patients wishes and were consensually agreed upon. Question Answer Comments Discussion of Advance Directives occurred with: Patient Does the patient have a Living Will? No Does the patient have Health Care Power of Lead Oxide Mill Tender? No Full Code 06/13/2020 2:24 PM 06/15/2020 7:45 PM This order reflects the patients wishes and were consensually agreed upon.
--- OUTSIDE RECORDS SUMMARY | 2023-05-13 14:02 | External Medical Summary | Summary of Care ---
Author Name Unknown Organization [facility] Address [address] [place] [place] [address] Phone [phone] Care Team Providers Care Mold Machine Operator Name Role Phone Unavailable Primary Care Provider Unavailabl e Reason for Visit * Reason Onset Date Comments [facility]: Acute 02/20/2023 Encounter Details Date Type Department Care Team ([facility] st Contact Info) Description 02/20/2023 Telephone [facility], [facility] [address] [facility] [place] [address] [facility] [address] [facility] [place] [address] [facility]: Acute Allergies Active Allergy Reactions Criticality Noted Date Comments Isopropyl Isostearate 06/13/2020 Headache Isosorbide Nitrate 05/24/2015 headaches Isosorbide Nitrate 06/13/2020 Headache documented as of this encounter (statuses as of 02/20/2023) Medications Medication Sig Dispensed Refills Start Date [...] 90 Tablet 3 03/22/2022 3 Active Nystatin 761296 UNIT/GM External Powder (Nystop)Indications: Cutaneous candidiasis Apply [...] at bedtime. 90 Capsule 3 02/14/2023 Active documented as of this encounter (statuses as of 02/20/2023) Active Problems Problem Noted Date Diagnosed Date [...] disease 04/08/2018 Coronary artery disease invo lving [place] coronary artery of [place] heart without angina pectoris 04/08/2018 Last Assessment [...] as of this encounter (statuses as of 02/20/2023) Resolved Problems Problem Noted Date Diagnosed Date [...] as of this encounter (statuses as of 02/20/2023) Immunizations Name Administration Dates Next Due COVID-19 [...] encounter Miscellaneous Notes * Telephone Encounter - Tello Ann PA-C - 02/20/2023 1:32 PM EST [facility] Remote Medical Command Phone Encounter Thank you for your assistance in the care of this patient today. Reviewed phone message. I agree w/ the advice offered via phone by our [facility] nursing team. Please let me know via encounter or TT message if there is any change Thank you in advance, I appreciate it. Tello Ann PA-C * Telephone Encounter - Rachel Suarez RN - 02/20/2023 9:24 AM EST [facility] cutter grinder Acute Call Date: 02/20/2023 Time: 9:25 AM Name: Obed Mancini : 1940 Caller: Rere Relationship to : daughter HPI: Obed Mancini is a 83 year old male whose daughter/ Rere is calling [facility] to report her father has a garcia catheter and has had recurrent UTI's. Garcia catheter was changed early last week with [facility] nurse without difficulty. Since last Sunday daughter has noticed increased sediment in tubing, hydrated her father as muchas possible, sediment has increased this week, urine now has a foul odor and today her father has confusion. Daughter concerned he has another UTI, requesting urine specimen be obtained to check. I called [employer] [facility], spoke with Letty/ avel , she will give message to the nurses for patient to have a HV for urine specimen collection today. Order can be faxed to [phone] Nursing Assessment: Patient's chief complaint for this call: Urinary symptoms Pain Denies pain Baseline Assessment Able to performing ADLs at baseline (walking, daily tasks, etc.): Unknown Chief Complaint is related to a chronic condition: No Patient prescribed oxygen? No Patient has been ordered DME equipment (assistive devices, respiratory equipment, etc.): Unknown Medication Reconciliation: (See medication list) Received flu shot this season: Yes Taking medication as ordered: Yes Medications ordered/taking to treat reason for call: No Heart failure symptoms: No COPD exacerbation symptoms: No Reinforcement Education: Stay hydrated Monitor temperature Monitor urine in garcia drainage bag Continue medications Treatment/Plan: (need to report) Level of call: Non-Acute Recommended treatment plan: Clinical advice given over the phone [facility] will have home visit today to obtain urine specimen from garcia catheter . Order for Urinalysis , reflex to culture ( not for neutropenic patients ) faxed to [facility] [phone] Await [facility] recommendations Daughter aware nurse will be having visit today for urine specimen, asking if nurse can flushthe sediment from the garica catheter tubing. Informed daughter I am not sure but will let nurse know. Daughter would also like to be called with time of visit today. Called [facility] back, spoke with Sandie, order was received via fax,explained daughter / Rere wants to be called with time of visit today and is requesting catheter be flushed to clear the sediment, Sandie will let nurses know. Daughter also requesting when antibiotic is ordered it is sent to [facility] Follow up phone calls for tomorrow and Sunday Rachel Suarez RN Feltmaker [facility] documented in this encounter Plan of Treatment Upcoming Encounters Date Type Department Care Team (Late st Contact Info) Description 02/21/2023 1:00 PM EST Scheduled Telephone [facility], [facility] [address] [place] [address] Coordinator, [facility] [address] [place] [address] 02/23/2023 10:00 AM EST Scheduled Telephone [facility] [place], [facility] [address] [place] [address] Coordinator, [facility] [address] [place] [address] 03/06/2023 10:20 AM EST Telemedicine Family Practice [facility] [address] [place] [address] Korin Diaz CRNP [address] [place] [address] 03/15/2023 12:30 PM EST Home Visit [facility], [facility] [address] [place] [address] Awilda York, NYA [address] [facility] [place] [address] 05/01/2023 1:00 PM EST Cardiac Studies Cardiology, [facility] [address] [place] [address] [facility] [address] [facility] [place] [address] Scheduled Orders Name Type Priority Associated Diagnoses Orde r Schedule URINALYSIS, REFLEX TO CULTURE (NOT FOR NEUTROPENIC PATIENTS) Lab Routine Foul smelling urine Expected: 02/20/2023, Expires: 02/21/2024 Health Maintenance Due Date Last Done Comments [...] Additional history exists CKD HGB USE SMARTSET 90548 07/26/202307/25, 07/25/2022, 07/20/2022, Additional history exists CKD PHOS USE SMARTSET 70777 11/28/202311/01, 06/14/2021, 08/19/2020, Additional history exists DTaP,Tdap,and [...] as of this encounter Visit Diagnoses Diagnosis Foul smelling urine- Primary Other nonspecific finding on examination of urine documented in this encounter Advance Directives Documents on File Type Date Recorded Patient Leather Cartridge Belt Maker Expl anation Advance Directives and Living Will 05/01/2022 ADVANCE DIRECTIVE / LIVING WILL Power of It Risk Analyst 05/01/2022 POWER OF A TTORNEY Latest Code Status on File Code Status Date Activated Date Inactivated Comments Full Code 08/19/2020 6:21 AM 08/23/2020 3:20 PM This order reflects the patients wishes and were consensually agreed upon. Question Answer Comments Discussion of Advance Directives occurred with: Patient Does the patient have a Living Will? No Does the patient have Health Care Power of It Risk Analyst? No Code Status History Code Status Date Activated Date Inactivated Comments Full Code 08/19/2020 4:29 AM 08/19/2020 6:21 AM This order reflects the patients wishes and were consensually agreed upon. Question Answer Comments Discussion of Advance Directives occurred with: Patient Does the patient have a Living Will? No Does the patient have Health Care Power of It Risk Analyst? No Full Code 06/13/2020 2:24 PM 06/15/2020 7:45 PM This order reflects the patients wishes and were consensually agreed upon.
--- OUTSIDE RECORDS SUMMARY | 2023-05-13 14:02 | External Medical Summary | Summary of Care ---
Author Name Unknown Organization [facility] Address [address] [facility] [place] [address] Phone [phone] Care Team Providers Care Customer Contact Specialist Name Role Phone Unavailable Primary Care Provider Unavailabl e Reason for Visit * Reason Onset Date Comments [facility]: Acute 02/23/2023 Encounter Details Date Type Department Care Team (Late st Contact Info) Description 02/23/2023 10:00 AM EST Scheduled Telephone [facility], [facility] [address] [facility] [place] [address] Coordinator, [facility] [address] [facility] [place] [address] Allergies Active Allergy Reactions Criticality Noted Date [...] day E11.9 100 Strip 11 07/12/2020 Active CRIX LabsTouch Delica Lancets 33G Use up to four [...] 90 Tablet 3 03/22/2022 3 Active Nystatin 708949 UNIT/GM External Powder (Nystop)Indications: Cutaneous candidiasis Apply [...] disease 04/08/2018 Coronary artery disease invo lving [place] coronary artery of [place] heart without angina pectoris 04/08/2018 Last Assessment [...] encounter Miscellaneous Notes * Telephone Encounter - Charis Cruz RN - 02/23/2023 9:02 AM EST [facility] Telephonic Nurse Follow-Up Call [facility] Subprogram: Focused Care Management (3-9 months) [...] place orders if agreeable Disposition: Routed to [facility] and/or [facility] Care Team for further advice Future Visits Scheduled: Future Appointments-next 60 days Date/Time Provider Specialty Dept Phone 02/23/2023 10:00 AM CoordinatorKinza [facility] [phone] 03/06/2023 10:20 AM Korin Diaz CRNP Family Medicine [phone] 03/15/2023 12:30 PM Awilda York RN [facility] [phone] 05/01/2023 1:00 PM (Arrive by 12:45 PM) [place], [facility] Cardiology [phone] Charis Cruz RN documented in this encounter Plan of Treatment Upcoming Encounters Date Type Department Care Team (Late st Contact Info) Description 03/06/2023 10:20 AM EST Telemedicine Family Practice [facility] [address] [place] [address] Korin Diaz CRNP [address] [place] [address] 03/15/2023 12:30 PM EST [facility] Visit [facility] [place], [facility] [address] [place] [address] Awilda York RN [address] [place] [address] 05/01/2023 1:00 PM EST Cardiac Studies Cardiology, [facility] [address] [place] [address] [place], [facility] [address] [place] [address] Health Maintenance Due Date Last Done Comments [...] Additional history exists CKD HGB USE SMARTSET 50578 07/26/202307/25, 07/25/2022, 07/20/2022, Additional history exists CKD PHOS USE SMARTSET 68232 11/28/202311/01, 06/14/2021, 08/19/2020, Additional history exists DTaP,Tdap,and [...] Documents on File Type Date Recorded Patient Bolter Helper Expl anation Advance Directives and Living Will 05/01/2022 ADVANCE DIRECTIVE / LIVING WILL Power of Cylinder Block Mechanic 05/01/2022 POWER OF A TTORNEY Latest Code Status on File Code Status Date Activated Date Inactivated Comments Full Code 08/19/2020 6:21 AM 08/23/2020 3:20 PM This order reflects the patients wishes and were consensually agreed upon. Question Answer Comments Discussion of Advance Directives occurred with: Patient Does the patient have a Living Will? No Does the patient have Health Care Power of Cylinder Block Mechanic? No Code Status History Code Status Date Activated Date Inactivated Comments Full Code 08/19/2020 4:29 AM 08/19/2020 6:21 AM This order reflects the patients wishes and were consensually agreed upon. Question Answer Comments Discussion of Advance Directives occurred with: Patient Does the patient have a Living Will? No Does the patient have Health Care Power of Cylinder Block Mechanic? No Full Code 06/13/2020 2:24 PM 06/15/2020 7:45 PM This order reflects the patients wishes and were consensually agreed upon.
--- OUTSIDE RECORDS SUMMARY | 2023-05-13 14:02 | External Medical Summary | Summary of Care ---
Author Name Unknown Organization [facility] Address [address] [place] [facility] [facility] [place] [address] Phone [phone] Care Team Providers Care Paper Goods Machine Operator Name Role Phone Unavailable Primary Care Provider Unavailabl e Reason for Visit * Reason Onset Date Comments [facility]: Maintenance 02/21/2023 Encounter Details Date Type Department Care Team ([facility] st Contact Info) Description 02/21/2023 Telephone [facility], [facility] [address] [facility] [place] [address] [facility], Nurse [facility] [address] [facility] [place] [address] [facility]: Maintenance Allergies Active Allergy Reactions Criticality Noted Date Comments Isopropyl Isostearate 06/13/2020 Headache Isosorbide Nitrate 05/24/2015 headaches Isosorbide Nitrate 06/13/2020 Headache documented as of this encounter (statuses as of 02/21/2023) Medications Medication Sig Dispensed Refills Start Date [...] 90 Tablet 3 03/22/2022 3 Active Nystatin 961591 UNIT/GM External Powder (Nystop)Indications: Cutaneous candidiasis Apply [...] as of this encounter (statuses as of 02/21/2023) Active Problems Problem Noted Date Diagnosed Date [...] disease 04/08/2018 Coronary artery disease invo lving [place] coronary artery of [place] heart without angina pectoris 04/08/2018 Last Assessment [...] as of this encounter (statuses as of 02/21/2023) Resolved Problems Problem Noted Date Diagnosed Date [...] as of this encounter (statuses as of 02/21/2023) Immunizations Name Administration Dates Next Due COVID-19 [...] encounter Miscellaneous Notes * Telephone Encounter - Yusra Humphries RN - 02/21/2023 12:20 PM EST Rere, patient's daughter calling because her father had a urine test completed yesterday. She said she received an alert from My Chart that the urine was done. Chart reviewed and the UA was completed but culture is in process. I explained that the culture determines what bacteria and what antibiotic is best to treat it. When the culture comes back, we will send to provider for recommendations. Patient still has confusion, sediment in tubing and foul odor. Patient uses [facility] Routed to care team Yusra Humphries. RN [facility] RN [phone] documented in this encounter Plan of Treatment Upcoming Encounters Date Type Department Care Team (Late st Contact Info) Description 02/21/2023 1:00 PM EST Scheduled Telephone [facility] [place], [facility] [address] [place] [address] Coordinator, [facility] [address] [place] [address] 02/23/2023 10:00 AM EST Scheduled Telephone [facility] [place], [facility] [address] [place] [address] Coordinator, [facility] [address] [place] [address] 03/06/2023 10:20 AM EST Telemedicine Family Practice [facility] [address] [place] [address] Korin Diaz CRNP [address] [place] [address] 03/15/2023 12:30 PM EST Home Visit [facility], [facility] [address] [place] [address] Awilda York, NYA [address] [place] [address] 05/01/2023 1:00 PM EST Cardiac Studies Cardiology, [facility] [address] [place] [address] [place], Pacer Clinic [facility] [address] [place] [address] Health Maintenance Due Date Last Done Comments [...] 06/02/2020, Additional history exists GFR 05/30/2023 11/27/2022, 2 07/2022, 07/20/2022, Additional history exists CKD HGB USE SMARTSET 61958 07/26/202307/25, 07/25/2022, 07/20/2022, Additional history exists CKD PHOS USE SMARTSET 25490 11/28/202311/01, 06/14/2021, 08/19/2020, Additional history exists DTaP,Tdap,and [...] Documents on File Type Date Recorded 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 Question Answer Comments Discussion of Advance Directives occurred with: Patient Does the patient have a Living Will? No Does the patient have Health Care Power of Carousel Operator? No Code Status History Code Status Date Activated Date Inactivated Comments Full Code 08/19/2020 4:29 AM 08/19/2020 6:21 AM This order reflects the patients wishes and were consensually agreed upon. Question Answer Comments Discussion of Advance Directives occurred with: Patient Does the patient have a Living Will? No Does the patient have Health Care Power of Carousel Operator? No Full Code 06/13/2020 2:24 PM 06/15/2020 7:45 PM This order reflects the patients wishes and were consensually agreed upon.
--- OUTSIDE RECORDS SUMMARY | 2023-05-13 14:02 | External Medical Summary | Summary of Care ---
Author Name Unknown Organization [facility] Address [address] [facility] [place] [address] Phone [phone] Care Team Providers Care Roadway Technician Name Role Phone Unavailable Primary Care Provider Unavailabl e Reason for Visit * Reason Onset Date Comments [facility]: Maintenance 02/27/2023 Encounter Details Date Type Department Care Team ([facility] st Contact Info) Description 02/27/2023 10:00 AM EST Scheduled Telephone [facility], [facility] [address] [facility] [place] [address] Coordinator, [facility] [address] [facility] [place] [address] Allergies Active Allergy Reactions Criticality Noted Date [...] day E11.9 100 Strip 11 07/12/2020 Active Simply HiredTouch Delica Lancets 33G Use up to four [...] 90 Tablet 3 03/22/2022 3 Active Nystatin 845734 UNIT/GM External Powder (Nystop)Indications: Cutaneous candidiasis Apply [...] Coronary artery disease invo lving [place] coronary artery of [place] heart without angina pectoris 04/08/2018 Last Assessment [...] [facility] Telephonic Nurse Follow-Up Call [facility] Subprogram: Focused Care Management (3-9 months) Follow [...] cuff,no pulse ox No chills,N/V/D Sending to [facility] for recomendations Disposition: Follow up call scheduled for tomorrow with [facility] Power Wood Sawyer Future Visits Scheduled: Future Appointments-next 60 days Date/Time Provider Specialty Dept Phone 03/06/2023 10:20 AM Korin Diaz CRNP Family Medicine [phone] 03/15/2023 12:30 PM Awilda York RN [facility] [phone] 05/01/2023 1:00 PM (Arrive by 12:45 PM) [facility] Cardiology [phone] Charis Cruz RN documented in this encounter Plan of Treatment Upcoming Encounters Date Type Department Care Team (Late st Contact Info) Description 02/28/2023 9:45 AM EST Scheduled Telephone [facility], [facility] [address] [place] [address] Coordinator, [facility] [address] [place] [address] 03/06/2023 10:20 AM EST Telemedicine Family Practice [facility] [address] [address] Korin Diaz CRNP [address] [place] [address] 03/15/2023 12:30 PM EST Home Visit [facility], [facility] [address] [place] [address] Awilda York, RN [address] [place] [address] 05/01/2023 1:00 PM EST Cardiac Studies Cardiology, [facility] [address] [place] [address] [facility] [address] [place] [address] Health Maintenance Due Date Last Done Comments [...] Additional history exists CKD HGB USE SMARTSET 07859 07/26/202307/25, 07/25/2022, 07/20/2022, Additional history exists CKD PHOS USE SMARTSET 06480 11/28/202311/01, 06/14/2021, 08/19/2020, Additional history exists DTaP,Tdap,and [...] Documents on File Type Date Recorded Patient Car Framer Expl anation Advance Directives and Living Will 05/01/2022 ADVANCE DIRECTIVE / LIVING WILL Power of Roller Die Cutting Machine Operator 05/01/2022 POWER OF A TTORNEY [...] the patient have Health Care Power of Roller Die Cutting Machine Operator? No Code Status History Code Status Date Activated Date Inactivated Comments Full Code 08/19/2020 4:29 AM 08/19/2020 6:21 AM This order reflects the patients wishes and were consensually agreed upon. Question Answer Comments Discussion of Advance Directives occurred with: Patient Does the patient have a Living Will? No Does the patient have Health Care Power of Roller Die Cutting Machine Operator? No Full Code 06/13/2020 2:24 PM 06/15/2020 7:45 PM This order reflects the patients wishes and were consensually agreed upon.
--- OUTSIDE RECORDS SUMMARY | 2023-05-13 14:02 | External Medical Summary | Summary of Care ---
Author Name Unknown Organization [facility] Address [address] [facility] [place] [address] Phone [phone] Care Team Providers Care Sole Molder Name Role Phone Unavailable Primary Care Provider Unavailabl e Reason for Visit * Reason Onset Date Comments [facility]: Acute 02/23/2023 Encounter Details Date Type Department Care Team (Late st Contact Info) Description 02/23/2023 10:00 AM EST Scheduled Telephone [facility], [facility] 132 [facility] [place] [address] Coordinator, [facility] [address] [facility] [place] [address] Allergies Active Allergy Reactions Criticality Noted Date [...] day E11.9 100 Strip 11 07/12/2020 Active statusboomTouch Delica Lancets 33G Use up to four [...] 90 Tablet 3 03/22/2022 3 Active Nystatin 015853 UNIT/GM External Powder (Nystop)Indications: Cutaneous candidiasis Apply [...] disease 04/08/2018 Coronary artery disease invo lving [place] coronary artery of [place] heart without angina pectoris 04/08/2018 Last Assessment [...] Encounter - Charis Cruz RN - 02/23/2023 1:07 PM EST Daughter aware ABX would be placed earlier She stated she did not want a call to verify ABX was placed as she will get a notification from [facility] placed for 02/27/23 as follow up Charis Cruz RN, BSN [facility] district gaugerShirt Operator * Addendum Note - Keyur Finley PA-C - 02/23/2023 11:30 AM ESTAddended by: KEYUR FINLEY on: 02/23/2023 11:30 AM Modules accepted: Orders * Telephone Encounter - Keyur Finley PA-C - 02/23/2023 11:29 AM EST Covering for [facility] Order sent to [facility] (susceptible on U/C) I do not recommend ordering repeat urine culture after antibiotics are complete unless symptoms still remain. I will leave that decision up to care team provider more familiar with patient's care * Telephone Encounter - Charis Cruz RN - 02/23/2023 9:02 AM EST [facility] Telephonic Nurse Follow-Up Call [facility] Subprogram: Focused Care Management (3-9 months) [...] bacteria please see Please send RX to [facility] DTR states she doesn't feel his previous UTI completely cleared and she is requesting a repeat urine culture once abx cycle is complete . Please place orders if agreeable Disposition: Routed to [facility] and/or [facility] Care Team for further advice Future Visits Scheduled: Future Appointments-next 60 days Date/Time Provider Specialty Dept Phone 02/23/2023 10:00 AM Coordinator, Kinza Bishop [facility] [phone] 03/06/2023 10:20 AM Korin Diaz CRNP Family Medicine [phone] 03/15/2023 12:30 PM Awilda York, RN [facility] [phone] 05/01/2023 1:00 PM (Arrive by 12:45 PM) [facility] Cardiology [phone] Charis Cruz RN documented in this encounter Plan of Treatment Upcoming Encounters Date Type Department Care Team (Late st Contact Info) Description 02/27/2023 10:00 AM EST Scheduled Telephone [facility], [facility] [address] [place] [address] Coordinator, Kinza Bishop [address] [place] [address] 03/06/2023 10:20 AM EST Telemedicine Family Practice [facility] [address] [place] [address] Korin Diaz CRNP [address] [place] [address] 03/15/2023 12:30 PM EST Home Visit [facility], [facility] [address] [place] [address] Awilda York, NYA [address] [place] [address] 05/01/2023 1:00 PM EST Cardiac Studies Cardiology, [facility] [address] [address] [facility] [address] [place] [address] Health Maintenance Due Date Last Done Comments [...] Additional history exists CKD HGB USE SMARTSET 98812 07/26/202307/25, 07/25/2022, 07/20/2022, Additional history exists CKD PHOS USE SMARTSET 47886 11/28/202311/01, 06/14/2021, 08/19/2020, Additional history exists DTaP,Tdap,and [...] Documents on File Type Date Recorded Patient Seasonal Clerk Expl anation Advance Directives and Living Will 05/01/2022 ADVANCE DIRECTIVE / LIVING WILL Power of Township Supervisor 05/01/2022 POWER OF A TTORNEY Latest Code Status on File Code Status Date Activated Date Inactivated Comments Full Code 08/19/2020 6:21 AM 08/23/2020 3:20 PM This order reflects the patients wishes and were consensually agreed upon. Question Answer Comments Discussion of Advance Directives occurred with: Patient Does the patient have a Living Will? No Does the patient have Health Care Power of Township Supervisor? No Code Status History Code Status Date Activated Date Inactivated Comments Full Code 08/19/2020 4:29 AM 08/19/2020 6:21 AM This order reflects the patients wishes and were consensually agreed upon. Question Answer Comments Discussion of Advance Directives occurred with: Patient Does the patient have a Living Will? No Does the patient have Health Care Power of Township Supervisor? No Full Code 06/13/2020 2:24 PM 06/15/2020 7:45 PM This order reflects the patients wishes and were consensually agreed upon.
--- OUTSIDE RECORDS SUMMARY | 2023-05-13 14:02 | External Medical Summary | Summary of Care ---
Author Name Unknown Organization [facility] Address [address] [facility] [place] [address] Phone [phone] Care Team Providers Care Dipper And Baker Name Role Phone Unavailable Primary Care Provider Unavailabl e Reason for Visit * Reason Onset Date Comments [facility]: Maintenance 02/27/2023 Encounter Details Date Type Department Care Team ([facility] st Contact Info) Description 02/27/2023 10:00 AM EST Scheduled Telephone [facility], [facility] [address] [facility] [place] [address] Coordinator, [facility] [address] [facility] [place] [address] Allergies Active Allergy Reactions Criticality Noted Date [...] day E11.9 100 Strip 11 07/12/2020 Active Commerce ResourcesTouch Delica Lancets 33G Use up to four [...] 90 Tablet 3 03/22/2022 3 Active Nystatin 643443 UNIT/GM External Powder (Nystop)Indications: Cutaneous candidiasis Apply [...] disease 04/08/2018 Coronary artery disease invo lving [place] coronary artery of [place] heart without angina pectoris 04/08/2018 Last Assessment [...] mRNA, LNP-s, No Pre serve, 2-Dose Series (iVengo) 01/17/2023 COVID-19, mRNA, LNP-s, PF, B ooster, [...] Encounter - Charis Cruz RN - 02/27/2023 4:55 PM EST E-scribe transmission for RX failed. RX faxed to [facility] This medication may need prior auth Routed to adelina palencia to advise Charis Cruz RN, BSN [facility] wine and spirits clerkPlate Filler * Addendum Note - Tello Ann PA-C [...] [facility] Teleph[facility] Follow-Up Call [facility] Subprogram: Focused Care Management (3-9 months) [...] cuff,no pulse ox No chills,N/V/D Sending to [facility] for recomendations Disposition: Follow up call scheduled for tomorrow with [facility] Company Laborer Future Visits Scheduled: Future Appointments-next 60 days Date/Time Provider Specialty Dept Phone 03/06/2023 10:20 AM Korin Diaz CRNP Family Medicine [phone] 03/15/2023 12:30 PM Awilda York, RN [facility] [phone] 05/01/2023 1:00 PM (Arrive by 12:45 PM) [facility] Cardiology [phone] Charis Cruz RN documented in this encounter Plan of Treatment Upcoming Encounters Date Type Department Care Team (Late st Contact Info) Description 02/28/2023 9:45 AM EST Scheduled Telephone [facility] [place], [facility] [address] [place] [address] Coordinator, [facility] [address] [place] [address] 03/06/2023 10:20 AM EST Telemedicine Family Practice [facility] [address] [place] [address] Korin Diaz CRNP [address] [place] [address] 03/15/2023 12:30 PM EST Home Visit [facility] [place], [facility] [address] [place] [address] Awilda York, NYA [address] [place] [address] 05/01/2023 1:00 PM EST Cardiac Studies Cardiology, [facility] [address] [place] [address] Charlenekryshubert Pacer [facility] [address] [place] [address] Health Maintenance Due Date Last Done Comments [...] Additional history exists CKD HGB USE SMARTSET 30497 07/26/202307/25, 07/25/2022, 07/20/2022, Additional history exists CKD PHOS USE SMARTSET 86785 11/28/202311/01, 06/14/2021, 08/19/2020, Additional history exists DTaP,Tdap,and [...] Documents on File Type Date Recorded Patient Automation And Controls Supervisor Expl anation Advance Directives and Living Will 05/01/2022 ADVANCE DIRECTIVE / LIVING WILL Power of Insulator Apprentice 05/01/2022 POWER OF A TTORNEY Latest Code Status on File Code Status Date Activated Date Inactivated Comments Full Code 08/19/2020 6:21 AM 08/23/2020 3:20 PM This order reflects the patients wishes and were consensually agreed upon. Question Answer Comments Discussion of Advance Directives occurred with: Patient Does the patient have a Living Will? No Does the patient have Health Care Power of Insulator Apprentice? No Code Status History Code Status Date Activated Date Inactivated Comments Full Code 08/19/2020 4:29 AM 08/19/2020 6:21 AM This order reflects the patients wishes and were consensually agreed upon. Question Answer Comments Discussion of Advance Directives occurred with: Patient Does the patient have a Living Will? No Does the patient have Health Care Power of Insulator Apprentice? No Full Code 06/13/2020 2:24 PM 06/15/2020 7:45 PM This order reflects the patients wishes and were consensually agreed upon.
--- OUTSIDE RECORDS SUMMARY | 2023-05-13 14:02 | External Medical Summary | Summary of Care ---
Author Name Unknown Organization [facility] Address [address] [place] [address] Phone [phone] Care Team Providers Care Vehicle Washer Name Role Phone Unavailable Primary Care Provider Unavailabl e Reason for Visit * Reason Comments Outpatient Testing Encounter Details Date Type Department Care Team (Late st Contact Info) Description 02/20/2023 2:50 PM EST Laboratory Laboratory, [facility] [address] [place] [id number] [facility] [address] [place] [address] Foul smelling urine Allergies Active Allergy Reactions Criticality Noted Date [...] 90 Tablet 3 03/22/2022 3 Active Nystatin 686933 UNIT/GM External Powder (Nystop)Indications: Cutaneous candidiasis Apply [...] disease 04/08/2018 Coronary artery disease invo lving [place] de[place]' coronary artery of [place] de[place]' heart without angina pectoris 04/08/2018 Last Assessment [...] 1:00 PM EST Scheduled Telephone [facility], [facility] [address] [place] [address] Coordinator, [facility] [address] [place] [address] 02/23/2023 10:00 AM EST Scheduled Telephone [facility], [facility] [address] [place] [address] Coordinator, [facility] [address] [place] [address] 03/06/2023 10:20 AM EST Telemedicine Family Practice [facility] [address] [place] [address] Korin Diaz CRNP [address] [place] [address] 03/15/2023 12:30 PM EST Home Visit [facility], [facility] [address] [place] [address] Awilda York RN [address] [facility] [place] [address] 05/01/2023 1:00 PM EST Cardiac Studies Cardiology, [facility] [address] [place] [address] [facility] [address] [place] [address] Pending Results Name Type Priority Associated Diagnoses Date /Time URINALYSIS, REFLEX TO CULTURE (NOT FOR NEUTROPENIC PATIENTS) Lab Routine Foul smelling urine 02/20/2023 2:38 PM EST URINALYSIS, REFLEX TO CULTURE (CUP ONLY) Lab Routine Foul smelling urine 02/20/2023 2:38 PM EST URINALYSIS, REFLEX TO CULTURE Lab Routine Foul smelling urine 02/20/2023 2:38 PM EST Health Maintenance Due Date Last [...] Additional history exists CKD HGB USE SMARTSET 17304 07/26/202307/25, 07/25/2022, 07/20/2022, Additional history exists CKD PHOS USE SMARTSET 27368 11/28/202311/01, 06/14/2021, 08/19/2020, Additional history exists DTaP,Tdap,and [...] this encounter Visit Diagnoses Diagnosis Foul smelling urine Other nonspecific finding on examination of urine documented in this encounter Advance Directives Documents on File Type Date Recorded 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 Question Answer Comments Discussion of Advance Directives occurred with: Patient Does the patient have a Living Will? No Does the patient have Health Care Power of Vice President Biostatistics? No Code Status History Code Status Date Activated Date Inactivated Comments Full Code 08/19/2020 4:29 AM 08/19/2020 6:21 AM This order reflects the patients wishes and were consensually agreed upon. Question Answer Comments Discussion of Advance Directives occurred with: Patient Does the patient have a Living Will? No Does the patient have Health Care Power of Vice President Biostatistics? No Full Code 06/13/2020 2:24 PM 06/15/2020 7:45 PM This order reflects the patients wishes and were consensually agreed upon.
--- OUTSIDE RECORDS SUMMARY | 2023-05-13 14:02 | External Medical Summary | Summary of Care ---
Author Name Unknown Organization [facility] Address [address] [facility] [place] [address] Phone [phone] Care Team Providers Care Mold Repair Technician Name Role Phone Unavailable Primary Care Provider Unavailabl e Reason for Visit * Reason Onset Date Comments [facility]: Maintenance 02/27/2023 Encounter Details Date Type Department Care Team ([facility] st Contact Info) Description 02/27/2023 10:00 AM EST Scheduled Telephone [facility], [facility] [address] [facility] [place] [address] Coordinator, [facility] [address] [facility] [place] [address] Allergies Active Allergy Reactions Criticality Noted Date [...] day E11.9 100 Strip 11 07/12/2020 Active LarotecTouch Delica Lancets 33G Use up to four [...] 90 Tablet 3 03/22/2022 3 Active Nystatin 830585 UNIT/GM External Powder (Nystop)Indications: Cutaneous candidiasis Apply [...] disease 04/08/2018 Coronary artery disease invo lving [place] coronary artery of [place] heart without angina pectoris 04/08/2018 Last Assessment [...] [facility] Telephonic Nurse Follow-Up Call [facility] Subprogram: Focused Care Management (3-9 months) [...] call back with urine update,vitals,any ongoing sx May need repeat urine or ABX extention Not routed until DTR calls back with info Disposition: Follow up call scheduled for tomorrow with [facility] Hand Tile Maker Future Visits Scheduled: Future Appointments-next 60 days Date/Time Provider Specialty Dept Phone 03/06/2023 10:20 AM Korin Diaz CRNP Family Medicine [phone] 03/15/2023 12:30 PM Awilda York RN [facility] [phone] 05/01/2023 1:00 PM (Arrive by 12:45 PM) [facility] Cardiology [phone] Charis Cruz RN documented in this encounter Plan of Treatment Upcoming Encounters Date Type Department Care Team (Late st Contact Info) Description 02/28/2023 9:45 AM EST Scheduled Telephone [facility] [place] [address] [place] [address] Coordinator, [facility] [address] [place] [address] 03/06/2023 10:20 AM EST Telemedicine Family Practice [facility] [address] [place] [address] Korin Diaz CRNP [address] [place] [address] 03/15/2023 12:30 PM EST Home Visit [facility], [facility] [address] [place] [address] Awilda York, RN [address] [place] [address] 05/01/2023 1:00 PM EST Cardiac Studies Cardiology, [facility] [address] [place] [address] [facility] [address] [place] [address] Health Maintenance Due Date Last Done Comments [...] Additional history exists CKD HGB USE SMARTSET 00961 07/26/202307/25, 07/25/2022, 07/20/2022, Additional history exists CKD PHOS USE SMARTSET 15282 11/28/202311/01, 06/14/2021, 08/19/2020, Additional history exists DTaP,Tdap,and [...] Documents on File Type Date Recorded 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 Question Answer Comments Discussion of Advance Directives occurred with: Patient Does the patient have a Living Will? No Does the patient have Health Care Power of Bus And Trolley Dispatcher? No Code Status History Code Status Date Activated Date Inactivated Comments Full Code 08/19/2020 4:29 AM 08/19/2020 6:21 AM This order reflects the patients wishes and were consensually agreed upon. Question Answer Comments Discussion of Advance Directives occurred with: Patient Does the patient have a Living Will? No Does the patient have Health Care Power of Bus And Trolley Dispatcher? No Full Code 06/13/2020 2:24 PM 06/15/2020 7:45 PM This order reflects the patients wishes and were consensually agreed upon.
--- OUTSIDE RECORDS SUMMARY | 2023-05-13 14:03 | External Medical Summary ---
Author Name Unknown Address Unknown Organization K01:[facility] [place] [address] [place] [address] [place] [address] Laboratory Report Ordering Provider Test Date Status CHRIS BREWER 02/20/2023 14:38:13 Final <10,000 colonies/ml mixed no rmal rajesh Observation Date Value Abnormality Reference (Units ) Status Bacteria identified in Specimen by Culture 02/20/2023 14:38:13 [id number]^PROTEUS MIRABILIS Abnormal Final >100,000 colonies/mL Proteus mirabilis Bacteria identified in Specimen by Culture 02/20/2023 14:38:13 [id number]^ENTEROCOCCUS SPECIES Abnormal Final >100,000 colonies/mL Enteroc occus species Performing Location [facility] [place] [address] [facility] [address] Ordering Provider Test Date Status CHRIS BREWER 02/20/2023 14:38:13 Final Observation Date Value Abnormality Reference (Units ) Status Ampicillin 02/20/2023 14:38:13 <=2 Susceptible Final Cefazolin 02/20/2023 14:38:13 <=4 Susceptible Final Cefepime susceptibility 02/20/2023 14:38:13 <=1 Susceptible Final Ceftriaxone suceptibility 02/20/2023 14:38:13 <=1 Susceptible Final Ciprofloxacin 02/20/2023 14:38:13 <=0.25 Susceptible Final Due to serious side effects, the FDA has advised against using Ciprofloxacin to treat uncomplicated UTIs and respiratory tract infections unless there are no alternative treatment options. Gentamicin susceptibility 02/20/2023 14:38:13 <=1 Susc eptible Final Piperacillin + Tazobactamsusceptibility 02/20/2023 14:38:13 <=4 Susceptible Final TMP-SMZ susceptibility 02/20/2023 14:38:13 <=20 Suscept ible Final Performing Location [facility] [place] [address] [facility] [address] Ordering Provider Test Date Status CHRIS BREWER 02/20/2023 14:38:13 Final Observation Date Value Abnormality Reference (Units ) Status Ampicillin 02/20/2023 14:38:13 <=2 Susceptible Final Nitrofurantoin susceptibility 02/20/2023 14:38:13 <=16 Susceptible Final Tetracyclinesusceptibility 02/20/2023 14:38:13 >=16 Resistant Final Vancomycinsusceptibility 02/20/2023 14:38:13 1 Susceptible Final Test: Culture, Urine, Quanti tative
Specimen Source: Urine, Catheter
Specimen Type: Urine
Specimen Date: 02/20/2023 2:38 PM
Result Date: 02/24/2023 7:16 AM
Result Status: Final result
Abnormal: Yes
Resulting Lab: [facility] [place]
[address]
[place] [address]

CULTURE

>100,000 colonies/mL Proteus mirabilis (Abnormal)

>100,000 colonies/mL Enterococcus species (Abnormal)

<10,000 colonies/ml mixed normal rajesh

SUSCEPTIBILITY

Proteus mirabilis Enterococcus species
METHOD MICROBROTH [...] alternative treatment options.

null Performing Location [facility] [place] [address] [facility] [address]
--- OUTSIDE RECORDS SUMMARY | 2023-05-13 14:03 | External Medical Summary | Summary of Care ---
Author Name Unknown Organization [facility] Address [address] [place] [address] Phone [phone] Care Team Providers Care Aquatic Biologist Name Role Phone Unavailable Primary Care Provider Unavailabl e Reason for Visit * Reason Comments Medication Refill Encounter Details Date Type Department Care Team (Late st Contact Info) Description 02/12/2023 Refill Family Practice [facility] [address] [facility] [place] [address] Juanito Saba, DO [address] [place] [address] Allergies Active Allergy Reactions Criticality Noted Date Comments Isopropyl Isostearate 06/13/2020 Headache Isosorbide Nitrate 05/24/2015 headaches Isosorbide Nitrate 06/13/2020 Headache documented as of this encounter (statuses as of 02/13/2023) Medications Medication Sig Dispensed Refills Start Date [...] Take Sunday, Sunday and Sunday. 0 Active Tamsulosin HCl 0.4 MG Oral Capsule (Flomax) Take 1 Capsule by mouth every night at bedtime. 0 Active Probiotic Daily Oral Capsule Take [...] 90 Tablet 3 03/22/2022 3 Active Nystatin 713782 UNIT/GM External Powder (Nystop)Indications :Cutaneous candidiasis Apply [...] the morning. 90 Tablet 0 02/13/2023 Active Finasteride 5 MG Oral Tablet (Proscar) Take 1 tablet by mouth once daily 90 Tablet 0 04/28/2022 3 Discontinu ed(Refill) glipiZIDE ER 10 MG Oral Tablet Extended Release 24 Hour (Glucotrol XL) TAKE ONE TABLET BY MOUTH EVERY MORNING 90 Tablet 1 07/24/2022 3 Discontinu ed(Refill) documented as of this encounter (statuses as of 02/13/2023) Active Problems Problem Noted Date Diagnosed Date [...] disease 04/08/2018 Coronary artery disease invo lving jena coronary artery of jena heart without angina pectoris 04/08/2018 Last Assessment [...] as of this encounter (statuses as of 02/13/2023) Resolved Problems Problem Noted Date Diagnosed Date [...] as of this encounter (statuses as of 02/13/2023) Immunizations Name Administration Dates Next Due COVID-19 mRNA, LNP-s, No Pre serve, 2-Dose Series (Moderna) 05/31/2020,04/26/2020 COVID-19 mRNA, LNP-s, No Pre serve, 2-Dose Series (CO2Stats) 01/17/2023 COVID-19, mRNA, LNP-s, PF, B ooster, [...] encounter Miscellaneous Notes * Telephone Encounter - Santi Crawley DO - 02/13/2023 3:21 PM ESTSigned Prescriptions: Disp Refills glipiZIDE ER 10 MG Oral Tablet Extended Re*90 Tab*0 Sig: TAKE ONE TABLET BY MOUTH EVERY MORNING Authorizing Provider: SANTI CRAWLEY Finasteride 5 MG Oral Tablet (Proscar) 90 Tab*0 Sig: Take 1 Tablet by mouth in the morning. Authorizing Provider: SANTI CRAWLEY -- * Telephone Encounter - Irene Lamar LPN - 02/13/2023 2:13 PM EST After speaking with Royer-- PT [place] 1 [place] [facility] [place] [facility] for tams[place], dose not need refill. He is checking with pts daughter to see if they have less than or nor than a month supply of pendedmedications below. If they have more than a month supply we can discuss further at visit with Karen Diaz in [place]. If theyhave less than a month supply than we can see if herself or DOD can fill needed medications. * Telephone Encounter - Irene Lamar LPN - 02/13/2023 1:37 PM ESTPending Prescriptions: Disp Refills glipiZIDE ER 10 MG Oral Tablet Extended Re*90 Tab*0 Sig: TAKE ONE TABLET BY MOUTH EVERY MORNING Finasteride 5 MG Oral Tablet (Proscar) 90 Tab*0 Sig: Take 1 Tablet by mouth in the morning. Tamsulosin HCl 0.4 MG Oral Capsule (Flomax)90 Cap*3 Sig: Take 1 Capsule by mouth every night at bedtime. * Telephone Encounter - Irene Lamar LPN - 02/13/2023 1:21 PM EST DOD-- Pt is almost of of tamsulosin, needs refills mattie. Pended the other two medication that pt will need filled. [facility], [facility]t in our clinic in [place]. * Telephone Encounter - Royer Berumen - 02/13/2023 1:00 PM ESTPending Prescriptions: Disp Refills glipiZIDE ER 10 MG Oral Tablet Extended Re*90 Tab*0 Sig: TAKE ONE TABLET BY MOUTH EVERY MORNING * Telephone Encounter - Royer Berumen - 02/13/2023 12:47 PM EST Called and spoke to pt's daughter, scheduled video visit to re-establish a new PCP. Daughter said the pt is running very low on Tamsolusin (2 day supply), but will eventually need refills for Finasteride and Glipizide as well. Is there any way these could be refilled before the appointment I scheduled them in March? Pt's prescriptions get filled through the [facility], so refills will need to be sent there if possible. * Telephone Encounter - Irene Lamar LPN - 02/12/2023 4:45 PM ESTPending Prescriptions: Disp Refills glipiZIDE ER 10 MG Oral Tablet Extended Re*90 Tab*0 Sig: TAKE ONE TABLET BY MOUTH EVERY MORNING * Telephone Encounter - Irene Lamar LPN - 02/12/2023 4:44 PM EST Pt needs re est care appt with new PCP to fill med refill request * Telephone Encounter - Caleb Lin [facility] - 02/12/2023 4:35 PM ESTPending Prescriptions: Disp Refills glipiZIDE ER 10 MG Oral Tablet Extended Re*90 Tab*0 Sig: TAKE ONE TABLET BY MOUTH EVERY MORNING * Telephone Encounter - Caleb Lin [facility] - 02/12/2023 4:35 PM EST Patient has no PCP under whom to authorize refills. Please approve if appropriate. Thank You, Caleb Zhu [facility] Clinical Pharmacist [facility] ([facility]) (formerly Telepharmacy) 02/12/2023, 4:35 PM * Telephone Encounter - Caleb Lin [facility] - 02/12/2023 4:32 PM EST Pending Prescriptions: Disp Refills glipiZIDE ER 10 MG Oral Tablet Extended R*90 Tab*1 Sig: TAKE ONE TABLET BY MOUTH EVERY MORNING Last Visit: 08/25/2022 (in office), Visit date not found (telemedicine) Next Visit: Visit date not found If no future appointments scheduled, and last appointment is greater than a year ago, please schedule patient for a follow-up appointment Last date the medication was ordered: 07/24/22 Pharmacy: [email or web address] Is this request for a controlled substance? No Urine Drug Screen: Results for orders placed or performed during the hospital encounter of 06/13/20 TOXICOLOGY, URINE SCREEN W/ CONFIRMATION Result Value Amphetamine Negative Benzodiazepines Negative Cannabinoids Negative Cocaine Metabolite Negative Hydrocodone / Hydromorphone Negative Methadone Metabolite Negative Morphine / Codeine Negative Oxycodone / Oxymorphone Negative Narrative Cutoff Concentrations: Drug Level Amphetamines [...] 03/06/2023 10:20 AM EST Telemedicine Family Practice [facility] [address] [place] [address] Korin Diaz CRNP [address] [place] [address] 03/15/2023 12:30 PM EST [facility] [address] [place] [address] Awilda York, [facility] [address] [place] [address] 05/01/2023 1:00 PM EST Cardiac Studies Cardiology, [facility] [address] [place] [address] [place], [address] [place] [address] Health Maintenance Due Date Last Done Comments [...] Additional history exists CKD HGB USE SMARTSET 60723 07/26/202307/25, 07/25/2022, 07/20/2022, Additional history exists CKD PHOS USE SMARTSET 93774 11/28/202311/01, 06/14/2021, 08/19/2020, Additional history exists DTaP,Tdap,and [...] Documents on File Type Date Recorded 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 Question Answer Comments Discussion of Advance Directives occurred with: Patient Does the patient have a Living Will? No Does the patient have Health Care Power of Senior Manufacturing Test Engineer? No Code Status History Code Status Date Activated Date Inactivated Comments Full Code 08/19/2020 4:29 AM 08/19/2020 6:21 AM This order reflects the patients wishes and were consensually agreed upon. Question Answer Comments Discussion of Advance Directives occurred with: Patient Does the patient have a Living Will? No Does the patient have Health Care Power of Senior Manufacturing Test Engineer? No Full Code 06/13/2020 2:24 PM 06/15/2020 7:45 PM This order reflects the patients wishes and were consensually agreed upon.
--- OUTSIDE RECORDS SUMMARY | 2023-05-13 14:03 | External Medical Summary | Summary of Care ---
Author Name Unknown Organization [facility] Address [address] [place] [address] Phone [phone] Care Team Providers Care Printer Apprentice Name Role Phone Unavailable Primary Care Provider Unavailabl e Reason for Visit * Reason Comments Medication Refill Encounter Details Date Type Department Care Team (Late st Contact Info) Description 02/12/2023 Refill Family Practice [facility] [address] [facility] [place] [address] Juanito Saba, DO [address] [place] [address] Allergies Active Allergy Reactions [...] 90 Tablet 3 03/22/2022 3 Active Nystatin 596336 UNIT/GM External Powder (Nystop)Indications :Cutaneous candidiasis Apply [...] disease 04/08/2018 Coronary artery disease invo lving [place] coronary artery of [place] heart without angina pectoris 04/08/2018 Last Assessment [...] mRNA, LNP-s, No Pre serve, 2-Dose Series (SolveBoard) 01/17/2023 COVID-19, mRNA, LNP-s, PF, B ooster, [...] encounter Miscellaneous Notes * Telephone Encounter - Royer Berumen - 02/13/2023 3:44 PM EST Called and spoke to [facility]. Fax for their office is [phone]. Called and spoke to pt's daughter again. Pt's daughter will figure out which meds will run out before pt's appt with Emily. Told her to send us a MyG msg with the names of those medications for us to send refills in for. Scripts can be sent to the fax number above. [facility] the [facility] daughter's request. * Telephone Encounter - Santi Crawley DO [...] Royer-- PT had 1 refill at [facility] for tamsulosin, dose not need refill. [...] is seen by home care and the MD, has follow up appt in our clinic [...] March? Pt's prescriptions get filled through the [facility] pharmacy, so refills will need to be [...] refill request * Telephone Encounter - Caleb Lin, [facility] - 02/12/2023 4:35 PM ESTPending Prescriptions: Disp Refills glipiZIDE ER 10 MG Oral Tablet Extended Re*90 Tab*0 Sig: TAKE ONE TABLET BY MOUTH EVERY MORNING * Telephone Encounter - Caleb Lin [facility] - 02/12/2023 4:35 PM EST Patient has no PCP under whom to authorize refills. Please approve if appropriate. Thank You, Caleb Zhu [facility] Clinical Pharmacist [facility] Services (CCPS) (formerly Telepharmacy) 02/12/2023, 4:35 PM * Telephone Encounter - Caleb Lin [facility] - 02/12/2023 4:32 PM EST Pending Prescriptions: [...] date the medication was ordered: 07/24/22 Pharmacy: [facility] Is this request for a [...] 03/06/2023 10:20 AM EST Telemedicine Family Practice [facility] 132 [facility] [place] [address] Korin Diaz CRNP [address] [place] [address] 03/15/2023 12:30 PM EST [facility], [facility] [address] [place] [address] Awilda York, NYA [address] [place] [address] 05/01/2023 1:00 PM EST Cardiac Studies Cardiology, [facility] [place] [address] Valerie Patel 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 Question Answer Comments Discussion of Advance Directives occurred with: Patient Does the patient have a Living Will? No Does the patient have Health Care Power of Metal Temperer? No Code Status History Code Status Date Activated Date Inactivated Comments Full Code 08/19/2020 4:29 AM 08/19/2020 6:21 AM This order reflects the patients wishes and were consensually agreed upon. Question Answer Comments Discussion of Advance Directives occurred with: Patient Does the patient have a Living Will? No Does the patient have Health Care Power of Metal Temperer? No Full Code 06/13/2020 2:24 PM 06/15/2020 7:45 PM This order reflects the patients wishes and were consensually agreed upon.
--- OUTSIDE RECORDS SUMMARY | 2023-05-13 14:03 | External Medical Summary | Summary of Care ---
Author Name Unknown Organization [facility] Address [address] [place] [address] Phone [phone] Care Team Providers Care Ssn/Ssbn Assistant Navigator Name Role Phone Juanito Saba DO Primary Care Provider + [phone] Reason for Visit * Reason Onset Date Comments [facility]: Maintenance 02/07/2023 Encounter Details Date Type Department Care Team (Late st Contact Info) Description 02/07/2023 Telephone [facility], [facility] [address] [place] [address] Services, Scheduling [address] [place] [address] [facility]: Maintenance Allergies Active Allergy Reactions Criticality Noted Date Comments Isopropyl Isostearate 06/13/2020 Headache Isosorbide Nitrate 05/24/2015 headaches Isosorbide Nitrate 06/13/2020 Headache documented as of this encounter (statuses as of 02/07/2023) Medications Medication Sig Dispensed Refills Start Date [...] Take Sunday, Sunday and Sunday. 0 Active Finasteride 5 MG Oral Tablet (Proscar) Take 1 tablet by mouth once daily 90 Tablet 0 04/28/2022 Active Tamsulosin HCl 0.4 MG Oral Capsule [...] DAY 90 Tablet 3 08/07/2022 4 Active glipiZIDE ER 10 MG Oral Tablet Extended Release 24 Hour (Glucotrol XL) TAKE ONE TABLET BY MOUTH EVERY MORNING 90 Tablet 1 07/24/2022 4 Active Atorvastatin Calcium 80 MG Oral Tablet (Lipitor)Indications :Dyslipidemia, goal LDL below 70 TAKE ONE TABLET BY MOUTH EVERY DAY 90 Tablet 3 03/22/2022 3 Active Levothyroxine Sodium 125 MCG Oral Tablet (Levoxyl)Indications :Acquired hypothyroidism TAKE 1 TABLET BY MOUTH DAILY AT LEAST 30 MINUTES PRIOR TO FIRST MEAL OF THE DAY OR OTHER MEDICATIONS 90 Tablet 3 03/22/2022 3 Active Nystatin 685229 UNIT/GM External Powder (Nystop)Indications: Cutaneous candidiasis Apply [...] patient awaiting delivery of same 0 Active documented as of this encounter (statuses as of 02/07/2023) Active Problems Problem Noted Date Diagnosed Date [...] disease 04/08/2018 Coronary artery disease invo lving [place] coronary artery of [place] heart without angina pectoris 04/08/2018 Last Assessment [...] as of this encounter (statuses as of 02/07/2023) Resolved Problems Problem Noted Date Diagnosed Date [...] as of this encounter (statuses as of 02/07/2023) Immunizations Name Administration Dates Next Due COVID-19 mRNA, LNP-s, No Pre serve, 2-Dose Series (Moderna) 05/31/2020,04/26/2020 COVID-19, mRNA, LNP-s, PF, B ooster, 100mcg/0.5mg (Moderna) 08/18/2021,03/12/2021 Covid-19, Mrna, Lnp-s, Pf, B ivalent, 30 Mcg, IM, 12 yrs and above (Pfizer) 01/02/2022 Pneumococcal Conjugate Vacc, 13 Valent (Prevnar) 05/30/2017 Pneumococcal Polysaccharide PPV23 (Pneumovax) 10/18/2006 SEASONAL INFLUENZA, PF, 6 M & Above, IM , (FLULAVAL or FLUZONE) 12/29/2019 Seasonal Influenza, Quadriva lent Hd (Fluzone Hd) 12/28/2021,01/13/2021 Seasonal Influenza, Quadriva lent, No Preserve, IM 12/23/2016 Seasonal Influenza, Split, I IV3, With Preserve, Inj 01/14/2013,02/20/2012,01/17/2011,01/31,01/07/2009,03/19/2008,02/01/20 07 Seasonal Influenza, Trivalen t, High Dose, No Preserve, IM 01/02/2019,01/24/2018 TDAP (age 10 and older)(Boostrix) 04/25/2014 Varicella Zoster Vaccine (Adult) 02/02/2014 Zoster Vaccine Recombinant (Shingrix) 01/13/2022 ,07/15/2021 09/14/2021 documented as of this encounter Social History [...] or making decisions? (5 years old or older No 08/19/2020 documented as of this encounter Miscellaneous Notes * Addendum Note - Osman Christopher PA-C - 02/07/2023 2:27 PM ESTAddended by: OSMAN CHRISTOPHER on: 02/07/2023 02:27 PM Modules accepted: Orders * Telephone Encounter - Osman Christopher PA-C - 02/07/2023 2:10 PM EST Yes. He should continue flomax and proscar at this time. [facility] not [facility] a [facility]. I have not seen patient in a few months, so I am going to schedule to see him next week to f/u. * Telephone Encounter - Niurka Coppola OSA - 02/07/2023 12:28 PM EST Outbound call to daughter Chasity, looking to see about scheduling covid booster and flu shot. Patient had completed through [facility], she will call us back with the date. She tells this writer technical publications that patient was at the [facility] and CV/CVN CV TSC SYSTEM OPERATOR was asking if he still needs to be on Finasteride and then Flomax. CV/CVN CV TSC SYSTEM OPERATOR was questioning if he should be on any or just one, his latest scans showed no prostate enlargement. Please advice and call daughter. If patient is to continue on medications please [facility]. She is also is asking about pacer, patient is sitting in another room and she is concerned that pacer is not reading for the battery checks. She also stated that CV/CVN CV TSC SYSTEM OPERATOR mentioned about the having the garcia cath put into his leg permanently, but daughter doesn't know if this can be done in the home or what, no one has explained to them exactly how this works. It was mentioned by urology in the past. She is sure if this will be better if the changing of cath will be any easier. Patient daughter states that patient will not be leaving the house for anymore appointments unless its a true emergency, he would require a [facility] ambulance transport. KATE Cavanaugh documented in this encounter Plan of Treatment Upcoming Encounters Date Type Department Care Team (Late st Contact Info) Description 02/08/2023 12:30 PM EST Home Visit [facility] [place], [facility] [address] [place] [address] Awilda York, RN [address] [place] [address] 02/13/2023 1:00 PM EST Home Visit [facility], [facility] [address] [place] [address] Osman Christopher PA-C [address] [place] [address] 05/01/2023 1:00 PM EST Cardiac Studies Cardiology, [facility] [address] [place] [address] Val[facility] [address] [place] [address] Health Maintenance Due Date Last Done Comments DXA Scan 1940 Hepatitis B (1 of 3 - Risk 3-dose series) 2000 COLONOSCOPY-EVERY 2 YRS AGES 18-100 01/08/2011 01/08/2009 Albumin/Creatinine Ratio 07/15/2022 022, 08/28/2019, 02/26/2019, Additional history exists Diabetic Foot Exam 07/15/2022 07/15/2021, 0 05/23/2019, 02/18/2018, Additional history exists COVID-19 Vaccine ( season) 2022 01/02/2022, 01/02/2022, 08/18/2021, Additional history exists Influenza Vaccine (FLU shot) (#1) 2022 12/28/2021, 12/28/2021, 01/13/2021, Additional history exists Depression Screening 01/13/2023 01/13/2022 HbA1c 01/24/2023 07/25/2022, 07/02, 11/01/2021, Additional history exists TSH 03/20/2023 03/20/2022, 08/0 05/2021, 07/26/2021, Additional history exists Diabetic Eye Exam 05/17/2023 05/17/2022, , 06/02/2020, Additional history exists GFR 05/30/2023 11/27/2022, 07/02, 07/20/2022, Additional history exists CKD HGB USE SMARTSET 46059 07/26/202307/25, 07/25/2022, 07/20/2022, Additional history exists CKD PHOS USE SMARTSET 94747 11/28/202311/01, 06/14/2021, 08/19/2020, Additional history exists DTaP,Tdap,and Td Vaccines (2 - Td or Tdap) 04/25/2024 04/25/2014 Pneumococcal Vaccine: 65+ Years Completed 05/30/2017, 10/18/2006 Zoster Vaccines Completed 11/06/2022, 08/01, 01/13/2022, Additional history exists GARDASIL-HPV IMMUNIZATION SERIES Aged Out No longer eligible based on patient's age to complete this topic MENINGOCOCCAL (MENACTRA/MENVEO) Aged Out No longer eligible based on patient's age to complete this topic documented as of this encounter Medical Devices Not on filedocumented as of this encounter Advance Directives Documents on File Type Date Recorded Patient Contact 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 Question Answer Comments Discussion of Advance Directives occurred with: Patient Does the patient have a Living Will? No Does the patient have Health Care Power of Customer Counter Associate? No Code Status History Code Status Date Activated Date Inactivated Comments Full Code 08/19/2020 4:29 AM 08/19/2020 6:21 AM This order reflects the patients wishes and were consensually agreed upon. Question Answer Comments Discussion of Advance Directives occurred with: Patient Does the patient have a Living Will? No Does the patient have Health Care Power of Customer Counter Associate? No Full Code 06/13/2020 2:24 PM 06/15/2020 7:45 PM This order reflects the patients wishes and were consensually agreed upon. Care Teams Ssn/Ssbn Assistant Navigator Relationship Specialty Start Date End Date Juanito Saba DO PCP - General Family Medicine 04/25/17 documented as of this encounter
--- OUTSIDE RECORDS SUMMARY | 2023-05-13 14:03 | External Medical Summary | Summary of Care ---
Author Name Unknown Organization [facility] Address [address] [place] [address] Phone [phone] Care Team Providers Care Missileman Name Role Phone Unavailable Primary Care Provider Unavailabl e Reason for Visit * Reason Onset Date Comments Information 02/14/2023 Encounter Details Date Type Department Care Team (Late st Contact Info) Description 02/14/2023 Telephone [facility], [facility] [address] [place] [address] Nazia Amos, KATE [address] [place] [address] Information Allergies Active Allergy Reactions Criticality Noted Date Comments Isopropyl Isostearate 06/13/2020 Headache Isosorbide Nitrate 05/24/2015 headaches Isosorbide Nitrate 06/13/2020 Headache documented as of this encounter (statuses as of 02/14/2023) Medications Medication Sig Dispensed Refills Start Date [...] 90 Tablet 3 03/22/2022 3 Active Nystatin 354082 UNIT/GM External Powder (Nystop)Indications: Cutaneous candidiasis Apply [...] as of this encounter (statuses as of 02/14/2023) Active Problems Problem Noted Date Diagnosed Date [...] disease 04/08/2018 Coronary artery disease invo lving [place] coronary artery of [place] heart without angina pectoris 04/08/2018 Last Assessment [...] as of this encounter (statuses as of 02/14/2023) Resolved Problems Problem Noted Date Diagnosed Date [...] as of this encounter (statuses as of 02/14/2023) Immunizations Name Administration Dates Next Due COVID-19 [...] encounter Miscellaneous Notes * Telephone Encounter - Nazia Amos OSA - 02/14/2023 9:05 AM EST [facility] to [phone] KATE Burns documented in this encounter Plan of Treatment Upcoming Encounters Date Type Department Care Team (Late st Contact Info) Description 03/06/2023 10:20 AM EST Telemedicine Family Practice [facility] [address] [place] [address] Korin Diaz CRNP [address] [place] [address] 03/15/2023 12:30 PM EST [facility] [address] [place] [address] Awilda York, NYA [address] [place] [address] 05/01/2023 1:00 PM EST Cardiac Studies Cardiology, [facility] [address] [place] [address] [facility] [address] [place] [address] Health Maintenance Due Date Last Done Comments [...] 01/02/2022, Additional history exists TSH 03/20/2023 03/20/2022, 080 05/2021, 07/26/2021, Additional history exists Diabetic Eye Exam 05/17/2023 05/17/2022, , 06/02/2020, Additional history exists GFR 05/30/2023 11/27/2022, 07/02, 07/20/2022, Additional history exists CKD HGB USE SMARTSET 95256 07/26/202307/25, 07/25/2022, 07/20/2022, Additional history exists CKD PHOS USE SMARTSET 22090 11/28/202311/01, 06/14/2021, 08/19/2020, Additional history exists DTaP,Tdap,and [...] Documents on File Type Date Recorded Patient Mason Tender Expl anation Advance Directives and Living Will 05/01/2022 ADVANCE DIRECTIVE / LIVING WILL Power of Betting Agency Counter Clerk 05/01/2022 POWER OF A TTORNEY Latest Code Status on File Code Status Date Activated Date Inactivated Comments Full Code 08/19/2020 6:21 AM 08/23/2020 3:20 PM This order reflects the patients wishes and were consensually agreed upon. Question Answer Comments Discussion of Advance Directives occurred with: Patient Does the patient have a Living Will? No Does the patient have Health Care Power of Betting Agency Counter Clerk? No Code Status History Code Status Date Activated Date Inactivated Comments Full Code 08/19/2020 4:29 AM 08/19/2020 6:21 AM This order reflects the patients wishes and were consensually agreed upon. Question Answer Comments Discussion of Advance Directives occurred with: Patient Does the patient have a Living Will? No Does the patient have Health Care Power of Betting Agency Counter Clerk? No Full Code 06/13/2020 2:24 PM 06/15/2020 7:45 PM This order reflects the patients wishes and were consensually agreed upon.
--- OUTSIDE RECORDS SUMMARY | 2023-05-13 14:03 | External Medical Summary | Summary of Care ---
Author Name Unknown Organization [facility] Address [address] [place] [facility] [place] [place] [address] Phone [phone] Care Team Providers Care U.[place]. Senator Name Role Phone Unavailable Primary Care Provider Unavailabl e Reason for Visit * Reason Onset Date Comments [facility]: Acute 02/20/2023 Encounter Details Date Type Department Care Team ([facility] st Contact Info) Description 02/20/2023 Telephone [facility], [facility] [address] [facility] [place] [address] [facility], Nurse [facility] [address] [facility] [place] [address] [facility]: Acute Allergies Active Allergy [...] 90 Tablet 3 03/22/2022 3 Active Nystatin 586320 UNIT/GM External Powder (Nystop)Indications: Cutaneous candidiasis Apply [...] disease 04/08/2018 Coronary artery disease invo lving [place] coronary artery of [place] heart without angina pectoris 04/08/2018 Last Assessment [...] encounter Miscellaneous Notes * Telephone Encounter - Rachel Suarez RN - 02/20/2023 9:24 AM EST [facility] retail stocker Acute Call Date: 02/20/2023 Time: 9:25 AM Name: Obed Mancini : 1940 Caller: Rere Relationship to : daughter HPI: Obed Mancini is a 83 year old male whose daughter/ Rere is calling [facility] to report her father has a garcia catheter and has had recurrent UTI's. Garcia catheter was changed early last week with [facility] nurse without difficulty. Since last Sunday daughter has noticed increased sediment in tubing, hydrated her father as muchas possible, sediment has increased this week, urine now has a foul odor and today her father has confusion. Daughter concerned he has another UTI, requesting urine specimen be obtained to check. I called [facility], spoke with Letty/ avel , she will give message to the nurses for patient to have a HV for urine specimen collection today. Order can be faxed to [phone] Nursing Assessment: Patient's chief complaint for this [...] plan: Clinical advice given over the phone [facility] will have home visit today to obtain urine specimen from garcia catheter . Order for Urinalysis , reflex to culture ( not for neutropenic patients ) faxed to [facility] [phone] Await [facility] recommendations Daughter aware HH nurse will be having visit today for urine specimen, asking if HH nurse can flushthe sediment from the garcia catheter tubing. Informed daughter I am not sure but will let HH nurse know. Daughter would also like to be called with time of HH visit today. Called [facility] back, spoke with Sandie, order was received via fax,explained daughter / Rere wants to be called with time of HH visit today and is requesting catheter be flushed to clear the sediment, Sandie will let nurses know. Daughter also requesting when antibiotic is ordered it is sent to [facility] Follow up phone calls for tomorrow and Sunday Rachel Suarez RN Baby Nurse [facility] documented in this encounter Plan of Treatment Upcoming Encounters Date Type Department Care Team (Late st Contact Info) Description 02/21/2023 1:00 PM EST Scheduled Telephone [facility], [facility] [address] [place] [address] Coordinator, [facility] [place] [address] 02/23/2023 10:00 AM EST Scheduled Telephone [facility], [facility] [address] [place] [address] Coordinator, [facility] [address] [facility] [place] [address] 03/06/2023 10:20 AM EST Telemedicine Family Practice [facility] [address] [place] [address] Korin Diaz CRNP [address] [place] [address] 03/15/2023 12:30 PM EST [facility] Visit [facility] [place], [facility] [address] [place] [address] Awilda York RN [address] [place] [address] 05/01/2023 1:00 PM EST Cardiac Studies Cardiology, [facility] [address] [place] [address] [place], [facility] [address] [place] [address] Scheduled Orders Name Type Priority Associated Diagnoses [...] 06/02/2020, Additional history exists GFR 05/30/2023 11/27/2022, 042 07/2022, 07/20/2022, Additional history exists CKD HGB USE SMARTSET 97966 07/26/202307/25, 07/25/2022, 07/20/2022, Additional history exists CKD PHOS USE SMARTSET 93383 11/28/202311/01, 06/14/2021, 08/19/2020, Additional history exists DTaP,Tdap,and [...] Documents on File Type Date Recorded Patient Pattern Hanger Expl anation Advance Directives and Living Will 05/01/2022 ADVANCE DIRECTIVE / LIVING WILL Power of Extension Course Counselor 05/01/2022 POWER OF A TTORNEY Latest Code Status on File Code Status Date Activated Date Inactivated Comments Full Code 08/19/2020 6:21 AM 08/23/2020 3:20 PM This order reflects the patients wishes and were consensually agreed upon. Question Answer Comments Discussion of Advance Directives occurred with: Patient Does the patient have a Living Will? No Does the patient have Health Care Power of Extension Course Counselor? No Code Status History Code Status Date Activated Date Inactivated Comments Full Code 08/19/2020 4:29 AM 08/19/2020 6:21 AM This order reflects the patients wishes and were consensually agreed upon. Question Answer Comments Discussion of Advance Directives occurred with: Patient Does the patient have a Living Will? No Does the patient have Health Care Power of Extension Course Counselor? No Full Code 06/13/2020 2:24 PM 06/15/2020 7:45 PM This order reflects the patients wishes and were consensually agreed upon.
--- OUTSIDE RECORDS SUMMARY | 2023-05-13 14:03 | External Medical Summary | Summary of Care ---
Author Name Unknown Organization [facility] Address [address] [facility] [place] [address] Phone [phone] Care Team Providers Care Machine Joiner Cementer Name Role Phone Unavailable Primary Care Provider Unavailabl e Reason for Visit * Reason Comments [facility]: Maintenance Encounter Details Date Type Department Care Team (Late st Contact Info) Description 02/08/2023 12:30 PM EST [facility] Visit [facility], [facility] [address] [facility] [place] [address] Awilda York, [place] [address] [place] [id number] Allergies Active Allergy Reactions Criticality Noted Date Comments Isopropyl Isostearate 06/13/2020 Headache Isosorbide Nitrate 05/24/2015 headaches Isosorbide Nitrate 06/13/2020 Headache documented as of this encounter (statuses as of 02/08/2023) Medications Medication Sig Dispensed Refills Start Date [...] E11.9 100 Strip 11 07/12/2020 Active OneTouch DelHello Chair Lancets 33G Use up to four times [...] 90 Tablet 3 03/22/2022 3 Active Nystatin 885415 UNIT/GM External Powder (Nystop)Indications: Cutaneous candidiasis Apply [...] as of this encounter (statuses as of 02/08/2023) Active Problems Problem Noted Date Diagnosed Date [...] disease 04/08/2018 Coronary artery disease invo lving curyung coronary artery of curyung heart without angina pectoris 04/08/2018 Last Assessment [...] as of this encounter (statuses as of 02/08/2023) Resolved Problems Problem Noted Date Diagnosed Date [...] as of this encounter (statuses as of 02/08/2023) Immunizations Name Administration Dates Next Due COVID-19 [...] Sign Reading Time Taken Comments Blood Pressure 116/80 02/08/2023 12:20 PM EST Pulse 60 02/08/2023 12:20 PM EST Temperature 36.6 C (97.9 F) 02/08/2023 12:[address] Respiratory Rate 18 02/08/2023 12:20 PM EST Oxygen Saturation 95% 02/08/2023 12:20 PM EST Inhaled Oxygen Concentration - - [...] Progress Notes * Awilda York RN - 02/08/2023 12:06 PM EST [facility] Industrial Illuminating Engineer Visit Date: 02/08/2023 Time: 12:06 PM Name: Obed Mancini : 1940 Current Concerns: Patient seen for follow up visit- Anemia, CKD, CHF, Afib, CKD, DM2, h/o UTI Daughter called in yesterday with concern about medications- requesting provider appointment- patient with great difficulty to get out of home. Scheduled 02/13/23- patient aware VS wnl Lungs clear bilaterally Sob with exertion No LE edema noted Garcia intact draining clear yellow urine Bowels wnl- per report Appetite good Taking fluids well Caregiver reports redness abdominal fold from brief- Calmoseptine applied- redness improving. Problems/Symptoms: Review of Systems Constitutional: Negative. HENT: Negative. Eyes: Negative. Respiratory: Positive for shortness of breath. Cardiovascular: Negative. Gastrointestinal: Negative. Endocrine: Negative. Genitourinary: Negative. Musculoskeletal: Positive for arthralgias. Allergic/Immunologic: Negative. Neurological: Negative. Hematological: Negative. Psychiatric/Behavioral: Negative. Physical Exam: BP 116/80 (BP Site: Right Arm, BP Position: Sitting, BP Cuff Size: Regular) | Pulse 60 | Temp 36.6 C (97.9 F) (Tympanic) | Resp 18 | SpO2 95% Pain 0 Physical Exam Constitutional: Appearance: Normal appearance. Cardiovascular: Rate and Rhythm: Normal rate and regular rhythm. Pulses: Normal pulses. Heart sounds: Normal heart sounds. Pulmonary: Effort: Pulmonary effort is normal. Breath sounds: Normal breath sounds. Abdominal: General: Bowel sounds are normal. Palpations: Abdomen is soft. Musculoskeletal: General: Normal range of motion. Skin: General: Skin is warm and dry. Capillary Refill: Capillary refill takes 2 to 3 seconds. Neurological: General: No focal deficit present. Mental Status: He is alert and oriented to person, place, and time. [facility] Completed this Visit: No. Routine visit Treatment/Plan: Fluids encouraged Advantage for garcia changes Continue medications as prescribed Keep all upcoming MD appointments Fall precautions- walker Calmoseptine to redness prn RN CM follow up in 5 weeks. Home Interventions Provided: Reinforced current Plan of Care, including self-management and medication regimen Patient Needs to Remember: Call [facility] with any medical concerns/ red flags Referrals Needed: N/a Follow Up: Is there cellular connectivity/connectivity in the home? Yes Does the patient have internet in the home? Yes Patient encouraged to call the intake phone number for all urgent but not emergent issues. Scheduled to follow up with patient in 5 weeks. Awilda Frances RN 02/08/2023 12:06 PM documented in this encounter Plan of Treatment Upcoming Encounters Date Type Department Care Team (Late st Contact Info) Description 02/13/2023 1:00 PM EST [facility] [address] [facility] [place] [address] Phu Christopher PA-C [address] [place] [id number] 03/15/2023 12:30 PM EST [facility] Visit [facility] [address] [address] Awilda York RN [address] [place] [id number] 05/01/2023 1:00 PM EST Cardiac Studies Cardiology, [facility] [address] [place] [address] [place] [address] 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 Question Answer Comments Discussion of Advance Directives occurred with: Patient Does the patient have a Living Will? No Does the patient have Health Care Power of Bag Machine Operator Helper? No Code Status History Code Status Date Activated Date Inactivated Comments Full Code 08/19/2020 4:29 AM 08/19/2020 6:21 AM This order reflects the patients wishes and were consensually agreed upon. Question Answer Comments Discussion of Advance Directives occurred with: Patient Does the patient have a Living Will? No Does the patient have Health Care Power of Bag Machine Operator Helper? No Full Code 06/13/2020 2:24 PM 06/15/2020 7:45 PM This order reflects the patients wishes and were consensually agreed upon.
--- OUTSIDE RECORDS SUMMARY | 2023-05-13 14:03 | External Medical Summary | Summary of Care ---
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 90 Capsule 3 02/14/2023 Active Tamsulosin HCl 0.4 MG Oral Capsule (Flomax) Take 1 Capsule by mouth every night at bedtime. 0 3 Discontinu ed(Refill) documented as of this [...] disease 04/08/2018 Coronary artery disease invo lving [place] coronary artery of [place] heart without angina pectoris 04/08/2018 Last Assessment [...] as of this encounter Progress Notes * Phu Christpoher PA-C - 02/13/2023 1:07 PM EST [facility] Progress Note Date: 02/13/2023 Time: 1:00 Name: Obed Mancini : 1940 Purpose of Visit: Advance care planning and Discuss goals of care Location: Home Individual(s) present: Patient and Daughter(s) Coordination of Care: Cardiology and Primary Care ASSESSMENT/PLAN: (Z51.5) Palliative care encounter (primary encounter diagnosis) (Z71.89) Advanced care planning/counseling discussion Plan: reviewed goals of care, updated POLST At this point elects for DNR, DNI, limited interventions (I13.0, I50.22, N18.32) 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) Plan: compensated Continue lasix (E11.22, N18.32) Type 2 diabetes mellitus with stage 3b chronic kidney disease, without long-term current use of insulin (HCC) Plan: Hemoglobin AIC Results: Lab Results Component Value Date/Time HEMOGLOBIN A1C - [facility] 6.4 (H) 07/25/2022 11:24 AM HEMOGLOBIN A1C - [facility] 6.5 (H) 11/01/2021 10:43 AM HEMOGLOBIN A1C - [facility] 6.8 (H) 04/20/2021 11:24 AM HEMOGLOBIN A1C - [facility] 6.8 (H) 11/19/2018 12:22 PM HEMOGLOBIN A1C - [facility] 6.6 (H) 04/25/2017 01:42 PM HEMOGLOBIN A1C - [facility] 6.3 08/24/2013 08:00 AM (Z74.09, Z78.9) Impaired mobility and ADLs Plan: essentially chair bound at this time Continue to follow for palliative. Will schedule return in 2 to 3 months, or sooner if indicated. Advance care planning/Goals of Care: See documentation in Advance Care Planning module and ACP note. SUBJECTIVE: Family present: yes, reviewed Patient is 83 year old male with medical history of DM type 2, CKD stage 3, dyslipidemia, CAD s/p CABG, afib, CHF, anemia, hypothyroidism, and lumbar DDD. H/o urinary retention with indwelling garcia cath. Patient lives at home with spouse. Has 23/10 care. Requires assistance with all ADLs. Has paid caregiver some of the week to assist with care. Remainder of time is shared by spouse as well as daughters. 08/17-08/19/22 - [facility] - hematuria, UTI 01/16/23 - [facility] -significant hematuria following cath change Patient essentially chair bound at this time. Able to stand and pivot to bSC with assistance. Continues to attempt to do home PT exercises with bands. Overall reports feeling well, just functionally limited. Denies pain. Denies SOB Garcia functioning well. Appetite fair. Pain: denies Nausea: no Vomiting: no Confusion: no Somnolence: no Constipation: no Dyspnea: no Anxious: no Support: daughters, caregivers Med Management: daughter sets up pillbox Ambulates: chair bound, able to stand and pivot for bsc HISTORY: Social History Tobacco Use Smoking status: Never Smokeless tobacco: Never Substance Use Topics Alcohol use: Never 83 year old year-old male with the following active problems: Patient Active Problem List Diagnosis Code ADVANCE DIRECTIVE INFORMATION Chronic ischemic heart disease I25.9 Aortocoronary bypass status Z95.1 DYSLIPIDEMIA, GOAL LDL BELOW 70 E78.5 Anemia due to stage 3b chronic kidney disease N18.32, D63.1 Cardiac pacemaker in situ Z95.0 [...] disc disease M51.36 Coronary artery disease involving [place] coronary artery of [place] heart without angina pectoris I25.10 Asymptomatic bilateral carotid artery stenosis I65.23 Atrial fibrillation ([facility]) I48.91 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 ([facility]) I13.0, I50.22, N18.32 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.062 Hypomagnesemia E83.42 Hypocalcemia E83.51 Acute on chronic heart failure with preserved ejection fraction ([facility]) I50.33 Sacral decubitus ulcer, stage II ([facility]) L89.152 Phimosis N47.1 Hematuria, gross R31.0 Chronic kidney disease, stage 3b ([facility]) N18.32 Gastro-esophageal reflux disease without esophagitis K21.9 Atherosclerosis of coronary artery bypass graft without angina pectoris I25.810 Chronic indwelling Garcia catheter Z97.8 Acute pain of left shoulder M25.512 Recurrent UTI N39.0 Rotator cuff tendonitis, left M75.82 Current Outpatient Medications Medication Sig Dispense Refill Tamsulosin HCl 0.4 MG Oral Capsule (Flomax) Take 1 Capsule by mouth every night at bedtime. 90 Capsule 3 CENTRUM PO TABS 1 daily 0 CYANOCOBALAMIN (VITAMIN B-12) 100 MCG Tablet Take 5 Tablets by mouth in the morning. ammonium lactate (LAC-HYDRIN) 12 % lotion Apply topically to affected area as needed for Dry Skin. Apply to legs and feet 400 g 2 Weole EnergyTouch Verio w/Device Kit Use up to 4 times a day E11.9 1 Kit 0 Weole EnergyTouch Verio In Vitro Strip (Glucose Blood) Use up to 4 times a day E11.9 100 Strip 11 Weole EnergyTouch Delica Lancets 33G Use up to four times daily. E11.9 100 Each 11 Acetaminophen 325 MG Oral Capsule Take 650 mg by mouth every 6 hours as needed for Pain. Aspirin 81 MG Oral Tablet Chewable Take 1 Tab by mouth daily. 30 Tab 0 Silver sulfADIAZINE 1 % External Cream (Silvadene) [...] 1 Capsule by mouth in the morning. Omeprazole 20 MG Oral Capsule Delayed Release (PriLOSEC) Take 1 Capsule by mouth in the morning. 90Capsule 3 Furosemide 40 MG Oral Tablet (Lasix) Take [...] BY MOUTH EVERY DAY 90 Tablet 3 Atorvastatin Calcium 80 MG Oral Tablet (Lipitor) TAKE ONE TABLET BY MOUTH EVERY DAY 90 Tablet 3 Levothyroxine Sodium 125 MCG Oral Tablet (Levoxyl) TAKE 1 TABLET BY MOUTH DAILY AT LEAST 30 MINUTESPRIOR TO FIRST MEAL OF THE DAY OR OTHER MEDICATIONS 90 Tablet 3 Nystatin 932343 UNIT/GM External Powder (Nystop) Apply topically to affected area 3 times a day. Apply to skin fold areas as directed 60 g 1 Apixaban 5 MG Oral Tablet (Eliquis) Take 1 Tablet by mouth in the morning and 1 Tablet before bedtime. Proventil HFA 108 (90 Base) MCG/ACT Inhalation Aerosol Solution Inhale by mouth. [facility], patient awaiting delivery of same glipiZIDE ER 10 MG Oral Tablet Extended Release 24 Hour (Glucotrol XL) TAKE ONE TABLET BY MOUTH EVERY MORNING 90 Tablet 0 Finasteride 5 MG Oral Tablet (Proscar) Take 1 Tablet by mouth in the morning. 90 Tablet 0 No current facility-administered medications for this visit. Physical Exam: BP Readings from Last 3 Encounters: 02/08/23 116/80 01/04/23 120/58 12/11/22 110/64 { Wt Readings from Last 3 Encounters: 07/20/22 97.8 kg (215 lb 11.2 oz) 03/20/22 103 kg (227 lb) 02/03/22 101.7 kg (224 lb 3.2 oz) Vital signs: There were no vitals taken for this visit. General: alert and no distress Neuro: alert & oriented x 3 with fluent speech Heart: regular rate & rhythm and no murmur Lungs: no chest wall tenderness, lungs clear to auscultation Abdomen: abdomen soft, non-tender, normal bowel sounds, and no rebound or guarding Ext: Normal extremities without edema : garcia with clear yellow urine See top of note for assessment/plan Scheduled appointments in the next 60 days: Future Appointments-next 60 days Date/Time Provider Specialty Dept Phone 03/06/2023 10:20 AM Korin Diaz CRNP Family Medicine [phone] 03/15/2023 12:30 PM Awilda York RN [facility] [phone] 05/01/2023 1:00 PM (Arrive by 12:45 PM) Valerie Patel [facility] [phone] [facility], [place] [phone] documented in this encounter Miscellaneous Notes * ACP (Advance Care Planning) - Phu Christopher PA-C - 02/14/2023 12:39 PM EST Images from the original note were not included. Patient-centered Communication 02/13/2023 The patient/surrogate voluntarily agreed to participate in advance care planning discussion. They were advised that this is a separate service which may incur out of pocket cost in the form of copayment and/or deductibles. Location: Home Individual(s) present for conversation: Patient and Daughter(s) Decisions Synopsis SmartLink Most Recent Value Past ~10 years 02/14/2023 12:36 Decisions CPR decision: Declines CPR "if i , let me go" 02/14/2023 Declines CPR "if i , let me go" Intubation/Mechanical Ventilation decision: Declines Intubation/mechanical ventilation "i dont want to hooked up to machines" 02/14/2023 Declines Intubation/mechanical ventilation "i dont want to hooked up to machines" Non-invasive ventilation or BIPAP decision: Patient chooses non-invasive ventilation. Select interventions below 06/23/2022 Non-Invasive Ventilation Interventions: NIV 08/09/2021 Antibiotic therapy decision: Patient chooses Antibiotic therapy 02/14/2023 Patient chooses Antibiotic therapy Artificial nutrition decision: Declines Artificial nutrition 02/14/2023 Declines Artificial nutrition IV hydration decision: Patient chooses IV hydration 02/14/2023 Patient chooses IV hydration Chemotherapy decision: Undecided about Chemotherapy 08/09/2021 Radiation therapy decision: Undecided about Radiation therapy 08/09/2021 Blood transfusion decision: Patient chooses Blood transfusion 06/23/2022 Lab draw decision: Patient chooses Lab draws 08/09/2021 Hospice decision: Undecided about Hospice 02/14/2023 Undecided about Hospice Dying at home decision: Patient chooses Dying at home 02/14/2023 Patient chooses Dying at home Dialysis decision: Patient chooses Dialysis 06/23/2022 Additional Comments Synopsis SmartLink Most Recent Value Past ~10 years 02/14/2023 12:36 Additional Comments Additional Comments: POLST updated. DNR, DNI 02/14/2023 POLST updated. DNR, DNI Discerning What Matters Most to the Patient: Synopsis SmartLink Most Recent Value Past ~10 years 02/14/2023 12:41 Discerning What Matters Most to the Patient In their own words, patient's UNDERSTANDING of their illness is: "just getting older and more weak" 10/10/2022 Their current SYMPTOMS include: Reduced overall well being;Tiredness 02/14/2023 Reduced overall well being;Tiredness They say their illness has CHANGED THEIR LIFE by: Feel like a burden to family/loved ones 02/14/2023 Feel like a burden to family/loved ones The patient thinks COMPLICATIONS in the future may be: -- Really has not had any but understands that he could develop complications with his heart, kidney, and diabetic disease. 06/25/2020 Was PROGNOSIS discussed? Yes 06/23/2022 Prognosis was discussed today as likely to live: Several years 06/25/2020 Progression of illness described as: A gradual decline 06/23/2022 The patient's HOPES are: Avoid intubation/mechanical ventilation;[facility] [place] [facility];Avoid further hospitalization 02/14/2023 Avoid intubation/mechanical ventilation;[place]void the [place] [facility];Avoid further hospitalization The patient defines LIVING WELL as: Being able to communicate with family 06/25/2020 The patient's FEARS/WORRIES about illness are: Being a burden to family;Going back to the hospital 02/14/2023 Being a burden to family;Going back to the hospital "Being a vegetable", patient defines as: Being kept alive while on able to communicate and/or understand what is going on around him 06/25/2020 The patient considers these as 'UNACCEPTABLE OUTCOMES': "Being a vegetable" (define below);Prolonged mechanical ventilation (define below) 02/14/2023 "Being a vegetable" (define below);Prolonged mechanical ventilation (define below) "Being a vegetable", patient defines as: unable to interact 02/14/2023 unable to interact Prolonged mechanical ventilation, patient defines as: any intubation 02/14/2023 any intubation Source: Content from Respecting Maintenance Assistant Program Aligning Care With What Matters Most: Synopsis Displair Most Recent Value Past ~10 years 02/14/2023 12:36 Aligning Care With What Matters Most In their own words, the patient's understanding of their prognosis: Good at this point but eventually may become worse and result in his demise 06/25/2020 Interventions/Choices: CPR;Intubation/mechanical ventilation;Antibiotic therapy;Artificial nutrition;IV hydration;Hospice; at home 02/14/2023 CPR;Intubation/mechanical ventilation;Antibiotic therapy;Artificial nutrition;IV hydration;Hospice; at home Rationale for Decisions Synopsis Displair Most Recent Value Past ~10 years 06/25/2020 12:10 CPR Their goals for CPR treatment are: Would be to be revived in a state that does not meet his definition of being a vegetable and are burn on his family. He does want full CPR initially 06/25/2020 Would be to be revived in a state that does not meet his definition of being a vegetable and are burn on his family. He does want full CPR initially Unacceptable outcomes from CPR treatment are: Being a vegetable 06/25/2020 Being a vegetable Their fears/concerns about CPR decision are: None 06/25/2020 None Synopsis SmartLink Most Recent Value Past ~10 years 08/09/2021 11:36 Intubation/mechanical ventilation Their fears/concerns about Intubation/mechanical ventilation decision are: I want CPR but I don't want to linger. 08/09/2021 I want CPR but I don't want to linger. Synopsis SmartLink Most Recent Value Past ~10 years 08/09/2021 11:36 Non-invasive ventilation or BIPAP They describe the benefits and burdens of Non-invasive ventilation or BIPAP treatment as: Temporary 08/09/2021 Temporary Synopsis SmartLink Most Recent Value Past ~10 years 06/25/2020 12:10 IV hydration Their goals for IV hydration treatment are: Trial 06/25/2020 Trial Source: Content from [employer] Program 45 minutes spent in direct [id number] discussion today, Phu Christopher PA-C documented in this encounter Plan of Treatment Upcoming Encounters Date Type Department Care Team (Late st Contact Info) Description 03/06/2023 10:20 AM EST Telemedicine Family Practice [facility] [address] [place] [address] Korin Diza CRNP [address] [place] [address] 03/15/2023 12:30 PM EST [facility] [address] [address] Awilda York, [place] [address] [place] [address] 05/01/2023 1:00 PM EST Cardiac Studies Cardiology, [facility] [address] [address] [facility] [address] [place] [address] Health Maintenance Due Date Last Done Comments [...] Additional history exists CKD HGB USE SMARTSET 13609 07/26/202307/25, 07/25/2022, 07/20/2022, Additional history exists CKD PHOS USE SMARTSET 53046 11/28/202311/01, 06/14/2021, 08/19/2020, Additional history exists DTaP,Tdap,and [...] as of this encounter Visit Diagnoses Diagnosis Palliative care encounter- Primary Encounter for palliative care Advanced care planning/counseling discussion Other specified counseling 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) Type 2 diabetes mellitus with stage 3b chronic kidney disease, without long-term current use of insulin (HCC) Impaired mobility and ADLs Mechanical problems with limbs documented in this encounter Advance Directives Documents on File Type Date Recorded 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 Question Answer Comments Discussion of Advance Directives occurred with: Patient Does the patient have a Living Will? No Does the patient have Health Care Power of Supervisor Evaporator? No Code Status History Code Status Date Activated Date Inactivated Comments Full Code 08/19/2020 4:29 AM 08/19/2020 6:21 AM This order reflects the patients wishes and were consensually agreed upon. Question Answer Comments Discussion of Advance Directives occurred with: Patient Does the patient have a Living Will? No Does the patient have Health Care Power of Supervisor Evaporator? No Full Code 06/13/2020 2:24 PM 06/15/2020 7:45 PM This order reflects the patients wishes and were consensually agreed upon.
--- OUTSIDE RECORDS SUMMARY | 2023-05-13 14:03 | External Medical Summary ---
Author Name Unknown Address Unknown Organization K[facility] [address] [place] [address] Laboratory Report Ordering Provider Test Date Status CHRIS BREWER 02/20/2023 14:38:13 Final Observation Date Value Abnormality Reference (Units ) Status Color of Urine by Auto 02/20/2023 14:38:13 Yellow Light Yellow, Yellow, Dark Yellow Final Clarity, Urine 02/20/2023 14:38:13 Cloudy Abnormal Clear Final Glucose [Mass/volume] in Urine by Automated test strip 02/20/2023 14:38:13 Negative Negative (mg/dL) Final Bilirubin.total [Presence] in Urine by Automated test strip 02/20/2023 14:38:13 Negative Negative Final Ketones [Mass/volume] in Urine by Automated test strip 02/20/2023 14:38:13 Negative Negative (mg/dL) Final Specific gravity, Urine 02/20/2023 14:38:13 1.010 1.003-1.030 Final Hemoglobin [Presence] in Urine by Automated test strip 02/20/2023 14:38:13 Trace Abnormal Negative Final pH, Urine 02/20/2023 14:38:13 >=9.0 Above high normal 5.0-7.5 (Units) Final Protein [Mass/volume] in Urine by Automated test strip 02/20/2023 14:38:13 30 Abnormal Negative (mg/dL) Final Urobilinogen [Mass/volume] in Urine by Automated test strip 02/20/2023 14:38:13 0.2 0.2, 1.0 (mg/dL) Final Nitrite [Presence] in Urine by Automated test strip 02/20/2023 14:38:13 Positive Abnormal Negative Final Leukocyte esterase [Presence] in Urine by Automated test strip 02/20/2023 14:38:13 Large Abnormal Negative Final RBC, Urine 02/20/2023 14:38:13 0-2 0-2 (/HPF) Final WBC, Urine 02/20/2023 14:38:13 50+ Abnormal 0-2 (/HPF) Final Bacteria [#/area] in Urine sediment by Microscopy high power field 02/20/2023 14:38:13 >200 Abnormal 0-25 (/HPF) Final Triple phosphate crystals [#/area] in Urine sediment by Microscopy high power field 02/20/2023 14:38:13 5-9 Abnormal None (/HPF) Final CULTURE, URINE - [facility] 02/20/2023 14:38:13 Final Quantitative urine culture t o be performed Performing Location [facility] [place] [address]
--- OUTSIDE RECORDS SUMMARY | 2023-05-13 14:03 | External Medical Summary | Summary of Care ---
Author Name Unknown Organization [facility] Address [address] [facility] [place] [address] Phone [phone] Care Team Providers Care Instructor Military Science Name Role Phone Unavailable Primary Care Provider Unavailabl e Reason for Visit * Reason Onset Date Comments [facility]: Maintenance 02/08/2023 Encounter Details Date Type Department Care Team (Late st Contact Info) Description 02/08/2023 Telephone [facility], [facility] [address] [place] [address] Region, Nurse [address] [place] [address] [facility]: Maintenance Allergies Active Allergy [...] day E11.9 100 Strip 11 07/12/2020 Active QuantifeedTouch Delica Lancets 33G Use up to four [...] 90 Tablet 3 03/22/2022 3 Active Nystatin 375053 UNIT/GM External Powder (Nystop)Indications: Cutaneous candidiasis Apply [...] disease 04/08/2018 Coronary artery disease invo lving [place] coronary artery of [place] heart without angina pectoris 04/08/2018 Last Assessment [...] encounter Miscellaneous Notes * Telephone Encounter - Maru Sheikh RN - 02/08/2023 10:40 AM EST Received call from pt's daughter who is calling with the information re: the pt's immunizations that he received at the [facility]. Shingles: 08/21/22, 11/06/22 Flu: 12/22/22 Covid: 01/17/23 Will route to Steffany Coppola. Maru FLANAGAN, RN [facility] Intake Triage Coordinator [phone] documented in this encounter Plan of Treatment Upcoming Encounters Date Type Department Care Team (Late st Contact Info) Description 02/08/2023 12:30 PM EST [facility] Visit [facility] [address] [address] Awilda York RN [address] [place] [address] 02/13/2023 1:00 PM EST [facility] Visit [facility] [place] [address] [place] [address] Phu Christopher PA-C [address] [place] [address] 05/01/2023 1:00 PM EST Cardiac Studies Cardiology, [facility] [address] [place] [address] [facility] [address] [place] [address] Health Maintenance Due Date Last Done Comments [...] Additional history exists CKD HGB USE SMARTSET 41303 07/26/202307/25, 07/25/2022, 07/20/2022, Additional history exists CKD PHOS USE SMARTSET 28333 11/28/202311/01, 06/14/2021, 08/19/2020, Additional history exists DTaP,Tdap,and [...] Documents on File Type Date Recorded 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 Question Answer Comments Discussion of Advance Directives occurred with: Patient Does the patient have a Living Will? No Does the patient have Health Care Power of Drop Tester? No Code Status History Code Status Date Activated Date Inactivated Comments Full Code 08/19/2020 4:29 AM 08/19/2020 6:21 AM This order reflects the patients wishes and were consensually agreed upon. Question Answer Comments Discussion of Advance Directives occurred with: Patient Does the patient have a Living Will? No Does the patient have Health Care Power of Drop Tester? No Full Code 06/13/2020 2:24 PM 06/15/2020 7:45 PM This order reflects the patients wishes and were consensually agreed upon.
--- OUTSIDE RECORDS SUMMARY | 2023-05-13 14:03 | External Medical Summary | Summary of Care ---
Author Name Unknown Organization [facility] Address [address] [place] [address] Phone [phone] Care Team Providers Care Edge Runner Name Role Phone Unavailable Primary Care Provider Unavailabl e Reason for Visit * Reason Onset Date Comments [facility]: Maintenance 02/07/2023 Encounter Details Date Type Department Care Team ([facility] st Contact Info) Description 02/07/2023 Telephone [facility], [address] [phone] Services, Scheduling [address] [place] [address] [facility]: Maintenance Allergies Active Allergy [...] 90 Tablet 3 03/22/2022 3 Active Nystatin 201358 UNIT/GM External Powder (Nystop)Indications: Cutaneous candidiasis Apply [...] disease 04/08/2018 Coronary artery disease invo lving [place] coronary artery of [place] heart without angina pectoris 04/08/2018 Last Assessment [...] and flu shot. Patient had completed through [place], she will call us back with the date. 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 IMPLEMENTATION PROJECT MANAGER was questioning if he should be on [...] the battery checks. She also stated that IMPLEMENTATION PROJECT MANAGER mentioned about the having the garcia cath [...] 03/06/2023 10:20 AM EST Telemedicine Family Practice [facility] [address] [place] [address] Korin Diaz CRNP [address] [place] [address] 03/15/2023 12:30 PM EST Home Visit [facility] at Home, [facility] [address] [place] [address] Awilda York RN [address] [place] [address] 05/01/2023 1:00 PM EST Cardiac Studies Cardiology, [facility] [address] [place] [address] [place], Pacer Clinic [facility] [address] [place] [address] Health Maintenance Due Date Last Done Comments [...] Additional history exists CKD HGB USE SMARTSET 61271 07/26/202307/25, 07/25/2022, 07/20/2022, Additional history exists CKD PHOS USE SMARTSET 26268 11/28/202311/01, 06/14/2021, 08/19/2020, Additional history exists DTaP,Tdap,and [...] Documents on File Type Date 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 Question Answer Comments Discussion of Advance Directives occurred with: Patient Does the patient have a Living Will? No Does the patient have Health Care Power of Outside Dealer Sales Representative? No Code Status History Code Status Date Activated Date Inactivated Comments Full Code 08/19/2020 4:29 AM 08/19/2020 6:21 AM This order reflects the patients wishes and were consensually agreed upon. Question Answer Comments Discussion of Advance Directives occurred with: Patient Does the patient have a Living Will? No Does the patient have Health Care Power of Outside Dealer Sales Representative? No Full Code 06/13/2020 2:24 PM 06/15/2020 7:45 PM This order reflects the patients wishes and were consensually agreed upon.
--- OUTSIDE RECORDS SUMMARY | 2023-05-13 14:03 | External Medical Summary | Summary of Care ---
Author Name Unknown Organization [facility] Address [address] [place] [address] Phone [phone] Care Team Providers Care Entry Clerk Name Role Phone Juanito Saba DO Primary Care Provider + [phone] Reason for Visit * Reason Onset Date Comments [facility]: Maintenance 02/07/2023 Encounter Details Date Type Department Care Team (Late st Contact Info) Description 02/07/2023 Telephone [facility], [facility] [address] [place] [address] Services, Scheduling [address] [place] [address] [facility]: Maintenance Allergies Active Allergy [...] 90 Tablet 3 03/22/2022 3 Active Nystatin 329594 UNIT/GM External Powder (Nystop)Indications: Cutaneous candidiasis Apply [...] disease 04/08/2018 Coronary artery disease invo lving jamul coronary artery of jamul heart without angina pectoris 04/08/2018 Last Assessment [...] Miscellaneous Notes * Telephone Encounter - Niurka Coppola OSA - 02/07/2023 12:28 PM EST Outbound call to daughter Chasity, looking to see about scheduling covid booster and flu shot. Patient had completed through [place], she will call us back with the date. 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 K 9 POLICE OFFICER was questioning if he should be on [...] the battery checks. She also stated that K 9 POLICE OFFICER mentioned about the having the garcia cath [...] Description 02/08/2023 12:30 PM EST Home Visit [facility] at Home, [facility] [address] [place] [address] Awilda York, NYA [address] 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 Question Answer Comments Discussion of Advance Directives occurred with: Patient Does the patient have a Living Will? No Does the patient have Health Care Power of Manager Placement? No Code Status History Code Status Date Activated Date Inactivated Comments Full Code 08/19/2020 4:29 AM 08/19/2020 6:21 AM This order reflects the patients wishes and were consensually agreed upon. Question Answer Comments Discussion of Advance Directives occurred with: Patient Does the patient have a Living Will? No Does the patient have Health Care Power of Manager Placement? No Full Code 06/13/2020 2:24 PM 06/15/2020 7:45 PM This order reflects the patients wishes and were consensually agreed upon. Care Teams Entry Clerk Relationship Specialty Start Date End Date Juanito Saba DO PCP - General Family Medicine 04/25/17 documented as of this encounter
--- OUTSIDE RECORDS SUMMARY | 2023-05-13 14:04 | External Medical Summary | Summary of Care ---
Author Name Unknown Organization [facility] Address [address] [place] [address] Phone [phone] Care Team Providers Care Manager Terminal Name Role Phone Juanito Saba DO Primary Care Provider Encounter Details Date Type Department Care Team (Late st Contact Info) Description 01/25/2023 Result Scan Unspecified Department Jone Draper MD [address] [place] [address] <No scans attached> Allergies Active Allergy Reactions Criticality Noted Date Comments Isopropyl Isostearate 06/13/2020 Headache Isosorbide Nitrate 05/24/2015 headaches Isosorbide Nitrate 06/13/2020 Headache documented as of this encounter (statuses as of 01/25/2023) Medications Medication Sig Dispensed Refills Start Date [...] 90 Tablet 3 03/22/2022 3 Active Nystatin 854496 UNIT/GM External Powder (Nystop)Indications: Cutaneous candidiasis Apply [...] as of this encounter (statuses as of 01/25/2023) Active Problems Problem Noted Date Diagnosed Date [...] disease 04/08/2018 Coronary artery disease invo lving [place] coronary artery of [place] heart without angina pectoris 04/08/2018 Last Assessment [...] as of this encounter (statuses as of 01/25/2023) Resolved Problems Problem Noted Date Diagnosed Date [...] as of this encounter (statuses as of 01/25/2023) Immunizations Name Administration Dates Next Due COVID-19 [...] Description 02/08/2023 12:30 PM EST Home Visit [facility], [address] [place] [address] Awilda York, RN [address] [place] [address] 05/01/2023 1:00 PM EST Cardiac Studies Cardiology, [facility] [address] [place] [address] [place], Pacer Clinic [facility] [address] [place] [address] Health Maintenance Due Date Last Done Comments DXA Scan 1940 Hepatitis B (1 of 3 - Risk 3-dose series) 2000 COLONOSCOPY-EVERY 2 YRS AGES 18-100 01/08/2011 01/08/2009 DIABETES-EYE EXAM 06/09/2022 06/09/2021, , 05/28/2020, Additional history exists Albumin/Creatinine Ratio 07/15/2022 022, 08/28/2019, 02/26/2019, Additional history exists Diabetic Foot Exam 07/15/2022 07/15/2021, 0 05/23/2019, 02/18/2018, Additional history exists COVID-19 Vaccine ( season) 2022 01/02/2022, 01/02/2022, 08/18/2021, Additional history exists Influenza Vaccine (FLU shot) (#1) 2022 12/28/2021, 12/28/2021, 01/13/2021, Additional history exists Depression Screening 01/13/2023 01/13/2022 HbA1c 01/24/2023 07/25/2022, 07/02, 11/01/2021, Additional history exists TSH 03/20/2023 03/20/2022, 0805/2021, 07/26/2021, Additional history exists GFR 05/30/2023 11/27/2022, 07/02, 07/20/2022, Additional history exists CKD HGB USE SMARTSET 11781 07/26/202307/25, 07/25/2022, 07/20/2022, Additional history exists CKD PHOS USE SMARTSET 84332 11/28/202311/01, 06/14/2021, 08/19/2020, Additional history exists DTaP,Tdap,and [...] Date/Time Associated Diagnosis Comments CARDIOLOGY SCANNED RESULT 01/25/2023 documented in this encounter Results * CARDIOLOGY SCANNED RESULT (01/25/2023) 01/25/2023 Jone Draper MD OTHER documented in this encounter Advance Directives Documents on File Type Date Recorded 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 Question Answer Comments Discussion of Advance Directives occurred with: Patient Does the patient have a Living Will? No Does the patient have Health Care Power of Sales/Marketing? No Code Status History Code Status Date Activated Date Inactivated Comments Full Code 08/19/2020 4:29 AM 08/19/2020 6:21 AM This order reflects the patients wishes and were consensually agreed upon. Question Answer Comments Discussion of Advance Directives occurred with: Patient Does the patient have a Living Will? No Does the patient have Health Care Power of Sales/Marketing? No Full Code 06/13/2020 2:24 PM 06/15/2020 7:45 PM This order reflects the patients wishes and were consensually agreed upon. Care Teams Manager Terminal Relationship Specialty Start Date End Date Juanito Saba DO [address] [place] [address] PCP - General Family Medicine 04/25/17 documented as of this encounter
--- OUTSIDE RECORDS SUMMARY | 2023-05-13 14:04 | External Medical Summary | Summary of Care ---
Author Name Unknown Organization [facility] Address [address] [facility] [place] [address] Phone [phone] Care Team Providers Care Partition Setter Name Role Phone Juanito Saab DO Primary Care Provider Reason for Visit * Reason Onset Date Comments [facility]: Maintenance 01/16/2023 Encounter Details Date Type Department Care Team Description 01/16/2023 Telephone [facility], [facility] 132 [facility] [place] [address] [facility], Nurse [facility] 132 [facility] [place] [address] [facility]: Maintenance Allergies Active Allergy Reactions Severity Noted Date Comments Isopropyl Isostearate 06/13/2020 Headache Isosorbide Nitrate 05/24/2015 headaches Isosorbide Nitrate 06/13/2020 Headache documented as of this encounter (statuses as of 01/16/2023) Medications Medication Sig Dispensed Refills Start Date [...] day E11.9 1 Kit 0 07/12/2020 Active LatioTouch Verio In Vitro Strip (Glucose Blood) Use up to 4 times a day E11.9 100 Strip 11 07/12/2020 Active LatioTouch Delica Lancets 33G Use up to four [...] 90 Tablet 3 03/22/2022 3 Active Nystatin 236793 UNIT/GM External Powder (Nystop)Indications: Cutaneous candidiasis Apply [...] as of this encounter (statuses as of 01/16/2023) Active Problems Problem Noted Date Recurrent UTI 08/25/2022 Rotator cuff tendonitis, left 08/25/2022 Chronic indwelling Garcia catheter 2022 Last Assessment & Plan: Changed yesterday by shaun lu Acute pain of left shoulder 07/05/2022 Last Assessment & Plan: Physical exam concerning for a rotator cuff injury. -start with mobile x-rays and orthopedic consult. -continue Tylenol as needed for pain. Also has Voltaren gel. Encouraged to use Aspercreme for additional pain relief. 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 06/23/2022 Last Assessment & Plan: No angina -continue ASA, statin, toprol XL Gastro-esophageal reflux disease without esophagitis 01/02/2022 Last Assessment & Plan: Symptoms managed with pantoprazole Chronic kidney disease, stage 3b 021 Overview: Per CKD protocol Sacral decubitus ulcer, stage II 021 Phimosis 01/17/2021 Hematuria, gross 01/17/2021 Acute on chronic heart failure with pres erved ejection fraction 08/20/2020 Hypomagnesemia 08/19/2020 Hypocalcemia 08/19/2020 [...] dose: 40 mg Spinal stenosis of lumbar region with ne urogenic claudication 12/04/2018 Atrial fibrillation 10/21/2018 Last Assessment & Plan: Sounded regular today. Rate controlled. -continue Toprol and warfarin Asymptomatic bilateral carotid artery st enosis 07/08/2018 Lumbar degenerative disc disease 019 Coronary artery disease invo lving [place] coronary artery of [place] heart without angina pectoris 04/08/2018 Last Assessment & Plan: stable -Continue regimen as noted below Type 2 diabetes mellitus wit h stage 3b chronic kidney disease, without long-term current use of insulin 02/18/2018 Chronic systolic congestive heart failur e 04/25/2017 Type 2 diabetes mellitus with diabetic p olyneuropathy 04/25/2017 Last Assessment & Plan: Current Status: [...] Plan: Continue synthroid Type 2 diabetes mellitus with hemoglobin A1c [...] 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 1.6 hgb 12.5 stable DYSLIPIDEMIA, GOAL LDL BELOW 70 03/09/20 09 Overview: Per Lipid Taxonomy. Last Assessment & Plan: Triglycerides high. -counseled on improvements in diet. Patient voiced understanding and will try. -continue atorvastatin. Aortocoronary bypass status 08/13/2006 Chronic ischemic heart disease 7 ADVANCE DIRECTIVE INFORMATION 08/01/2006 Overview: No, Advance Directive brochure given to patient at prior appointment. documented as of this encounter (statuses as of 01/16/2023) Resolved Problems Problem Noted Date Resolved Date Aneurysm of aorta 03/23/2021 06/23/2022 Overview: 3.0 cm AAA noted on CT abd/pel 01/31/21 Fall 06/15/2020 12/30/2021 SDH (subdural hematoma) 06/15/2020 04/04/19 22 Abdominal aortic atherosclerosis 05/23/2019 07/05/2022 Kidney disease, chronic, stage III (GFR 30-59 ml /min) 11/13/2017 03/15/2018 Overview: Per CKD protocol #1 - Type 1 diabetes mellitus wit h hemoglobin A1c goal of less than 7.0% 11/06/2011 11/07/2011 Overview: ICD-10 update of inactive term Benign neoplasm of colon 01/08/2009 019 Overview: polyps x 3 removed--adenomatous polyps--repeat 2-3 years H. pylori infection 01/06/2009 07/08/2018 Disorder of iron metabolism 10/18/200605/04 Overview: ICD-10 update of inactive term Dyslipidemia, goal to be determined 08/07/2006 03/09/2009 Overview: Per Lipid Taxonomy. Type 2 diabetes mellitus wit h hemoglobin A1c goal of less than 7.0% 08/07/2006 08/13/2008 Overview: ICD-10 update of inactive term Anemia 08/07/2006 11/06/2011 documented as of this encounter (statuses as of 01/16/2023) Immunizations Name Administration Dates Next Due COVID-19 [...] drink = 0.6 oz pur e alcohol) Alcohol Habits Answer Date Recorded How often do you have a drink containing alcohol ? Never 06/13/2020 How many drinks containing a lcohol do you have on a typical day when you are drinking? Not asked How often do you have six or more drinks on one occasion? Not asked Food Insecurity Answer Date Recorded Within the past 12 months, y ou worried that your food would run out before you got money to buy more. Never true 01/13/2022 Within the past 12 months, t he food you bought just didn't last and you didn't have money to get more. Never true 01/13/2022 Sex Assigned at Date Recorded Male 07/08/2018 10:09 AM EDT Job Start Date Occupation Industry [...] Telephone Encounter - Yusra Humphries RN - 01/16/2023 2:54 PM EDT Call to [facility] to let her know that dark and foul urine does not typically indicate a need for UA. He is likey colonized with bacteria. He wanted to know if they could follow up with patient to see if he has fever, flank pain, Malaise, or AMS or any other s/s infection. Yashira said she did full assessment when she was there and he has no s/s of any infections. Advised to have patient increase fluids. She said she will call family and let them know and to increase fluids. Routed to care team * Telephone Encounter - Yusra Humphries RN - 01/16/2023 12:02 PM EDT Yashira, Nurse with [facility] calling requesting an order for UA/Culture. She goes in monthly for garcia catheter change. She said urine is very dark and has a foul odor. Requesting order. She just changed the catheter and will go back and get specimen. Order to be faxed to [phone] Routed to care team. Yusra Humphries. RN [place] [facility] [place] maintenance [phone] documented in this encounter Plan of Treatment Upcoming Encounters Date Type Specialty Care Team Description 02/08/2023 Home Visit [facility] Awilda York RN [address] [place] [address] 05/01/2023 Cardiac Studies Cardiology [facility], Pacer [facility] [address] [place] [address] Scheduled Orders Name Type Priority Associated Diagnoses Orde r Schedule CULTURE, URINE, QUANTITATIVE Lab Routine Foul smelling urine Expected: 01/17/2023, Expires: 01/17/2024 Health Maintenance Due Date Last Done Comments DXA Scan 1940 COLONOSCOPY-EVERY 2 YRS AGES 18-100 01/08/2011 01/08/2009 [...] Depression Screening 01/13/2023 01/13/2022 HbA1c 01/24/2023 07/25/2022, 2 , 11/01/2021, Additional history exists TSH 03/20/2023 03/20/2022, 08/0 05/2021, 07/26/2021, Additional history exists GFR 05/30/2023 11/27/2022, 07/02, 07/20/2022, Additional history exists CKD HGB USE SMARTSET 33415 07/26/202307/25, 07/25/2022, 07/20/2022, Additional history exists CKD PHOS USE SMARTSET 46954 11/28/202311/01, 06/14/2021, 08/19/2020, Additional history exists DTaP,Tdap,and Td Vaccines (2 - Td or Tdap) 04/25/2024 04/25/2014 Pneumococcal Vaccine: 65+ Years Completed 05/30/2017, 10/18/2006 Zoster Vaccines Completed 11/06/2022, 08/01, 01/13/2022, Additional history exists GARDASIL-HPV IMMUNIZATION SERIES Aged Out No longer eligible based on patient's age to complete this topic Hepatitis B Aged Out No longer eligi ble based on patient's age to complete this [...] Documents on File Type Date Recorded 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 Question Answer Comments Discussion of Advance Directives occurred with: Patient Does the patient have a Living Will? No Does the patient have Health Care Power of Bread Supervisor? No Code Status History Code Status Date Activated Date Inactivated Comments Full Code 08/19/2020 4:29 AM 08/19/2020 6:21 AM This order reflects the patients wishes and were consensually agreed upon. Question Answer Comments Discussion of Advance Directives occurred with: Patient Does the patient have a Living Will? No Does the patient have Health Care Power of Bread Supervisor? No Full Code 06/13/2020 2:24 PM 06/15/2020 7:45 PM This order reflects the patients wishes and were consensually agreed upon. Care Teams Partition Setter Relationship Specialty Start Date End Date Juanito Saba DO [address] [place] [address] PCP - General Family Medicine 04/25/17 documented as of this encounter
--- OUTSIDE RECORDS SUMMARY | 2023-05-13 14:04 | External Medical Summary | Summary of Care ---
Author Name Unknown Organization [facility] Address [address] [facility] [place] [address] Phone [phone] Care Team Providers Care Client Executive Name Role Phone Juanito Saba DO Primary Care Provider [phone] Reason for Visit * Reason Onset Date Comments [facility]: Acute 01/19/2023 Encounter Details Date Type Department Care Team Description 01/19/2023 Telephone [facility], [facility] [address] [facility] [place] [address] [facility], Nurse [facility] [address] [facility] [place] [address] [facility]: Acute Allergies Active Allergy Reactions Severity Noted Date Comments Isopropyl Isostearate 06/13/2020 Headache Isosorbide Nitrate 05/24/2015 headaches Isosorbide Nitrate 06/13/2020 Headache documented as of this encounter (statuses as of 01/19/2023) Medications Medication Sig Dispensed Refills Start Date [...] day E11.9 1 Kit 0 07/12/2020 Active 5appTouch Verio In Vitro Strip (Glucose Blood) Use up to 4 times a day E11.9 100 Strip 11 07/12/2020 Active 5appTouch Delica Lancets 33G Use up to four [...] 90 Tablet 3 03/22/2022 3 Active Nystatin 432693 UNIT/GM External Powder (Nystop)Indications: Cutaneous candidiasis Apply [...] as of this encounter (statuses as of 01/19/2023) Active Problems Problem Noted Date Recurrent UTI [...] disease 019 Coronary artery disease invo lving [place] coronary artery of [place] heart without angina pectoris 04/08/2018 Last Assessment [...] as of this encounter (statuses as of 01/19/2023) Resolved Problems Problem Noted Date Resolved Date [...] as of this encounter (statuses as of 01/19/2023) Immunizations Name Administration Dates Next Due COVID-19 [...] encounter Miscellaneous Notes * Telephone Encounter - Leonor Garcia RN - 01/19/2023 3:32 PM EDT Call placed to the pt's daughter Rere. Made aware of [facility] recommendations. Rere verbalized understanding of same. Scheduled FC calls for the weekend for further followup * Telephone Encounter - Martir Briceno DO - 01/19/2023 2:27 PM EDT If it is currently the light pink urine with some clots, it is reasonable to continue to monitor asthis can take several days to a week to improve after urethral or bladder injury. * Telephone Encounter - Leonor Garcia RN - 01/19/2023 1:53 PM EDT [facility] photoengraver Acute Call Date: 01/19/2023 Time: 1:53 PM Name: Obed Mancini : 1940 Caller: Rere Relationship to pt: daughter Chief Complaint Patient presents with [facility]: Acute HPI: Obed Mancini is a 82 year old male that is calling [facility] to report bleeding from garcia cath. . Nursing Assessment: Patient's chief complaint for this call: Pt's daughter reports that the pt had a HH visit on for a garcia cath change. Noted Sunday evening pt started to have BRB in urine bag, tubing and bleeding from the tip of his penis. Notes that the blood drips from penis when pt stands and daughter also noted blood in pt's brief. Daughter alsonoted blood clots. Pt is on Eliquis. Daughter took pt to the ED at [facility] Sunday night. Daughter reports the ED told her sister that the pt's prostate may have been nicked by the balloon. ED changed garcia, prescribed pt keflex but daughter unaware if pt was dx with a UTI. Daughter notes pt continues to have bleeding with clots. Notes some small clots in the bag. Light pink urine in the tube. Urine in bag dark yellow. Pt denies pain, fever, lightheadedness, dizziness, Chest pain or SOB. Is eating well. Pt was not drinking much but daughter pushing PO fluids. Pain Denies pain Baseline Assessment Able to performing ADLs at baseline (walking, daily tasks, etc.): Yes Chief Complaint is related to a chronic condition: Unknown Patient prescribed oxygen? No Patient has been ordered DME equipment (assistive devices, respiratory equipment, etc.): No Medication Reconciliation: (See medication list) Received flu shot this season: Unknown Taking medication as ordered: Yes Medications ordered/taking to treat reason for call: Yes, PRN medication(s) Keflex Treatment/Plan: (need to report) Level of call: Non-Acute Recommended treatment plan: Clinical advice given over the phone Will send message to the care team to review for recommendations Call back instructions provided to patient. documented in this encounter Plan of Treatment Upcoming Encounters Date Type Specialty Care Team Description 01/20/2023 Scheduled Telephone [facility], Nurse [address] [place] [address] 01/21/2023 Scheduled Telephone [facility], Nurse [facility] [address] [place] [address] 02/08/2023 Home Visit [facility] Awilda York RN [address] [place] [address] 05/01/2023 Cardiac Studies [facility] [address] [place] [address] Health Maintenance Due Date Last Done Comments [...] 11/01/2021, Additional history exists TSH 03/20/2023 03/20/2022, 05/2021, 07/26/2021, Additional history exists GFR 05/30/2023 11/27/2022, 07/02, 07/20/2022, Additional history exists CKD HGB USE SMARTSET 47870 07/26/202307/25, 07/25/2022, 07/20/2022, Additional history exists CKD PHOS USE SMARTSET 02916 11/28/202311/01, 06/14/2021, 08/19/2020, Additional history exists DTaP,Tdap,and [...] Documents on File Type Date Recorded 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 Question Answer Comments Discussion of Advance Directives occurred with: Patient Does the patient have a Living Will? No Does the patient have Health Care Power of Certified Midwife? No Code Status History Code Status Date Activated Date Inactivated Comments Full Code 08/19/2020 4:29 AM 08/19/2020 6:21 AM This order reflects the patients wishes and were consensually agreed upon. Question Answer Comments Discussion of Advance Directives occurred with: Patient Does the patient have a Living Will? No Does the patient have Health Care Power of Certified Midwife? No Full Code 06/13/2020 2:24 PM 06/15/2020 7:45 PM This order reflects the patients wishes and were consensually agreed upon. Care Teams Client Executive Relationship Specialty Start Date End Date Juanito Saba DO [address] [place] [address] PCP - General Family Medicine 04/25/17 documented as of this encounter
--- OUTSIDE RECORDS SUMMARY | 2023-05-13 14:04 | External Medical Summary | Summary of Care ---
Author Name Unknown Organization [facility] Address [address] [facility] [place] [address] Phone [phone] Care Team Providers Care Clarifier Operator Name Role Phone Juanito Saba DO Primary Care Provider [phone] Reason for Visit * Reason Onset Date Comments [facility]: Acute 01/19/2023 Encounter Details Date Type Department Care Team Description 01/19/2023 Telephone [facility], [facility] [address] [facility] [place] [address] [facility], Nurse [facility] [address] [facility] [place] [address] [facility]: Acute Allergies Active Allergy [...] day E11.9 1 Kit 0 07/12/2020 Active Veriana NetworksTouch Verio In Vitro Strip (Glucose Blood) Use up to 4 times a day E11.9 100 Strip 11 07/12/2020 Active Veriana NetworksTouch Delica Lancets 33G Use up to four [...] 90 Tablet 3 03/22/2022 3 Active Nystatin 170143 UNIT/GM External Powder (Nystop)Indications: Cutaneous candidiasis Apply [...] disease 019 Coronary artery disease invo lving [place] coronary artery of [place] heart without angina pectoris 04/08/2018 Last Assessment [...] encounter Miscellaneous Notes * Telephone Encounter - Martir Briceno DO - 01/19/2023 2:27 PM EDT If it is currently the light pink urine with some clots, it is reasonable to continue to monitor asthis can take several days to a week to improve after urethral or bladder injury. * Telephone Encounter - Leonor Garcia RN - 01/19/2023 1:53 PM EDT [facility] razor grinder Acute Call Date: 01/19/2023 Time: 1:53 PM Name: Obed Mancini : 1940 Caller: Rere Relationship to pt: daughter Chief Complaint Patient presents with [facility]: Acute HPI: Obed Mancini is a 82 year old male that is calling [facility] to report bleeding from [...] Daughter took pt to the ED at [facility] Sunday night. 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 Question Answer Comments Discussion of Advance Directives occurred with: Patient Does the patient have a Living Will? No Does the patient have Health Care Power of Fish House Worker? No Code Status History Code Status Date Activated Date Inactivated Comments Full Code 08/19/2020 4:29 AM 08/19/2020 6:21 AM This order reflects the patients wishes and were consensually agreed upon. Question Answer Comments Discussion of Advance Directives occurred with: Patient Does the patient have a Living Will? No Does the patient have Health Care Power of Fish House Worker? No Full Code 06/13/2020 2:24 PM 06/15/2020 7:45 PM This order reflects the patients wishes and were consensually agreed upon. Care Teams Clarifier Operator Relationship Specialty Start Date End Date Juanito Saba DO [address] [place] [address] PCP - General Family Medicine 04/25/17 documented as of this encounter
--- OUTSIDE RECORDS SUMMARY | 2023-05-13 14:04 | External Medical Summary | Summary of Care ---
Author Name Unknown Organization [facility] Address [address] [facility] [place] [address] Phone [phone] Care Team Providers Care Police Investigator Name Role Phone Juanito Saba DO Primary Care Provider Reason for Visit * Reason Onset Date Comments [facility]: Maintenance 01/16/2023 Encounter Details Date Type Department Care Team Description 01/16/2023 Telephone [facility], [facility] [address] [facility] [place] [address] [facility], Nurse [facility] [address] [facility] [place] [address] [facility]: Maintenance Allergies Active Allergy [...] day E11.9 1 Kit 0 07/12/2020 Active CustomerXPs SoftwareTouch Verio In Vitro Strip (Glucose Blood) Use up to 4 times a day E11.9 100 Strip 11 07/12/2020 Active CustomerXPs SoftwareTouch Delica Lancets 33G Use up to four [...] 90 Tablet 3 03/22/2022 3 Active Nystatin 129726 UNIT/GM External Powder (Nystop)Indications: Cutaneous candidiasis Apply [...] disease 019 Coronary artery disease invo lving [place] coronary artery of [place] heart without angina pectoris 04/08/2018 Last Assessment [...] Humphries RN - 01/16/2023 12:02 PM EDT Nurse Yashira with [facility] calling requesting an order for UA/Culture. She goes in monthly for garcia catheter change. She said urine is very dark and has a foul odor. Requesting order. She just changed the catheter and will go back and get specimen. Order to be faxed to [phone] Routed to care team. Yusra Humphries. [facility] services mgr [phone] documented in this encounter Plan of Treatment Upcoming Encounters Date Type Specialty Care Team Description 02/08/2023 Home Visit [facility] Awilda York RN [address] [place] [address] 05/01/2023 [facility]iac Studies [facility] [address] [facility] [place] [address] Scheduled Orders Name Type Priority Associated Diagnoses [...] Additional history exists CKD HGB USE SMARTSET 18870 07/26/202307/25, 07/25/2022, 07/20/2022, Additional history exists CKD PHOS USE SMARTSET 26621 11/28/202311/01, 06/14/2021, 08/19/2020, Additional history exists DTaP,Tdap,and [...] Documents on File Type Date Recorded Patient Head Of Acquisitions Expl anation Advance Directives and Living Will 05/01/2022 ADVANCE DIRECTIVE / LIVING WILL Power of Tea Tree Farmer 05/01/2022 POWER OF A TTORNEY Latest Code Status on File Code Status Date Activated Date Inactivated Comments Full Code 08/19/2020 6:21 AM 08/23/2020 3:20 PM This order reflects the patients wishes and were consensually agreed upon. Question Answer Comments Discussion of Advance Directives occurred with: Patient Does the patient have a Living Will? No Does the patient have Health Care Power of Tea Tree Farmer? No Code Status History Code Status Date Activated Date Inactivated Comments Full Code 08/19/2020 4:29 AM 08/19/2020 6:21 AM This order reflects the patients wishes and were consensually agreed upon. Question Answer Comments Discussion of Advance Directives occurred with: Patient Does the patient have a Living Will? No Does the patient have Health Care Power of Tea Tree Farmer? No Full Code 06/13/2020 2:24 PM 06/15/2020 7:45 PM This order reflects the patients wishes and were consensually agreed upon. Care Teams Police Investigator Relationship Specialty Start Date End Date Juanito Saba DO [address] [place] [address] PCP - General Family Medicine 04/25/17 documented as of this encounter
--- OUTSIDE RECORDS SUMMARY | 2023-05-13 14:04 | External Medical Summary | Summary of Care ---
Author Name Unknown Organization [facility] Address [address] [facility] [place] [address] Phone [phone] Care Team Providers Care Technical Publications Writer Name Role Phone Juanito Saba DO Primary Care Provider [phone] Reason for Visit * Reason Onset Date Comments [facility]: Acute 01/19/2023 Encounter Details Date Type Department Care Team Description 01/19/2023 Telephone [facility], [facility] [address] [facility] [place] [address] [facility], Nurse [facility] [address] [facility] [place] [address] [facility]: Acute Allergies Active Allergy [...] day E11.9 1 Kit 0 07/12/2020 Active TranStar RacingTouch Verio In Vitro Strip (Glucose Blood) Use up to 4 times a day E11.9 100 Strip 11 07/12/2020 Active TranStar RacingTouch Delica Lancets 33G Use up to four [...] 90 Tablet 3 03/22/2022 3 Active Nystatin 514731 UNIT/GM External Powder (Nystop)Indications: Cutaneous candidiasis Apply [...] disease 019 Coronary artery disease invo lving [place] coronary artery of [place] heart without angina pectoris 04/08/2018 Last Assessment [...] Garcia RN - 01/19/2023 1:53 PM EDT [facility] professor of theology Acute Call Date: 01/19/2023 Time: 1:53 PM Name: Obed Mancini : 1940 Caller: Rere Relationship to pt: daughter Chief Complaint Patient presents with [facility]: Acute HPI: Obed Mancini is a 82 year old male that is calling [facility] Int[facility] to report bleeding from [...] Daughter took pt to the ED at [facility] Sunday night. Daughter reports the ED told [...] 02/08/2023 Home Visit [facility] Awilda York, RN [address] [place] [address] 05/01/2023 Cardiac Studies [facility] [address] [place] [address] Health Maintenance Due Date Last Done Comments [...] Additional history exists CKD HGB USE SMARTSET 10128 07/26/202307/25, 07/25/2022, 07/20/2022, Additional history exists CKD PHOS USE SMARTSET 96774 11/28/2023 08/2 10/2022, 06/14/2021, 08/19/2020, Additional history exists DTaP,Tdap,and [...] Documents on File Type Date Recorded 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 Question Answer Comments Discussion of Advance Directives occurred with: Patient Does the patient have a Living Will? No Does the patient have Health Care Power of Sash Clamp Operator? No Code Status History Code Status Date Activated Date Inactivated Comments Full Code 08/19/2020 4:29 AM 08/19/2020 6:21 AM This order reflects the patients wishes and were consensually agreed upon. Question Answer Comments Discussion of Advance Directives occurred with: Patient Does the patient have a Living Will? No Does the patient have Health Care Power of Sash Clamp Operator? No Full Code 06/13/2020 2:24 PM 06/15/2020 7:45 PM This order reflects the patients wishes and were consensually agreed upon. Care Teams Technical Publications Writer Relationship Specialty Start Date End Date Juanito Saba DO [address] [place] [address] PCP - General Family Medicine 04/25/17 documented as of this encounter
--- OUTSIDE RECORDS SUMMARY | 2023-05-13 14:04 | External Medical Summary | Summary of Care ---
Author Name Unknown Organization [facility] Address [address] [facility] [address] Phone [phone] Care Team Providers Care Fourth Hand Name Role Phone Juanito Saba DO Primary Care Provider Reason for Visit * Reason Onset Date Comments [facility]: Maintenance 01/20/2023 Encounter Details Date Type Department Care Team Description 01/20/2023 Scheduled Telephone [facility], [facility] [address] [facility] [place] [address] [facility], Nurse [facility] [address] [facility] [place] [address] Allergies Active Allergy Reactions Severity Noted Date Comments Isopropyl Isostearate 06/13/2020 Headache Isosorbide Nitrate 05/24/2015 headaches Isosorbide Nitrate 06/13/2020 Headache documented as of this encounter (statuses as of 01/20/2023) Medications Medication Sig Dispensed Refills Start Date [...] E11.9 100 Strip 11 07/12/2020 Active OneTouch Delmodu Lancets 33G Use up to four times [...] 90 Tablet 3 03/22/2022 3 Active Nystatin 582805 UNIT/GM External Powder (Nystop)Indications: Cutaneous candidiasis Apply [...] as of this encounter (statuses as of 01/20/2023) Active Problems Problem Noted Date Recurrent UTI [...] disease 019 Coronary artery disease invo lving [place] coronary artery of [place] heart without angina pectoris 04/08/2018 Last Assessment [...] as of this encounter (statuses as of 01/20/2023) Resolved Problems Problem Noted Date Resolved Date [...] as of this encounter (statuses as of 01/20/2023) Immunizations Name Administration Dates Next Due COVID-19 [...] encounter Miscellaneous Notes * Telephone Encounter - Barbi Lemos RN - 01/20/2023 10:28 AM EDT [facility] Telephonic Nurse Follow-Up Call [facility] Subprogram: Focused Care Management (3-9 months) Follow Up Call Type: Weekend Call Acute issue requiring follow-up call: Other: Hematuria post garcia cath change Objective: 01/04/2023 1:02 PM 12/11/2022 1:09 PM 11/23/2022 11:49 AM 10/19/2022 12:08 PM 10/09/2022 9:33 PM VITALS ACROSS ENCOUNTERS BP 120/58 110/64 122/64 108/54 116/68 Pulse 60 60 60 64 61 No results found for: BLOOD, PROTEIN, ESTERASE, WBC, NITRITE, QUANT URINE CULTURE GROWTH No results found for: WBC AUTO - [facility], HGB - [facility], PLATELET AUTO - [facility] Lab Results Component Value Date SODIUM - [facility] 138 11/27/2022 POTASSIUM - [facility] 4.2 11/27/2022 CO2 - [facility] 24 11/27/2022 CREATININE - [facility] 1.4 (H) 11/27/2022 ESTIMATED GLOMERULAR FILTRATION RATE - [facility] 52 (L) 11/27/2022 No results found for: PRO BNP, LEFT VENTRICULAR EJECTION FRACTION Remote Patient Monitoring: NONE Oxygen Needs: NO supplemental oxygen needs identified DME Needs: NO DME needs identified Medications: New medication(s) added: Keflex, ordered at [facility] ED on 01/16 Subjective: Condition Status: [facility] Current Concerns: [facility], message left making aware we were checking to see how patient is doing. Has hematuria decreased ? Is he tolerated antbx. Aware follow up call on for tomorrow, but can call our Triage if having any new or worsening symptoms Disposition: Weekend call scheduled Future Visits Scheduled: Future Appointments-next 60 days Date/Time Provider Specialty Dept Phone 01/20/2023 4:00 PM Nurse [facility] [phone] 01/21/2023 2:30 PM Nurse [facility] [phone] 02/08/2023 12:30 PM [facility] [phone] 05/01/2023 1:00 PM (Arrive by 12:45 PM) [facility] Cardiology [phone] Barbi Lemos, RN documented in this encounter Plan of Treatment Upcoming Encounters Date Type Specialty Care Team Description 01/21/2023 Scheduled Telephone [facility], Nurse [facility] [place] [address] 02/08/2023 Home Visit [facility] Awilda York RN [address] [place] [address] 05/01/2023 [facility] [place] [address] Health Maintenance Due Date Last Done Comments [...] Additional history exists CKD HGB USE SMARTSET 91798 07/26/202307/25, 07/25/2022, 07/20/2022, Additional history exists CKD PHOS USE SMARTSET 28947 11/28/202311/01, 06/14/2021, 08/19/2020, Additional history exists DTaP,Tdap,and [...] Documents on File Type Date Recorded Patient Cath Lab Tech Expl anation Advance Directives and Living Will 05/01/2022 ADVANCE DIRECTIVE / LIVING WILL Power of Manufacturing Accountant 05/01/2022 POWER OF A TTORNEY Latest Code Status on File Code Status Date Activated Date Inactivated Comments Full Code 08/19/2020 6:21 AM 08/23/2020 3:20 PM This order reflects the patients wishes and were consensually agreed upon. Question Answer Comments Discussion of Advance Directives occurred with: Patient Does the patient have a Living Will? No Does the patient have Health Care Power of Manufacturing Accountant? No Code Status History Code Status Date Activated Date Inactivated Comments Full Code 08/19/2020 4:29 AM 08/19/2020 6:21 AM This order reflects the patients wishes and were consensually agreed upon. Question Answer Comments Discussion of Advance Directives occurred with: Patient Does the patient have a Living Will? No Does the patient have Health Care Power of Manufacturing Accountant? No Full Code 06/13/2020 2:24 PM 06/15/2020 7:45 PM This order reflects the patients wishes and were consensually agreed upon. Care Teams Fourth Hand Relationship Specialty Start Date End Date Juanito Saba DO [address] [place] [address] PCP - General Family Medicine 04/25/17 documented as of this encounter
--- OUTSIDE RECORDS SUMMARY | 2023-05-13 14:04 | External Medical Summary | Summary of Care ---
Author Name Unknown Organization [facility] Address [address] [place] [facility] [place] [address] Phone [phone] Care Team Providers Care Doubling Machine Operator Name Role Phone Juanito Saba DO Primary Care Provider [phone] Reason for Visit * Reason Onset Date Comments Encounter Created in Error 01/19/2023 Encounter Details Date Type Department Care Team Description 01/19/2023 Telephone [facility] [place], [facility] [address] [facility] [place] [address] [facility], Nurse [facility] [address] [facility] [address] Encounter Created in Error Allergies Active Allergy Reactions Severity Noted Date [...] E11.9 100 Strip 11 07/12/2020 Active OneTouch DelGloboforce Lancets 33G Use up to four times [...] 90 Tablet 3 03/22/2022 3 Active Nystatin 712278 UNIT/GM External Powder (Nystop)Indications: Cutaneous candidiasis Apply [...] tendonitis, left 08/25/2022 Chronic indwelling Santacruz catheter 2022 Last Assessment & Plan: Changed [...] disease 019 Coronary artery disease invo lving [place] coronary artery of [place] heart without angina pectoris 04/08/2018 Last Assessment [...] Encounter - Leonor Garcia RN - 01/19/2023 3:25 PM EDT Opened in error. documented in this encounter Plan of Treatment Upcoming Encounters Date Type Specialty Care Team Description 01/20/2023 Scheduled Telephone [facility], Nurse [place] [address] [place] [address] 01/21/2023 Scheduled Telephone [facility], [place] [address] [place] [address] 02/08/2023 Home Visit [facility] Awilda York RN [address] [place] [address] 05/01/2023 Cardiac Studies Cardiology [facility] [address] [place] [address] Health Maintenance Due Date Last Done Comments [...] 01/24/2023 07/25/2022, 04, 11/01/2021, Additional history exists TSH 03/20/2023 03/20/2022, 08/0 05/2021, 07/26/2021, Additional history exists GFR 05/30/2023 11/27/2022, 07/02, 07/20/2022, Additional history exists CKD HGB USE SMARTSET 74712 07/26/202307/25, 07/25/2022, 07/20/2022, Additional history exists CKD PHOS USE SMARTSET 03856 11/28/202311/01, 06/14/2021, 08/19/2020, Additional history exists DTaP,Tdap,and [...] Documents on File Type Date Recorded Patient Round Up Ring Hand Expl anation Advance Directives and Living Will 05/01/2022 ADVANCE DIRECTIVE / LIVING WILL Power of Shipyard Laborer 05/01/2022 POWER OF A TTORNEY Latest Code Status on File Code Status Date Activated Date Inactivated Comments Full Code 08/19/2020 6:21 AM 08/23/2020 3:20 PM This order reflects the patients wishes and were consensually agreed upon. Question Answer Comments Discussion of Advance Directives occurred with: Patient Does the patient have a Living Will? No Does the patient have Health Care Power of Shipyard Laborer? No Code Status History Code Status Date Activated Date Inactivated Comments Full Code 08/19/2020 4:29 AM 08/19/2020 6:21 AM This order reflects the patients wishes and were consensually agreed upon. Question Answer Comments Discussion of Advance Directives occurred with: Patient Does the patient have a Living Will? No Does the patient have Health Care Power of Shipyard Laborer? No Full Code 06/13/2020 2:24 PM 06/15/2020 7:45 PM This order reflects the patients wishes and were consensually agreed upon. Care Teams Doubling Machine Operator Relationship Specialty Start Date End Date Juanito Saba DO [address] [place] [address] PCP - General Family Medicine 04/25/17 documented as of this encounter
--- OUTSIDE RECORDS SUMMARY | 2023-05-13 14:04 | External Medical Summary | Summary of Care ---
Author Name Unknown Organization [facility] Address [address] [facility] [place] [address] Phone [phone] Care Team Providers Care Media Sales Consultant Name Role Phone Juanito Saba DO Primary Care Provider Reason for Visit * Reason Onset Date Comments [facility]: Maintenance 01/31/2023 Encounter Details Date Type Department Care Team (Late st Contact Info) Description 01/31/2023 Telephone [facility], [facility] [address] [facility] [place] [address] [facility], Nurse [facility] [address] [place] [address] [facility]: Maintenance Allergies Active Allergy Reactions Criticality Noted Date Comments Isopropyl Isostearate 06/13/2020 Headache Isosorbide Nitrate 05/24/2015 headaches Isosorbide Nitrate 06/13/2020 Headache documented as of this encounter (statuses as of 01/31/2023) Medications Medication Sig Dispensed Refills Start Date [...] and feet 400 g 2 02/19/2019 Active FerevoTouch Verio w/Device Kit Use up to 4 times a day E11.9 1 Kit 0 07/12/2020 Active OneTouch Verio In Vitro Strip (Glucose Blood) Use up to 4 times a day E11.9 100 Strip 11 07/12/2020 Active FerevoTouch Delica Lancets 33G Use up to four [...] 90 Tablet 3 03/22/2022 3 Active Nystatin 269258 UNIT/GM External Powder (Nystop)Indications: Cutaneous candidiasis Apply [...] as of this encounter (statuses as of 01/31/2023) Active Problems Problem Noted Date Diagnosed Date [...] Prevention o Moderate-High Intensity Statin o Aspirin Elwis not check BG at home last hgbA1C [...] as of this encounter (statuses as of 01/31/2023) Resolved Problems Problem Noted Date Diagnosed Date [...] as of this encounter (statuses as of 01/31/2023) Immunizations Name Administration Dates Next Due COVID-19 mRNA, LNP-s, No Pre serve, 2-Dose Series (Moderna) 05/31/2020,04/26/2020 COVID-19, mRNA, LNP-s, PF, B ooster, 100mcg/0.5mg (Moderna) 08/18/2021,03/12/2021 Covid-19, Mrna, Lnp-s, Pf, B ivalent, 30 Mcg, IM, 12 yrs and above ([employer]) 01/02/2022 Pneumococcal Conjugate Vacc, 13 Valent (Prevnar) [...] encounter Miscellaneous Notes * Telephone Encounter - Monko, Charis, RN - 01/31/2023 8:39 AM EDT Antonio called from [facility] stating he received a request to fax paperwork over to [facility] provider [place] fax provided to Antonio juarezhermelinda is listed in care teams however unsure if this paperwork goes to hubert or Dr. Joseph LOVE--please watch for paperwork on patient coming from [facility] and send to appropriate provider. Thank you Charis Cruz RN, BSN [facility] curam developerPhotography Coordinator documented in this encounter Plan of Treatment Upcoming Encounters Date Type Department Care Team (Late st Contact Info) Description 02/08/2023 12:30 PM EST [facility] [email or web address] [place] [address] Awilda York RN [address] [place] [address] 05/01/2023 1:00 PM EST Cardiac Studies Cardiology, [facility] [address] [place] [address] [facility] [address] [place] [address] Health Maintenance Due Date Last Done Comments [...] 11/01/2021, Additional history exists TSH 03/20/2023 03/20/2022, 08/05/2021, 07/26/2021, Additional history exists Diabetic Eye Exam 05/17/2023 05/17/2022, , 06/02/2020, Additional history exists GFR 05/30/2023 11/27/2022, 07/02, 07/20/2022, Additional history exists CKD HGB USE SMARTSET 95524 07/26/202307/25, 07/25/2022, 07/20/2022, Additional history exists CKD PHOS USE SMARTSET 92144 11/28/202311/01, 06/14/2021, 08/19/2020, Additional history exists DTaP,Tdap,and [...] Documents on File Type Date Recorded 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 Question Answer Comments Discussion of Advance Directives occurred with: Patient Does the patient have a Living Will? No Does the patient have Health Care Power of First Responder? No Code Status History Code Status Date Activated Date Inactivated Comments Full Code 08/19/2020 4:29 AM 08/19/2020 6:21 AM This order reflects the patients wishes and were consensually agreed upon. Question Answer Comments Discussion of Advance Directives occurred with: Patient Does the patient have a Living Will? No Does the patient have Health Care Power of First Responder? No Full Code 06/13/2020 2:24 PM 06/15/2020 7:45 PM This order reflects the patients wishes and were consensually agreed upon. Care Teams Media Sales Consultant Relationship Specialty Start Date End Date Juanito Saba DO [address] [place] [address] PCP - General Family Medicine 04/25/17 documented as of this encounter
--- OUTSIDE RECORDS SUMMARY | 2023-05-13 14:04 | External Medical Summary | Summary of Care ---
Author Name Unknown Organization [facility] Address [address] [place] [facility] [place] [address] Phone [phone] Care Team Providers Care Machine Sneller Name Role Phone Juanito Saba DO Primary Care Provider Reason for Visit * Reason Onset Date Comments [facility]: Acute 01/21/2023 Encounter Details Date Type Department Care Team (Late st Contact Info) Description 01/21/2023 2:30 PM EDT Scheduled Telephone [facility], [facility] [address] [facility] [place] [address] [facility], Nurse [facility] [address] [facility] [place] [address] Allergies Active Allergy Reactions Criticality Noted Date Comments Isopropyl Isostearate 06/13/2020 Headache Isosorbide Nitrate 05/24/2015 headaches Isosorbide Nitrate 06/13/2020 Headache documented as of this encounter (statuses as of 01/21/2023) Medications Medication Sig Dispensed Refills Start Date [...] and feet 400 g 2 02/19/2019 Active Liv[employer] RadioTouch Verio w/Device Kit Use up to 4 times a day E11.9 1 Kit 0 07/12/2020 Active OneTouch Verio In Vitro Strip (Glucose Blood) Use up to 4 times a day E11.9 100 Strip 11 07/12/2020 Active [employer] RadioTouch Delica Lancets 33G Use up to four [...] 90 Tablet 3 03/22/2022 3 Active Nystatin 871785 UNIT/GM External Powder (Nystop)Indications: Cutaneous candidiasis Apply [...] as of this encounter (statuses as of 01/21/2023) Active Problems Problem Noted Date Diagnosed Date [...] disease 04/08/2018 Coronary artery disease invo lving [place] coronary artery of [place] heart without angina pectoris 04/08/2018 Last Assessment [...] as of this encounter (statuses as of 01/21/2023) Resolved Problems Problem Noted Date Diagnosed Date [...] as of this encounter (statuses as of 01/21/2023) Immunizations Name Administration Dates Next Due COVID-19 mRNA, LNP-s, No Pre serve, 2-Dose Series (Moderna) 05/31/2020,04/26/2020 COVID-19, mRNA, LNP-s, PF, B ooster, 100mcg/0.5mg (Moderna) 08/18/2021,03/12/2021 Covid-19, Mrna, Lnp-s, Pf, B ivalent, 30 Mcg, IM, 12 yrs and above ([employer]) 01/02/2022 Pneumococcal Conjugate Vacc, 13 Valent (Prevnar) [...] encounter Miscellaneous Notes * Telephone Encounter - Lorie Meyer RN - 01/21/2023 3:52 PM EDT Acute call for recent hematuria from catheter change. Call placed to pt. No answer. LM for return phone call to [facility] intake. documented in this encounter Plan of Treatment Upcoming Encounters Date Type Department Care Team (Late st Contact Info) Description 02/08/2023 12:30 PM EST [facility] [address] [place] [address] Awilda York RN [address] [place] [address] 05/01/2023 1:00 PM EST Cardiac Studies Cardiology, [facility] [address] [place] [address] [place] [address] [place] [address] Health Maintenance Due Date Last Done Comments DXA Scan 1940 Hepatitis B (1 of 3 - Risk 3-dose series) 2000 COLONOSCOPY-EVERY 2 YRS AGES 18-100 01/08/2011 01/08/2009 DIABETES-EYE EXAM 06/09/2022 06/09/2021, , 05/28/2020, Additional history exists Albumin/Creatinine Ratio 07/15/202207/15/2 022, 08/28/2019, 02/26/2019, Additional history exists Diabetic [...] Additional history exists CKD HGB USE SMARTSET 14866 07/26/202307/25, 07/25/2022, 07/20/2022, Additional history exists CKD PHOS USE SMARTSET 23182 11/28/202311/01, 06/14/2021, 08/19/2020, Additional history exists DTaP,Tdap,and [...] Documents on File Type Date Recorded Patient Dough Mixing Machine Operator Expl anation Advance Directives and Living Will 05/01/2022 ADVANCE DIRECTIVE / LIVING WILL Power of Nerve Specialist 05/01/2022 POWER OF A TTORNEY Latest Code Status on File Code Status Date Activated Date Inactivated Comments Full Code 08/19/2020 6:21 AM 08/23/2020 3:20 PM This order reflects the patients wishes and were consensually agreed upon. Question Answer Comments Discussion of Advance Directives occurred with: Patient Does the patient have a Living Will? No Does the patient have Health Care Power of Nerve Specialist? No Code Status History Code Status Date Activated Date Inactivated Comments Full Code 08/19/2020 4:29 AM 08/19/2020 6:21 AM This order reflects the patients wishes and were consensually agreed upon. Question Answer Comments Discussion of Advance Directives occurred with: Patient Does the patient have a Living Will? No Does the patient have Health Care Power of Nerve Specialist? No Full Code 06/13/2020 2:24 PM 06/15/2020 7:45 PM This order reflects the patients wishes and were consensually agreed upon. Care Teams Machine Sneller Relationship Specialty Start Date End Date Juanito Saba DO [address] [place] [address] PCP - General Family Medicine 04/25/17 documented as of this encounter
--- OUTSIDE RECORDS SUMMARY | 2023-05-13 14:04 | External Medical Summary | Summary of Care ---
Author Name Unknown Organization [facility] Address [address] [facility] [address] Phone [phone] Care Team Providers Care Open Hearth Furnace Operator Helper Name Role Phone Juanito Saba DO Primary Care Provider Reason for Visit * Reason Onset Date Comments Encounter Created in Error 01/19/2023 Encounter Details Date Type Department Care Team Description 01/19/2023 Telephone [facility] [place], [facility] [address] [facility] [place] [address] [facility], Nurse [facility] [address] [place] [address] Encounter Created in Error Allergies Active Allergy [...] E11.9 100 Strip 11 07/12/2020 Active OneTouch [employer]le[employer] Lancets 33G Use up to four times [...] 90 Tablet 3 03/22/2022 3 Active Nystatin 036375 UNIT/GM External Powder (Nystop)Indications: Cutaneous candidiasis Apply [...] disease 019 Coronary artery disease invo lving [place] coronary artery of [place] heart without angina pectoris 04/08/2018 Last Assessment [...] Encounter - Leonor Garcia RN - 01/19/2023 3:24 PM EDT Document opened in error documented in this encounter Plan of Treatment Upcoming Encounters Date Type Specialty Care Team Description 01/20/2023 Scheduled Telephone [facility], Nurse [place] [address] [address] [place] [address] 01/21/2023 Scheduled Telephone [facility], [place] [address] [address] [place] [address] 02/08/2023 [facility] Awilda York RN [address] [place] [address] 05/01/[address] [facility] [address] [place] [address] Health Maintenance Due Date Last Done Comments [...] Additional history exists CKD HGB USE SMARTSET 71616 07/26/202307/25, 07/25/2022, 07/20/2022, Additional history exists CKD PHOS USE SMARTSET 69082 11/28/202311/01, 06/14/2021, 08/19/2020, Additional history exists DTaP,Tdap,and [...] Documents on File Type Date Recorded Patient Slice Plug Cutter Operator Expl anation Advance Directives and Living Will 05/01/2022 ADVANCE DIRECTIVE / LIVING WILL Power of Project Manager 05/01/2022 POWER OF A TTORNEY Latest Code Status on File Code Status Date Activated Date Inactivated Comments Full Code 08/19/2020 6:21 AM 08/23/2020 3:20 PM This order reflects the patients wishes and were consensually agreed upon. Question Answer Comments Discussion of Advance Directives occurred with: Patient Does the patient have a Living Will? No Does the patient have Health Care Power of Project Manager? No Code Status History Code Status Date Activated Date Inactivated Comments Full Code 08/19/2020 4:29 AM 08/19/2020 6:21 AM This order reflects the patients wishes and were consensually agreed upon. Question Answer Comments Discussion of Advance Directives occurred with: Patient Does the patient have a Living Will? No Does the patient have Health Care Power of Project Manager? No Full Code 06/13/2020 2:24 PM 06/15/2020 7:45 PM This order reflects the patients wishes and were consensually agreed upon. Care Teams Open Hearth Furnace Operator Helper Relationship Specialty Start Date End Date Juanito Saba DO [address] [place] [address] PCP - General Family Medicine 04/25/17 documented as of this encounter
--- OUTSIDE RECORDS SUMMARY | 2023-05-13 14:05 | External Medical Summary | Summary of Care ---
Author Name Unknown Organization [facility] Address [address] [place] [address] Phone [phone] Care Team Providers Care Electronic Masking System Operator Name Role Phone Juanito Saba DO Primary Care Provider Encounter Details Date Type Department Care Team Description 12/11/2022 Orders Only [facility] [address] [facility] [place] [address] Darryl Ruiz DO [address] [facility] [place] [address] Viral URI* Allergies Active Allergy Reactions Severity Noted Date Comments Isopropyl Isostearate 06/13/2020 Headache Isosorbide Nitrate 05/24/2015 headaches Isosorbide Nitrate 06/13/2020 Headache documented as of this encounter (statuses as of 12/11/2022) Medications Medication Sig Dispensed Refills Start Date [...] 90 Tablet 3 03/22/2022 3 Active Nystatin 017497 UNIT/GM External Powder (Nystop)Indications: Cutaneous candidiasis Apply topically to affected area 3 times a day. Apply to skin fold areas as directed 60 g 1 10/27/2022 Active Apixaban 5 MG Oral Tablet (Eliquis) Take 1 Tablet by mouth in the morning and 1 Tablet before bedtime. 0 Active documented as of this encounter (statuses as of 12/11/2022) Active Problems Problem Noted Date Recurrent UTI [...] CKD protocol Sacral decubitus ulcer, stage II Phimosis 01/17/2021 Hematuria, gross 01/17/2021 Acute on [...] disease 019 Coronary artery disease invo lving [place] coronary artery of [place] heart without angina pectoris 04/08/2018 Last Assessment [...] bypass status 08/13/2006 Chronic ischemic heart disease ADVANCE DIRECTIVE INFORMATION 08/01/2006 Overview: No, Advance Directive brochure given to patient at prior appointment. documented as of this encounter (statuses as of 12/11/2022) Resolved Problems Problem Noted Date Resolved Date [...] as of this encounter (statuses as of 12/11/2022) Immunizations Name Administration Dates Next Due COVID-19 mRNA, LNP-s, No Pre serve, 2-Dose Series (Moderna) 05/31/2020,04/26/2020 COVID-19, mRNA, LNP-s, PF, B ooster, 100mcg/0.5mg (Moderna) 08/18/2021,03/12/2021 Covid-19, Mrna, Lnp-s, Pf, B ivalent, 30 Mcg, IM, 12 yrs and above ([facility]) 01/02/2022 Pneumococcal Conjugate Vacc, 13 Valent (Prevnar) 05/30/2017 Pneumococcal Polysaccharide PPV23 (Pneumovax) 10/18/2006 Seasonal Influenza, PF, 6 mo ns & Above, IM , (Flulaval) 12/29/2019 Seasonal Influenza, Quadriva lent Hd (Fluzone [...] Encounters Date Type Specialty Care Team Description 12/11/2022 [facility] Jennifer Ricci RN [address] [place] [address] 12/12/2022 [facility]uled Telephone [facility] [address] [place] [address] 12/13/2022 Scheduled Telephone [facility], Kinza Bishop [address] [place] [address] 01/04/2023 [facility] Awilda York RN [address] [place] [address] 01/11/2023 Office Visit Cardiology Pavan Cheema PA-C [address] [place] [address] 05/01/2023 [facility] [address] [place] [address] Scheduled Orders Name Type Priority Associated Diagnoses Orde r Schedule RESPIRATORY PATHOGEN PANEL, PCR Lab Routine Viral URI Expected: 12/11/2022 (Approximate), Expires: 12/12/2023 Health Maintenance Due Date Last Done Comments DXA Scan 1940 COLONOSCOPY-EVERY 2 YRS AGES 18-100 01/08/2011 01/08/2009 DIABETES-EYE EXAM 06/09/2022 06/09/2021, , 05/28/2020, Additional history exists Albumin/Creatinine Ratio 07/15/2022 022, 08/28/2019, 02/26/2019, Additional history exists Diabetic Foot Exam 07/15/2022 07/15/2021, 0 05/23/2019, 02/18/2018, Additional history exists Influenza Vaccine (FLU shot) (#1) 2022 12/28/2021, 12/28/2021, 01/13/2021, Additional history exists Depression Screening 01/13/2023 01/13/2022 HbA1c 01/24/2023 07/25/2022, 04/, 11/01/2021, Additional history exists TSH 03/20/2023 03/20/2022, 08/0 05/2021, 07/26/2021, Additional history exists GFR 05/30/2023 11/27/2022, 07/02, 07/20/2022, Additional history exists CKD HGB USE SMARTSET 63128 07/26/202307/25, 07/25/2022, 07/20/2022, Additional history exists CKD PHOS USE SMARTSET 88251 11/28/202311/01, 06/14/2021, 08/19/2020, Additional history exists DTaP,Tdap,and Td Vaccines (2 - Td or Tdap) 04/25/2024 04/25/2014 Pneumococcal Vaccine: 65+ Years Completed 05/30/2017, 10/18/2006 COVID-19 Vaccine Completed 01/02/2022, 05/2021, 08/18/2021, Additional history exists Zoster Vaccines Completed 11/06/2022, 08/01, 01/13/2022, Additional [...] as of this encounter Visit Diagnoses Diagnosis Viral URI- Primary Acute upper respiratory infections of unspecified site documented in this encounter Advance Directives Documents on File Type Date Recorded 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 Question Answer Comments Discussion of Advance Directives occurred with: Patient Does the patient have a Living Will? No Does the patient have Health Care Power of Cargo Trimmer? No Code Status History Code Status Date Activated Date Inactivated Comments Full Code 08/19/2020 4:29 AM 08/19/2020 6:21 AM This order reflects the patients wishes and were consensually agreed upon. Question Answer Comments Discussion of Advance Directives occurred with: Patient Does the patient have a Living Will? No Does the patient have Health Care Power of Cargo Trimmer? No Full Code 06/13/2020 2:24 PM 06/15/2020 7:45 PM This order reflects the patients wishes and were consensually agreed upon. Care Teams Electronic Masking System Operator Relationship Specialty Start Date End Date Juanito Saba DO [address] [place] [address] PCP - General Family Medicine 04/25/17 documented as of this encounter
--- OUTSIDE RECORDS SUMMARY | 2023-05-13 14:05 | External Medical Summary | Summary of Care ---
Author Name Unknown Organization [facility] Address [address] [place] [address] Phone [phone] Care Team Providers Care White Sugar Supervisor Name Role Phone Juanito Saba DO Primary Care Provider Reason for Visit * Reason Comments Outpatient Testing Encounter Details Date Type Department Care Team Description 12/11/2022 Laboratory Laboratory, [place] [address] [place] [address] [place] [address] [place] [address] Viral URI Allergies Active Allergy Reactions Severity Noted Date [...] and feet 400 g 2 02/19/2019 Active TapTrackTouch Verio w/Device Kit Use up to 4 [...] 0 Active Folic Acid 1 MG Oral TabletIndications:Ashkan jackson ischemic heart disease,Aortocoronar y bypass status Take [...] 90 Tablet 3 03/22/2022 3 Active Nystatin 516489 UNIT/GM External Powder (Nystop)Indications: Cutaneous candidiasis Apply [...] 30 Mcg, IM, 12 yrs and above ([employer]) 01/02/2022 Pneumococcal Conjugate Vacc, 13 Valent (Prevnar) [...] Home Jennifer Ricci RN [address] [place] [address] 12/12/2022 Scheduled Telephone [facility] Statement Services RepresentativeKinza [address] [address] 12/13/2022 Scheduled Telephone [facility] Statement Services Representative, Kinza Bishop [address] [place] [address] 01/04/2023 [facility] Awilda York RN [address] [place] [address] 01/11/2023 Office Visit Cardiology Pavan Cheema PA-C [address] [place] [address] 05/01/2023 Cardiac Studies [facility] [address] [place] [address] Pending Results Name Type Priority Associated Diagnoses Date /Time RESPIRATORY PATHOGEN PANEL, PCR Lab Routine Viral URI 12/11/2022 1:30 PM EDT Health Maintenance Due Date Last Done Comments [...] Additional history exists CKD HGB USE SMARTSET 53592 07/26/202307/25, 07/25/2022, 07/20/2022, Additional history exists CKD PHOS USE SMARTSET 38775 11/28/202311/01, 06/14/2021, 08/19/2020, Additional history exists DTaP,Tdap,and [...] of this encounter Visit Diagnoses Diagnosis Viral URI Acute upper respiratory infections of unspecified site documented in this encounter Additional Health Concerns Infection Onset Date Last Indicated Resolved Time Respiratory Rule-Out 12/11/2022 12/11/2022 documented as of this encounter Advance Directives Documents on File Type Date Recorded 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 No Code Status History Code Status Date Activated Date Inactivated Comments Full Code 08/19/2020 4:29 AM 08/19/2020 6:21 AM This order reflects the patients wishes and were consensually agreed upon. Question Answer Comments Discussion of Advance Directives occurred with: Patient Does the patient have a Living Will? No Does the patient have Health Care Power of Bullard Machine Operator? No Full Code 06/13/2020 2:24 PM 06/15/2020 7:45 PM This order reflects the patients wishes and were consensually agreed upon. Care Teams White Sugar Supervisor Relationship Specialty Start Date End Date Juanito Saba DO [address] [place] [address] PCP - General Family Medicine 04/25/17 documented as of this encounter
--- OUTSIDE RECORDS SUMMARY | 2023-05-13 14:05 | External Medical Summary | Summary of Care ---
Author Name Unknown Organization [facility] Address [address] [facility] [place] [address] Phone [phone] Care Team Providers Care Project Mgr Name Role Phone Juanito Saba DO Primary Care Provider Reason for Visit * Reason Onset Date Comments [facility]: Maintenance 12/26/2022 Encounter Details Date Type Department Care Team Description 12/26/2022 Telephone [facility], [facility] [address] [facility] [place] [address] [facility], Nurse [facility] [address] [facility] [place] [address] [facility]: Maintenance Allergies Active Allergy Reactions Severity Noted Date Comments Isopropyl Isostearate 06/13/2020 Headache Isosorbide Nitrate 05/24/2015 headaches Isosorbide Nitrate 06/13/2020 Headache documented as of this encounter (statuses as of 12/26/2022) Medications Medication Sig Dispensed Refills Start Date [...] day E11.9 1 Kit 0 07/12/2020 Active Riva Digital MediaTouch Verio In Vitro Strip (Glucose Blood) Use up to 4 times a day E11.9 100 Strip 11 07/12/2020 Active [employer] Media[employer] Delica Lancets 33G Use up to four [...] 90 Tablet 3 03/22/2022 3 Active Nystatin 515761 UNIT/GM External Powder (Nystop)Indications: Cutaneous candidiasis Apply [...] as of this encounter (statuses as of 12/26/2022) Active Problems Problem Noted Date Recurrent UTI [...] disease 019 Coronary artery disease invo lving [place] coronary artery of [place] heart without angina pectoris 04/08/2018 Last Assessment [...] as of this encounter (statuses as of 12/26/2022) Resolved Problems Problem Noted Date Resolved Date [...] as of this encounter (statuses as of 12/26/2022) Immunizations Name Administration Dates Next Due COVID-19 [...] Telephone Encounter - Barbi Lemos RN - 12/26/2022 8:37 AM EDT Phone call from patient's daughter Gracy Has RNCM coming up next week. Wanted flu [facility], but [facility] and [facility], so no longer needed However, she does wants him to get Covid shot. Added to list Niurka Lemos RN, BSN [facility] Intake Triage Coordinator [phone] documented in this encounter Plan of Treatment Upcoming Encounters Date Type Specialty Care Team Description 01/04/2023 Home Visit [facility] Awilda York RN [address] [place] [address] 01/11/2023 Office Visit Cardiology Pavan Cheema PA-C [address] [place] [address] 05/01/2023 Cardiac Studies Cardiology Valerie Patel [facility] [address] [place] [address] Health Maintenance Due Date Last Done Comments [...] 07/25/2022, 042 , 11/01/2021, Additional history exists TSH 03/20/2023 03/20/2022, 08/0 05/2021, 07/26/2021, Additional history exists GFR 05/30/2023 11/27/2022, 07/02, 07/20/2022, Additional history exists CKD HGB USE SMARTSET 35357 07/26/202307/25, 07/25/2022, 07/20/2022, Additional history exists CKD PHOS USE SMARTSET 32627 11/28/202311/01, 06/14/2021, 08/19/2020, Additional history exists DTaP,Tdap,and [...] Documents on File Type Date Recorded 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 Question Answer Comments Discussion of Advance Directives occurred with: Patient Does the patient have a Living Will? No Does the patient have Health Care Power of Platform Loader? No Code Status History Code Status Date Activated Date Inactivated Comments Full Code 08/19/2020 4:29 AM 08/19/2020 6:21 AM This order reflects the patients wishes and were consensually agreed upon. Question Answer Comments Discussion of Advance Directives occurred with: Patient Does the patient have a Living Will? No Does the patient have Health Care Power of Platform Loader? No Full Code 06/13/2020 2:24 PM 06/15/2020 7:45 PM This order reflects the patients wishes and were consensually agreed upon. Care Teams Project Mgr Relationship Specialty Start Date End Date Juanito Saba DO [address] [place] [address] PCP - General Family Medicine 04/25/17 documented as of this encounter
--- OUTSIDE RECORDS SUMMARY | 2023-05-13 14:05 | External Medical Summary | Summary of Care ---
Author Name Unknown Organization [facility] Address [address] [facility] [address] Phone [phone] Care Team Providers Care Logistics Loss Prevention Manager Name Role Phone Juanito Saba DO Primary Care Provider Reason for Visit * Reason Comments [facility]: Acute Encounter Details Date Type Department Care Team Description 12/11/2022 Home Visit [facility], [facility] [address] [place] [address] Jennifer Ricci RN [address] [place] [address] Allergies Active Allergy Reactions Severity Noted Date [...] Active Folic Acid 1 MG Oral TabletIndications:Ashkan ayoubic ischemic heart disease,Aortocoronar y bypass status Take [...] 90 Tablet 3 03/22/2022 3 Active Nystatin 632082 UNIT/GM External Powder (Nystop)Indications: Cutaneous candidiasis Apply [...] disease 019 Coronary artery disease invo lving [place] coronary artery of [place] heart without angina pectoris 04/08/2018 Last Assessment [...] Sign Reading Time Taken Comments Blood Pressure 110/64 12/11/2022 1:09 PM EDT Pulse 60 12/11/2022 1:09 PM EDT Temperature 36.6 C (97.9 F) 12/11/2022 1:09 PM ED T Respiratory Rate 18 12/11/2022 1:09 PM EDT Oxygen Saturation 98% 12/11/2022 1:09 PM EDT Inhaled Oxygen Concentration - - Weight - [...] as of this encounter Progress Notes * Jennifer Ricci RN - 12/11/2022 10:46 AM EDT [facility] Airworthiness Safety InspectorTelecommunications Cable Jointer Visit Date: 12/11/2022 Time: 1:46 PM Name: Obed Mancini : 1940 Current Concerns: Communication Note Name: Obed Mancini Situation: Pt's dtr called in to report pt started with increased SOB, weakness, cough over the weekend - was exposed to a caregiver who was diagnosed with a viral respiratory infection Pt reports his SOB occurs more at night Cough with mucus but pt unsure what color - cough is frequent Using prn Albuterol inhaler 3-4x a day Taking coricidin hbp - started this am Background: 82 y/o male with PMH of Anemia, CKD, CHF, Afib, CKD and DM. Pacemaker, recurrent UTI with an indwelling garcia cath. Assessment: + frequent cough, no mucus expectorated Lungs clear bilaterally + rhinorrhea, clear Denies sore throat Denies sinus pressure/pain or headaches No BLE edema or abdominal bloating BP 110/64 | Pulse 60 | Temp 36.6 C (97.9 F) | Resp 18 | SpO2 98% Recommendation: [place] [facility] [place] Respiratory pathogen panel - Nasopharyngeal swab done and taken to [facility] Problems/Symptoms: Review of Systems Constitutional: Positive for fatigue. HENT: Positive for congestion and rhinorrhea. Eyes: Negative. Respiratory: Positive for cough (frequent, mucus but unsure of color) and shortness of breath (worse at night). Cardiovascular: Negative. Gastrointestinal: Negative. Endocrine: Negative. Genitourinary: Negative. Musculoskeletal: Positive for arthralgias and gait problem. Neurological: Positive for weakness. Physical Exam: BP 110/64 | Pulse 60 | Temp 36.6 C (97.9 F) | Resp 18 | SpO2 98% Pain 0 Physical Exam Constitutional: General: He is not in acute distress. Cardiovascular: Rate and Rhythm: Normal rate and regular rhythm. Pulses: Normal pulses. Heart sounds: Normal heart sounds. Pulmonary: Effort: Pulmonary effort is normal. Breath sounds: Normal breath sounds. Abdominal: General: Bowel sounds are normal. Palpations: Abdomen is soft. Skin: General: Skin is warm and dry. Neurological: Mental Status: He is alert and oriented to person, place, and time. [facility] Completed this Visit: Yes. [facility]: Reason Completed: Status post acute event/change in baseline [facility] Interventions: Fall education provided, reviewed/provided Fall brochure Treatment/Plan: Coricidin hpb as needed Mucinex every 12 hrs prn Fluids encouraged Ok to use emil vaporub Resp pathogen swab taken to [facility] 24 and 48 hr f/u calls scheduled Home Interventions Provided: Home Intervention: Other; eval Consulted PCP/Specialist Reinforced current Plan of Care, including self-management and medication regimen Patient's 'Red Flags': Increased SOB fever Yellow or green sputum Patient Needs to Remember: Call [facility] at with any new or worsening health concerns or problems, red flag symptoms. Referrals Needed: Other none Follow Up: Is there cellular connectivity/connectivity in the home? Yes Does the patient have internet in the home? No Patient encouraged to call the intake phone number for all urgent but not emergent issues. Scheduled to follow up with patient in 24 and 48 hrs. Jennifer Ricci RN 12/11/2022 1:46 PM documented in this encounter Plan of Treatment Upcoming Encounters Date Type Specialty Care Team Description 12/12/2022 Scheduled Telephone [facility] Steam Plant Records Clerk, [facility] [address] [address] 12/13/2022 Scheduled Telephone [facility] Steam Plant Records Clerk, [facility] [address] [address] 01/04/2023 Home Visit [facility] Awilda York RN [address] [address] 01/11/2023 Office Visit Cardiology Pavan Cheema PA-C [address] [place] [address] 05/01/2023 Cardiac Studies Cardiology [facility] [address] [place] [address] Health Maintenance Due Date Last Done Comments [...] Additional history exists CKD HGB USE SMARTSET 08030 07/26/202307/25, 07/25/2022, 07/20/2022, Additional history exists CKD PHOS USE SMARTSET 46540 11/28/2023 082 10/2022, 06/14/2021, 08/19/2020, Additional history [...] Not on filedocumented as of this encounter Additional Health Concerns Infection Onset Date Last Indicated Resolved Time Respiratory Rule-Out 12/11/2022 12/11/2022 documented as of this encounter Advance Directives Documents on File Type Date Recorded Patient Chair Frame Builder Expl anation Advance Directives and Living Will 05/01/2022 ADVANCE DIRECTIVE / LIVING WILL Power of Chemical Waste Management Technician 05/01/2022 POWER OF A TTORNEY Latest Code Status on File Code Status Date Activated Date Inactivated Comments Full Code 08/19/2020 6:21 AM 08/23/2020 3:20 PM This order reflects the patients wishes and were consensually agreed upon. Question Answer Comments Discussion of Advance Directives occurred with: Patient Does the patient have a Living Will? No Does the patient have Health Care Power of Chemical Waste Management Technician? No Code Status History Code Status Date Activated Date Inactivated Comments Full Code 08/19/2020 4:29 AM 08/19/2020 6:21 AM This order reflects the patients wishes and were consensually agreed upon. Question Answer Comments Discussion of Advance Directives occurred with: Patient Does the patient have a Living Will? No Does the patient have Health Care Power of Chemical Waste Management Technician? No Full Code 06/13/2020 2:24 PM 06/15/2020 7:45 PM This order reflects the patients wishes and were consensually agreed upon. Care Teams Logistics Loss Prevention Manager Relationship Specialty Start Date End Date Juanito Saba DO [address] [place] [address] PCP - General Family Medicine 04/25/17 documented as of this encounter
--- OUTSIDE RECORDS SUMMARY | 2023-05-13 14:05 | External Medical Summary | Summary of Care ---
Author Name Unknown Organization [facility] Address [address] [facility] [place] [address] Phone [phone] Care Team Providers Care Potato Chip Processing Supervisor Name Role Phone Juanito Saba DO Primary Care Provider [phone] Reason for Visit * Reason Onset Date Comments [facility]: Maintenance 12/12/2022 Encounter Details Date Type Department Care Team Description 12/12/2022 Scheduled Telephone [facility], [facility] [address] [facility] [place] [address] Coordinator, [facility] [address] [facility] [place] [address] Allergies Active Allergy Reactions Severity Noted Date Comments Isopropyl Isostearate 06/13/2020 Headache Isosorbide Nitrate 05/24/2015 headaches Isosorbide Nitrate 06/13/2020 Headache documented as of this encounter (statuses as of 12/12/2022) Medications Medication Sig Dispensed Refills Start Date [...] E11.9 100 Strip 11 07/12/2020 Active OneTouch [employer] Lancets 33G Use up to four times [...] 90 Tablet 3 03/22/2022 3 Active Nystatin 581892 UNIT/GM External Powder (Nystop)Indications: Cutaneous candidiasis Apply topically to affected area 3 times a day. Apply to skin fold areas as directed 60 g 1 10/27/2022 Active Apixaban 5 MG Oral Tablet (Eliquis) Take 1 Tablet by mouth in the morning and 1 Tablet before bedtime. 0 Active documented as of this encounter (statuses as of 12/12/2022) Active Problems Problem Noted Date Recurrent UTI [...] disease 019 Coronary artery disease invo lving [place] coronary artery of [place] heart without angina pectoris 04/08/2018 Last Assessment [...] as of this encounter (statuses as of 12/12/2022) Resolved Problems Problem Noted Date Resolved Date [...] as of this encounter (statuses as of 12/12/2022) Immunizations Name Administration Dates Next Due COVID-19 [...] Telephone Encounter - Leonor Garcia RN - 12/12/2022 4:12 PM EDT [facility] Telephonic Nurse Follow-Up Call [facility] Subprogram: Focused Care Management (3-9 months) Follow Up Call Type: 24 hour follow up Acute issue requiring follow-up call: Other: URI Objective: 12/11/2022 1:09 PM 11/23/2022 11:49 AM 10/19/2022 12:08 PM 10/09/2022 9:33 PM 09/14/2022 11:24 AM [facility]OSS ENCOUNTERS BP 110/64 122/64 108/54 116/68 118/58 Pulse 60 60 64 61 64 No results found for: BLOOD, PROTEIN, ESTERASE, [...] needs identified DME Needs: NO DME needs identified[facility] Ordered yesterday Medications: New medication(s) added: OTC coricidin Subjective: Condition Status: Improvement in symptoms but not at baseline Current Concerns: Daughter reports that the pt continues to URI symptoms pt no better or worse than yesterday. Daughter denies SOB, O2 sats in the 90's on RA. Pt has a persistent chesty cough with clear phlegm. Runny nose with clear drainage. Afebrile. Disposition: Follow up call scheduled for tomorrow with ASSISTANT PASSENGER LOCOMOTIVE ENGINEER Food Service Assistant Future Visits Scheduled: Future Appointments-next 60 days Date/Time Provider Specialty Dept Phone 12/13/2022 10:00 AM [facility] Food Service Assistant [facility] [phone] 01/04/2023 12:30 PM Awilda York, [place] [phone] 01/11/2023 11:00 AM (Arrive by 10:45 AM) Pavan Cheema PA-C Cardiology [phone] 05/01/2023 1:00 PM (Arrive by 12:45 PM) [facility] Cardiology [phone] Leonor T Jose, RN documented in this encounter Plan of Treatment Upcoming Encounters Date Type Specialty Care Team Description 12/13/2022 Scheduled Telephone [facility] Resident Advisor, Kinza Bishop [address] [place] [address] 01/04/2023 Home Visit [facility] Awilda York RN [address] [place] [address] 01/11/2023 Office Visit Cardiology Pavan Cheema PA-C [address] [place] [address] 05/01/2023 Cardiac Studies Cardiology Valerie Patel [facility] [address] [place] [address] Health Maintenance Due Date Last Done Comments [...] Additional history exists CKD HGB USE SMARTSET 34550 07/26/202307/25, 07/25/2022, 07/20/2022, Additional history exists CKD PHOS USE SMARTSET 93900 11/28/202311/01, 06/14/2021, 08/19/2020, Additional history exists DTaP,Tdap,and [...] Documents on File Type Date Recorded Patient Web Feeder Expl anation Advance Directives and Living Will 05/01/2022 ADVANCE DIRECTIVE / LIVING WILL Power of Horticultural Nursery Assistant 05/01/2022 POWER OF A TTORNEY Latest Code Status on File Code Status Date Activated Date Inactivated Comments Full Code 08/19/2020 6:21 AM 08/23/2020 3:20 PM This order reflects the patients wishes and were consensually agreed upon. Question Answer Comments Discussion of Advance Directives occurred with: Patient Does the patient have a Living Will? No Does the patient have Health Care Power of Horticultural Nursery Assistant? No Code Status History Code Status Date Activated Date Inactivated Comments Full Code 08/19/2020 4:29 AM 08/19/2020 6:21 AM This order reflects the patients wishes and were consensually agreed upon. Question Answer Comments Discussion of Advance Directives occurred with: Patient Does the patient have a Living Will? No Does the patient have Health Care Power of Horticultural Nursery Assistant? No Full Code 06/13/2020 2:24 PM 06/15/2020 7:45 PM This order reflects the patients wishes and were consensually agreed upon. Care Teams Potato Chip Processing Supervisor Relationship Specialty Start Date End Date Juanito Saba DO [address] [place] [address] PCP - General Family Medicine 04/25/17 documented as of this encounter
--- OUTSIDE RECORDS SUMMARY | 2023-05-13 14:05 | External Medical Summary | Summary of Care ---
Author Name Unknown Organization [facility] Address [address] [facility] [place] [address] Phone [phone] Care Team Providers Care Sand Cutting Machine Operator Name Role Phone Juanito Saba DO Primary Care Provider Reason for Visit * Reason Onset Date Comments [facility]: Acute 12/11/2022 Encounter Details Date Type Department Care Team Description 12/11/2022 Telephone [facility], [facility] [address] [facility] [place] [address] [facility], Nurse [facility] 132 [facility] [place] [address] [facility]: Acute Allergies Active Allergy [...] day E11.9 1 Kit 0 07/12/2020 Active [employer]Touch Verio In Vitro Strip (Glucose Blood) Use up to 4 times a day E11.9 100 Strip 11 07/12/2020 Active [employer] Delica Lancets 33G Use up to four [...] 90 Tablet 3 03/22/2022 3 Active Nystatin 854559 UNIT/GM External Powder (Nystop)Indications: Cutaneous candidiasis Apply [...] disease 019 Coronary artery disease invo lving [place] coronary artery of [place] heart without angina pectoris 04/08/2018 Last Assessment [...] Telephone Encounter - Leonor Garcia RN - 12/11/2022 3:26 PM EDT Call placed to the pt's daughter Rere. Made aware of [facility] recommendations. Offered to have [facility] provider to order albuterol. D[facility] states [facility]. States that if the pt worsens overnight will call back and have a script sent to a local pharmacy and not wait for [facility] shipment. Pt scheduled for a call back tomorrow to f/u on respiratory panel results. * Addendum Note - Tello Ann PA-C - 12/11/2022 1:25 PM EDTAddended by: TELLO ANN on: 12/11/2022 01:25 PM Modules accepted: Orders * Telephone Encounter - Tello Ann PA-C - 12/11/2022 1:14 PM EDT [facility] Remote Medical Command Phone Encounter Thank you for your assistance in the care of this patient today. My apologies, I cannot find where this patient stout of had an rx Recommendations: Can we please assist this patient with getting his [facility]erol prescription of the [facility] And we get a nasal swab for possible Flu and /or COVID-19 Follow-up phone call 24 and 48 hour This note was prepared with the help of fluency and if there is any mis-spelled words , sentences or something which doesn't represent the content of the subject that could be technical error and please refer to the author for clarification. * Telephone Encounter - Leonor Garcia RN - 12/11/2022 9:44 AM EDT Communication Note Name: Obed Mancini Situation: 82 yr old pt lives in [place]. Increased SOB, cough and extreme weakness. Started over the weekend. Exposed to a friend who was dx with a viral flu. Background: PMH of Anemia, CKD, CHF, Afib, CKD and DM. Pacemaker, recurrent UTI with an indwelling garcia cath. Assessment: pt's daughter reports that the pt is extremely weak. Has been sick with flu like symptoms for the last couple of days and is worsening. SOB at rest. Has a persistent relentless non productive cough. No eating at all due to cough, is drinking fluids though and family has been pushing fluids on pt. Did not do a home covid test on the pt but friend who was sick tested negative for covid. Pt is afebrile. Does not have a pulse ox available. [facility] Is ordered an albuterol inhaler but it is out and they have not been able to get a refill from the [facility]. Family went and got OTC primitine mist over the weekend. Recommendation: home visit today [facility] director weights and measures Acute Call Date: 12/11/2022 Time: 9:44 AM Name: Obed Mancini : 1940 Caller: Rere Relationship to pt: daughter Chief Complaint Patient presents with [facility]: Acute HPI: Obed Mancini is a 82 year old old male that is calling [facility] to report cold andflu symptoms. Nursing Assessment: Patient's chief complaint for this call: Started over the weekend. Exposed to a friend who was dx with a viral flu. Background: PMH of Anemia, CKD, CHF, Afib, CKD and DM. Pacemaker, recurrent UTI with an indwelling garcia cath. Assessment: pt's daughter reports that the pt is extremely weak. Has been sick with flu like symptoms for the last couple of days and is worsening. SOB at rest. Has a persistent relentless non productive cough. No eating at all due to cough, is drinking fluids though and family has been pushing fluids on pt. Did not do a home covid test on the pt but friend who was sick tested negative for covid. Pt is afebrile. Does not have a pulse ox available. [facility] Is ordered an albuterol inhaler but it is out and they have not been able to get a refill [facility] the [facility]. Family went and got OTC primitine mist over the weekend. Pain Denies pain Baseline Assessment Able to performing ADLs at baseline (walking, daily tasks, etc.): No Chief Complaint is related to a chronic condition: No Patient prescribed oxygen? No Patient has been ordered DME equipment (assistive devices, respiratory equipment, etc.): No Medication Reconciliation: (See medication list) Received flu shot this season: No Taking medication as ordered: Yes Medications ordered/taking to treat reason for call: Yes, PRN medication(s) OTC primitine inhaler Heart failure symptoms: No COPD exacerbation symptoms: No Treatment/Plan: (need to report) Level of call: Acute Appointment scheduled for same day: Yes Furniture Sprayer Provider Name: TBD Call back instructions provided to patient. documented in this encounter Plan of Treatment Upcoming Encounters Date Type Specialty Care Team Description 12/11/2022 Home Visit [facility] Jennifer Ricci RN [address] [place] [address] 12/12/2022 Scheduled Telephone [facility] [place], [facility] [address] [place] [address] 12/13/2022 Scheduled Telephone [facility] [place], [facility] [address] [place] [address] 01/04/2023 Home Visit [facility] Awilda York RN [address] [place] [address] 01/11/2023 Office Visit Cardiology Pavan Cheema PA-C [address] [place] [address] 05/01/2023 Cardiac Studies Cardiology [place], [facility] [address] [place] [address] Scheduled Orders Name Type Priority Associated Diagnoses Orde r Schedule RESPIRATORY PATHOGEN PANEL, PCR Lab Routine Viral upper respiratory tract infection Expected: 12/11/2022 (Approximate), Expires: 12/11/2023 Health Maintenance Due Date Last Done Comments [...] Additional history exists CKD HGB USE SMARTSET 08007 07/26/202307/25, 07/25/2022, 07/20/2022, Additional history exists CKD PHOS USE SMARTSET 11223 11/28/202311/01, 06/14/2021, 08/19/2020, Additional history exists DTaP,Tdap,and [...] of this encounter Visit Diagnoses Diagnosis Viral upper respiratory tract infection- Primary Acute upper respiratory infections of unspecified site documented in this encounter Additional Health Concerns Infection Onset Date Last Indicated Resolved Time Respiratory Rule-Out 12/11/2022 12/11/2022 documented as of this encounter Advance Directives Documents on File Type Date Recorded Patient Machine Try Out Setter Expl anation Advance Directives and Living Will 05/01/2022 ADVANCE DIRECTIVE / LIVING WILL Power of Near East Archeology Professor 05/01/2022 POWER OF A TTORNEY Latest Code Status on File Code Status Date Activated Date Inactivated Comments Full Code 08/19/2020 6:21 AM 08/23/2020 3:20 PM This order reflects the patients wishes and were consensually agreed upon. Question Answer Comments Discussion of Advance Directives occurred with: Patient Does the patient have a Living Will? No Does the patient have Health Care Power of Near East Archeology Professor? No Code Status History Code Status Date Activated Date Inactivated Comments Full Code 08/19/2020 4:29 AM 08/19/2020 6:21 AM This order reflects the patients wishes and were consensually agreed upon. Question Answer Comments Discussion of Advance Directives occurred with: Patient Does the patient have a Living Will? No Does the patient have Health Care Power of Near East Archeology Professor? No Full Code 06/13/2020 2:24 PM 06/15/2020 7:45 PM This order reflects the patients wishes and were consensually agreed upon. Care Teams Sand Cutting Machine Operator Relationship Specialty Start Date End Date Juanito Saba DO [address] [place] [address] PCP - General Family Medicine 04/25/17 documented as of this encounter
--- OUTSIDE RECORDS SUMMARY | 2023-05-13 14:05 | External Medical Summary | Summary of Care ---
Author Name Unknown Organization [facility] Address [address] [place] [facility] [place] [address] Phone [phone] Care Team Providers Care Exchange Architect Name Role Phone Juanito Saba DO Primary Care Provider [phone] Encounter Details Date Type Department Care Team Description 01/04/2023 [facility] Visit [facility], [facility] [place] [address] Awilda Yokr, [place] [address] [place] [address] Allergies Active Allergy Reactions Severity Noted Date Comments Isopropyl Isostearate 06/13/2020 Headache Isosorbide Nitrate 05/24/2015 headaches Isosorbide Nitrate 06/13/2020 Headache documented as of this encounter (statuses as of 01/04/2023) Medications Medication Sig Dispensed Refills Start Date [...] 90 Tablet 3 03/22/2022 3 Active Nystatin 679126 UNIT/GM External Powder (Nystop)Indications: Cutaneous candidiasis Apply [...] as of this encounter (statuses as of 01/04/2023) Active Problems Problem Noted Date Recurrent UTI [...] disease 019 Coronary artery disease invo lving [place] coronary artery of swinom[place] heart without angina pectoris 04/08/2018 Last Assessment [...] as of this encounter (statuses as of 01/04/2023) Resolved Problems Problem Noted Date Resolved Date [...] as of this encounter (statuses as of 01/04/2023) Immunizations Name Administration Dates Next Due COVID-19 [...] Sign Reading Time Taken Comments Blood Pressure 120/58 01/04/2023 1:02 PM EDT Pulse 60 01/04/2023 1:02 PM EDT Temperature 36.6 C (97.9 F) 01/04/2023 1:02 PM ED T Respiratory Rate 18 01/04/2023 1:02 PM EDT Oxygen Saturation 95% 01/04/2023 1:02 PM EDT Inhaled Oxygen Concentration - - [...] Progress Notes * Awilda York RN - 01/04/2023 12:42 PM EDT [facility] Supply Controller Visit Date: 01/04/2023 Time: 12:43 PM Name: Obed Mancini : 1940 Current Concerns: Patient seen for follow up- Anemia, CKD, CHF, Afib, CKD, DM2, h/o UTI [facility] changes catheter monthly- due to be changed in two weeks per daughter. VS wnl Lungs clear bilaterally Sob with exertion No LE edema noted Santacruz intact and draining clear yellow urine- Bowels wnl- per report Appetite good Push fluids Buttocks excoriation- A&D ointment and zinc oxide. Denies discomfort Problems/Symptoms: Review of Systems Constitutional: Negative. HENT: Negative. Eyes: Negative. Respiratory: Positive for shortness of breath. Cardiovascular: Negative. Gastrointestinal: Negative. Endocrine: Negative. Genitourinary: Negative. Musculoskeletal: Negative. Allergic/Immunologic: Negative. Neurological: Negative. Hematological: Negative. Psychiatric/Behavioral: Negative. Physical Exam: BP 120/58 (BP Site: Right Arm, BP Position: Sitting, BP Cuff Size: Regular) | Pulse 60 | Temp 36.6 C (97.9 F) (Tympanic) | Resp 18 | SpO2 95% Pain 0 Physical Exam Constitutional: Appearance: Normal appearance. Cardiovascular: Rate and Rhythm: Normal rate and regular rhythm. Pulses: Normal pulses. Heart sounds: Normal heart sounds. Pulmonary: Effort: Pulmonary effort is normal. Abdominal: General: Bowel sounds are normal. Palpations: Abdomen is soft. Musculoskeletal: General: Normal range of motion. Skin: General: Skin is warm and dry. Capillary Refill: Capillary refill takes 2 to 3 seconds. Neurological: General: No focal deficit present. Mental Status: He is alert and oriented to person, place, and time. Mental status is at baseline. [facility] Completed this Visit: No. Routine visit Treatment/Plan: Fluids encouraged Continue medications as prescribed Keep all upcoming MD appointments Fall precautions- walker Caregivers daily- daughter/family friend RN CM follow up in 5 weeks Home Interventions Provided: Reinforced current Plan of Care, including self-management and medication regimen Patient Needs to Remember: Call [facility] with any medical concerns/ red flags Referrals Needed: N/a Follow Up: Is there cellular connectivity/connectivity in the home? Yes Does the patient have internet in the home? No Patient encouraged to call the intake phone number for all urgent but not emergent issues. Scheduled to follow up with patient in 5 weeks. Awilda Frances RN 01/04/2023 12:43 PM documented in this encounter Plan of Treatment Upcoming Encounters Date Type Specialty Care Team Description 02/08/2023 Home Visit [facility] Awilda York RN [address] [place] [address] 05/01/2023 Cardiac Studies [facility] [address] [place] [address] Health Maintenance Due Date Last Done Comments [...] Additional history exists CKD HGB USE SMARTSET 01382 07/26/202307/25, 07/25/2022, 07/20/2022, Additional history exists CKD PHOS USE SMARTSET 33888 11/28/202311/01, 06/14/2021, 08/19/2020, Additional history exists DTaP,Tdap,and [...] Documents on File Type Date Recorded Patient Last Picker Expl anation Advance Directives and Living Will 05/01/2022 ADVANCE DIRECTIVE / LIVING WILL Power of Pillowcase Cutter 05/01/2022 POWER OF A TTORNEY Latest Code Status on File Code Status Date Activated Date Inactivated Comments Full Code 08/19/2020 6:21 AM 08/23/2020 3:20 PM This order reflects the patients wishes and were consensually agreed upon. Question Answer Comments Discussion of Advance Directives occurred with: Patient Does the patient have a Living Will? No Does the patient have Health Care Power of Pillowcase Cutter? No Code Status History Code Status Date Activated Date Inactivated Comments Full Code 08/19/2020 4:29 AM 08/19/2020 6:21 AM This order reflects the patients wishes and were consensually agreed upon. Question Answer Comments Discussion of Advance Directives occurred with: Patient Does the patient have a Living Will? No Does the patient have Health Care Power of Pillowcase Cutter? No Full Code 06/13/2020 2:24 PM 06/15/2020 7:45 PM This order reflects the patients wishes and were consensually agreed upon. Care Teams Exchange Architect Relationship Specialty Start Date End Date Juanito Saba DO [address] [place] [address] PCP - General Family Medicine 04/25/17 documented as of this encounter
--- OUTSIDE RECORDS SUMMARY | 2023-05-13 14:05 | External Medical Summary | Summary of Care ---
Author Name Unknown Organization [facility] Address [address] [facility] [place] [address] Phone [phone] Care Team Providers Care Gallery Manager Name Role Phone Juanito Saba DO Primary Care Provider [phone] Reason for Visit * Reason Onset Date Comments [facility]: Acute 12/11/2022 Encounter Details Date Type Department Care Team Description 12/11/2022 Telephone [facility], [facility] 132 [facility] [place] [address] [facility], Nurse [facility] 132 [facility] [place] [address] [facility]: Acute Allergies Active Allergy [...] day E11.9 1 Kit 0 07/12/2020 Active [employer] Verio In Vitro Strip (Glucose Blood) Use up to 4 times a day E11.9 100 Strip 11 07/12/2020 Active [employer] Delica Lancets 33G Use up to four [...] 90 Tablet 3 03/22/2022 3 Active Nystatin 018405 UNIT/GM External Powder (Nystop)Indications: Cutaneous candidiasis Apply [...] disease 019 Coronary artery disease invo lving [place] coronary artery of [place] heart without angina pectoris 04/08/2018 Last Assessment [...] Situation: 82 yr old pt lives in [place]. Increased SOB, cough and extreme weakness. Started [...] over the weekend. Recommendation: home visit today [facility] borematic machine operator Acute Call Date: 12/11/2022 Time: 9:44 AM Name: Obed Mancini : 1940 Caller: Rere Relationship to pt: daughter Chief Complaint Patient presents with [facility]: Acute HPI: Obed Mancini is a 82 year old old male that is calling [facility] to report cold andflu [...] Appointment scheduled for same day: Yes Furniture Assembly Supervisor Provider Name: TBD Call back instructions provided to patient. documented in this encounter Plan of Treatment Upcoming Encounters Date Type Specialty Care Team Description 12/11/2022 Home Visit [facility] Jennifer Ricci RN [address] [place] [address] 12/12/2022 Scheduled Telephone [facility], [facility] [address] [place] [address] 12/13/2022 Scheduled Telephone [facility], [facility] [address] [place] [address] 01/04/2023 Home Visit [facility] Awilda York, RN [address] [place] [address] 01/11/2023 Office Visit Cardiology Pavan Cheema PA-C [address] [place] [address] 05/01/2023 Cardiac Studies Cardiology Valerie Patel [facility] [address] [place] [address] Scheduled Orders Name Type Priority Associated Diagnoses [...] Additional history exists CKD HGB USE SMARTSET 77496 07/26/202307/25, 07/25/2022, 07/20/2022, Additional history exists CKD PHOS USE SMARTSET 72282 11/28/202311/01, 06/14/2021, 08/19/2020, Additional history exists DTaP,Tdap,and [...] Documents on File Type Date Recorded Patient Investigator Utility Bill Complaints Expl anation Advance Directives and Living Will 05/01/2022 ADVANCE DIRECTIVE / LIVING WILL Power of Manager Book 05/01/2022 POWER OF A TTORNEY Latest Code Status on File Code Status Date Activated Date Inactivated Comments Full Code 08/19/2020 6:21 AM 08/23/2020 3:20 PM This order reflects the patients wishes and were consensually agreed upon. Question Answer Comments Discussion of Advance Directives occurred with: Patient Does the patient have a Living Will? No Does the patient have Health Care Power of Manager Book? No Code Status History Code Status Date Activated Date Inactivated Comments Full Code 08/19/2020 4:29 AM 08/19/2020 6:21 AM This order reflects the patients wishes and were consensually agreed upon. Question Answer Comments Discussion of Advance Directives occurred with: Patient Does the patient have a Living Will? No Does the patient have Health Care Power of Manager Book? No Full Code 06/13/2020 2:24 PM 06/15/2020 7:45 PM This order reflects the patients wishes and were consensually agreed upon. Care Teams Gallery Manager Relationship Specialty Start Date End Date Juanito Saba DO [address] [place] [address] PCP - General Family Medicine 04/25/17 documented as of this encounter
--- OUTSIDE RECORDS SUMMARY | 2023-05-13 14:05 | External Medical Summary | Summary of Care ---
Author Name Unknown Organization [facility] Address [address] [facility] [place] [address] Phone [phone] Care Team Providers Care Correctional Officer Captain Name Role Phone Juanito Saba DO Primary Care Provider Reason for Visit * Reason Onset Date Comments [facility]: Maintenance 12/15/2022 Encounter Details Date Type Department Care Team Description 12/15/2022 Telephone [facility], [facility] 132 [facility] [place] [address] [facility], Nurse [facility] [address] [employer] [place] [address] [facility]: Maintenance Allergies Active Allergy Reactions Severity Noted Date Comments Isopropyl Isostearate 06/13/2020 Headache Isosorbide Nitrate 05/24/2015 headaches Isosorbide Nitrate 06/13/2020 Headache documented as of this encounter (statuses as of 12/15/2022) Medications Medication Sig Dispensed Refills Start Date [...] day E11.9 1 Kit 0 07/12/2020 Active [employer] Verio In Vitro Strip (Glucose Blood) Use up to 4 times a day E11.9 100 Strip 11 07/12/2020 Active [employer] Delica Lancets 33G Use up to four [...] 90 Tablet 3 03/22/2022 3 Active Nystatin 790624 UNIT/GM External Powder (Nystop)Indications: Cutaneous candidiasis Apply [...] as of this encounter (statuses as of 12/15/2022) Active Problems Problem Noted Date Recurrent UTI [...] disease 019 Coronary artery disease invo lving ig[place]ug[place] coronary artery of igiugig heart without angina pectoris 04/08/2018 Last Assessment [...] as of this encounter (statuses as of 12/15/2022) Resolved Problems Problem Noted Date Resolved Date [...] as of this encounter (statuses as of 12/15/2022) Immunizations Name Administration Dates Next Due COVID-19 [...] Telephone Encounter - Yusra Humphries RN - 12/15/2022 9:07 AM EDT Obed Jernigan's daughter calling to see when he is getting his flu vaccine. He told he that his nurse called yesterday about his flu vaccine. Chart reviewed and no calls from [facility] yesterday. Patient has a home visit schedule for 01/04/23 and would like the flu vaccine. He would also like the covid vaccine when available. Added patient to Flu vaccine log. Routed to [facility] Begum. RN [facility] flux mixer [phone] documented in this encounter Plan of Treatment Upcoming Encounters Date Type Specialty Care Team Description 01/04/2023 Home Visit [facility] Awilda York RN [address] [place] [address] 01/11/2023 Office Visit Cardiology Pavan Cheema PA-C [address] [place] [address] 05/01/2023 Cardiac Studies Cardiology [place], Pacer Clinic [facility] [address] [place] [address] Health Maintenance Due Date Last Done Comments [...] 03/20/2023 03/20/2022, 08/05/2021, 07/26/2021, Additional history exists GFR 05/30/2023 11/27/2022, 07/02, 07/20/2022, Additional history exists CKD HGB USE SMARTSET 54722 07/26/202307/25, 07/25/2022, 07/20/2022, Additional history exists CKD PHOS USE SMARTSET 34175 11/28/202311/01, 06/14/2021, 08/19/2020, Additional history exists DTaP,Tdap,and [...] Documents on File Type Date Recorded Patient Personal Counselor Expl anation Advance Directives and Living Will 05/01/2022 ADVANCE DIRECTIVE / LIVING WILL Power of Regional Account Executive 05/01/2022 POWER OF A TTORNEY Latest Code Status on File Code Status Date Activated Date Inactivated Comments Full Code 08/19/2020 6:21 AM 08/23/2020 3:20 PM This order reflects the patients wishes and were consensually agreed upon. Question Answer Comments Discussion of Advance Directives occurred with: Patient Does the patient have a Living Will? No Does the patient have Health Care Power of Regional Account Executive? No Code Status History Code Status Date Activated Date Inactivated Comments Full Code 08/19/2020 4:29 AM 08/19/2020 6:21 AM This order reflects the patients wishes and were consensually agreed upon. Question Answer Comments Discussion of Advance Directives occurred with: Patient Does the patient have a Living Will? No Does the patient have Health Care Power of Regional Account Executive? No Full Code 06/13/2020 2:24 PM 06/15/2020 7:45 PM This order reflects the patients wishes and were consensually agreed upon. Care Teams Correctional Officer Captain Relationship Specialty Start Date End Date Juanito Saba DO [address] [place] [address] PCP - General Family Medicine 04/25/17 documented as of this encounter
--- OUTSIDE RECORDS SUMMARY | 2023-05-13 14:05 | External Medical Summary | Summary of Care ---
Author Name Unknown Organization [facility] Address [address] [facility] [place] [address] Phone [phone] Care Team Providers Care Polysomnography Tech Name Role Phone Juanito Saba DO Primary Care Provider Reason for Visit * Reason Onset Date Comments [facility]: Maintenance 12/13/2022 Encounter Details Date Type Department Care Team Description 12/13/2022 Scheduled Telephone [facility], [facility] [address] [facility] [place] [address] Coordinator, [facility] [address] [facility] [place] [address] Allergies Active Allergy Reactions Severity Noted Date Comments Isopropyl Isostearate 06/13/2020 Headache Isosorbide Nitrate 05/24/2015 headaches Isosorbide Nitrate 06/13/2020 Headache documented as of this encounter (statuses as of 12/13/2022) Medications Medication Sig Dispensed Refills Start Date [...] E11.9 100 Strip 11 07/12/2020 Active OneTouch DelREMOTV Lancets 33G Use up to four times [...] 90 Tablet 3 03/22/2022 3 Active Nystatin 519582 UNIT/GM External Powder (Nystop)Indications: Cutaneous candidiasis Apply [...] as of this encounter (statuses as of 12/13/2022) Active Problems Problem Noted Date Recurrent UTI [...] as of this encounter (statuses as of 12/13/2022) Resolved Problems Problem Noted Date Resolved Date [...] as of this encounter (statuses as of 12/13/2022) Immunizations Name Administration Dates Next Due COVID-19 [...] encounter Miscellaneous Notes * Telephone Encounter - Joann Capps RN - 12/13/2022 12:10 PM EDT [facility] Telephonic Nurse Follow-Up Call [facility] Subprogram: Focused Care Management (3-9 months) Follow Up Call Type: 48 hour follow up Acute issue requiring follow-up call: Other: s/p acute HV on 12/11 for increased SOB, weakness, cough. Exposed to caregiver with viral respiratory infection. Objective: 12/11/2022 1:09 PM 11/23/2022 11:49 AM [...] made during acute episode Subjective: Condition Status: Symptoms resolved and back to baseline Current Concerns: F/u call to patient and spoke to same. States SOB is improving . States has symptom mostly at night Using air conditioner in home Cough is decreased - productive for clear sputum Taking coricidin PRN Does not have pulse oximeter States he is awaiting delivery of al[facility] Denies chest pain, chest tightness Denies edema Instructed to continue medications as ordered Contact [facility] with worsening, non emergent symptoms. Disposition: Issue resolved. All appropriate follow up scheduled. Future Visits Scheduled: Future Appointments-next 60 days Date/Time Provider Specialty Dept Phone 01/04/2023 12:30 PM Awilda York RN [facility] [phone] 01/11/2023 11:00 AM (Arrive by 10:45 AM) Pavan Cehema PA-C Cardiology [phone] 05/01/2023 1:00 PM (Arrive by 12:45 PM) [facility] [phone] Joann Capps RN documented in this encounter Plan of Treatment Upcoming Encounters Date Type Specialty Care Team Description 01/04/2023 Home Visit [facility] Awilda York RN [address] [place] [address] 01/11/2023 Office Visit Cardiology Pavan Cheema PA-C [address] [place] [address] 05/01/2023 Cardiac Studies [facility] [address] [place] [address] Health Maintenance Due Date Last Done Comments [...] Additional history exists CKD HGB USE SMARTSET 72177 07/26/202307/25, 07/25/2022, 07/20/2022, Additional history exists CKD PHOS USE SMARTSET 92221 11/28/202311/01, 06/14/2021, 08/19/2020, Additional history exists DTaP,Tdap,and [...] Documents on File Type Date Recorded Patient Joiner Expl anation Advance Directives and Living Will 05/01/2022 ADVANCE DIRECTIVE / LIVING WILL Power of Body Designer 05/01/2022 POWER OF A TTORNEY Latest Code Status on File Code Status Date Activated Date Inactivated Comments Full Code 08/19/2020 6:21 AM 08/23/2020 3:20 PM This order reflects the patients wishes and were consensually agreed upon. Question Answer Comments Discussion of Advance Directives occurred with: Patient Does the patient have a Living Will? No Does the patient have Health Care Power of Body Designer? No Code Status History Code Status Date Activated Date Inactivated Comments Full Code 08/19/2020 4:29 AM 08/19/2020 6:21 AM This order reflects the patients wishes and were consensually agreed upon. Question Answer Comments Discussion of Advance Directives occurred with: Patient Does the patient have a Living Will? No Does the patient have Health Care Power of Body Designer? No Full Code 06/13/2020 2:24 PM 06/15/2020 7:45 PM This order reflects the patients wishes and were consensually agreed upon. Care Teams Polysomnography Tech Relationship Specialty Start Date End Date Juanito Saba DO [address] [place] [address] PCP - General Family Medicine 04/25/17 documented as of this encounter
--- OUTSIDE RECORDS SUMMARY | 2023-05-13 14:06 | External Medical Summary | Summary of Care ---
Author Name Unknown Organization [facility] Address [address] [facility] [place] [address] Phone [phone] Care Team Providers Care Bobtail Driver Name Role Phone Juanito Saba DO Primary Care Provider [phone] Reason for Visit * Reason Onset Date Comments [facility]: Maintenance 11/23/2022 Encounter Details Date Type Department Care Team Description 11/23/2022 Telephone [facility], [facility] [address] [place] [address] Region, Nurse [address] [place] [address] [facility]: Maintenance Allergies Active Allergy Reactions Severity Noted Date Comments Isopropyl Isostearate 06/13/2020 Headache Isosorbide Nitrate 05/24/2015 headaches Isosorbide Nitrate 06/13/2020 Headache documented as of this encounter (statuses as of 11/23/2022) Medications Medication Sig Dispensed Refills Start Date [...] day E11.9 1 Kit 0 07/12/2020 Active TwitJumpTouch Verio In Vitro Strip (Glucose Blood) Use up to 4 times a day E11.9 100 Strip 11 07/12/2020 Active TwitJumpTouch [employer]New Haven Pharmaceuticals Lancets 33G Use up to four times [...] Patient, Reported on 08/30/2022 Spacer/Aero-Holding Chambers DeviceIndications:V kai URI with cough Use with inhaler. 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 40 Tablet 10 04/27/2022 04/27/19 24 Active Atorvastatin Calcium 80 MG Oral Tablet (Lipitor)Indication s:Dyslipidemia, goal LDL below 70 TAKE ONE TABLET BY MOUTH EVERY DAY 90 Tablet 3 03/22/2022 03/22/20 23 Active Levothyroxine Sodium 125 MCG Oral Tablet (Levoxyl)Indication s:Acquired hypothyroidism TAKE 1 TABLET BY MOUTH DAILY AT LEAST 30 MINUTES PRIOR TO FIRST MEAL OF THE DAY OR OTHER MEDICATIONS 90 Tablet 3 03/22/2022 03/22/20 23 Active Nystatin 575829 UNIT/GM External Powder (Nystop)Indications :Cutaneous candidiasis Apply topically to affected area 3 times a day. Apply to skin fold areas as directed 60 g 1 10/27/2022 Active documented as of this encounter (statuses as of 11/23/2022) Active Problems Problem Noted Date Recurrent UTI 08/25/2022 Rotator cuff tendonitis, left 08/25/2022 Chronic indwelling Santacruz catheter 2022 Last Assessment & Plan: Changed yesterday by shuan lu Acute pain of left shoulder 07/05/2022 [...] disease 019 Coronary artery disease invo lving [place] coronary artery of [place] heart without angina pectoris 04/08/2018 Last Assessment [...] as of this encounter (statuses as of 11/23/2022) Resolved Problems Problem Noted Date Resolved Date [...] as of this encounter (statuses as of 11/23/2022) Immunizations Name Administration Dates Next Due COVID-19 mRNA, LNP-s, No Pre serve, 2-Dose Series (Moderna) 05/31/2020,04/26/2020 Covid-19 Mrna, Lnp-s, No Pre serve, Booster (Moderna) 08/18/2021,03/12/2021 Covid-19, Mrna, Lnp-s, Pf, B [...] Telephone Encounter - Maru Sheikh RN - 11/23/2022 11:03 AM EDT Received call from pt's daughter who is calling to inquire about labs being done as she requested from the pt's PCP. Advised this printed circuit layout taper can see that the labs were ordered by the PCP on 10/30. Rere states that they were not done, only his PT/INR was done with his last blood draw by mobile lab. Advised perhaps the PCP office did not make the mobile lab aware of the new orders. Notified Rere that this printed circuit layout taper will call mobile phlebotomy and confirm that they are aware of the orders and request they be done with the pt's next scheduled blood work (11/27). Provided Rere with mobile phlebotomy phone number so that she has it for future reference. Outgoing call to mobile phlebotomy and spoke with Rocio who confirmed the BMP, Phos and urine isscheduled to be done on 11/27 along with the INR. Maru FLANAGAN, RN [facility] Intake Triage Coordinator [phone] documented in this encounter Plan of Treatment Upcoming Encounters Date Type Specialty Care Team Description 11/23/2022 Home Visit [facility] Awilda York, RN [address] [place] [address] 11/27/2022 Laboratory Laboratory Processing [facility], [facility] Mobile Home Draw [address] [place] [address] 11/28/2022 [facility] [address] [facility] [address] 01/11/2023 Office Visit Cardiology Pavan Cheema PA-C [address] [place] [address] 05/01/2023 Cardiac Studies Cardiology Valerie Patel [facility] [address] [place] [address] Health Maintenance Due Date Last Done Comments DXA Scan 1940 COLONOSCOPY-EVERY 2 YRS AGES 18-100 01/08/2011 01/08/2009 DIABETES-EYE EXAM 06/09/2022 06/09/2021, , 05/28/2020, Additional history exists CKD PHOS USE SMARTSET 24572 06/14/2022 03/07/2021, 08/19/2020, 06/15/2020, Additional history exists Albumin/Creatinine Ratio 07/15/2022 022, 08/28/2019, 02/26/2019, Additional history exists DIABETES-FOOT EXAM 07/15/2022 07/15/2021, 0 05/23/2019, 02/18/2018, Additional history exists Influenza Vaccine (FLU shot) (#1) 2022 12/28/2021, 12/28/2021, 01/13/2021, Additional history exists Depression Screening, Annual for Pts 12 and Over 01/13/2023 01/13/2022 GFR 01/24/2023 07/25/2022, 2 , 03/20/2022, Additional history exists HbA1c 01/24/2023 07/25/2022, 042 , 11/01/2021, Additional history exists TSH 03/20/2023 03/20/2022, 08/0 05/2021, 07/26/2021, Additional history exists CKD HGB USE SMARTSET 27248 07/26/202307/25, 07/25/2022, 07/20/2022, Additional history exists DTaP,Tdap,and Td Vaccines (2 [...] Documents on File Type Date Recorded Patient Health Information Manager Expl anation Advance Directives and Living Will 05/01/2022 ADVANCE DIRECTIVE / LIVING WILL Power of Roll Forming Machine Operator 05/01/2022 POWER OF A TTORNEY [...] the patient have Health Care Power of Roll Forming Machine Operator? No Code Status History Code Status Date Activated Date Inactivated Comments Full Code 08/19/2020 4:29 AM 08/19/2020 6:21 AM This order reflects the patients wishes and were consensually agreed upon. Question Answer Comments Discussion of Advance Directives occurred with: Patient Does the patient have a Living Will? No Does the patient have Health Care Power of Roll Forming Machine Operator? No Full Code 06/13/2020 2:24 PM 06/15/2020 7:45 PM This order reflects the patients wishes and were consensually agreed upon. Care Teams Bobtail Driver Relationship Specialty Start Date End Date Juanito Saba DO [address] [place] [address] PCP - General Family Medicine 04/25/17 documented as of this encounter
--- OUTSIDE RECORDS SUMMARY | 2023-05-13 14:06 | External Medical Summary | Summary of Care ---
Author Name Unknown Organization [facility] Address [address] [place] [place] [place] [address] Phone [phone] Care Team Providers Care Physical Therapist Assistant Name Role Phone Juanito Saba DO Primary Care Provider [phone] Reason for Visit * Reason Comments [facility]: Maintenance Encounter Details Date Type Department Care Team Description 11/23/2022 Home Visit [facility], [address] [place] [address] Awilda York RN [address] [place] [address] Allergies Active Allergy Reactions Severity Noted Date [...] day E11.9 1 Kit 0 07/12/2020 Active NanoHorizonsTouch Verio In Vitro Strip (Glucose Blood) Use up to 4 times a day E11.9 100 Strip 11 07/12/2020 Active NanoHorizonsTouch DelBlackStratus Lancets 33G Use up to four times [...] ALL OTHER DAYS OR DIRECTED BY THE [facility]. 40 Tablet 10 04/27/2022 04/27/19 [...] Tablet 3 03/22/2022 03/22/20 23 Active Nystatin 090179 UNIT/GM External Powder (Nystop)Indications :Cutaneous candidiasis Apply [...] disease 019 Coronary artery disease invo lving [place] coronary artery of [place] heart without angina pectoris 04/08/2018 Last Assessment [...] Sign Reading Time Taken Comments Blood Pressure 122/64 11/23/2022 11:49 AM EDT Pulse 60 11/23/2022 11:49 AM EDT Temperature 36.7 C (98.1 F) 11/23/2022 11:49 AM E DT Respiratory Rate 18 11/23/2022 11:49 AM EDT Oxygen Saturation 95% 11/23/2022 11:49 AM EDT Inhaled Oxygen Concentration - - Weight [...] Progress Notes * Awilda York RN - 11/23/2022 11:39 AM EDT [facility] Co[facility] Visit Date: 11/23/2022 Time: 11:39 AM Name: Obed Mancini : 1940 Current Concerns: Patient seen for follow up-Anemia, CKD, CHF, Afib, CKD, DM2, h/o UTI- garcia catheter. ER visit 11/12 d/t garcia leaking- catheter changed at ER Reports doing well Offers no complaints Caregiver present for visit VS wnl Lungs clear bilaterally Sob with exertion No LE edema noted Appetite fair- good Taking fluids Buttocks continues with excoriation- A&D mixed with zinc oxide. Caregiver states it's improved. Problems/Symptoms: Review of Systems Constitutional: Negative. HENT: Negative. Eyes: Negative. Respiratory: Positive for shortness of breath. Cardiovascular: Negative. Gastrointestinal: Negative. Endocrine: Negative. Genitourinary: Negative. Musculoskeletal: Negative. Allergic/Immunologic: Negative. Neurological: Negative. Hematological: Negative. Psychiatric/Behavioral: Negative. Physical Exam: BP 122/64 (BP Site: Right Arm, BP Position: Sitting, BP Cuff Size: Regular) | Pulse 60 | Temp 36.7 C (98.1 F) (Tympanic) | Resp 18 | SpO2 [...] Behavior normal. [facility]-10 Completed this Visit: No. Routine visit Treatment/Plan: Continue medications as prescribed Keep all upcoming MD appointments Fall precautions- walker Fluids encouraged Protein drinks daily Monitor buttock excoriation- RN CM follow up in 6 weeks Home Interventions Provided: Reinforced current Plan of Care, including self-management and medication regimen Patient's Goals of Care: Get up on my feet again No more falls Remain in home Patient's 'Red Flags': New open areas Blood in urine Increased weakness Patient Needs to Remember: Call [facility] with any medical concerns/ red flags Referrals Needed: N/a Follow Up: Is there cellular connectivity/connectivity in the home? Yes Does the patient have internet in the home? Yes Patient encouraged to call the intake phone number for all urgent but not emergent issues. Scheduled to follow up with patient in 6 weeks. Awilda Frances RN 11/23/2022 11:39 AM documented in this encounter Plan of Treatment Upcoming Encounters Date Type Specialty Care Team Description 11/27/2022 Laboratory Laboratory Processing [facility] Mobile Home Draw [address] [place] [address] 11/28/2022 [facility] [address] [place] [address] 01/04/2023 Home Visit [facility] Awilda York RN [address] [place] [address] 01/11/2023 Office Visit Cardiology Pavan Cheema PA-C [address] [place] [address] 05/01/2023 Cardiac Studies Cardiology [facility] [address] [place] [address] Health Maintenance Due Date Last Done Comments DXA Scan 1940 COLONOSCOPY-EVERY 2 YRS AGES 18-100 01/08/2011 01/08/2009 DIABETES-EYE EXAM 06/09/2022 06/09/2021, , 05/28/2020, Additional history exists CKD PHOS USE SMARTSET 99284 06/14/2022 03/1 07/2021, 08/19/2020, 06/15/2020, Additional history exists Albumin/Creatinine Ratio 07/15/2022 022, 08/28/2019, 02/26/2019, Additional history exists DIABETES-FOOT EXAM 07/15/2022 07/15/2021, 0 05/23/2019, 02/18/2018, Additional history exists Influenza Vaccine (FLU shot) (#1) 2022 12/28/2021, 12/28/2021, 01/13/2021, Additional history exists Depression Screening, Annual for Pts 12 and Over 01/13/2023 01/13/2022 GFR 01/24/2023 07/25/2022, 04/2 , 03/20/2022, Additional history exists HbA1c 01/24/2023 07/25/2022, 04/2 , 11/01/2021, Additional history exists TSH 03/20/2023 03/20/2022, 08/0 05/2021, 07/26/2021, Additional history exists CKD HGB USE SMARTSET 84761 07/26/202307/25, 07/25/2022, 07/20/2022, Additional history exists DTaP,Tdap,and [...] Documents on File Type Date Recorded Patient Fermenting Cellars Supervisor Expl anation Advance Directives and Living Will 05/01/2022 ADVANCE DIRECTIVE / LIVING WILL Power of Event Av Operator 05/01/2022 POWER OF A TTORNEY Latest Code Status on File Code Status Date Activated Date Inactivated Comments Full Code 08/19/2020 6:21 AM 08/23/2020 3:20 PM This order reflects the patients wishes and were consensually agreed upon. Question Answer Comments Discussion of Advance Directives occurred with: Patient Does the patient have a Living Will? No Does the patient have Health Care Power of Event Av Operator? No Code Status History Code Status Date Activated Date Inactivated Comments Full Code 08/19/2020 4:29 AM 08/19/2020 6:21 AM This order reflects the patients wishes and were consensually agreed upon. Question Answer Comments Discussion of Advance Directives occurred with: Patient Does the patient have a Living Will? No Does the patient have Health Care Power of Event Av Operator? No Full Code 06/13/2020 2:24 PM 06/15/2020 7:45 PM This order reflects the patients wishes and were consensually agreed upon. Care Teams Physical Therapist Assistant Relationship Specialty Start Date End Date Juanito Saba DO [address] [place] [address] PCP - General Family Medicine 04/25/17 documented as of this encounter
--- OUTSIDE RECORDS SUMMARY | 2023-05-13 14:06 | External Medical Summary ---
Author Name Unknown Address Unknown Organization [facility] [address] [place] [address] Laboratory Report Ordering Provider Test Date Status JAYLINVALERIE 11/27/2022 10:18:00 Final Please draw PT/INR every 1-4 weeks or as requested by the [facility] Coumadin [facility]

Warfarin Therapy
INR: 2.0-3.0 conventional anticoagulation
INR: 2.5-3.5 high intensity anticoagulation Observation Date Value Abnormality Reference (Units ) Status PT 11/27/2022 10:18:00 24.1 Above high normal 11 .6-15.2 (seconds) Final INR 11/27/2022 10:18:00 2.1 Above high normal 0. 8-1.2 Final Performing Location [facility] [address] [place] [address]
--- OUTSIDE RECORDS SUMMARY | 2023-05-13 14:06 | External Medical Summary | Summary of Care ---
Author Name Unknown Organization [facility] Address [address] [facility] [place] [address] Phone [phone] Care Team Providers Care Inside Account Executive Name Role Phone Juanito Saba DO Primary Care Provider Reason for Visit * Reason Onset Date Comments [facility]: Maintenance 11/15/2022 Encounter Details Date Type Department Care Team Description 11/15/2022 Scheduled Telephone [facility], [facility] [address] [facility] [place] [address] Coordinator, [facility] [place] [address] [facility] [place] [address] Allergies Active Allergy Reactions Severity Noted Date Comments Isopropyl Isostearate 06/13/2020 Headache Isosorbide Nitrate 05/24/2015 headaches Isosorbide Nitrate 06/13/2020 Headache documented as of this encounter (statuses as of 11/15/2022) Medications Medication Sig Dispensed Refills Start Date [...] ALL OTHER DAYS OR DIRECTED BY THE [facility] ANIT[facility]UL[facility]. 40 Tablet 10 04/27/2022 04/27/19 [...] Tablet 3 03/22/2022 03/22/20 23 Active Nystatin 891348 UNIT/GM External Powder (Nystop)Indications :Cutaneous candidiasis Apply topically to affected area 3 times a day. Apply to skin fold areas as directed 60 g 1 10/27/2022 Active documented as of this encounter (statuses as of 11/15/2022) Active Problems Problem Noted Date Recurrent UTI [...] as of this encounter (statuses as of 11/15/2022) Resolved Problems Problem Noted Date Resolved Date [...] as of this encounter (statuses as of 11/15/2022) Immunizations Name Administration Dates Next Due COVID-19 mRNA, LNP-s, No Pre serve, 2-Dose Series (Moderna) 05/31/2020,04/26/2020 Covid-19 Mrna, Lnp-s, No Pre serve, Booster (Moderna) 08/18/2021,03/12/2021 Covid-19, Mrna, Lnp-s, Pf, B ivalent, 30 Mcg, IM, 12 yrs and above (Pfizer) 01/02/2022 Pneumococcal Conjugate Vacc, 13 Valent (Prevnar) 05/30/2017 Pneumococcal Polysaccharide PPV23 (Pneumovax) 10/18/2006 Seasonal Influenza, Quadriva lent Hd (Fluzone Hd) 12/28/2021,01/13/2021 Seasonal Influenza, Quadriva lent, No Preserve, 6 Mons & Above, IM 12/29/2019 Seasonal Influenza, Quadriva lent, No Preserve, IM [...] encounter Miscellaneous Notes * Telephone Encounter - Shara Correa LPN - 11/15/2022 9:26 AM EDT Daughter returned call and patient is doing well. Garcia UOP is "normal" for patient. Denies fever. Taking abx as prescribed. No concerns at this time. Aware to call [facility] @ [phone], opt#3 for any new or worsening symptoms. * Telephone Encounter - Rachel Suarez RN - 11/15/2022 9:11 AM EDT [facility] ED Follow Up Patient Overview: Patient Name: Obed Mancini Discharging [facility] ED[facility] Current [facility] Status: Currently Enrolled - Focused Care Management Outpatient Risk of Hospital Admission and ED Visit: 8 % ED Clinical Background: ED Discharge Diagnosis: Other: blocked garcia catheter, UTI Objective Data 10/19/2022 12:08 PM 10/09/2022 9:33 PM 09/14/2022 11:24 AM 08/30/2022 10:35 AM 08/25/2022 12:09 PM VITALS ACROSS ENCOUNTERS BP 108/54 116/68 118/58 112/64 116/54 Pulse 64 61 64 60 60 No results found for: BLOOD, PROTEIN, NITRITE, ESTERASE, WBC, BACTERIA, URINALYSIS, URINE CULTURE -[facility] No results found for: WBC AUTO - [facility], HGB - [facility], PLATELET AUTO - [facility] No results found for: SODIUM - [facility], POTASSIUM - [facility], MAGNESIUM - [facility], CO2 - [facility], CREATININE - [facility], ESTIMATED GLOMERULAR FILTRATION RATE - [facility], ALBUMIN - [facility],AST - [facility], ALT - [facility], ALKALINE PHOSPHATASE - [facility] No results found for: PRO BNP, LEFT VENTRICULAR EJECTION FRACTION Disposition Overview: Remote Patient Monitoring Given: NO Remote Patient Monitoring Oxygen Requirements: NO supplemental oxygen needs identified with status of: NO DME needs identified DME Needs: NO DME needs identified with status of: NO DME needs identified Medication Review: New medication(s) added: cipro Current Concerns: Called daughter/ Rere , no answer. left message to return call to [facility] with update on her father. Scheduled follow-up includes: ED to Home follow up complete with appropriate follow up scheduled. Future Visits Scheduled: Future Appointments-next 60 days Date/Time Provider Specialty Dept Phone 11/23/2022 5:30 PM Awilda York RN [facility] [phone] 11/27/2022 9:[address] [facility] Mobile Home Draw [facility] Laboratory Processing [phone] 11/28/2022 6:00 AM [facility] [phone] 01/11/2023 11:00 AM (Arrive by 10:45 AM) Pavan Cheema PA-C Cardiology [phone] 05/01/2023 1:00 PM (Arrive by 12:45 PM) Pacer [facility] Cardiology [phone] Rachel Suarez RN Medical Transcription Editor [facility] Scheduling Guidelines Current Health Monitor Ordering Guidelines documented in this encounter Plan of Treatment Upcoming Encounters Date Type Specialty Care Team Description 11/23/2022 Home Visit [facility] Awilda York, NYA [address] [place] [address] 11/27/2022 Laboratory Laboratory Processing [facility], [facility] Mobile Home Draw [address] [place] [address] 11/28/2022 [facility] [address] [place] [address] 01/11/2023 Office Visit Cardiology Pavan Cheema PA-C [address] [place] [address] 05/01/2023 Cardiac Studies Cardiology Valerie Patel [facility] [address] [place] [address] Health Maintenance Due Date Last Done Comments DXA Scan 1940 COLONOSCOPY-EVERY 2 YRS AGES 18-100 01/08/2011 01/08/2009 DIABETES-EYE EXAM 06/09/2022 06/09/2021, , 05/28/2020, Additional history exists CKD PHOS USE SMARTSET 08112 06/14/2022 0307/2021, 08/19/2020, 06/15/2020, Additional history exists Albumin/Creatinine Ratio [...] Additional history exists CKD HGB USE SMARTSET 75408 07/26/202307/25, 07/25/2022, 07/20/2022, Additional history exists DTaP,Tdap,and [...] Documents on File Type Date Recorded 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 Question Answer Comments Discussion of Advance Directives occurred with: Patient Does the patient have a Living Will? No Does the patient have Health Care Power of Skiver Machine? No Code Status History Code Status Date Activated Date Inactivated Comments Full Code 08/19/2020 4:29 AM 08/19/2020 6:21 AM This order reflects the patients wishes and were consensually agreed upon. Question Answer Comments Discussion of Advance Directives occurred with: Patient Does the patient have a Living Will? No Does the patient have Health Care Power of Skiver Machine? No Full Code 06/13/2020 2:24 PM 06/15/2020 7:45 PM This order reflects the patients wishes and were consensually agreed upon. Care Teams Inside Account Executive Relationship Specialty Start Date End Date Juanito Saba DO [address] [place] [address] PCP - General Family Medicine 04/25/17 documented as of this encounter
--- OUTSIDE RECORDS SUMMARY | 2023-05-13 14:06 | External Medical Summary ---
Author Name Unknown Address Unknown Organization K01:[facility] [place] [address] [facility] [address] Laboratory Report Ordering Provider Test Date Status MARRY ADDISON 12/11/2022 13:30:00 Final Observation Date Value Abnormality Reference (Units ) Status Adenovirus DNA [Presence] in Nasopharynx by EDILIA with non-probe detection 12/11/2022 13:30:00 Negative Negative Final Human coronavirus 229E RNA [Presence] in Nasopharynx by EDILIA with non-probe detection 12/11/2022 13:30:00 Negative Negative Final Human coronavirus HKU1 RNA [Presence] in Nasopharynx by EDILIA with non-probe detection 12/11/2022 13:30:00 Negative Negative Final Human coronavirus NL63 RNA [Presence] in Nasopharynx by EDILIA with non-probe detection 12/11/2022 13:30:00 Negative Negative Final Human coronavirus OC43 RNA [Presence] in Nasopharynx by EDILIA with non-probe detection 12/11/2022 13:30:00 Negative Negative Final SARS-CoV-2 (COVID-19) RNA [Presence] in Nasopharynx by EDILIA with non-probe detection 12/11/2022 13:30:00 Negative Negative Final Human metapneumovirus RNA [Presence] in Nasopharynx by EDILIA with non-probe detection 12/11/2022 13:30:00 Negative Negative Final Rhinovirus+Enterovirus RNA [Presence] in Nasopharynx by EDILIA with non-probe detection 12/11/2022 13:30:00 Negative Negative Final Influenza virus A RNA [Presence] in Nasopharynx by EDILIA with non-probe detection 12/11/2022 13:30:00 Negative Negative Final Influenza virus B RNA [Presence] in Nasopharynx by EDILIA with non-probe detection 12/11/2022 13:30:00 Negative Negative Final Parainfluenza virus 1 RNA [Presence] in Nasopharynx by EDILIA with non-probe detection 12/11/2022 13:30:00 Negative Negative Final Parainfluenza virus 2 RNA [Presence] in Nasopharynx by EDILIA with non-probe detection 12/11/2022 13:30:00 Negative Negative Final Parainfluenza virus 3 RNA [Presence] in Nasopharynx by EDILIA with non-probe detection 12/11/2022 13:30:00 Negative Negative Final Parainfluenza virus 4 RNA [Presence] in Nasopharynx by EDILIA with non-probe detection 12/11/2022 13:30:00 Negative Negative Final Respiratory syncytial virus RNA [Presence] in Nasopharynx by EDILIA with non-probe detection 12/11/2022 13:30:00 Negative Negative Final Bordetella pertussis.pertussis toxin promoter region [Presence] in Nasopharynx by EDILIA with non-probe detection 12/11/2022 13:30:00 Negative Negative Final Chlamydophila pneumoniae DNA [Presence] in Nasopharynx by EDILIA with non-probe detection 12/11/2022 13:30:00 Negative Negative Final Mycoplasma pneumoniae DNA [Presence] in Nasopharynx by EDILIA with non-probe detection 12/11/2022 13:30:00 Negative Negative Final Bordetella parapertussis [id number] DNA [Presence] in Nasopharynx by EDILIA with non-probe detection 12/11/2022 13:30:00 Negative Negative Final
The primers that detect Rhinovirus may cross react with some Enterorviruses. The validation of bronchial specimens, tracheal aspirates, and throats for this assay was developed and performance characteristics determined by [facility]. The validation of alternate specimen types has not been cleared or approved by the U.S. Food and Drug Administration (FDA). It has been determined that such clearance or approval is not necessary. Performing Location LABORATORY [place] [address] [address] [facility] [address] [facility] [address]
--- OUTSIDE RECORDS SUMMARY | 2023-05-13 14:06 | External Medical Summary | Summary of Care ---
Author Name Unknown Organization [facility] Address [address] [place] [address] Phone [phone] Care Team Providers Care Solar Electric/Photovoltaic Installer Name Role Phone WandyJuanito Primary Care Provider Encounter Details Date Type Department Care Team Description 11/21/2022 Orders Only Outcomes Research Department [address] [place] [address] Ann Alejo CHRA Move In History Research Other*[id number] Allergies Active Allergy Reactions Severity Noted Date Comments Isopropyl Isostearate 06/13/2020 Headache Isosorbide Nitrate 05/24/2015 headaches Isosorbide Nitrate 06/13/2020 Headache documented as of this encounter (statuses as of 11/21/2022) Medications Medication Sig Dispensed Refills Start Date [...] ALL OTHER DAYS OR DIRECTED BY THE [facility] ANIT[facility]ULATION [facility]. 40 Tablet 10 04/27/2022 04/27/19 [...] Tablet 3 03/22/2022 03/22/20 23 Active Nystatin 328702 UNIT/GM External Powder (Nystop)Indications :Cutaneous candidiasis Apply topically to affected area 3 times a day. Apply to skin fold areas as directed 60 g 1 10/27/2022 Active documented as of this encounter (statuses as of 11/21/2022) Active Problems Problem Noted Date Recurrent UTI [...] disease 019 Coronary artery disease invo lving [place] coronary artery of [place] heart without angina pectoris 04/08/2018 Last Assessment [...] as of this encounter (statuses as of 11/21/2022) Resolved Problems Problem Noted Date Resolved Date [...] as of this encounter (statuses as of 11/21/2022) Immunizations Name Administration Dates Next Due COVID-19 mRNA, LNP-s, No Pre serve, 2-Dose Series (Moderna) 05/31/2020,04/26/2020 Covid-19 Mrna, Lnp-s, No Pre serve, Booster (Moderna) 08/18/2021,03/12/2021 Covid-19, Mrna, Lnp-s, Pf, B ivalent, 30 Mcg, IM, 12 yrs and above ([facility]) 01/02/2022 Pneumococcal Conjugate Vacc, 13 Valent (Prevnar) [...] Specialty Care Team Description 11/23/2022 Home Visit [facility] Awilda York RN [address] [place] [address] 11/27/2022 Laboratory Laboratory Processing [facility], [facility] Mobile Home Draw [address] [place] [address] 11/28/2022 Anticoagulation Pharmacy Telepharmacy, [facility] [address] [facility] [place] [address] 01/11/2023 Office Visit Cardiology Pavan Cheema PA-C [address] [place] [address] 05/01/2023 Cardiac Studies Cardiology [facility] [address] [place] [address] Scheduled Orders Name Type Priority Associated Diagnoses Orde r Schedule MYCODE SUBSEQUENT ADULT Lab Routine MyCode Research Other*[id number] Every 6 Months for 2 Occurrences starting 11/21/2022 until 12/11/2023 Health Maintenance Due Date Last Done Comments DXA Scan 1940 COLONOSCOPY-EVERY 2 YRS AGES 18-100 01/08/2011 01/08/2009 DIABETES-EYE EXAM 06/09/2022 06/09/2021, , 05/28/2020, Additional history exists CKD PHOS USE SMARTSET 41026 06/14/202205/31, 08/19/2020, 06/15/2020, Additional history exists Albumin/Creatinine Ratio [...] Additional history exists CKD HGB USE SMARTSET 00707 07/26/202307/25, 07/25/2022, 07/20/2022, Additional history exists DTaP,Tdap,and [...] as of this encounter Visit Diagnoses Diagnosis MyCode Research Other*[id number] documented in this encounter Advance Directives Documents on File Type Date Recorded 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 Question Answer Comments Discussion of Advance Directives occurred with: Patient Does the patient have a Living Will? No Does the patient have Health Care Power of Contracts Law Professor? No Code Status History Code Status Date Activated Date Inactivated Comments Full Code 08/19/2020 4:29 AM 08/19/2020 6:21 AM This order reflects the patients wishes and were consensually agreed upon. Question Answer Comments Discussion of Advance Directives occurred with: Patient Does the patient have a Living Will? No Does the patient have Health Care Power of Contracts Law Professor? No Full Code 06/13/2020 2:24 PM 06/15/2020 7:45 PM This order reflects the patients wishes and were consensually agreed upon. Care Teams Solar Electric/Photovoltaic Installer Relationship Specialty Start Date End Date Juanito Saba DO [address] [place] [address] PCP - General Family Medicine 04/25/17 documented as of this encounter
--- OUTSIDE RECORDS SUMMARY | 2023-05-13 14:06 | External Medical Summary | Summary of Care ---
Author Name Unknown Organization [facility] Address [address] [place] [address] Phone [phone] Care Team Providers Care Apartment Maintenance Supervisor Name Role Phone Juanito Saba DO Primary Care Provider [phone] Reason for Visit * Reason Onset Date Comments Medication Update 11/27/2022 Encounter Details Date Type Department Care Team Description 11/27/2022 Telephone Pharmacy Call Center [address] [place] [address] [facility] [address] [place] [address] Medication Update Allergies Active Allergy Reactions Severity Noted Date Comments Isopropyl Isostearate 06/13/2020 Headache Isosorbide Nitrate 05/24/2015 headaches Isosorbide Nitrate 06/13/2020 Headache documented as of this encounter (statuses as of 11/27/2022) Medications Medication Sig Dispensed Refills Start Date [...] ALL OTHER DAYS OR DIRECTED BY THE [facility]. 40 Tablet 10 04/27/2022 [...] Tablet 3 03/22/2022 03/22/20 23 Active Nystatin 667682 UNIT/GM External Powder (Nystop)Indications :Cutaneous candidiasis Apply topically to affected area 3 times a day. Apply to skin fold areas as directed 60 g 1 10/27/2022 Active documented as of this encounter (statuses as of 11/27/2022) Active Problems Problem Noted Date Recurrent UTI [...] disease 019 Coronary artery disease invo lving [place] coronary artery of [place] heart without angina pectoris 04/08/2018 Last Assessment [...] as of this encounter (statuses as of 11/27/2022) Resolved Problems Problem Noted Date Resolved Date [...] as of this encounter (statuses as of 11/27/2022) Immunizations Name Administration Dates Next Due COVID-19 [...] encounter Miscellaneous Notes * Telephone Encounter - Kina Matthews RPh - 11/27/2022 8:55 AM EDT Will move ACC encounter to today and send results once available. Thanks, Kina Matthews, PharmD Clinical Pharmacist [facility] ([facility]) [facility] [phone] 11/27/2022 8:55 AM * Telephone Encounter - KATE Jennings - 11/27/2022 8:33 AM EDT Caller's name: Liya from the [facility] in [place] Preferred call back number(OFFICE NUMBER FOR ): [phone] *[phone] Reason for call: Liya is a Rph. In [facility] and is putting patient on Eloquist, she would like results of his INR from today. Please fax them to [phone] or call her. 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); Chronic kidney disease, stage 3b (HCC) 11/27/2022 [facility] [address] [place] [address] 01/04/2023 Home Visit [facility] Awilda York, RN [address] [facility] [place] [address] 01/11/2023 Office Visit Cardiology Pavan Cheema PA-C [address] [place] [address] 05/01/2023 Cardiac Studies Cardiology [facility] [address] [place] [address] Health Maintenance Due Date Last Done Comments DXA Scan 1940 COLONOSCOPY-EVERY 2 YRS AGES 18-100 01/08/2011 01/08/2009 DIABETES-EYE EXAM 06/09/2022 06/09/2021, , 05/28/2020, Additional history exists CKD PHOS USE SMARTSET 69574 06/14/202205/31, 08/19/2020, 06/15/2020, Additional history exists Albumin/Creatinine Ratio 07/15/2022 022, 08/28/2019, 02/26/2019, Additional history exists DIABETES-FOOT EXAM 07/15/2022 07/15/2021, 0 05/23/2019, 02/18/2018, Additional history exists Influenza Vaccine (FLU shot) (#1) 2022 12/28/2021, 12/28/2021, 01/13/2021, Additional history exists Depression Screening, Annual for Pts 12 and Over 01/13/2023 01/13/2022 GFR 01/24/2023 07/25/2022, 07/02, 03/20/2022, Additional history exists HbA1c 01/24/2023 07/25/2022, 2 , 11/01/2021, Additional history exists TSH 03/20/2023 03/20/2022, 08/0 05/2021, 07/26/2021, Additional history exists CKD HGB USE SMARTSET 60654 07/26/202307/25, 07/25/2022, 07/20/2022, Additional history exists DTaP,Tdap,and [...] Documents on File Type Date Recorded 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 Question Answer Comments Discussion of Advance Directives occurred with: Patient Does the patient have a Living Will? No Does the patient have Health Care Power of Mobile Ui Designer? No Code Status History Code Status Date Activated Date Inactivated Comments Full Code 08/19/2020 4:29 AM 08/19/2020 6:21 AM This order reflects the patients wishes and were consensually agreed upon. Question Answer Comments Discussion of Advance Directives occurred with: Patient Does the patient have a Living Will? No Does the patient have Health Care Power of Mobile Ui Designer? No Full Code 06/13/2020 2:24 PM 06/15/2020 7:45 PM This order reflects the patients wishes and were consensually agreed upon. Care Teams Apartment Maintenance Supervisor Relationship Specialty Start Date End Date Juanito Saba DO [address] [place] [address] PCP - General Family Medicine 04/25/17 documented as of this encounter
--- OUTSIDE RECORDS SUMMARY | 2023-05-13 14:06 | External Medical Summary | Summary of Care ---
Author Name Unknown Organization [facility] Address [address] [facility] [place] [address] Phone [phone] Care Team Providers Care Wastewater Engineer Name Role Phone Juanito Saba DO Primary Care Provider [phone] Reason for Visit * Reason Onset Date Comments [facility]: Maintenance 11/15/2022 Encounter Details Date Type Department Care Team Description 11/15/2022 Scheduled Telephone [facility], [facility] [address] [facility] [place] [address] Coordinator, [facility] 132 [facility] [place] [address] Allergies Active Allergy Reactions Severity Noted Date [...] ALL OTHER DAYS OR DIRECTED BY THE [facility]. 40 Tablet 10 04/27/2022 [...] Tablet 3 03/22/2022 03/22/20 23 Active Nystatin 310549 UNIT/GM External Powder (Nystop)Indications :Cutaneous candidiasis Apply [...] disease 019 Coronary artery disease invo lving [place] coronary artery of [place] heart without angina pectoris 04/08/2018 Last Assessment [...] concerns at this time. Aware to call [facility] @ [phone], opt#3 for any new or worsening symptoms. * Telephone Encounter - Rachel Suarez RN - 11/15/2022 9:11 AM EDT [facility] ED Follow Up Patient Overview: Patient Name: Obed Mancini Discharging Facility[facility]: [facility] Current [facility] Status: Currently Enrolled [...] answer. left message to return call to [facility] with update on her father. Scheduled follow-up includes: ED to Home follow up complete with appropriate follow up scheduled. Future Visits Scheduled: Future Appointments-next 60 days Date/Time Provider Specialty Dept Phone 11/23/2022 5:30 PM Awilda York RN [facility] [phone] 11/27/2022 9:20 AM [facility] Mobile Home Draw [facility] Laboratory Processing [phone] 11/28/2022 6:00 AM [facility] Telepharmacy Pharmacy [phone] 01/11/2023 11:00 AM (Arrive by 10:45 AM) Pavan Cheema PA-C Cardiology [phone] 05/01/2023 1:00 PM (Arrive by 12:45 PM) Pacer [facility] Amanda Cardiology [phone] Rachel Suarez RN Community Associate [facility] Scheduling Guidelines Current Health Monitor Ordering Guidelines documented in this encounter Plan of Treatment Upcoming Encounters Date Type Specialty Care Team Description 11/23/2022 Home Visit [facility] Awilda York, NYA [address] [place] [address] 11/27/2022 Laboratory Laboratory Processing [facility], [facility] Mobile Home Draw [address] [place] [address] 11/28/2022 [facility], [facility] [address] [place] [address] 01/11/2023 Office Visit Cardiology Pavan Cheema PA-C [address] [place] [address] 05/01/2023 Cardiac Studies Cardiology Valerie Patel [facility] [address] [place] [address] Health Maintenance Due Date Last Done Comments DXA Scan 1940 COLONOSCOPY-EVERY 2 YRS AGES 18-100 01/08/2011 01/08/2009 DIABETES-EYE EXAM 06/09/2022 06/09/2021, , 05/28/2020, Additional history exists CKD PHOS USE SMARTSET 86151 06/14/2022 0307/2021, 08/19/2020, 06/15/2020, Additional history exists [...] Additional history exists CKD HGB USE SMARTSET 71738 07/26/202307/25, 07/25/2022, 07/20/2022, Additional history exists DTaP,Tdap,and [...] Documents on File Type Date Recorded Patient Platform Engineer Expl anation Advance Directives and Living Will 05/01/2022 ADVANCE DIRECTIVE / LIVING WILL Power of Sheeting Puller 05/01/2022 POWER OF A TTORNEY Latest Code Status on File Code Status Date Activated Date Inactivated Comments Full Code 08/19/2020 6:21 AM 08/23/2020 3:20 PM This order reflects the patients wishes and were consensually agreed upon. Question Answer Comments Discussion of Advance Directives occurred with: Patient Does the patient have a Living Will? No Does the patient have Health Care Power of Sheeting Puller? No Code Status History Code Status Date Activated Date Inactivated Comments Full Code 08/19/2020 4:29 AM 08/19/2020 6:21 AM This order reflects the patients wishes and were consensually agreed upon. Question Answer Comments Discussion of Advance Directives occurred with: Patient Does the patient have a Living Will? No Does the patient have Health Care Power of Sheeting Puller? No Full Code 06/13/2020 2:24 PM 06/15/2020 7:45 PM This order reflects the patients wishes and were consensually agreed upon. Care Teams Wastewater Engineer Relationship Specialty Start Date End Date Juanito Saba DO [address] [place] [address] PCP - General Family Medicine 04/25/17 documented as of this encounter
--- OUTSIDE RECORDS SUMMARY | 2023-05-13 14:06 | External Medical Summary | Summary of Care ---
Author Name Unknown Organization [facility] Address [address] [facility] [place] [address] Phone [phone] Care Team Providers Care Healthcare Management Consultant Name Role Phone Juanito Saba DO Primary Care Provider [phone] Reason for Visit * Reason Onset Date Comments [facility]: Acute 12/11/2022 Encounter Details Date Type Department Care Team Description 12/11/2022 Telephone [facility], [facility] [address] [facility] [place] [address] [facility], Nurse [facility] 132 [facility] [place] [address] [facility]: Acute Allergies Active Allergy [...] day E11.9 1 Kit 0 07/12/2020 Active SafedoXTouch Verio In Vitro Strip (Glucose Blood) Use up to 4 times a day E11.9 100 Strip 11 07/12/2020 Active SafedoXTouch Delica Lancets 33G Use up to four [...] 90 Tablet 3 03/22/2022 3 Active Nystatin 169212 UNIT/GM External Powder (Nystop)Indications: Cutaneous candidiasis Apply [...] disease 019 Coronary artery disease invo lving [place] coronary artery of [place] heart without angina pectoris 04/08/2018 Last Assessment [...] Situation: 82 yr old pt lives in [place]. Increased SOB, cough and extreme weakness. Started [...] over the weekend. Recommendation: home visit today [facility] commercial account officer Acute Call Date: 12/11/2022 Time: 9:44 AM Name: Obed Mancini : 1940 Caller: Rere Relationship to pt: daughter Chief Complaint Patient presents with [facility]: Acute HPI: Obed Mancini is a 82 year old old male that is calling [facility] Intake to report cold andflu [...] Acute Appointment scheduled for same day: Yes [facility] Bander Hand Provider Name: TBD Call back instructions provided to patient. documented in this encounter Plan of Treatment Upcoming Encounters Date Type Specialty Care Team Description 12/11/2022 Home Visit [facility] Jennifer Ricci RN [address] [place] [address] 01/04/2023 Home Visit [facility] Awilda York RN [address] [place] [address] 01/11/2023 Office Visit Cardiology Pavan Cheema PA-C [address] [place] [address] 05/01/2023 Cardiac Studies Cardiology [facility] [address] [place] [address] Health Maintenance Due Date Last Done Comments [...] Additional history exists CKD HGB USE SMARTSET 41372 07/26/202307/25, 07/25/2022, 07/20/2022, Additional history exists CKD PHOS USE SMARTSET 83245 11/28/202311/01, 06/14/2021, 08/19/2020, Additional history exists DTaP,Tdap,and [...] Documents on File Type Date Recorded Patient Casino Attendant Expl anation Advance Directives and Living Will 05/01/2022 ADVANCE DIRECTIVE / LIVING WILL Power of Weight Caller 05/01/2022 POWER OF A TTORNEY Latest Code Status on File Code Status Date Activated Date Inactivated Comments Full Code 08/19/2020 6:21 AM 08/23/2020 3:20 PM This order reflects the patients wishes and were consensually agreed upon. Question Answer Comments Discussion of Advance Directives occurred with: Patient Does the patient have a Living Will? No Does the patient have Health Care Power of Weight Caller? No Code Status History Code Status Date Activated Date Inactivated Comments Full Code 08/19/2020 4:29 AM 08/19/2020 6:21 AM This order reflects the patients wishes and were consensually agreed upon. Question Answer Comments Discussion of Advance Directives occurred with: Patient Does the patient have a Living Will? No Does the patient have Health Care Power of Weight Caller? No Full Code 06/13/2020 2:24 PM 06/15/2020 7:45 PM This order reflects the patients wishes and were consensually agreed upon. Care Teams Healthcare Management Consultant Relationship Specialty Start Date End Date Juanito Saba DO [address] [place] [address] PCP - General Family Medicine 04/25/17 documented as of this encounter
--- OUTSIDE RECORDS SUMMARY | 2023-05-13 14:06 | External Medical Summary | Summary of Care ---
Author Name Unknown Organization [facility] Address [address] Care Team Providers Care Environmental Compliance Inspector Name Role Phone Juanito Saba DO Primary Care Provider Reason for Visit * Reason Onset Date Comments Returning Call 11/27/2022 Encounter Details Date Type Department Care Team Description 11/27/2022 Telephone Pharmacy, [facility] [place] [address] [facility] [place] [address] [facility] [address] [facility] [place] [address] Returning Call (/) Allergies Active Allergy Reactions Severity Noted Date [...] 90 Tablet 3 03/22/2022 3 Active Nystatin 441493 UNIT/GM External Powder (Nystop)Indications: Cutaneous candidiasis Apply [...] disease 019 Coronary artery disease invo lving [place] coronary artery of [place] heart without angina pectoris 04/08/2018 Last Assessment [...] 30 Mcg, IM, 12 yrs and above (DxTerity) 01/02/2022 Pneumococcal Conjugate Vacc, 13 Valent (Prevnar) [...] Encounter - Kina Matthews RPh - 11/27/2022 12:30 PM EDT Spoke with Liya within [facility] encounter from today. Please refer to today's [facility] encounter. Thanks, Kina Matthews PharmD Clinical Pharmacist [facility] ([facility]) (Formerly Telepharmacy) [phone] 11/27/2022 12:30 PM * Telephone Encounter - BONIFACIO Sheets - 11/27/2022 12:03 PM EDT Caller's name: Liya Gibson [facility] Preferred call back number(OFFICE NUMBER FOR ): [phone] x [phone] Reason for call: returning Kina's call to discuss the Eliquis, thank you. Judy Rose MA Tax Record Clerk I [facility] ([facility]) (formerly Telepharmacy) [address] [facility] [address] [place] [address] ext [phone] documented in this encounter Plan of Treatment Upcoming Encounters Date Type Specialty Care Team Description 11/27/2022 Anticoagulation Pharmacy Telepharmacy, [facility] [address] [facility] [place] [address] Atrial fibrillation, unspecified type (HCC)* 01/04/2023 [facility] Visit [facility] Awilda York, [facility]A [address] [facility] [address] 01/11/2023 Office Visit Cardiology Pavan Cheema PA-C [address] [place] [address] 05/01/2023 Cardiac Studies Cardiology Amanda, Pacer Clinic [facility] [address] [place] [address] Health Maintenance Due Date Last Done Comments DXA Scan 1940 COLONOSCOPY-EVERY 2 YRS AGES 18-100 01/08/2011 01/08/2009 DIABETES-EYE EXAM 06/09/2022 06/09/2021, , 05/28/2020, Additional history exists CKD PHOS USE SMARTSET 21557 06/14/202205/31, 08/19/2020, 06/15/2020, Additional history exists Albumin/Creatinine Ratio 07/15/2022 022, 08/28/2019, 02/26/2019, Additional history exists DIABETES-FOOT EXAM 07/15/2022 07/15/2021, 0 05/23/2019, 02/18/2018, Additional history exists Influenza Vaccine (FLU shot) (#1) 2022 12/28/2021, 12/28/2021, 01/13/2021, Additional history exists Depression Screening, Annual for Pts 12 and Over 01/13/2023 01/13/2022 HbA1c 01/24/2023 07/25/2022, 07/02, 11/01/2021, Additional history exists TSH 03/20/2023 03/20/2022, 08/0 05/2021, 07/26/2021, Additional history exists GFR 05/30/2023 11/27/2022, 2 07/2022, 07/20/2022, Additional history exists CKD HGB USE SMARTSET 42137 07/26/202307/25, 07/25/2022, 07/20/2022, Additional history exists DTaP,Tdap,and [...] Documents on File Type Date Recorded Patient Payroll Benefits Administrator Expl anation Advance Directives and Living Will 05/01/2022 ADVANCE DIRECTIVE / LIVING WILL Power of Physicians Assistant 05/01/2022 POWER OF A TTORNEY Latest Code Status on File Code Status Date Activated Date Inactivated Comments Full Code 08/19/2020 6:21 AM 08/23/2020 3:20 PM This order reflects the patients wishes and were consensually agreed upon. Question Answer Comments Discussion of Advance Directives occurred with: Patient Does the patient have a Living Will? No Does the patient have Health Care Power of Physicians Assistant? No Code Status History Code Status Date Activated Date Inactivated Comments Full Code 08/19/2020 4:29 AM 08/19/2020 6:21 AM This order reflects the patients wishes and were consensually agreed upon. Question Answer Comments Discussion of Advance Directives occurred with: Patient Does the patient have a Living Will? No Does the patient have Health Care Power of Physicians Assistant? No Full Code 06/13/2020 2:24 PM 06/15/2020 7:45 PM This order reflects the patients wishes and were consensually agreed upon. Care Teams Environmental Compliance Inspector Relationship Specialty Start Date End Date Juanito Saba DO [address] [place] [address] PCP - General Family Medicine 04/25/17 documented as of this encounter
--- OUTSIDE RECORDS SUMMARY | 2023-05-13 14:06 | External Medical Summary | Summary of Care ---
Author Name Unknown Organization [facility] Address [address] [place] [address] Phone [phone] Care Team Providers Care Water Filtration Technician Name Role Phone Juanito Saba DO Primary Care Provider Reason for Visit * Reason Comments Dosage Adjustment Via Phone (anticoag Cl inic) Encounter Details Date Type Department Care Team Description 11/27/2022 Anticoagulation Pharmacy Call Center [address] [facility] [place] [address] [facility] [address] [place] [address] Atrial fibrillation, unspecified type (HCC)* Allergies Active Allergy Reactions Severity Noted Date [...] 5 Active ammonium lactate (LAC-HYDRIN) 12 % lotionIndications: Intrinsic atopic dermatitis Apply topically to affected area as needed for Dry Skin. Apply to legs and feet 400 g 2 9 Active OneTouch Verio w/Device Kit Use up to 4 times a day E11.9 1 Kit 0 1 Active OneTouch Verio In Vitro Strip (Glucose Blood) Use up to 4 times a day E11.9 100 Strip 11 1 Active OneTouch Delica Lancets 33G Use up to four times daily. E11.9 100 Each 11 1 Active Acetaminophen 325 MG Oral Capsule Take 650 mg by mouth every 6 hours as needed for Pain. 0 Active Aspirin 81 MG Oral Tablet Chewable Take 1 Tab by mouth daily. 30 Tab 0 1 Active Silver sulfADIAZINE 1 % External Cream (Silvadene)Indicat ions:Pressure injury of skin of left buttock, unspecified injury stage Apply topically to affected area daily. Apply to affected area once daily 50 g 0 1 Active Additional Information Patient not taking.Informant: Patient, Reported on 08/30/2022 Spacer/Aero-Holdin g Chambers DeviceIndications: Viral URI with cough Use with inhaler. 1 [...] in the morning. 90 Capsule 3 2 Active Furosemide 40 MG Oral Tablet (Lasix) Take 0.5 Tablets by mouth in the morning. 90 Tablet 3 2 Active Vitron-C 65-125 MG Oral Tablet (Iron-Vitamin C 65-125 mg per tab) Take 1 Tablet by mouth in the morning. Take Sunday, Sunday and Sunday. 0 Active Finasteride 5 MG Oral Tablet (Proscar) Take 1 tablet by mouth once daily 90 Tablet 0 3 Active Tamsulosin HCl [...] 0 Active Folic Acid 1 MG Oral TabletIndications: Chronic ischemic heart disease,Aortocoron glenna bypass status Take 1 Tablet by mouth in the morning. 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) TAKE ONE TABLET BY MOUTH EVERY DAY 90 Tablet 3 3 08/07/19 24 Active glipiZIDE ER 10 MG Oral Tablet Extended Release 24 Hour (Glucotrol XL) TAKE ONE TABLET BY MOUTH EVERY MORNING 90 Tablet 1 3 07/24/19 24 Active Atorvastatin Calcium 80 MG Oral Tablet (Lipitor)Indicatio ns:Dyslipidemia, goal LDL below 70 TAKE ONE TABLET BY MOUTH EVERY DAY 90 Tablet 3 2 03/22/20 23 Active Levothyroxine Sodium 125 MCG Oral Tablet (Levoxyl)Indicatio ns:Acquired hypothyroidism TAKE 1 TABLET BY MOUTH DAILY AT LEAST 30 MINUTES PRIOR TO FIRST MEAL OF THE DAY OR OTHER MEDICATIONS 90 Tablet 3 2 03/22/20 23 Active Nystatin 073673 UNIT/GM External Powder (Nystop)Indication s:Cutaneous candidiasis Apply topically to affected area 3 times a day. Apply to skin fold areas as directed 60 g 1 3 Active Apixaban 5 MG Oral Tablet (Eliquis) Take 1 Tablet by mouth in the morning and 1 Tablet before bedtime. 0 Active Warfarin Sodium 5 MG Oral Tablet (Coumadin) TAKE 1/2 TABLET(2.5MG) BY MOUTH EVERY SUNDAY, TAKE 1 TABLET (5MG) ALL OTHER DAYS OR DIRECTED BY THE [facility]. 40 Tablet 10 3 11/28/19 23 Discontinu ed(Azeem walker) documented as of this encounter (statuses as [...] as of this encounter Progress Notes * Kina Matthews [facility] - 11/27/2022 11:38 AM EDT Medication Therapy Disease Management - Anticoagulation Patient: Obed Mancini | : 1940 Subjective Contacts Type Contact Phone/Fax 11/27/2022 11:35 AM EDT Phone (Outgoing) Liya - [place] provider (Provider) [phone] Left Message - ext [phone] 11/27/2022 12:18 PM EDT Phone (Outgoing) Liya - [place] Provider (Provider) [phone] 11/27/2022 12:20 PM EDT Phone (Outgoing) Rere Mancini (Emergency Contact) [phone] Left Message LMOVM for Liya regarding Eliquis information and with INR results to ensure [facility] is providing the same information to [facility] the [facility]. Patient-Reported Symptoms: Patient Findings Positives: Change in medications (Eliquis transition (see TE 11/27)) Comments: Spoke with Prisca Nickerson at the [facility] -- she noted that the Eliquis has already been mailed out/overnighted to the patient. The patient will receive Eliquis 11/28/22 in the mail. With INRof 2.1, pt to discontinue warfarin today 11/27 and begin Eliquis with AM dose 11/29/22. LMOVM regarding warfarin to Eliquis transition process. Advised warfarin to be discontinued as of today 11/27/22. Eliquis will be received in the mail 11/28/22. Eliquis dosing to begin 11/29/22. Reviewed that Eliquis is dosed twice daily and that while pt does not need routine bloodwork monitoring forEliquis, he should call the provider or been seen in the ER for any abnormal bruising/bleeding while on Eliquis. Objective Current Warfarin Dose As of 11/27/2022 Warfarin maintenance plan: 5 mg (5 mg x 1) every day INR Result As of 11/27/2022 INR goal: 2.0-3.0 INR used for dosin.1 (11/27/2022) Assessment & Plan Warfarin Plan As of 11/27/2022 Full warfarin instructions: Warfarin d/c; begin Eliquis with AM dose on 11/29/22 Next INR check: N/A Repeat PT/INR -- N/A Weekly dose: warfarin d/c; Eliquis to begin 11/29/22 with AM dose. Additional Dosing Information: As patient is being transitioned to Eliquis, ACC to discharge at this time. Spoke with Liya [facility] and she will also review these instructions with the patient/EC. Kina Matthews [facility] Clinical Pharmacist 11/27/2022, 11:39 AM documented in this encounter Plan of Treatment Upcoming Encounters Date Type Specialty Care Team Description 01/04/2023 Home Visit [facility] Awilda York, RN [address] [place] [address] 01/11/2023 Office Visit Cardiology Pavan Cheema PA-C [address] [place] [address] 05/01/2023 Cardiac Studies Cardiology [facility] [address] [place] [address] Health Maintenance Due Date Last Done Comments DXA Scan 1940 COLONOSCOPY-EVERY 2 YRS AGES 18-100 01/08/2011 01/08/2009 DIABETES-EYE EXAM 06/09/2022 06/09/2021, , 05/28/2020, Additional history exists CKD PHOS USE SMARTSET 47525 06/14/202205/31, 08/19/2020, 06/15/2020, Additional history exists Albumin/Creatinine Ratio 07/15/20222 022, 08/28/2019, 02/26/2019, Additional history exists DIABETES-FOOT [...] Additional history exists CKD HGB USE SMARTSET 67385 07/26/202307/25, 07/25/2022, 07/20/2022, Additional history exists DTaP,Tdap,and [...] as of this encounter Visit Diagnoses Diagnosis Atrial fibrillation, unspecified type (HCC)- Primary documented in this encounter Advance Directives Documents on File Type Date Recorded Patient Advertising Editor Expl anation Advance Directives and Living Will 05/01/2022 ADVANCE DIRECTIVE / LIVING WILL Power of Sfdc Technical Architect 05/01/2022 POWER OF A TTORNEY Latest Code Status on File Code Status Date Activated Date Inactivated Comments Full Code 08/19/2020 6:21 AM 08/23/2020 3:20 PM This order reflects the patients wishes and were consensually agreed upon. Question Answer Comments Discussion of Advance Directives occurred with: Patient Does the patient have a Living Will? No Does the patient have Health Care Power of Sfdc Technical Architect? No Code Status History Code Status Date Activated Date Inactivated Comments Full Code 08/19/2020 4:29 AM 08/19/2020 6:21 AM This order reflects the patients wishes and were consensually agreed upon. Question Answer Comments Discussion of Advance Directives occurred with: Patient Does the patient have a Living Will? No Does the patient have Health Care Power of Sfdc Technical Architect? No Full Code 06/13/2020 2:24 PM 06/15/2020 7:45 PM This order reflects the patients wishes and were consensually agreed upon. Care Teams Water Filtration Technician Relationship Specialty Start Date End Date Juanito Saba DO [address] [place] [address] PCP - General Family Medicine 04/25/17 documented as of this encounter
--- OUTSIDE RECORDS SUMMARY | 2023-05-13 14:06 | External Medical Summary ---
Author Name Unknown Address Unknown Organization K01:[facility] - [address] [place] [address] Laboratory Report Ordering Provider Test Date Status VELMA FISHMAN 11/27/2022 10:18:00 Final Observation Date Value Abnormality Reference (Units ) Status Phosphate 11/27/2022 10:18:00 2.6 2.5-4.8 (m g/dL) Final Performing Location [facility] [address] [place] [address]
--- OUTSIDE RECORDS SUMMARY | 2023-05-13 14:06 | External Medical Summary ---
Author Name Unknown Address Unknown Organization [id number] [address] [place] [id number] Laboratory Report Ordering Provider Test Date Status VELMA FISHMAN 11/27/2022 10:18:00 Final Observation Date Value Abnormality Reference (Units ) Status BUN 11/27/2022 10:18:00 24 Above high normal 6-20 (mg/dL) Final Creatinine 11/27/2022 10:18:00 1.4 Above high normal 0.6-1.2 (mg/dL) Final Glomerular filtration rate/1.73 sq M.predicted [Volume Rate/Area] in Serum, Plasma or Blood by Creatinine-based formula (CKD-EPI) 11/27/2022 10:18:00 52 Below low normal >=60 (mL/min) Final eGFR is calculated based on the CKD-EPI 2020 equation SODIUM 11/27/2022 10:18:00 138 135-146 (m mol/L) Final Potassium 11/27/2022 10:18:00 4.2 3.5-5.1 (m mol/L) Final Cl 11/27/2022 10:18:00 102 98-107 (mm ol/L) Final CO2 11/27/2022 10:18:00 24 22-32 (mmo l/L) Final Anion gap 11/27/2022 10:18:00 12 7-15 (mmol /L) Final Glucose 11/27/2022 10:18:00 98 70-120 (mg /dL) Final Calcium 11/27/2022 10:18:00 9.3 8.4-10.2 ( mg/dL) Final Performing Location [facility] [employer] [address] [place] [id number]
--- NOTE | 2023-05-13 14:54 | Emergency Department Note ---
Impression & Plan Transient weakness of right lower extremity, Neuropathy, Fall, Chronic indwelling Santacruz catheter, Anemia, Hyperglycemia ED Provider Note ED Provider Note NAME: ALMAS COHEN AGE:83 SEX: Male : 1940 ARRIVES VIA: EMS INFORMANT: Patient ED PROVIDER(s): Chyna Russ DO CHIEF COMPLAINT: Fall, right leg gives out HPI: This is an 83-year-old male presents emergency department following a ground-level fall at home. Patient states he was walking back to his chair and his right leg gave out causing him to fall. Family was present with him and states he fell forward with his head striking the ground and it seeming to flex his neck awkwardly. Family did try to lift him up using equipment and supplies they have at home to help him with transfer while awaiting EMS arrival. Family bedside states he did have a ground-level fall last night, however he was not brought in for additional evaluation. Patient states this has happened previously where his right leg will suddenly give out and it is due to disc and nerve problems in his low back. He also states he has issues with neuropathy making it hard to walk. He does try to use his walker although cannot really get around his home entirely with it. He has an indwelling Santacruz catheter which was changed 1 week ago, no other changes or problems with that more recently. No recent illness, no change in medications. He denies fevers, chills, difficulty breathing, chest pain, nausea or vomiting, or abdominal pain. PAST MEDICAL HISTORY:See Below PAST SURGICAL HISTORY:See Below FAMILY HISTORY:See Below SOCIAL HISTORY:See Below HOME MEDICATIONS:See Below ALLERGIES:See Below VITALS:See Below PHYSICAL EXAMINATION: GENERAL: alert, well appearing, well nourished, no distress, non-toxic HEAD: nc/at, no evidence of facial trauma EYE EXAM: normal conjunctiva, PERRL and EOM's grossly intact OROPHARYNX: no exudate, no erythema, lips, buccal mucosa, and tongue normal and mucous membranes are moist NECK: supple, no nuchal rigidity, no adenopathy, non-tender LUNGS: Clear to auscultation. Normal chest wall mechanics, no w/r/r HEART: no murmurs, S1 normal and S2 normal, pacemaker noted right anterior superior chest wall ABDOMEN: abdomen soft, non-tender, normo-active bowel sounds, no masses, no rebound or guarding. PELVIS: Stable to compression, nontender with palpation BACK: Back is symmetrical on inspection and there is no deformity, no midline tenderness, no CVA tenderness. SKIN: no rashes, petechiae, orbruising UPPER EXTREMITIES: upper extremities are grossly normal. FROM, nml pulses b/l. No deformities or evidence of trauma LOWER EXTREMITIES: No pitting edema. FROM, nml pulses b/l. Evolving contusions and edema noted prepatellar regions of bilateral knees, no other deformities or evidence of trauma NEURO EXAM: Normal sensorium, cranial nerves II-XII grossly intact, normal speech, no facial droop,nogross weakness of arms, no gross weakness of legs. Gross sensation intact. No ataxia. Vital Signs: reviewed and remarkable Differential Diagnosis: dehydration, stroke, anemia, hypoglycemia, hyponatremia, hypernatremia, urinary tract infection, pneumonia, bronchitis, sepsis, gastroenteritis, additional abdominal pathology, metabolic abnormalities, as well as others were considered MEDICAL DECISION MAKING: This is an 83-year-old male with a history of frequent falls who presents emergency department after recurrent fall. Patient with chronic neuropathy as well as history of intermittent right lower extremity weakness. He states his right leg gives out as a result of problems with his low back which causes him to fall. Family concerned at bedside that he is no longer safe to be at home as he cannot get up, cannot help him, and 2 other family members there today were unable to help him get back up. They are concerned that he is at risk for additional injuries. Patient has been unable to walk even using his walker. He was afebrile and vital signs stable. Labs drawn and sent, IV established, EKG and x-rays performed at bedside interpreted by me and patient monitored on telemetry. He was sent for additional imaging of his head, C-spine, lumbar spine which were reassuring and without acute traumatic injury. A urine culture was sent as he has an indwelling Santacruz catheter. Patient does not notice any changes or had any symptoms to suggest evolving infection. I suspect mild leukocytosis noted today more likely stress reaction from the fall and injuries. Patient had no other chest abdominal pain, no other new or evolving symptoms on monitor in the ER. After several discussions with family at bedside, I asked case management to speak with them regarding options for his treatment. They are adamant that patient is not safe to return home due to these falls. Due to [employer] insurance, patient will need to be admitted for eventual placement. Case discussed with hospitalist team for additional evaluation and management. Consultation(s): 193: Discussed with Dr. Martinez, [facility] hospitalist, for additional evaluation and management. ER Treatment Provided: See below Diagnostics Interpreted By Me: -ECG: Paced at 76, normal axis, prolonged intervals, baseline artifact, nonspecific ST/T wave changes -Cardiac Monitoring: An order was placed for continuous cardiac monitoring. The monitor shows a rate of 60 with normal sinus rhythm. -Laboratory studies: As stated above and show below. -Imaging studies: X-ray Chest: A single view study of the chest was reviewed and was negative for cardiomegaly, focal infiltrate, effusion, pulmonary edema, or wide mediastinum. No obvious fracture or pneumothorax. X-ray pelvis: No obvious fracture or dislocation. X-rays bilateral knees: No obvious fracture or dislocation Triage Nursing Note Reviewed Prior/Outside Records Reviewed -prior urine cultures reviewed Past Med/Surg History Medical History Hypothyroidism Ischemic cardiomyopathy EF 50% by July 2020 ECHO DM type 2 (diabetes mellitus, type 2) Carotid artery disease Per 07/01/2020 carotid duplex = right ICA 70-99%. Left ICA 50-69% (stenosis could be higher but not visualize due to heavy plaque burden) Follows with vascular surgery- currently under medical management only at this time (surgery deferred at this time)- last seen 07/01/20 Chronic diastolic CHF (congestive heart failure) Atrial fibrillation [id number] (age, CHF, HTN, DM, CAD) On Coumadin CKD (chronic kidney disease), stage III Subdural hematoma, chronic 05/2020 fell and hit head. 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 Medtronic - due for upgrade to BiV device Anemia Hypertension Surgical History Hx of CABG 2007 cabg x 3 at [facility] Family History Sister Lung cancer smoker Other Family history non-contributory No family history of adverse response to anesthesia No family history of bleeding disorder Social History Smoking Status: Never smoker Second Hand Exposure: No; Do You Dip or Chew Tobacco: No; Hx Alcohol Use: No Hx Substance Use: No Preferred Language: Kazakh Communication Ability: Effective Visual Impairment: Limited Hearing Ability: Use of Hearing Aid Supervisor Beet End Required: No Beliefs That Will Affect Care: None marital status: Current Living Situation: Spouse current occupational status: retired How many Children do You have: 3 How many Children do You have Comment: All three children involved with care. Daughters live close to pt. Feels Safe at Home: No Is there a partner from a previous relationship who is making you feel unsafe now?: No Diet: regular during the past year weight has: remained stable Assistive Devices: Bedside Commode, Cane, Walker and Wheelchair Allergies Allergies Allergy/AdvReac Type Severity Reaction Status Date / Time isosorbide AdvReac Intermediate Headache Verified 05/13/23 18:03 mirabegron AdvReac Intermediate falls Verified 05/13/23 18:03 isopropyl alcohol AdvReac "isopropyl Verified 05/13/23 18:03 isostearate" = headaches Home Meds Home Medications Medication Instructions Recorded Confirmed tamsulosin 0.4 mg capsule 0.4 mg PO HS 05/19/22 05/13/23 Lactobacillus acidophilus 500 500 mmu cells PO DAILY 05/25/22 05/13/23 million cell tablet iron,carbonyl 65 mg-vitamin C 125 1 tab PO .Mwf 05/25/22 05/13/23 mg tablet,delayed release (Vitron-C) Prohheal 2 tbsp PO DAILY 08/16/22 05/13/23 glipizide 10 mg tablet, extended 5 mg PO QAM 08/16/22 05/13/23 release 24 hr apixaban 2.5 mg tablet (Eliquis) 2.5 mg PO BID 05/13/23 05/13/23 Previous Rx's Medication Instructions Recorded acetaminophen 325 mg tablet 650 mg (2 x 325 mg) PO Q6H PRN 03/27/22 (Tylenol) Pain #50 tabs aspirin 81 mg chewable tablet 81 mg PO DAILY #30 tabs 03/27/22 atorvastatin 80 mg tablet 80 mg PO QAM #30 tabs 03/27/22 cyanocobalamin (vitamin B-12) 500 500 mcg PO QAM #30 tabs 03/27/22 mcg tablet (Vitamin B-12) docusate sodium 100 mg capsule 100 mg PO BID PRN Constipation #30 03/27/22 caps finasteride 5 mg tablet 5 mg PO DAILY #30 tabs 03/27/22 folic acid 1 mg tablet 1 mg PO QAM #30 tabs 03/27/22 furosemide 40 mg tablet 20 mg (1/2 x 40 mg) PO QAM #30 tabs 03/27/22 levothyroxine 125 mcg tablet 125 mcg PO DAILYBB #30 tabs 03/27/22 metoprolol succinate 50 mg 50 mg PO DAILY #30 tabs 03/27/22 tablet,extended release 24 hr multivitamin-ferrous 1 tab PO DAILY #30 tabs 03/27/22 fumarate-folic acid 18 mg-400 mcg tablet (Centrum) potassium chloride 20 mEq 20 meq PO DAILY #30 tabs 03/27/22 tablet,extended release zinc gluconate 50 mg tablet 50 mg PO DAILY #30 tabs 03/27/22 Results & Data (ED) Vital Signs Vital Signs - 24 hr 05/13/23 13:44 05/13/23 14:32 05/13/23 14:35 Temperature 37.1 C Temperature Source Oral Pulse Rate 74 60 60 Pulse Rate from SpO2 Sensor 60 Pulse Rhythm Regular Pulse Strength Normal Respiratory Rate 20 18 Respiratory Effort / Characteristics Non-Labored Spontaneous Respiratory Depth Normal Respiratory Pattern Regular Blood Pressure 116/67 Blood Pressure Mean 83 Blood Pressure Position Sitting Pulse Oximetry 96 97 Oxygen Delivery Method Room Air Sepsis Recent Fever Within 48 Hours No Sepsis New/Unexplained Change in Mental Status No Sepsis Action Taken by Nursing No Action Required 05/13/23 15:00 05/13/23 15:00 05/13/23 15:30 Temperature Temperature Source Pulse Rate 62 Pulse Rate from SpO2 Sensor 61 Pulse Rhythm Pulse Strength Respiratory Rate 27 H Respiratory Effort / Characteristics Respiratory Depth Respiratory Pattern Blood Pressure 131/57 L 115/59 L Blood Pressure Mean 98 69 Blood Pressure Position Pulse Oximetry 97 Oxygen Delivery Method Sepsis Recent Fever Within 48 Hours Sepsis New/Unexplained Change in Mental Status Sepsis Action Taken by Nursing 05/13/23 15:30 05/13/23 16:00 05/13/23 16:00 Temperature Temperature Source Pulse Rate 63 60 Pulse Rate from SpO2 Sensor 60 Pulse Rhythm Pulse Strength Respiratory Rate 15 20 Respiratory Effort / Characteristics Respiratory Depth Respiratory Pattern Blood Pressure 114/62 Blood Pressure Mean 71 Blood Pressure Position Pulse Oximetry 98 Oxygen Delivery Method Sepsis Recent Fever Within 48 Hours Sepsis New/Unexplained Change in Mental Status Sepsis Action Taken by Nursing 05/13/23 16:41 05/13/23 16:41 05/13/23 17:00 Temperature Temperature Source Pulse Rate 63 Pulse Rate from SpO2 Sensor 63 Pulse Rhythm Pulse Strength Respiratory Rate 15 Respiratory Effort / Characteristics Respiratory Depth Respiratory Pattern Blood Pressure 137/82 134/73 Blood Pressure Mean 111 85 Blood Pressure Position Pulse Oximetry 98 Oxygen Delivery Method Sepsis Recent Fever Within 48 Hours Sepsis New/Unexplained Change in Mental Status Sepsis Action Taken by Nursing 05/13/23 17:00 05/13/23 18:07 05/13/23 19:00 Temperature Temperature Source Pulse Rate 60 59 L 60 Pulse Rate from SpO2 Sensor 60 Pulse Rhythm Pulse Strength Respiratory Rate 20 15 Respiratory Effort / Characteristics Respiratory Depth Respiratory Pattern Blood Pressure Blood Pressure Mean Blood Pressure Position Pulse Oximetry 96 97 Oxygen Delivery Method Room Air Sepsis Recent Fever Within 48 Hours Sepsis New/Unexplained Change in Mental Status Sepsis Action Taken by Nursing 05/13/23 19:23 05/13/23 19:31 05/13/23 20:00 Temperature Temperature Source Pulse Rate 60 67 60 Pulse Rate from SpO2 Sensor Pulse Rhythm Pulse Strength Respiratory Rate 21 20 17 Respiratory Effort / Characteristics Respiratory Depth Respiratory Pattern Blood Pressure 117/50 L 104/58 L Blood Pressure Mean 72 73 Blood Pressure Position Pulse Oximetry 91 95 98 Oxygen Delivery Method Room Air Room Air Room Air Sepsis Recent Fever Within 48 Hours Sepsis New/Unexplained Change in Mental Status Sepsis Action Taken by Nursing Laboratory Data 05/13/23 21:39 05/13/23 14:25 Lab Results 05/13/23 05/13/23 Range/Units 14:17 14:25 WBC 16.05 H (4.8-10.8) K/ul RBC 4.18 L (4.70-6.10) M/uL Hgb 13.0 L (14.0-18.0) g/dl Hct 39.8 L (42.0-52.0) % MCV 95.2 (80.0-100.0) fL MCH 31.1 (25.0-34.0) pg MCHC 32.7 (32.0-36.0) g/dL RDW Std Deviation 49.9 H (36.4-46.3) fL RDW Coeff of Jaymie 14.5 (11.5-14.5) % Plt Count 189 (130-400) K/uL MPV 10.8 (9.4-12.4) fL Immature Gran % (Auto) 0.9 % Neut % (Auto) 77.5 % Lymph % (Auto) 14.1 % Mobile % (Auto) 6.6 % Eos % (Auto) 0.5 % Baso % (Auto) 0.4 % Neut # (Auto) 12.44 H (1.40-6.50) K/uL Lymph # (Auto) 2.27 (1.20-3.40) K/uL Mobile # (Auto) 1.06 H (0.11-0.59) K/uL Eos # (Auto) 0.08 (0.00-0.50) K/uL Baso # (Auto) 0.06 (0.00-0.20) K/uL Immature Gran # (Auto) 0.14 (0.01-0.20) K/uL Sodium 134 L (136-145) mmol/L Potassium 4.4 (3.5-5.1) mmol/L Chloride 101 (98-107) mmol/L Carbon Dioxide 23 (21-32) mmol/L Anion Gap 10 (3-11) BUN 23 (6-23) mg/dl Creatinine 1.44 H (0.6-1.4) mg/dl Est Cr Clr Drug Dosing 48.8 ml/min Est GFR ( Amer) 51.7 ml/min Est GFR (Non-Af Amer) 44.6 ml/min BUN/Creatinine Ratio 16.0 (10-20) Glucose 158 H (70-99(Fasting)) mg/dl POC Glucose 169 H (70-99) mg/dl Calcium 9.4 (8.6-10.3) mg/dl Magnesium 1.7 (1.7-2.4) mg/dl Total Bilirubin 0.8 (0.2-1.0) mg/dl AST 22 (13-39) U/L ALT 11 (7-52) U/L Alkaline Phosphatase 117 H (34-104) U/L Total Creatine Kinase 84 (30-223) U/L Troponin I High Sens 16.5 (0-20) pg/ml Total Protein 8.1 (6.0-8.3) gm/dl Albumin 3.9 (3.4-5.0) gm/dl Globulin 4.2 H (2.5-4.0) gm/dl Albumin/Globulin Ratio 0.9 (0.9-2) Lipase 20 (11-82) U/L Procalcitonin 0.07 (0-0.5) ng/ml TSH 2.865 (0.300-4.500) uIu/ml Administered Medications Doxycycline Hyclate 100 mg/ (Dextrose) 100 mls @ 50 mls/hr IV NOW STA Stop: 05/13/23 23:06 Last Admin: 05/13/23 21:32 Dose: 50 mls/hr Documented By: INGE Sodium Chloride (Nss) 1,000 mls @ 100 mls/hr IV .Q10H STA Stop: 05/14/23 07:06 Last Admin: 05/13/23 21:33 Dose: 100 mls/hr Documented By: INGE Insulin Aspart (Insulin Aspart Per Unit Charge) 0 units SC ACHS SARAH Stop: 06/12/23 21:46 Last Admin: 05/13/23 22:25 Dose: Not Given Documented By: INGE Co-signed By: REY Tamsulosin HCl (Tamsulosin Hcl 0.4 Mg Cap) 0.4 mg PO HS SARAH Stop: 06/12/23 21:46 Last Admin: 05/13/23 22:23 Dose: 0.4 mg Documented By: INGE Discontinued Medications Sodium Chloride (Nss) 1,000 mls @ 125 mls/hr IV .Q8H SARAH Stop: 06/12/23 14:59 Last Infusion: 05/13/23 21:45 Dose: Infused Documented By: Admin: 05/13/23 15:00 Dose: 125 mls/hr Documented By: MAURY Cefepime HCl (Maxipime) 2,000 mg in 20 mls @ 5 mls/min IV NOW STA; Protocol Stop: 05/13/23 20:51 Last Admin: 05/13/23 21:32 Dose: 5 mls/min Documented By: INGE Imaging Data Radiologist's Impression: Cervical Spine CT 05/13/23 14:46 CT OF THE CERVICAL SPINE WITHOUT CONTRAST CLINICAL HISTORY: trauma COMPARISON STUDY: Cervical spine CT March 20, 2012. TECHNIQUE: Helical axial images of the cervical spine were obtained without IV contrast. Sagittal and coronal reconstructions were viewed. Automated exposure control was utilized for the study. A dose lowering technique was utilized adhering to the principles of ALARA. FINDINGS: Reversal of the cervical lordosis has slightly increased when compared to prior exam. Vertebral body heights are maintained. No acute cervical spine fracture or subluxation is present. There is no prevertebral edema. Facet joints are intact. Moderate multilevel degenerative disc disease and facet arthrosis is present within the cervical spine. Prominent right paratracheal lymph node is unchanged and CT of March 20, 2022. This is likely benign. IMPRESSION: No acute cervical spine fracture or subluxation. ACT 112: Negative or not required by law. Electronically signed by: Gurinder No M.D. 05/13/2023 5:04 PM Chest X-Ray 05/13/23 14:46 XR chest 1V portable CLINICAL HISTORY: trauma COMPARISON STUDY: Chest radiograph March 20, 2022. FINDINGS: A right subclavian pacer, median sternotomy wires and mediastinal surgical clips are again noted. Moderate cardiomegaly is unchanged. There is no pneumothorax or pleural fusion. There is no consolidation to suggest pneumonia. Pulmonary vascularity is normal. There are several old right rib fractures. IMPRESSION: No acute cardiopulmonary findings. No change in appearance of the chest. ACT 112: Negative or not required by law. Electronically signed by: Gurinder No M.D. 05/13/2023 3:[address] 05/13/23 14:46 CT OF THE HEAD WITHOUT CONTRAST CLINICAL HISTORY: trauma COMPARISON STUDY: Head CT March 20, 2022. CT DOSE: 2677.39 mGy.cm TECHNIQUE: Helical axial images of the head were obtained without IV contrast. Automated exposure control was utilized for the study. A dose lowering technique was utilized adhering to the principles of ALARA. FINDINGS: No acute intracranial hemorrhage, midline shift or mass effect is present. Moderate atrophy is again noted. 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 White matter hypodensity suggests small vessel disease. The ventricular system is unremarkable. The basal cisterns are patent. No extra-axial collections are present. There are no findings to suggest acute dural sinus thrombosis or acute territorial infarct. No significant calvarial abnormalities are present. Visualized portions of the sinuses and mastoid air cells are clear. IMPRESSION: 1. No acute intracranial findings. No significant change in appearance of the brain. 2. No calvarial fractures. ACT 112: Negative or not required by law. Electronically signed by: Gurinder No M.D. 05/13/2023 4:51 PM Knee X-Ray 05/13/23 14:46 XR knee LT 1 or 2V routine CLINICAL HISTORY: trauma COMPARISON: None FINDINGS: Alignment of the left knee is anatomic. There is no acute fracture. No joint effusion. There is moderate to severe patellofemoral compartment joint space narrowing and osteophytosis. There is chondrocalcinosis within the menisci. Surgical clips within the medial left knee are present. IMPRESSION: 1. No acute fracture. No left knee joint effusion. 2. 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 ACT 112: Negative or not required by law. Electronically signed by: Gurinder No M.D. 05/13/2023 3:51 PM Knee X-Ray 05/13/23 14:46 XR knee RT 1 or 2V routine CLINICAL HISTORY: trauma COMPARISON: None FINDINGS: Alignment of the right knee is anatomic. There is no acute fracture. No evidence for a joint effusion. There is superior and inferior patellar spurring. Moderate patellofemoral compartment osteophytosis is present. IMPRESSION: 1. No acute fracture. No right knee joint effusion. 2. Moderate patellofemoral compartment osteoarthritis. ACT 112: Negative or not required by law. Electronically signed by: Gurinder No M.D. 05/13/2023 3:46 PM Pelvis X-Ray 05/13/23 14:46 XR pelvis 1-2V routine CLINICAL HISTORY: trauma COMPARISON: Pelvis radiograph March 20, 2022. CT of the abdomen and pelvis August 16, 2022. FINDINGS: A Santacruz catheter is incidentally noted. Sacroiliac joints and symphysis pubis are intact. No acute fracture is identified within the pelvis or hips although evaluation of the proximal left femur is suboptimal given difficulty positioning. IMPRESSION: No acute fracture within the pelvis or hips although evaluation of the proximal left femur is suboptimal given difficulty positioning. ACT 112: Negative or not required by law. Electronically signed by: Gurinder No M.D. 05/13/2023 3:[address] 05/13/23 14:54 CT lumbar spine wo con CLINICAL HISTORY: trauma COMPARISON STUDY: Lumbar spine CT December 01, 2018. TECHNIQUE: Axial images of the lumbar spine were obtained without IV contrast. Sagittal and coronal reconstructions were viewed. Automated exposure control was utilized for the study. A dose lowering technique was utilized adhering to the principles of ALARA. FINDINGS: Vertebral body heights are maintained. There is no acute lumbar spine fracture. Severe multilevel degenerative disc disease and facet arthrosis is similar to prior CT. Central canal and neural foramen are suboptimally assessed given CT technique. Paravertebral soft tissues are unremarkable. Infrarenal abdominal aorta is ectatic, measuring 2.9 cm. There are gallstones within the gallbladder. Hepatic steatosis. IMPRESSION: 1. No acute lumbar spine fracture or subluxation. 2. Severe multilevel degenerative changes within the lumbar spine. ACT 112: Negative or not required by law. Electronically signed by: Gurinder No M.D. 05/13/2023 5:08 PM Discharge Plan Visit Data Chief Complaint: Fall ED Provider: Chyna Russ Discharge Problem: Transient weakness of right lower extremity, Neuropathy, Fall, Chronic indwelling Santacruz catheter, Anemia, Hyperglycemia Patient Disposition: Admitted As Inpatient Discharge Instructions Interventions: ED Discharge Assessment Last Done: 05/13/23 21:47
[2023-05-13 14:59] LABS: Basophils # (auto) 0.06 K/uL (0.00-0.20); Basophils % (auto) 0.4 %; Eosinophils # (auto) 0.08 K/uL (0.00-0.50); Eosinophils % (auto) 0.5 %; Hematocrit (blood only) 39.8 % (42.0-52.0); Immature Granulocytes # (auto) 0.14 K/uL (0.01-0.20); Immature Granulocytes % (auto) 0.9 %; Lymphocytes # (auto) 2.27 K/uL (1.20-3.40); Lymphocytes % (auto) 14.1 %; Mean Corpuscular Hemoglobin 31.1 pg (25.0-34.0); Mean Corpuscular Hgb Conc 32.7 g/dL (32.0-36.0); Mean Corpuscular Volume 95.2 fL (80.0-100.0); Mean Platelet Volume 10.8 fL (9.4-12.4); Monocytes # (auto) 1.06 K/uL (0.11-0.59); Monocytes % (auto) 6.6 %; Neutrophils # (auto) 12.44 K/uL (1.40-6.50); Neutrophils % (auto) 77.5 %; Platelet Count 189 K/uL (130-400); RDW Coefficient of Variation 14.5 % (11.5-14.5); RDW Standard Deviation 49.9 fL (36.4-46.3); Red Blood Count 4.18 M/uL (4.70-6.10); White Blood Count 16.05 K/ul (4.8-10.8)
[2023-05-13] MEDS: SODIUM CHLORIDE 0.9% 1,000 ML IV SCH (15:00)
[2023-05-13 15:14] LABS: Albumin Globulin Ratio 0.9 (0.9-2); Albumin Level 3.9 gm/dl (3.4-5.0); Bilirubin,Total 0.8 mg/dl (0.2-1.0); Calcium 9.4 mg/dl (8.6-10.3); Creatinine Clr Calc Pharmacy 48.8 ml/min; Est GFR (African American) 51.7 ml/min; Est GFR (Non-African American) 44.6 ml/min; Globulin 4.2 gm/dl (2.5-4.0); Magnesium 1.7 mg/dl (1.7-2.4); Potassium 4.4 mmol/L (3.5-5.1); Total Protein 8.1 gm/dl (6.0-8.3)
[2023-05-13 15:20] LABS: Troponin I High Sensitivity 16.5 pg/ml (0-20)
[2023-05-13 15:30] LABS: Thyroid Stimulating Hormone 2.865 uIu/ml (0.300-4.500)
--- NOTE | 2023-05-13 15:46 | XRay Report ---
XR chest 1V portable CLINICAL HISTORY: trauma COMPARISON STUDY: Chest radiograph March 20, 2022. FINDINGS: A right subclavian pacer, median sternotomy wires and mediastinal surgical clips are again noted. Moderate cardiomegaly is unchanged. There is no pneumothorax or pleural fusion. There is no co nsolidation to suggest pneumonia. Pulmonary vascularity is normal. There are several old right rib fr actures. IMPRESSION: No acute cardiopulmonary findings. No change in appearance of the chest. ACT 112: Negative or not required by law. Electronically signed by: Gurinder No M.D. 05/13/2023 3:45 PM
--- NOTE | 2023-05-13 15:47 | XRay Report ---
XR knee RT 1 or 2V routine CLINICAL HISTORY: trauma COMPARISON: None FINDINGS: Alignment of the right knee is anatomic. There is no acute fracture. No evidence for a twan nt effusion. There is superior and inferior patellar spurring. Moderate patellofemoral compartment os teophytosis is present. IMPRESSION: 1. No acute fracture. No right knee joint effusion. 2. Moderate patellofemoral compartment osteoarthritis. ACT 112: Negative or not required by law. Electronically signed by: Gurinder No M.D. 05/13/2023 3:46 PM
--- NOTE | 2023-05-13 15:52 | XRay Report ---
XR pelvis 1-2V routine CLINICAL HISTORY: trauma COMPARISON: Pelvis radiograph March 20, 2022. CT of the abdomen and pelvis August 16, 2022. FINDINGS: A Santacruz catheter is incidentally noted. Sacroiliac joints and symphysis pubis are intact. No acute fracture is identified within the pelvis or hips although evaluation of the proximal left fe mur is suboptimal given difficulty positioning. IMPRESSION: No acute fracture within the pelvis or hips although evaluation of the proximal left femu r is suboptimal given difficulty positioning. ACT 112: Negative or not required by law. Electronically signed by: Gurinder No M.D. 05/13/2023 3:51 PM
--- NOTE | 2023-05-13 15:53 | XRay Report ---
XR knee LT 1 or 2V routine CLINICAL HISTORY: trauma COMPARISON: None FINDINGS: Alignment of the left knee is anatomic. There is no acute fracture. No joint effusion. The re is moderate to severe patellofemoral compartment joint space narrowing and osteophytosis. There is chondrocalcinosis within the menisci. Surgical clips within the medial left knee are present. IMPRESSION: 1. No acute fracture. No left knee joint effusion. 2. 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 ACT 112: Negative or not required by law. Electronically signed by: Gurinder No M.D. 05/13/2023 3:51 PM
--- NOTE | 2023-05-13 16:53 | CT Scan Report ---
CT OF THE HEAD WITHOUT CONTRAST CLINICAL HISTORY: trauma COMPARISON STUDY: Head CT March 20, 2022. CT DOSE: 2677.39 mGy.cm TECHNIQUE: Helical axial images of the head were obtained without IV contrast. Automated exposure con trol was utilized for the study. A dose lowering technique was utilized adhering to the principles o f ALARA. FINDINGS: No acute intracranial hemorrhage, midline shift or mass effect is present. Moderate atrophy is again noted. 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 White matter hypodensity suggests small vessel d isease. The ventricular system is unremarkable. The basal cisterns are patent. No extra-axial collect ions are present. There are no findings to suggest acute dural sinus thrombosis or acute territorial infarct. No significant calvarial abnormalities are present. Visualized portions of the sinuses and m astoid air cells are clear. IMPRESSION: 1. No acute intracranial findings. No significant change in appearance of the brain. 2. No calvarial fractures. ACT 112: Negative or not required by law. Electronically signed by: Gurinder No M.D. 05/13/2023 4:51 PM
--- NOTE | 2023-05-13 16:56 | Electrocardiogram Report ---
Test Reason : Blood Pressure : / mmHG Vent. Rate : 076 BPM Atrial Rate : 076 BPM P-R Int : 000 ms QRS Dur : 144 ms QT Int : 440 ms P-R-T Axes : 000 074 -74 degrees QTc Int : 495 ms Ventricular-paced rhythm with frequent Premature ventricular complexes and pseudofusion Abnormal ECG When compared with ECG of 20-MAR-2022 18:50, Premature ventricular complexes are now Present Vent. rate has increased BY 16 BPM Confirmed by Maxim Joseph ([id number]) on 05/13/2023 4:56:28 PM Referred By: REFERRED SELF Confirmed By:Gucci Joseph
--- NOTE | 2023-05-13 17:05 | CT Scan Report ---
CT OF THE CERVICAL SPINE WITHOUT CONTRAST CLINICAL HISTORY: trauma COMPARISON STUDY: Cervical spine CT March 20, 2012. TECHNIQUE: Helical axial images of the cervical spine were obtained without IV contrast. Sagittal a nd coronal reconstructions were viewed. Automated exposure control was utilized for the study. A do se lowering technique was utilized adhering to the principles of ALARA. FINDINGS: Reversal of the cervical lordosis has slightly increased when compared to prior exam. Verte bral body heights are maintained. No acute cervical spine fracture or subluxation is present. There i s no prevertebral edema. Facet joints are intact. Moderate multilevel degenerative disc disease and facet arthrosis is present within the cervical spine. Prominent right paratracheal lymph node is unch anged and CT of March 20, 2022. This is likely benign. IMPRESSION: No acute cervical spine fracture or subluxation. ACT 112: Negative or not required by law. Electronically signed by: Gurinder No M.D. 05/13/2023 5:04 PM
--- NOTE | 2023-05-13 17:10 | CT Scan Report ---
CT lumbar spine wo con CLINICAL HISTORY: trauma COMPARISON STUDY: Lumbar spine CT December 01, 2018. TECHNIQUE: Axial images of the lumbar spine were obtained without IV contrast. Sagittal and coronal r econstructions were viewed. Automated exposure control was utilized for the study. A dose lowering t echnique was utilized adhering to the principles of ALARA. FINDINGS: Vertebral body heights are maintained. There is no acute lumbar spine fracture. Severe mult ilevel degenerative disc disease and facet arthrosis is similar to prior CT. Central canal and neural foramen are suboptimally assessed given CT technique. Paravertebral soft tissues are unremarkable. I nfrarenal abdominal aorta is ectatic, measuring 2.9 cm. There are gallstones within the gallbladder. Hepatic steatosis. IMPRESSION: 1. No acute lumbar spine fracture or subluxation. 2. Severe multilevel degenerative changes within the lumbar spine. ACT 112: Negative or not required by law. Electronically signed by: Gurinder No M.D. 05/13/2023 5:08 PM
[2023-05-13 20:11] LABS: Appearance Urine Cloudy (Clear); Bacteria Urine Automated 4+ (Negative); Bilirubin Urine Negative (Negative); Blood Urine 1+ (Negative); Color Urine Yellow; Glucose Urine UA Negative (Negative); Ketones Urine Negative (Negative); Leukocyte Esterase Urine 3+ (Negative); Nitrite Urine Positive (Negative); RBC Urine Automated 0-4 /hpf (0-4); Specific Gravity Urine 1.018 (1.000-1.030); Urobilinogen Urine Negative (Negative); WBC Urine Automated >30 /hpf (0-5); pH Urine >= 9.0 (4.5-7.5)
[2023-05-13 20:13] LABS: Protein Urine 1+ (Negative)
--- NOTE | 2023-05-13 20:49 | History & Physical Report ---
Date of Service May 13, 2023 Assessment & Plan (1) Complicated UTI (urinary tract infection): Plan: History BPH, chronic indwelling Santacruz catheter No overt sepsis for now Recurrent falls: Underlying ambulatory dysfunction Chronic lumbar radiculopathy, neuropathy Possible scrotal cellulitis, dried blood noted on patient's diaper, no sepsis for now chronic diastolic heart failure, patient euvolemic to dry CAD status post CABG/PVD SSS status post PPM on Eliquis hypertension, stable hyperlipidemia on statin Rx history traumatic subdural hematoma DM2 on oral medications, well-controlled as of last hemoglobin A1c of 6.4 last July 2022 hypothyroidism, euthyroid as of today's TSH CRI, creatinine at baseline chronic anemia, hemoglobin better than baseline history of esophageal stricture status post dilatation sacral decubitus ulcer as per records Increased debility/functional disability GMF Urine CS, cefepime for now for complicated UTI Scrotal ultrasound, doxycycline for possible scrotal cellulitis Hold Eliquis for now given recent bleeding from elbow injury and possible scrotal skin bleed, resume if H&H stable and bleeding resolved Wound care nurse consult re: decubitus wounds ISS BG goal 1 10-1 40, carb count coverage, update hemoglobin A1c PT OT eval Fall precautions Social service re: discharge planning, placement, patient family looking at [facility] facility in [place] DVT prophylaxis. SCDs for now while Eliquis on hold re: scrotal skin bleed, extremity bruising from recurrent falls Full code Patient daughters is requesting updates from providers. Ms. Rere Chapmagne, contact #[phone]. Ms. Jamil Cliff, contact #[phone]. Text document was generated using [employer] voice recognition software. It may contain grammatical or spelling errors. Kindly contact undersigned for clarification of any documentation item in question. History of Present Illness Chief Complaint: Recurrent falls, weakness Primary Care Provider: [facility] History obtained from patient, family, and records. Medical history significant for chronic diastolic heart failure (EF 50 to 54%, 2020), CAD status post CABG, SSS status post PPM on Coumadin, PVD, hypertension, hyperlipidemia, history traumatic subdural hematoma, DM2 on oral medications, hypothyroidism, CRI (baseline creatinine 1.7), chronic anemia (baseline hemoglobin of 11-12), BPH, chronic indwelling Santacruz catheter, chronic back pain/lumbar radiculopathy, ambulatory dysfunction, history of esophageal stricture status post dilatation, history neuropathy as per family, sacral decubitus ulcer as per records Last confinement July 2022 for complicated UTI, hematuria. Patient unable to leave home over the last few months due to ambulatory dysfunction from neuropathy and chronic back pain. Right leg would give out from time to time leading to falls. Last night, patient had a fall after right leg gave out. Some head trauma without LOC. No chest pain, no SOB. EMS had to be called to help patient's family get patient up. Bleeding bruises noted over left elbow and knees. Patient had another fall today with right leg giving out. Usual back pain, no fever, no chills. Patient family also noted possible scrotal swelling with intermittently bleeding bloody drainage. Patient denies pain. Family does not feel they can care for patient at home anymore given increased debility and multiple comorbidities. Medical History as above Surgical History : CABG, PPM Family History : Heart disease, AAA Personal/Social history : Non-smoker, no EtOH intake, lives with Allergies Allergy/AdvReac Type Severity Reaction Status Date / Time isosorbide AdvReac Intermediate Headache Verified 05/13/23 18:03 mirabegron AdvReac Intermediate falls Verified 05/13/23 18:03 isopropyl alcohol AdvReac "isopropyl Verified 05/13/23 18:03 isostearate" = headaches Home Medications Medication Instructions Recorded Confirmed Type acetaminophen 325 mg tablet 650 mg (2 x 325 mg) PO Q6H PRN 03/27/22 05/13/23 Rx (Tylenol) Pain #50 tabs aspirin 81 mg chewable tablet 81 mg PO DAILY #30 tabs 03/27/22 05/13/23 Rx atorvastatin 80 mg tablet 80 mg PO QAM #30 tabs 03/27/22 05/13/23 Rx cyanocobalamin (vitamin B-12) 500 500 mcg PO QAM #30 tabs 03/27/22 05/13/23 Rx mcg tablet (Vitamin B-12) docusate sodium 100 mg capsule 100 mg PO BID PRN Constipation #30 03/27/22 05/13/23 Rx caps finasteride 5 mg tablet 5 mg PO DAILY #30 tabs 03/27/22 05/13/23 Rx folic acid 1 mg tablet 1 mg PO QAM #30 tabs 03/27/22 05/13/23 Rx furosemide 40 mg tablet 20 mg (1/2 x 40 mg) PO QAM #30 tabs 03/27/22 05/13/23 Rx levothyroxine 125 mcg tablet 125 mcg PO DAILYBB #30 tabs 03/27/22 05/13/23 Rx metoprolol succinate 50 mg 50 mg PO DAILY #30 tabs 03/27/22 05/13/23 Rx tablet,extended release 24 hr multivitamin-ferrous 1 tab PO DAILY #30 tabs 03/27/22 05/13/23 Rx fumarate-folic acid 18 mg-400 mcg tablet (Centrum) potassium chloride 20 mEq 20 meq PO DAILY #30 tabs 03/27/22 05/13/23 Rx tablet,extended release zinc gluconate 50 mg tablet 50 mg PO DAILY #30 tabs 03/27/22 05/13/23 Rx tamsulosin 0.4 mg capsule 0.4 mg PO HS 05/19/22 05/13/23 History Lactobacillus acidophilus 500 500 mmu cells PO DAILY 05/25/22 05/13/23 History million cell tablet iron,carbonyl 65 mg-vitamin C 125 1 tab PO .Mwf 05/25/22 05/13/23 History mg tablet,delayed release (Vitron-C) Prohheal 2 tbsp PO DAILY 08/16/22 05/13/23 History glipizide 10 mg tablet, extended 5 mg PO QAM 08/16/22 05/13/23 History release 24 hr apixaban 2.5 mg tablet (Eliquis) 2.5 mg PO BID 05/13/23 05/13/23 History Past Med/Surg History Medical History Hypothyroidism Ischemic cardiomyopathy EF 50% by July 2020 ECHO DM type 2 (diabetes mellitus, type 2) Carotid artery disease Per 07/01/2020 carotid duplex = right ICA 70-99%. 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 Medtronic - due for upgrade to BiV device Anemia Hypertension Surgical History Hx of CABG 2006 cabg x 3 at [place] Family History Sister Lung cancer smoker Other Family history non-contributory No family history of adverse response to anesthesia No family history of bleeding disorder Social History Smoking Status: Never smoker Second Hand Exposure: No; Do You Dip or Chew Tobacco: No; Hx Alcohol Use: No Hx Substance Use: No Preferred Language: Croatian Communication Ability: Effective Visual Impairment: Limited Hearing Ability: Use of Hearing Aid Qa Tech Required: No Beliefs That Will Affect Care: None marital status: Current Living Situation: Spouse current occupational status: retired How many Children do You have: 3 How many Children do You have Comment: All three children involved with care. Daughters live close to pt. Feels Safe at Home: Yes Safety Concerns: Feels Safe At This Time Diet: regular during the past year weight has: remained stable Assistive Devices: Bedside Commode, Denture - Upper, Lift Chair and Walker Review of Systems Review of Systems: As per HPI, all other systems reviewed and negative Physical Exam Physical Exam: GENERAL: Comfortable, obese, slightly hard of hearing, slightly anxious, no respiratory distress SKIN: Pallor, warm HEENT: Alopecia, bespectacled, pale palpebral conjunctivae, no ptosis, dry buccal mucosa NECK : Supple, short neck, no tenderness CHEST : Decreased breath sounds, no tenderness HEART : RRR, no obvious murmurs ABDOMEN: Some distention, nontender : scrotum not fully visualized EXTREMITIES : Minimal LE swelling, no LE tenderness, no other conspicuous deformities noted NEUROLOGIC : Coherent, no facial asymmetry, MMTS BUE 4/5, BLE 3/5, gait and stance not assessed Results & Data Results & Data Vital Signs (Past 12 Hours) Vital Signs Temp Pulse Resp BP Pulse Ox O2 Del Method 05/13/23 20:00 60 17 98 Room Air 05/13/23 19:31 67 20 104/58 L 95 Room Air 05/13/23 19:23 60 21 117/50 L 91 Room Air 05/13/23 19:00 60 15 97 Room Air 05/13/23 18:07 59 L 05/13/23 17:00 60 20 96 05/13/23 17:00 134/73 05/13/23 16:41 63 15 98 05/13/23 16:41 137/82 05/13/23 16:00 114/62 05/13/23 16:00 60 20 98 05/13/23 15:30 63 15 05/13/23 15:30 115/59 L 05/13/23 15:00 62 27 H 97 05/13/23 15:00 131/57 L 05/13/23 14:35 60 05/13/23 14:32 60 18 97 05/13/23 13:44 37.1 C 74 20 116/67 96 Room Air Laboratory Results Laboratory Results WBC 16.05 K/ul (4.8-10.8) H 05/13/23 14:25 RBC 4.18 M/uL (4.70-6.10) L 05/13/23 14:25 Hgb 13.0 g/dl (14.0-18.0) L 05/13/23 14:25 Hct 39.8 % (42.0-52.0) L 05/13/23 14:25 MCV 95.2 fL (80.0-100.0) 05/13/23 14:25 MCH 31.1 pg (25.0-34.0) 05/13/23 14:25 MCHC 32.7 g/dL (32.0-36.0) 05/13/23 14:25 RDW Std Deviation 49.9 fL (36.4-46.3) H 05/13/23 14:25 RDW Coeff of Jaymie 14.5 % (11.5-14.5) 05/13/23 14:25 Plt Count 189 K/uL (130-400) 05/13/23 14:25 MPV 10.8 fL (9.4-12.4) 05/13/23 14:25 Immature Gran % (Auto) 0.9 % 05/13/23 14:25 Neut % (Auto) 77.5 % 05/13/23 14:25 Lymph % (Auto) 14.1 % 05/13/23 14:25 [place] % (Auto) 6.6 % 05/13/23 14:25 Eos % (Auto) 0.5 % 05/13/23 14:25 Baso % (Auto) 0.4 % 05/13/23 14:25 Neut # (Auto) 12.44 K/uL (1.40-6.50) H 05/13/23 14:25 Lymph # (Auto) 2.27 K/uL (1.20-3.40) 05/13/23 14:25 [place] # (Auto) 1.06 K/uL (0.11-0.59) H 05/13/23 14:25 Eos # (Auto) 0.08 K/uL (0.00-0.50) 05/13/23 14:25 Baso # (Auto) 0.06 K/uL (0.00-0.20) 05/13/23 14:25 Immature Gran # (Auto) 0.14 K/uL (0.01-0.20) 05/13/23 14:25 Sodium 134 mmol/L (136-145) L 05/13/23 14:25 Potassium 4.4 mmol/L (3.5-5.1) 05/13/23 14:25 Chloride 101 mmol/L (98-107) 05/13/23 14:25 Carbon Dioxide 23 mmol/L (21-32) 05/13/23 14:25 Anion Gap 10 (3-11) 05/13/23 14:25 BUN 23 mg/dl (6-23) 05/13/23 14:25 Creatinine 1.44 mg/dl (0.6-1.4) H 05/13/23 14:25 Est Cr Clr Drug Dosing 48.8 ml/min 05/13/23 14:25 Est GFR ( Amer) 51.7 ml/min 05/13/23 14:25 Est GFR (Non-Af Amer) 44.6 ml/min 05/13/23 14:25 BUN/Creatinine Ratio 16.0 (10-20) 05/13/23 14:25 Glucose 158 mg/dl (70-99(Fasting)) H 05/13/23 14:25 POC Glucose 169 mg/dl (70-99) H 05/13/23 14:17 Calcium 9.4 mg/dl (8.6-10.3) 05/13/23 14:25 Magnesium 1.7 mg/dl (1.7-2.4) 05/13/23 14:25 Total Bilirubin 0.8 mg/dl (0.2-1.0) 05/13/23 14:25 AST 22 U/L (13-39) 05/13/23 14:25 ALT 11 U/L (7-52) 05/13/23 14:25 Alkaline Phosphatase 117 U/L (34-104) H 05/13/23 14:25 Total Creatine Kinase 84 U/L (30-223) 05/13/23 14:25 Troponin I High Sens 16.5 pg/ml (0-20) 05/13/23 14:25 Total Protein 8.1 gm/dl (6.0-8.3) 05/13/23 14:25 Albumin 3.9 gm/dl (3.4-5.0) 05/13/23 14:25 Globulin 4.2 gm/dl (2.5-4.0) H 05/13/23 14:25 Albumin/Globulin Ratio 0.9 (0.9-2) 05/13/23 14:25 Lipase 20 U/L (11-82) 05/13/23 14:25 Procalcitonin 0.07 ng/ml (0-0.5) 05/13/23 14:25 TSH 2.865 uIu/ml (0.300-4.500) 05/13/23 14:25 Urine Color Yellow 05/13/23 Unknown Urine Appearance Cloudy (Clear) A 05/13/23 Unknown Urine pH >= 9.0 (4.5-7.5) H 05/13/23 Unknown Ur Specific [place] 1.018 (1.000-1.030) 05/13/23 Unknown Urine Protein 1+ (Negative) H 05/13/23 Unknown Urine Glucose (UA) Negative (Negative) 05/13/23 Unknown Urine Ketones Negative (Negative) 05/13/23 Unknown Urine Blood 1+ (Negative) H 05/13/23 Unknown Urine Nitrite Positive (Negative) A 05/13/23 Unknown Urine Bilirubin Negative (Negative) 05/13/23 Unknown Urine Urobilinogen Negative (Negative) 05/13/23 Unknown Ur Leukocyte Esterase 3+ (Negative) H 05/13/23 Unknown Urine WBC (Auto) >30 /hpf (0-5) H 05/13/23 Unknown Urine RBC (Auto) 0-4 /hpf (0-4) 05/13/23 Unknown U Hyaline Cast (Auto) 1-5 /lpf (0-5) 05/13/23 Unknown U Epithel Cells (Auto) 5-10 /lpf (0-5) H 05/13/23 Unknown Urine Bacteria (Auto) 4+ (Negative) H 05/13/23 Unknown Impressions Cervical Spine CT 05/13/23 14:46 CT OF THE CERVICAL SPINE WITHOUT CONTRAST CLINICAL HISTORY: trauma COMPARISON STUDY: Cervical spine CT March 20, 2012. TECHNIQUE: Helical axial images of the cervical spine were obtained without IV contrast. Sagittal and coronal reconstructions were viewed. Automated exposure control was utilized for the study. A dose lowering technique was utilized adhering to the principles of ALARA. FINDINGS: Reversal of the cervical lordosis has slightly increased when compared to prior exam. Vertebral body heights are maintained. No acute cervical spine fracture or subluxation is present. There is no prevertebral edema. Facet joints are intact. Moderate multilevel degenerative disc disease and facet arthrosis is present within the cervical spine. Prominent right paratracheal lymph node is unchanged and CT of March 20, 2022. This is likely benign. IMPRESSION: No acute cervical spine fracture or subluxation. ACT 112: Negative or not required by law. Electronically signed by: Gurinder No M.D. 05/13/2023 5:04 PM Chest X-Ray 05/13/23 14:46 XR chest 1V portable CLINICAL HISTORY: trauma COMPARISON STUDY: Chest radiograph March 20, 2022. FINDINGS: A right subclavian pacer, median sternotomy wires and mediastinal surgical clips are again noted. Moderate cardiomegaly is unchanged. There is no pneumothorax or pleural fusion. There is no consolidation to suggest pneumonia. Pulmonary vascularity is normal. There are several old right rib fractures. IMPRESSION: No acute cardiopulmonary findings. No change in appearance of the chest. ACT 112: Negative or not required by law. Electronically signed by: Gurinder No M.D. 05/13/2023 3:[address] 05/13/23 14:46 CT OF THE HEAD WITHOUT CONTRAST CLINICAL HISTORY: trauma COMPARISON STUDY: Head CT March 20, 2022. CT DOSE: 2677.39 mGy.cm TECHNIQUE: Helical axial images of the head were obtained without IV contrast. Automated exposure control was utilized for the study. A dose lowering technique was utilized adhering to the principles of ALARA. FINDINGS: No acute intracranial hemorrhage, midline shift or mass effect is present. Moderate atrophy is again noted. 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 White matter hypodensity suggests small vessel disease. The ventricular system is unremarkable. The basal cisterns are patent. No extra-axial collections are present. There are no findings to suggest acute dural sinus thrombosis or acute territorial infarct. No significant calvarial abnormalities are present. Visualized portions of the sinuses and mastoid air cells are clear. IMPRESSION: 1. No acute intracranial findings. No significant change in appearance of the brain. 2. No calvarial fractures. ACT 112: Negative or not required by law. Electronically signed by: Gurinder No M.D. 05/13/2023 4:51 PM Knee X-Ray 05/13/23 14:46 XR knee LT 1 or 2V routine CLINICAL HISTORY: trauma COMPARISON: None FINDINGS: Alignment of the left knee is anatomic. There is no acute fracture. No joint effusion. There is moderate to severe patellofemoral compartment joint space narrowing and osteophytosis. There is chondrocalcinosis within the menisci. Surgical clips within the medial left knee are present. IMPRESSION: 1. No acute fracture. No left knee joint effusion. 2. 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 ACT 112: Negative or not required by law. Electronically signed by: Gurinder No M.D. 05/13/2023 3:51 PM Pelvis X-Ray 05/13/23 14:46 XR pelvis 1-2V routine CLINICAL HISTORY: trauma COMPARISON: Pelvis radiograph March 20, 2022. CT of the abdomen and pelvis August 16, 2022. FINDINGS: A Santacruz catheter is incidentally noted. Sacroiliac joints and symphysis pubis are intact. No acute fracture is identified within the pelvis or hips although evaluation of the proximal left femur is suboptimal given difficulty positioning. IMPRESSION: No acute fracture within the pelvis or hips although evaluation of the proximal left femur is suboptimal given difficulty positioning. ACT 112: Negative or not required by law. Electronically signed by: Gurinder No M.D. 05/13/2023 3:[address] 05/13/23 14:54 CT lumbar spine wo con CLINICAL HISTORY: trauma COMPARISON STUDY: Lumbar spine CT December 01, 2018. TECHNIQUE: Axial images of the lumbar spine were obtained without IV contrast. Sagittal and coronal reconstructions were viewed. Automated exposure control was utilized for the study. A dose lowering technique was utilized adhering to the principles of ALARA. FINDINGS: Vertebral body heights are maintained. There is no acute lumbar spine fracture. Severe multilevel degenerative disc disease and facet arthrosis is similar to prior CT. Central canal and neural foramen are suboptimally assessed given CT technique. Paravertebral soft tissues are unremarkable. Infrarenal abdominal aorta is ectatic, measuring 2.9 cm. There are gallstones within the gallbladder. Hepatic steatosis. IMPRESSION: 1. No acute lumbar spine fracture or subluxation. 2. Severe multilevel degenerative changes within the lumbar spine. ACT 112: Negative or not required by law. Electronically signed by: Gurinder No M.D. 05/13/2023 5:08 PM Diagnostic Findings EKG as per my interpretation :Rate 75, PVCs
[2023-05-13] MEDS ORDERED: PROMETHAZINE HCL 6.25 MG in SODIUM CHLORIDE 0.9% 50 ML IV PRN (20:55)
[2023-05-13] MEDS ORDERED: traMADol HCL 50 MG TABLET PO PRN (20:55)
[2023-05-13] MEDS: DOXYCYCLINE HYCLATE 100 MG in DEXTROSE 5% MINI-B 100 ML IV STA (21:32)
[2023-05-13] MEDS: CEFEPIME 2,000 MG/20 ML VIAL IV STA (21:32)
[2023-05-13] MEDS: SODIUM CHLORIDE 0.9% 1,000 ML IV STA (21:33)
[2023-05-13] MEDS ORDERED: GLUCOSE 40% GEL 15 GM TUBE PO PRN (21:47)
[2023-05-13] MEDS ORDERED: DEXTROSE 50% 50 ML SYRINGE IV PRN (21:47)
[2023-05-13] MEDS ORDERED: GLUCOSE 10 TAB/TUBE PO PRN (21:47)
[2023-05-13] MEDS ORDERED: CARBOHYDRATES FOR HYPOGLYCEMIA PO PRN (21:47)
[2023-05-13] MEDS ORDERED: GLUCAGON FOR INJ 1 MG VIAL SQ PRN (21:47)
[2023-05-13] MEDS ORDERED: ACETAMINOPHEN 325 MG TAB PO PRN (21:47)
[2023-05-13 22:19] LABS: Hemoglobin 12.3 g/dl (14.0-18.0)
[2023-05-13] MEDS: TAMSULOSIN HCL 0.4 MG CAP PO SCH (22:23)
[2023-05-13] MEDS: INSULIN ASPART PER UNIT CHARGE SC SCH (22:25)
--- NOTE | 2023-05-13 23:23 | Ultrasound Report ---
Exam(s): US SCROTAL EXAM: US Scrotum CLINICAL HISTORY: Reason for exam: swelling. TECHNIQUE: Real-time ultrasound of the scrotum with color Doppler and image documentation. COMPARISON: No relevant prior studies available. FINDINGS: Right testicle: Mild heterogeneous echotexture of the bilateral testicles, which is nonspecific. No significant hypervascularity to indicate orchitis. No ultrasound evidence of testicular torsion. Left testicle: See above. Epididymides: Unremarkable. Scrotum: Unremarkable. IMPRESSION: Mild heterogeneous echotexture of the bilateral testicles, which is nonspecific. No significant hypervascularity to indicate orchitis. The need for urology evaluation should be determined clinically. Electronically signed by: Ziayd Leroy MD 05/13/23 23:21 PM
[2023-05-14] MEDS: LEVOTHYROXINE SODIUM 125 MCG TABLET PO SCH (05:57)
[2023-05-14 07:36] LABS: Estimated Average Glucose 180 mg/dl; Hemoglobin A1C 7.9 % (4.5-5.6)
[2023-05-14] MEDS: ATORVASTATIN 40 MG TAB PO SCH (08:41)
[2023-05-14] MEDS: DOXYCYCLINE HYCLATE 100 MG CAP PO SCH (08:42)
[2023-05-14] MEDS: FINASTERIDE 5 MG TAB PO SCH (08:42)
[2023-05-14] MEDS: FOLIC ACID 1 MG TAB PO SCH (08:42)
[2023-05-14] MEDS: ADVANCED PROBIOTIC 625 MG CAPSULE PO SCH (08:43)
[2023-05-14] MEDS: METOPROLOL SUCC 25MG EXT REL TAB PO SCH (08:44)
[2023-05-14] MEDS: CEROVITE ADV FORMULA TAB PO SCH (08:45)
[2023-05-14] MEDS: CEFEPIME 2,000 MG in SYRINGE 0 ML IV SCH (11:27)
--- NOTE | 2023-05-14 17:27 | Hospitalist Progress Note ---
Date of Service May 14, 2023 Assessment & Plan (1) Complicated UTI (urinary tract infection): Plan: Per admitting service notes with addendum History BPH, chronic indwelling Santacruz catheter No overt sepsis for now Recurrent falls: Underlying ambulatory dysfunction Chronic lumbar radiculopathy, neuropathy Urine culture: Pending Continue cefepime IV day #1 Possible scrotal cellulitis, dried blood noted on patient's diaper, no sepsis for now Testicular ultrasound: No abscess Continue doxycycline day #1 Bilateral posterior thigh pain Likely muscular strain secondary to fall Tylenol 650 every 6 hours scheduled chronic diastolic heart failure, patient euvolemic to dry CAD status post CABG/PVD Paroxysmal atrial fibrillation ,SSS status post PPM on Eliquis -Eliquis on hold in light of elbow and scrotal bleeding Likely resume tomorrow hypertension, stable hyperlipidemia on statin Rx history traumatic subdural hematoma DM2 on oral medications, well-controlled as of last hemoglobin A1c of 6.4 last July 2022 hypothyroidism, euthyroid as of today's TSH CRI, creatinine at baseline chronic anemia, hemoglobin better than baseline history of esophageal stricture status post dilatation sacral decubitus ulcer as per records Increased debility/functional disability PT OT eval Fall precautions Social service re: discharge planning, placement, patient family [facility] at [facility] in [place] DVT prophylaxis. SCDs for now while Eliquis on hold re: scrotal skin bleed, extremity bruising from recurrent falls Full code Admission and Anticipated Discharge Date Admission Date: May 13, 2023 Subjective Follow-up for UTI, scrotal cellulitis, ambulatory dysfunction, etc. Seen resting in bed, not in distress States he feels very tired, unable to have a good night sleep overnight Denies abdominal pain, bladder spasms, fevers or chills Denies scrotal pain Reports pain on the muscles at the back of his thighs, attributes to recent fall No leg weakness or numbness No other new symptoms Review of Systems Review of Systems: all noted and negative except for above Physical Exam Physical Exam: General- oriented x 3, not in distress, speaks in sentences with no effort or accessory muscle use Eyes- anicteric Neck- no JVD Lungs- clear breath sounds bilaterally, no crackles or wheezing Heart- normal rate, regular rhythm; no murmurs Abdomen- normal bowel sounds, nondistended, soft, nontender Santacruz catheter in place Draining yellow urine Scrotum -Areas of erosions noted with mild eryth bryan, no tenderness No bleeding Extremities- no pretibial edema, no calf tenderness Small abrasions bilateral knees Neuro- alert, oriented x 3; no gross focal neurologic deficits Skin- warm & dry Results & Data Results & Data Vital Signs (Past 12 Hours) Vital Signs Temp Pulse Pulse Resp BP BP Pulse Ox 05/14/23 15:15 36.8 C 62 16 139/79 05/14/23 10:00 60 26 H 94 05/14/23 10:00 120/53 L 05/14/23 09:01 118/47 L 05/14/23 09:01 60 32 H 96 05/14/23 09:00 51 L 22 05/14/23 08:44 114/49 L 05/14/23 08:44 60 24 94 05/14/23 08:00 61 23 98 05/14/23 08:00 123/51 L 05/14/23 07:11 67 05/14/23 07:00 60 20 94 05/14/23 07:00 136/59 L O2 Del Method 05/14/23 15:15 Room Air 05/14/23 10:00 05/14/23 10:00 05/14/23 09:01 05/14/23 09:01 05/14/23 09:00 05/14/23 08:44 05/14/23 08:44 05/14/23 08:00 05/14/23 08:00 05/14/23 07:11 05/14/23 07:00 05/14/23 07:00 all noted and reviewed including below
[2023-05-14] MEDS: ACETAMINOPHEN 325 MG TAB PO SCH (17:52)
[2023-05-15] MEDS ORDERED: ADVANCED PROBIOTIC 625 MG CAPSULE PO SCH (13:30)
--- NOTE | 2023-05-15 13:32 | Hospitalist Progress Note ---
Date of Service May 15, 2023 Assessment & Plan (1) Complicated UTI (urinary tract infection): Plan: Per admitting service notes with addendum UTI HISTORY BPH, CHRONIC INDWELLING RAMIREZ CATHETER Urine culture: E. coli, pansensitive Change cefepime IV to ceftriaxone IV-antibiotic day #2 RECURRENT FALLS Underlying ambulatory dysfunction Chronic lumbar radiculopathy, neuropathy PT and OT evaluation Will need to transition to acute rehab/fci facility POSSIBLE SCROTAL CELLULITIS Testicular ultrasound: No abscess Continue doxycycline day #2 BILATERAL POSTERIOR THIGH PAIN Likely muscular strain secondary to fall Tylenol 650 every 6 hours scheduled Improving CHRONIC DIASTOLIC HEART FAILURE No signs of overt volume overload CAD STATUS POST CABG/PVD PAROXYSMAL ATRIAL FIBRILLATION ON ELIQUIS,SSS STATUS POST PPM Continue metoprolol, Eliquis hypertension, stable hyperlipidemia on statin Rx history traumatic subdural hematoma DM2 on oral medications, well-controlled as of last hemoglobin A1c of 6.4 last July 2022 hypothyroidism, euthyroid as of today's TSH CRI, creatinine at baseline chronic anemia, hemoglobin better than baseline history of esophageal stricture status post dilatation sacral decubitus ulcer as per records PT OT eval Fall precautions Social service re: discharge planning, placement, patient family looking at [facility] in [place] DVT prophylaxis. On usual Eliquis Full code Admission and Anticipated Discharge Date Admission Date: May 13, 2023 Subjective Follow-up for ambulatory dysfunction, UTI, scrotal cellulitis, etc. Seen resting in bed, watching TV In good spirits, comfortable, not in distress States he feels somewhat improved compared to yesterday Last week, less leg pain No fevers or chills No abdominal pain, nausea or vomiting No other new symptoms Review of Systems Review of Systems: all noted and negative except for above Physical Exam Physical Exam: General- oriented x 3, not in distress, speaks in sentences with no effort or accessory muscle use Eyes- anicteric Neck- no JVD Lungs- clear breath sounds bilaterally, no rales/wheezes Heart- normal rate, regular rhythm; no murmurs Abdomen- normal bowel sounds, nondistended, soft, no tenderness Ramirez catheter in place Scrotum-mild erythema, no bleeding Extremities- no pretibial edema, no calf tenderness Neuro- alert, oriented x 3; no new gross focal neurologic deficits Skin- warm & dry Results & Data Results & Data Vital Signs (Past 12 Hours) Vital Signs Temp Pulse Resp BP Pulse Ox O2 Del Method 05/15/23 07:25 36.5 C 59 L 17 114/63 95 Room Air all noted and reviewed including below
[2023-05-15] MEDS: APIXABAN 2.5 MG TAB PO SCH (21:17)
[2023-05-15] MEDS: cefTRIAXone SODIUM 2,000 MG in DEXTROSE 5 % MINI-B 50 ML IV SCH (21:17)
[2023-05-16 06:39] LABS: Creatinine Clr Calc Pharmacy 53.6 ml/min; Est GFR (African American) 57.9 ml/min
--- NOTE | 2023-05-16 15:19 | Hospitalist Progress Note ---
Date of Service May 16, 2023 Assessment & Plan (1) Complicated UTI (urinary tract infection): Plan: RECURRENT FALLS Underlying ambulatory dysfunction Chronic lumbar radiculopathy, neuropathy Patient presents from home with recurrent falls. History of lumbar radiculopathy and diabetic neuropathy CT of lumbar spine shows severe multi level degenerative changes within the lumbar spine On examination, patient has significant neuropathy Continue PT OT while admitted Plan to transition to rehab in next few days. Bowel regimen ordered for constipation UTI HISTORY BPH, CHRONIC INDWELLING RAMIREZ CATHETER Urine culture: Proteus; pansensitive Plan to treat with ceftriaxone for total of 7 days; changed to oral at discharge POSSIBLE SCROTAL CELLULITIS Testicular ultrasound: No abscess On ceftriaxone and doxycycline; plan to treat for 7 days. BILATERAL POSTERIOR THIGH PAIN Likely muscular strain secondary to fall Tylenol 650 every 6 hours scheduled Improving CHRONIC DIASTOLIC HEART FAILURE No signs of overt volume overload CAD STATUS POST CABG/PVD PAROXYSMAL ATRIAL FIBRILLATION ON ELIQUIS,SSS STATUS POST PPM Continue metoprolol, Eliquis hypertension, stable hyperlipidemia on statin Rx history traumatic subdural hematoma DM2 on oral medications, well-controlled as of last hemoglobin A1c of 6.4 last July 2022 hypothyroidism, euthyroid as of today's TSH CRI, creatinine at baseline chronic anemia, hemoglobin better than baseline history of esophageal stricture status post dilatation sacral decubitus ulcer as per records PT OT eval recommend rehab; forced choice is sent to care. Discussed with case management. Discharge when bed is available Fall precautions DVT prophylaxis. On usual Eliquis Full code Please note the above document was generated using voice recognition software. It may contain grammatical, syntax or spelling errors. Any formal questions or concerns about the content, text or information contained within the body of this dictation should be directly addressed to the provider for clarification Admission and Anticipated Discharge Date Admission Date: May 13, 2023 Subjective Patient seen and examined at bedside. He is sitting up on the bed eating lunch; not in distress. He denies fever, chills, chest pain, shortness of breath or abdominal pain. No bowel movement since last few days Review of Systems Review of Systems: All systems reviewed & are unremarkable except as noted in Subjective Physical Exam Physical Exam: General- oriented x 3, not in distress, speaks in sentences with no effort or accessory muscle use Lungs- clear breath sounds bilaterally, no rales/wheezes Heart- normal rate, regular rhythm; no murmurs Abdomen- normal bowel sounds, nondistended, soft, no tenderness Ramirez catheter in place Scrotum-mild erythema, no bleeding Extremities- no pretibial edema, no calf tenderness Neuro- alert, oriented x 3; no new gross focal neurologic deficits. Bilateral lower extremity 4 x 5; sensation decreased in tip of the bilateral lower extremity toes. Skin- warm & dry Results & Data Results & Data Vital Signs (Past 12 Hours) Vital Signs Temp Pulse Resp BP Pulse Ox O2 Del Method 05/16/23 07:24 36.4 C L 66 15 125/80 95 Room Air
[2023-05-16] MEDS: MAGNESIUM HYDROXIDE SUSP 30 ML UDC PO ONE (15:42)
[2023-05-16] MEDS: POLYETHYLENE (MIRALAX) 17 GM PACK PO SCH (15:42)
--- NOTE | 2023-05-16 15:50 | Ultrasound Report ---
US renal/blad retro comp CLINICAL HISTORY: Rule out obstruction TECHNIQUE: Multiple sonographic real-time images of the kidneys and bladder were obtained. COMPARISON: Comparison is made to renal ultrasound 08/16/2022 FINDINGS: The right kidney measures 10.4 cm in length, and the left kidney measures 11.0 cm in length. The right kidney is normal in size, contour, cortical thickness, and echogenicity. No hydronephrosis is identified. A cyst is noted measuring 1.6 cm. The left kidney is normal in size, contour, cortical thickness and echogenicity. No hydronephrosis i s identified. No renal lesion is identified. A Santacruz catheter is seen in the collapsed bladder. No large intraluminal mass is seen. IMPRESSION: Unremarkable renal ultrasound. ACT 112: Negative or not required by law. Electronically signed by: Robi Barnes M.D. 05/16/2023 3:48 PM
[2023-05-17 07:24] LABS: Basophils # (auto) 0.06 K/uL (0.00-0.20); Basophils % (auto) 0.7 %; Eosinophils # (auto) 0.19 K/uL (0.00-0.50); Eosinophils % (auto) 2.1 %; Hematocrit (blood only) 32.5 % (42.0-52.0); Hemoglobin 11.2 g/dl (14.0-18.0); Immature Granulocytes # (auto) 0.08 K/uL (0.01-0.20); Immature Granulocytes % (auto) 0.9 %; Lymphocytes # (auto) 1.95 K/uL (1.20-3.40); Lymphocytes % (auto) 21.8 %; Mean Corpuscular Hemoglobin 31.8 pg (25.0-34.0); Mean Corpuscular Hgb Conc 34.5 g/dL (32.0-36.0); Mean Corpuscular Volume 92.3 fL (80.0-100.0); Mean Platelet Volume 10.7 fL (9.4-12.4); Monocytes # (auto) 0.85 K/uL (0.11-0.59); Monocytes % (auto) 9.5 %; Neutrophils # (auto) 5.81 K/uL (1.40-6.50); Platelet Count 175 K/uL (130-400); RDW Coefficient of Variation 14.6 % (11.5-14.5); RDW Standard Deviation 49.1 fL (36.4-46.3); Red Blood Count 3.52 M/uL (4.70-6.10); White Blood Count 8.94 K/ul (4.8-10.8)
[2023-05-17 07:47] LABS: BUN Creatinine Ratio 17.5 (10-20); Calcium 8.9 mg/dl (8.6-10.3); Creatinine Clr Calc Pharmacy 51.3 ml/min; Est GFR (African American) 54.9 ml/min; Est GFR (Non-African American) 47.4 ml/min; Potassium 4.2 mmol/L (3.5-5.1)
[2023-05-17] MEDS: MAGNESIUM HYDROXIDE SUSP 30 ML UDC PO ONE (11:01)
--- NOTE | 2023-05-17 13:14 | Hospitalist Progress Note ---
Date of Service May 17, 2023 Assessment & Plan (1) Complicated UTI (urinary tract infection): Plan: RECURRENT FALLS Underlying ambulatory dysfunction Chronic lumbar radiculopathy, neuropathy Patient presents from home with recurrent falls. History of lumbar radiculopathy and diabetic neuropathy CT of lumbar spine shows severe multi level degenerative changes within the lumbar spine On examination, patient has significant neuropathy Continue PT OT while admitted Plan to transition to rehab in next few days. tap water enema UTI HISTORY BPH, CHRONIC INDWELLING RAMIREZ CATHETER Urine culture: Proteus; pansensitive Plan to treat with ceftriaxone for total of 7 days; changed to oral at discharge Renal USG- no hydronephrosis POSSIBLE SCROTAL CELLULITIS Testicular ultrasound: No abscess On ceftriaxone and doxycycline; plan to treat for 7 days. BILATERAL POSTERIOR THIGH PAIN Likely muscular strain secondary to fall Tylenol 650 every 6 hours scheduled Improving CHRONIC DIASTOLIC HEART FAILURE No signs of overt volume overload CAD STATUS POST CABG/PVD PAROXYSMAL ATRIAL FIBRILLATION ON ELIQUIS,SSS STATUS POST PPM Continue metoprolol, Eliquis hypertension, stable hyperlipidemia on statin Rx history traumatic subdural hematoma DM2 on oral medications, well-controlled as of last hemoglobin A1c of 6.4 last July 2022 hypothyroidism, euthyroid as of today's TSH CRI, creatinine at baseline chronic anemia, hemoglobin better than baseline history of esophageal stricture status post dilatation sacral decubitus ulcer as per records PT OT eval recommend rehab; Discussed with case management. Discharge when bed is available Fall precautions DVT prophylaxis. On usual Eliquis Full code Please note the above document was generated using voice recognition software. It may contain grammatical, syntax or spelling errors. Any formal questions or concerns about the content, text or information contained within the body of this dictation should be directly addressed to the provider for clarification Admission and Anticipated Discharge Date Admission Date: May 13, 2023 Subjective Patient seen and examined at bedside. Is lying on the bed comfortably; not in distress. No bowel movement yet. Review of Systems Review of Systems: All systems reviewed & are unremarkable except as noted in Subjective Physical Exam Physical Exam: General- oriented x 3, not in distress, speaks in sentences with no effort or accessory muscle use Lungs- clear breath sounds bilaterally, no rales/wheezes Heart- normal rate, regular rhythm; no murmurs Abdomen- normal bowel sounds, nondistended, soft, no tenderness Ramirez catheter in place Scrotum-mild erythema, no bleeding Extremities- no pretibial edema, no calf tenderness Neuro- alert, oriented x 3; no new gross focal neurologic deficits. Bilateral lower extremity 4 x 5; sensation decreased in tip of the bilateral lower extremity toes. Skin- warm & dry Results & Data Results & Data Vital Signs (Past 12 Hours) Vital Signs Temp Pulse Resp BP Pulse Ox O2 Del Method 05/17/23 07:23 36.6 C 66 18 133/73 94 Room Air
[2023-05-18] MEDS: DOCUSATE SODIUM 100 MG CAP PO PRN (08:14)
[2023-05-18 08:42] LABS: Basophils # (auto) 0.06 K/uL (0.00-0.20); Basophils % (auto) 0.7 %; Eosinophils # (auto) 0.23 K/uL (0.00-0.50); Eosinophils % (auto) 2.6 %; Hematocrit (blood only) 33.6 % (42.0-52.0); Hemoglobin 10.9 g/dl (14.0-18.0); Immature Granulocytes % (auto) 1.1 %; Lymphocytes # (auto) 2.72 K/uL (1.20-3.40); Lymphocytes % (auto) 31.1 %; Mean Corpuscular Hemoglobin 30.6 pg (25.0-34.0); Mean Corpuscular Hgb Conc 32.4 g/dL (32.0-36.0); Mean Corpuscular Volume 94.4 fL (80.0-100.0); Mean Platelet Volume 10.6 fL (9.4-12.4); Monocytes # (auto) 1.02 K/uL (0.11-0.59); Monocytes % (auto) 11.6 %; Neutrophils # (auto) 4.63 K/uL (1.40-6.50); Neutrophils % (auto) 52.9 %; Platelet Count 187 K/uL (130-400); RDW Coefficient of Variation 14.7 % (11.5-14.5); RDW Standard Deviation 51.5 fL (36.4-46.3); Red Blood Count 3.56 M/uL (4.70-6.10); White Blood Count 8.76 K/ul (4.8-10.8)
[2023-05-18 08:58] LABS: Albumin Globulin Ratio 0.9 (0.9-2); Albumin Level 3.3 gm/dl (3.4-5.0); BUN Creatinine Ratio 20.7 (10-20); Bilirubin,Total 0.3 mg/dl (0.2-1.0); Calcium 8.9 mg/dl (8.6-10.3); Creatinine Clr Calc Pharmacy 48.5 ml/min; Est GFR (African American) 51.2 ml/min; Est GFR (Non-African American) 44.2 ml/min; Globulin 3.6 gm/dl (2.5-4.0); Potassium 4.1 mmol/L (3.5-5.1); Total Protein 6.9 gm/dl (6.0-8.3)
[2023-05-18] MEDS: SOD PHOSPHATE/SOD BIPHOSPHATE ENEMA 132 ML BTL PR STA (09:32)
--- NOTE | 2023-05-18 13:17 | Discharge Summary ---
Date of Service May 18, 2023 Admission HPI Per Admitting Provider History obtained from patient, family, and records. Medical history significant for chronic diastolic heart failure (EF 50 to 54%, 2020), CAD status post CABG, SSS status post PPM on Coumadin, PVD, hypertension, hyperlipidemia, history traumatic subdural hematoma, DM2 on oral medications, hypothyroidism, CRI (baseline creatinine 1.7), chronic anemia (baseline hemoglobin of 11-12), BPH, chronic indwelling Santacruz catheter, chronic back pain/lumbar radiculopathy, ambulatory dysfunction, history of esophageal stricture status post dilatation, history neuropathy as per family, sacral decubitus ulcer as per records Last confinement July 2022 for complicated UTI, hematuria. Patient unable to leave home over the last few months due to ambulatory dysfunction from neuropathy and chronic back pain. Right leg would give out from time to time leading to falls. Last night, patient had a fall after right leg gave out. Some head trauma without LOC. No chest pain, no SOB. EMS had to be called to help patient's family get patient up. Bleeding bruises noted over left elbow and knees. Patient had another fall today with right leg giving out. Usual back pain, no fever, no chills. Patient family also noted possible scrotal swelling with intermittently bleeding bloody drainage. Patient denies pain. Family does not feel they can care for patient at home anymore given increased debility and multiple comorbidities. Medical History as above Surgical History : CABG, PPM Family History : Heart disease, AAA Personal/Social history : Non-smoker, no EtOH intake, lives with Admission Exam Per Admitting Provider GENERAL: Comfortable, obese, slightly hard of hearing, slightly anxious, no res piratory distress SKIN: Pallor, warm HEENT: Alopecia, bespectacled, pale palpebral conjunctivae, no ptosis, dry buccal mucosa NECK : Supple, short neck, no tenderness CHEST : Decreased breath sounds, no tenderness HEART : RRR, no obvious murmurs ABDOMEN: Some distention, nontender : scrotum not fully visualized EXTREMITIES : Minimal LE swelling, no LE tenderness, no other conspicuous de formities noted NEUROLOGIC : Coherent, no facial asymmetry, MMTS BUE 4/5, BLE 3/5, gait and stance not assessed Principal Diagnosis Catheter associated UTI, POA Recurrent falls Discharge Exam General- oriented x 3, not in distress, speaks in sentences with no effort or accessory muscle use Lungs- clear breath sounds bilaterally, no rales/wheezes Heart- normal rate, regular rhythm; no murmurs Abdomen- normal bowel sounds, nondistended, soft, no tenderness Santacruz catheter in place Scrotum-mild erythema, no bleeding Extremities- no pretibial edema, no calf tenderness Neuro- alert, oriented x 3; no new gross focal neurologic deficits. Bilateral lower extremity 4 x 5; sensation decreased in tip of the bilateral lower extremity toes. Skin- warm & dry Discharge Data Allergies Allergy/AdvReac Type Severity Reaction Status Date / Time isosorbide AdvReac Intermediate Headache Verified 05/13/23 18:03 mirabegron AdvReac Intermediate falls Verified 05/13/23 18:03 isopropyl alcohol AdvReac "isopropyl Verified 05/13/23 18:03 isostearate" = headaches Consultations 05/13/23 19:30 ED Decision to Admit Stat Ordered Studies 05/13/23 14:46 CT cervical spine wo con Stat CT head/brain wo con Stat 05/13/23 14:54 CT lumbar spine wo con Stat 05/13/23 20:47 US scrotum/testicle Stat 05/16/23 12:49 US Renal Bladder [US renal/blad retro comp] Routine Hospital Course (1) Complicated UTI (urinary tract infection): Patient is a 83-year-old male with past medical history of chronic diastolic heart failure (EF 50 to 54%, 2020), CAD status post CABG, SSS status post PPM on Coumadin, PVD, hypertension, hyperlipidemia, history traumatic subdural hematoma, DM2 on oral medications, hypothyroidism, CRI (baseline creatinine 1.7), chronic anemia (baseline hemoglobin of 11-12), BPH, chronic indwelling Fo breann catheter, chronic back pain/lumbar radiculopathy, ambulatory dysfunction, history of esophageal stricture status post dilatation presents with recurrent falls. RECURRENT FALLS Underlying ambulatory dysfunction Chronic lumbar radiculopathy, neuropathy Patient presents from home with recurrent falls. History of lumbar radiculopathy and diabetic neuropathy CT of lumbar spine shows severe multi level degenerative changes within the lumbar spine PT OT evaluation was done; patient was recommended to go to rehab for further physical and Occupational Therapy. [facility] CAD UTI, POA History of chronic indwelling catheter Urine culture: Proteus; pansensitive Plan to treat with ceftriaxone for total of 7 days; changed to Augmentin at discharge. Needs to have Santacruz exchanged every 28 days. No other medication changes were done. Please note the above document was generated using voice recognition software. It may contain grammatical, syntax or spelling errors. Any formal questions or concerns about the content, text or information contained within the body of this dictation should be directly addressed to the provider for clarification Total Time Total Time Spent Total Time Spent (In Minutes): 35 Total Time Includes: Examination of the Patient, Discharge Planning, Medication Reconciliation, Communication With Other Providers and Other Discharge Plan Discharge Items Patient Disposition: Transfer Intermediate Fac Reason For Visit: COMP UTI Discharge Diagnosis: Ambulatory dysfunction CAUTI, POA Activity: Resume your previous activity Non-emergency contact: Primary Care Provider Call non-emergency contact if: you have any medication questions and your symptoms worsen Follow-up/Referrals: [facility] [Primary Care Provider] - Diet: Regular Addtl Attending Provider Instructions: You were admitted to the hospital after a fall. You were evaluated by physical therapy and Occupational Therapy; they recommended continued PT and OT at the rehab. You are also found to have UTI for which you are prescribed 4 more days of antibiotics to complete the antibiotic course. You are prescribed daily as needed MiraLAX and Magnesium for constipation. Please follow-up with PCP after discharge The Santacruz catheter needs to be exchanged every 28 days. The last time it was changed was on May 11, 2023. It should be changed on June 07, 2023. Pending Studies at Discharge: No Stand-Alone Forms: My [facility] Skilled Items Patient informed of condition?: Yes DNR: No Discharge Level of Care: Skilled Communicable Disease: No Discharge Prognosis: Stable Lines: None Urinary Catheter: No Medications and DC Order Prescriptions: New polyethylene glycol 3350 17 gram/dose powder 17 g PO DAILY PRN (Reason: constipation) 30 Days Qty: 510 0RF magnesium hydroxide [Milk of Magnesia] 400 mg/5 mL suspension 15 ml PO DAILY PRN (Reason: constipation) Qty: 355 0RF amoxicillin-pot clavulanate 875-125 mg tablet 1 tab PO BID 4 Days Qty: 8 0RF Continued Lactobacillus acidophilus 500 million cell tablet 500 mmu cells PO DAILY Prohheal liquid 2 tbsp PO DAILY furosemide 40 mg Tablet 20 mg PO QAM Qty: 30 0RF atorvastatin 80 mg Tablet 80 mg PO QAM Qty: 30 0RF acetaminophen [Tylenol] 325 mg Tablet 650 mg PO Q6H PRN (Reason: Pain) Qty: 50 0RF metoprolol succinate 50 mg tablet extended release 24 hr 50 mg PO DAILY Qty: 30 0RF glipizide 10 mg tablet extended release 24hr 5 mg PO QAM Qty: 30 0RF cyanocobalamin (vitamin B-12) [Vitamin B-12] 500 mcg Tablet 500 mcg PO QAM Qty: 30 0RF tamsulosin 0.4 mg capsule 0.4 mg PO HS Qty: 30 0RF levothyroxine 125 mcg Tablet 125 mcg PO DAILYBB Qty: 30 0RF docusate sodium 100 mg Capsule 100 mg PO BID PRN (Reason: Constipation) Qty: 30 0RF aspirin 81 mg Tablet,Chewable 81 mg PO DAILY Qty: 30 0RF zinc gluconate 50 mg Tablet 50 mg PO DAILY Qty: 30 0RF folic acid 1 mg Tablet 1 mg PO QAM Qty: 30 0RF finasteride 5 mg Tablet 5 mg PO DAILY Qty: 30 0RF Centrum 18-400 mg-mcg Tablet 1 tab PO DAILY Qty: 30 0RF Eliquis 2.5 mg Tablet 2.5 mg PO BID Qty: 60 0RF Vitron-C 65 mg iron- 125 mg tablet,delayed release (DR/EC) 1 tab PO .Mwf Qty: 30 0RF potassium chloride 20 mEq tablet extended release 20 meq PO DAILY Qty: 30 0RF Discharge Orders: Discharge Order (Routine); Ordered 05/18/23 Ordered By: Keron Scott/Other Patient Handouts: Managing Type 2 Diabetes Admission Data Admit Date/Time: 05/13/23 20:51 Attending Provider: Keron Vergara Admit Provider: Antonio Wing Primary Care Provider: [facility] Other Providers: Antonio Wing; [facility]; [place]; [facility] Other Interventions: Discharge Summary Assessment (RN) Last Done: 05/18/23 12:33
== END 2023-05-18 13:09 | DRG 699 ==
LOC: ED 13:53 → EDINP 20:51 → SUATTDRO 20:51 → 3E 05-14 15:19